=== PATIENT | female | born 1950 | race Caucasian/White ===

== ENCOUNTER 2018-02-10 08:25 | Outpatient (REF) | payer MEDICARE, MEDICAID, SELFPAY ==
[2018-02-10 14:26] LABS: TSH (W/Ref FT4) 0.55 uIU/mL (0.358-3.74)
== END 2018-02-10 08:45 ==
LOC: NCHCN 08:25
PROVIDERS: PCP Nurse Practitioner; Visit Provider Nurse Practitioner
DX: E03.9 Hypothyroidism, unspecified (principal)
CPT/HCPCS: 84443

== ENCOUNTER 2018-03-06 06:05 | Day surgery (SDC) | payer MEDICARE, MEDICAID, SELFPAY ==
--- NOTE | 2018-03-04 20:27 | POEE_ITS ---
History of Present Illness Chief Complaint: Progressive decreased vision, left eye Narrative: The patient is a 67-year old lady with history of high hyperopia with bilateral amblyopia. She presented with complaints of diminished visual acuity in her good right eye, having difficulty reading the television. On examination she was noted to have moderate bilateral nuclear cataracts. The option of cataract surgery was offered to the patient, and she wished to proceed. She understands that postoperative visual acuity may be limited by the presence of pre-existing amblyopia. NOTE: The Chief Complaint, HPI, Past Medical History, Past Surgical History, Family History, Social History, Medications, and complete Ophthalmic Exam with detailed Assessment and Plan have already been documented in the patient's outpatient ophthalmic record and are not covered again in detail here. PFSH Family History Mother Heart disease Father Personal history of malignant neoplasm Sister No problems noted. Brother Heart disease Medical History Refractive amblyopia of left eye (Chronic) Cortical cataract of left eye (Acute) Nuclear sclerotic cataract of left eye (Acute) Extreme hyperopia (Chronic) Arthritis Chronic low back pain Dyslexia Essential hypertension Gastroesophageal reflux disease Hyperlipidemia Hypothyroidism Osteoporosis Social History number of children: 1 Smoking/Tobacco Use Status: Never substance use type: does not use Surgical History Abdominal hysterectomy Cholecystectomy Oophrectomy, Right Meds Home Medications Medication Instructions Recorded Confirmed Type aspirin 325 mg PO DAILY tab-cap NS 03/02/13 10/20/16 History docusate sodium 100 mg PO DAILY tab-cap NS 03/02/13 03/02/18 History furosemide 40 mg PO DAILY tab-cap NS 03/02/13 03/02/18 History simvastatin 40 mg PO HS 08/19/13 03/02/18 History cholecalciferol (vitamin D3) 1,000 unit PO DAILY #1 09/24/13 03/02/18 History albuterol sulfate 2 puff INHALATION QID PRN PRN 10/04/13 03/02/18 History oxycodone 5 mg PO Q4H #20 tab 07/21/14 03/02/18 Rx nitroglycerin 0.4 mg SUBLINGUAL DIRECTED #25 10/30/15 03/02/18 Rx tab.subl potassium chloride 10 meq PO DAILY 10/30/15 03/02/18 History pramipexole [Mirapex] 0.25 mg PO DAILY 10/30/15 03/02/18 History cephalexin 500 mg PO QID #28 cap 10/20/16 Rx oxycodone-acetaminophen 1 tab PO Q6H PRN PRN #7 tab 10/20/16 Rx calcium citrate 200 mg PO BID 03/02/18 03/02/18 History capsaicin 1 applic TOPICAL TID 03/02/18 03/02/18 History estradiol [Estrace] 1 g VAGINAL .2-3X WEEK 03/02/18 03/02/18 History fluticasone [Flovent HFA] 2 puff INHALATION BID 03/02/18 03/02/18 History gabapentin 800 mg PO TID 03/02/18 03/02/18 History levothyroxine 137 mcg PO DAILY 03/02/18 03/02/18 History lisinopril 5 mg PO DAILY 03/02/18 03/02/18 History meloxicam 7.5 mg PO BID 03/02/18 03/02/18 History metoprolol succinate 25 mg PO DAILY 03/02/18 03/02/18 History multivitamin 1 cap PO QAM 03/02/18 03/02/18 History ofloxacin 10 drp OTIC (EAR) .DAILY X 7 DAYS 03/02/18 03/02/18 History omega-3 fatty acids-fish oil 1 cap PO DAILY 03/02/18 03/02/18 History omeprazole 20 mg PO BID 03/02/18 03/02/18 History zolpidem [Ambien] 5 mg PO HS PRN 03/02/18 03/02/18 History Allergies Allergy/AdvReac Type Severity Reaction Status Date / Time cyclobenzaprine Allergy Intermediate Hives Unverified 10/20/16 15:12 [Cyclobenzaprine] codeine Allergy Unknown feels like Unverified 10/20/16 15:12 I'm having a heart attack shellfish derived Allergy Unknown Unverified 10/20/16 15:12 fentanyl AdvReac Intermediate Contraindic Unverified 10/20/16 15:12 ated morphine AdvReac Unknown Contraindic Unverified 10/20/16 15:12 ated cats Allergy Severe Wheezing Uncoded 10/20/16 15:12 Exam OCULAR EXAM:: Visual acuity at distance: With correction, 20/50 right eye, 20/ 70 left eye Pupils: Pupils equal, round, and reactive without afferent pupillary defect IOP: 10 OD 13 OS Extraocular Motility: Normal Pertinent Slit Lamp Findings: Significant for pupils dilating to 7 mm OU. Intermediate anterior chamber depth. 2+ nuclear sclerotic cataract OU Dilated Funduscopic Examination: Disc cupping is 0.3 OU. The optic nerves have good color. The optic nerves have good perfusion and normal color. The retinal vasculature is normal without significant tortuosity or abnormality. The maculas are normal in appearance with normal contour and foveal reflex appropriate for age. The peripheral retina and vitreous are normal. BRIGHTNESS ACUITY TESTING (BAT):: Off left eye 20/70 Low: 20/70 Medium: 20/70 High: 20/150 Assessment and Plan (1) Nuclear sclerotic cataract of left eye: Current visit: No Status: Acute Assessment: Visually significant cataract, left eye. Plan: Cataract extraction with intraocular lens implantation, left eye (2) Cortical cataract of left eye: Current visit: No Status: Acute Assessment: Visually significant cataract, left eye. Plan: Cataract extraction with intraocular lens implantation, left eye (3) Extreme hyperopia: Current visit: No Status: Chronic (4) Refractive amblyopia of left eye: Current visit: No Status: Chronic Note: NOTE:: The details of the planned surgery, including the risks, indications, limitations,expectations,outcome and possible complications were explained to the patient. The patient understands the complications including, but not limited to: infection, hemorrhage, posterior dislocation of the lens or nuclear fragments which may require the intervention of a vitreoretinal surgeon, possible loss of the eye, or from anesthetic complications. The patient has been made aware of the option of not having surgery, that vision following surgery may not be equal to that prior to surgery, and that the planned surgery may not achieve the intended results. Following this discussion, which the patient appeared to understand, the patient wishes to proceed with cataract surgery with lens implantation of the affected eye to improve and maximize vision.
[2018-03-06 06:26] VITALS: BP 143/75; PULSE 56; RESP 18; TEMP 37; O2SAT 99
[2018-03-06] MEDS: Lidocaine 2% Jelly 6 ML SYR (07:31)
[2018-03-06] MEDS: Balanced Salt Soln.-PLUS 500 ML BAG (07:36)
[2018-03-06] MEDS: Povidone-Iodine Ophth 30 ML BTL (07:36)
--- NOTE | 2018-03-06 07:58 | W.PM.DSUDISC ---
Discharge Plan Discharge Details Attending Provider: Fabio Mensah Primary Care Provider: Rosie Culver Home Meds and New Rx's Prescriptions: No Action furosemide 40 MG tablet 40 mg PO DAILY RF: 0 aspirin 325 MG tablet 325 mg PO DAILY RF: 0 docusate sodium 100 MG tablet 100 mg PO DAILY RF: 0 cholecalciferol (vitamin D3) 1,000 UNIT capsule 1,000 unit PO DAILY Qty: 1 RF: 0 simvastatin 40 MG tablet 40 mg PO HS RF: 0 albuterol sulfate 8.5 GM HFA aerosol inhaler 2 puff Inhalation QID PRN PRNRF: 0 oxycodone 5 MG tablet 5 mg PO Q4H Qty: 20 RF: 0 potassium chloride 10 MEQ tablet extended release 10 meq PO DAILY RF: 0 pramipexole [Mirapex] 0.25 MG tablet 0.25 mg PO DAILY RF: 0 nitroglycerin 0.4 MG tablet, sublingual 0.4 mg Sublingual DIRECTED Qty: 25 RF: 0 cephalexin 500 MG capsule 500 mg PO QID Qty: 28 RF: 0 oxycodone-acetaminophen 1 TAB tablet 1 tab PO Q6H PRN PRNQty: 7 RF: 0 capsaicin 0.075 % Cream 1 applic TOPICAL TID RF: 0 meloxicam 7.5 mg Tablet 7.5 mg PO BID RF: 0 ofloxacin 0.3 % Drops 10 drp OTIC (EAR) .DAILY X 7 DAYS RF: 0 gabapentin 800 mg Tablet 800 mg PO TID RF: 0 omeprazole 20 mg Capsule,Delayed Release(Dr/Ec) 20 mg PO BID RF: 0 fluticasone [Flovent HFA] 220 mcg/actuation Hfa Aerosol Inhaler 2 puff INHALATION BID RF: 0 lisinopril 5 mg Tablet 5 mg PO DAILY RF: 0 zolpidem [Ambien] 5 mg Tablet 5 mg PO HS PRNRF: 0 metoprolol succinate 25 mg Tablet Extended Release 24 Hr 25 mg PO DAILY RF: 0 estradiol [Estrace] 0.01 % (0.1 mg/gram) Cream 1 g VAGINAL .2-3X WEEK RF: 0 multivitamin Capsule 1 cap PO QAM RF: 0 calcium citrate 200 mg (950 mg) Tablet 200 mg PO BID RF: 0 omega-3 fatty acids-fish oil 300-1,000 mg Capsule 1 cap PO DAILY RF: 0 levothyroxine 137 mcg Capsule 137 mcg PO DAILY RF: 0 Discharge Instructions Stand Alone Forms: Post-op Topical Cataract, Denny Mike (DSU) DS: Diagnosis Discharge Diagnosis (1) Nuclear sclerotic cataract of left eye: Status: Resolved (2) Cortical cataract of left eye: Status: Resolved (3) Extreme hyperopia: Status: Resolved (4) Refractive amblyopia of left eye: Status: Chronic
--- NOTE | 2018-03-06 08:00 | W.PM.OP ---
Date of service: 03/06/18 Time of Service: 08:01 Operative Note DATE OF PROCEDURE: 03/06/18 PRE-OP DIAGNOSIS: Cataract, left eye POST-OP DIAGNOSIS: same PROCEDURE: Cataract extraction using phacoemulsification with intraocular lens implant, left eye SURGEON: Fabio Mensah ANESTHESIA: MAC and local (sub-tenon's anesthetic infiltration) PATHOLOGY: none sent COMPLICATIONS: None Patient was transported to: same day Patient's condition: stable Implants: Luis M and Luis M Vision / [employer] Tecnis [id number] Indications: Progressive decreased vision due to cataract, left eye Procedure Description: CATARACT SURGERY OPERATIVE REPORT PREOPERATIVE DIAGNOSIS: 1. Nuclear/cortical cataract, left eye, symptomatic 2. High hyperopia POSTOPERATIVE DIAGNOSIS: Same OPERATION: Cataract extraction using phacoemulsification with posterior chamber intraocular lens implant, left eye. IOL: IOL Fusing Furnace Loader/Model: [employer] Vision / BRIGIDO Tecnis ZCB00 IOL Power: + 31.0 diopters IOL Serial Number: [id number] Optic Diameter: 6.0mm Haptic/Overall Diameter: 13.0mm PHACO INFO: [employer] Vision System with OZil and Active Fluidics Cumulative Dispersed Energy (CDE): 6.56 seconds SURGEON: Fabio Mensah MD, HÉCTOR ANESTHESIA: Monitored Anesthesia Care (MAC), with local sub-tenon's anesthetic infiltration COMPLICATIONS: None SPECIMENS: None INDICATIONS FOR PROCEDURE: The patient is a 67-year-old lady with history of high hyperopia who has developed nuclear and cortical cataracts in both eyes. She is significantly asymmetric that she desires cataract surgery and attempt to improve and maximize her vision. She also has a history of refractive amblyopia from her high hyperopia and understands that postoperative visual acuity may be limited by the pre-existing visual deficit. PROCEDURE: The correct surgical eye was identified and marked as the left eye and the pupil was dilated in the preoperative area using mydriatics, cycloplegics, and NSAIDS (except in aspirin allergic patients). The dilated pupil size was 8.0 mm. Oral sedation was administered in the form of an Imprimis MKO Melt (midazolam 3mg/ketamine 25mg/ondansetron 2mg). The patient was brought to the operating room where cardiopulmonary monitoring was instituted and surgical time-out was performed, confirming the correct operative eye and IOL power. Topical anesthesia was administered and ophthalmic povidone-iodine 5% was instilled into the conjunctival fornices. Lidocaine gel was applied to the cornea and the uriel-ocular area was prepped with Betadine 10% solution and draped in the usual sterile fashion for intraocular surgery. Steri-strips were used to cover the lashes and lid margins and an adhesive eye drape was placed. Care was taken to isolate the lashes and lid margins under the Steri-strips and adhesive eye drape. A lid speculum was placed between the lids of the operative eye and the [place]-Wilfrido operating microscope was maneuvered into position. Jayme scissors were then used to make a conjunctival buttonhole approximately 6mm posterior to the limbus in the inferonasal quadrant. Blunt dissection was carried out to expose bare sclera, and a blunt-tipped sub-tenon?s anesthesia cannula was introduced and passed posteriorly along the globe where non-preserved plain lidocaine was injected into posterior sub-Tenon?s space. A sideport knife was used to make a paracentesis port at the 12:00 postion and the anterior chamber was filled with Healon GV. A 2.4mm keratome knife was used to create a half-thickness groove at the limbus and then to construct a three-plane near-clear corneal tunnel extending 2.0mm into clear cornea at the 3:00 position. A flap was raised on the anterior capsule and capsulorhexis forceps were used to complete a continuous curvilinear capsulorhexis of 5.0 mm. Balanced salt solution was then used to perform cortical cleaving hydrodissection and nuclear hydrodelineation until the lens could be freely rotated within the capsular bag. The lens nucleus was then disassembled and removed within the capsular bag and iris plane using phacoemulsification. Residual cortical material was removed using the 45-degree angled silicone I/A tip with 0.3mm port. The posterior capsule was carefully polished to remove as much residual lens epithelial cells as safely possible. The capsular bag was then inflated and the anterior chamber deepened with viscoelastic. The lens implant described above was inserted into the capsular bag using the BRIGIDO [place] Injector. A Kuglen hook was used to dial the IOL into position. Residual viscoelastic was then removed first from posterior to the IOL, then from the anterior chamber using the I/A handpiece. The lens implant was noted to center nicely within the capsular bag. The incisions were stromally hydrated, and the anterior chamber was reformed using BSS. Then 0.4cc of moxifloxacin 1.5mg/ml were injected into the capsular bag and anterior chamber. The incisions were checked with a Weck spear and found to be secure. Several drops of ophthalmic povidone-iodine 5% were then applied to the eye followed by two drops of Imprimis combination moxifloxacin/dexamethasone solution. The drapes were removed and a clear plastic protective eye shield was placed over the eye. The patient was then returned to Same Day Surgery in stable condition.
--- NOTE | 2018-03-06 08:05 | ROE_ITS ---
Date of service: 03/06/18 Time of Service: 08:01 Operative Note DATE OF PROCEDURE: 03/06/18 PRE-OP DIAGNOSIS: Cataract, left eye POST-OP DIAGNOSIS: same PROCEDURE: Cataract extraction using phacoemulsification with intraocular lens implant, left eye SURGEON: Fabio Mensah ANESTHESIA: MAC and local (sub-tenon's anesthetic infiltration) PATHOLOGY: none sent COMPLICATIONS: None Patient was transported to: same day Patient's condition: stable Implants: Luis M and Luis M Vision / [employer] Tecnis [id number] Indications: Progressive decreased vision due to cataract, left eye Procedure Description: CATARACT SURGERY OPERATIVE REPORT PREOPERATIVE DIAGNOSIS: 1. Nuclear/cortical cataract, left eye, symptomatic 2. High hyperopia POSTOPERATIVE DIAGNOSIS: Same OPERATION: Cataract extraction using phacoemulsification with posterior chamber intraocular lens implant, left eye. IOL: IOL Booker/Model: J[employer]J Vision / BRIGIDO Tecnis ZCB00 IOL Power: + 31.0 diopters IOL Serial Number: [id number] Optic Diameter: 6.0mm Haptic/Overall Diameter: 13.0mm PHACO INFO: [employer]ene [employer] Vision System with OZil and Active Fluidics Cumulative Dispersed Energy (CDE): 6.56 seconds SURGEON: Fabio Mensah MD, HÉCTOR ANESTHESIA: Monitored Anesthesia Care (MAC), with local sub-tenon's anesthetic infiltration COMPLICATIONS: None SPECIMENS: None INDICATIONS FOR PROCEDURE: The patient is a 67-year-old lady with history of high hyperopia who has developed nuclear and cortical cataracts in both eyes. She is significantly asymmetric that she desires cataract surgery and attempt to improve and maximize her vision. She also has a history of refractive amblyopia from her high hyperopia and understands that postoperative visual acuity may be limited by the pre-existing visual deficit. PROCEDURE: The correct surgical eye was identified and marked as the left eye and the pupil was dilated in the preoperative area using mydriatics, cycloplegics, and NSAIDS (except in aspirin allergic patients). The dilated pupil size was 8.0 mm. Oral sedation was administered in the form of an Imprimis MKO Melt (midazolam 3mg/ketamine 25mg/ondansetron 2mg). The patient was brought to the operating room where cardiopulmonary monitoring was instituted and surgical time-out was performed, confirming the correct operative eye and IOL power. Topical anesthesia was administered and ophthalmic povidone-iodine 5% was instilled into the conjunctival fornices. Lidocaine gel was applied to the cornea and the uriel-ocular area was prepped with Betadine 10% solution and draped in the usual sterile fashion for intraocular surgery. Steri-strips were used to cover the lashes and lid margins and an adhesive eye drape was placed. Care was taken to isolate the lashes and lid margins under the Steri-strips and adhesive eye drape. A lid speculum was placed between the lids of the operative eye and the Keyona-Wilfrido operating microscope was maneuvered into position. Jayme scissors were then used to make a conjunctival buttonhole approximately 6mm posterior to the limbus in the inferonasal quadrant. Blunt dissection was carried out to expose bare sclera, and a blunt-tipped sub-tenon? s anesthesia cannula was introduced and passed posteriorly along the globe where non-preserved plain lidocaine was injected into posterior sub-Tenon?s space. A sideport knife was used to make a paracentesis port at the 12:00 postion and the anterior chamber was filled with Healon GV. A 2.4mm keratome knife was used to create a half-thickness groove at the limbus and then to construct a three-plane near-clear corneal tunnel extending 2.0mm into clear cornea at the 3:00 position. A flap was raised on the anterior capsule and capsulorhexis forceps were used to complete a continuous curvilinear capsulorhexis of 5.0 mm. Balanced salt solution was then used to perform cortical cleaving hydrodissection and nuclear hydrodelineation until the lens could be freely rotated within the capsular bag. The lens nucleus was then disassembled and removed within the capsular bag and iris plane using phacoemulsification. Residual cortical material was removed using the 45-degree angled silicone I/A tip with 0.3mm port. The posterior capsule was carefully polished to remove as much residual lens epithelial cells as safely possible. The capsular bag was then inflated and the anterior chamber deepened with viscoelastic. The lens implant described above was inserted into the capsular bag using the BRIGIDO [place] Injector. A Kuglen hook was used to dial the IOL into position. Residual viscoelastic was then removed first from posterior to the IOL, then from the anterior chamber using the I/A handpiece. The lens implant was noted to center nicely within the capsular bag. The incisions were stromally hydrated , and the anterior chamber was reformed using BSS. Then 0.4cc of moxifloxacin 1.5mg/ml were injected into the capsular bag and anterior chamber. The incisions were checked with a Weck spear and found to be secure. Several drops of ophthalmic povidone-iodine 5% were then applied to the eye followed by two drops of Imprimis combination moxifloxacin/dexamethasone solution. The drapes were removed and a clear plastic protective eye shield was placed over the eye. The patient was then returned to Same Day Surgery in stable condition.
[2018-03-06 08:25] VITALS: BP 98/48; PULSE 56; RESP 16; TEMP 35.7; O2SAT 97
== END 2018-03-06 08:35 | disposition home or self-care (01) ==
PROVIDERS: PCP Nurse Practitioner; Visit Provider Ophthalmology
PROC: (CPT 66984; principal; 2018-03-06 07:30)
DX: H25.812 Combined forms of age-related cataract, left eye (principal); H52.02 Hypermetropia, left eye; K21.9 Gastro-esophageal reflux disease without esophagitis; I10 Essential (primary) hypertension
CPT/HCPCS: 66984; V2632

== ENCOUNTER 2018-03-20 06:14 | Day surgery (SDC) | payer MEDICARE, MEDICAID, SELFPAY ==
--- NOTE | 2018-03-19 07:34 | POEE_ITS ---
History of Present Illness Chief Complaint: Progressive decreased vision, right eye Narrative: The patient is a 67-year-old lady with history of high hyperopia who presented with complaints of diminished visual acuity in both eyes at both distance and near. On examination she was noted to have moderate bilateral cataracts with visual acuity of 20/50 OD, 20/70 OS. There is some degree of pre -existing refractive amblyopia due to her very high hyperopia. She underwent cataract surgery in the left eye on 03/06/2018. Postoperatively she has regained best corrected vision of 20/30 in the left eye. She now presents for cataract surgery in the right eye NOTE: The Chief Complaint, HPI, Past Medical History, Past Surgical History, Family History, Social History, Medications, and complete Ophthalmic Exam with detailed Assessment and Plan have already been documented in the patient's outpatient ophthalmic record and are not covered again in detail here. PFSH Family History Mother Heart disease Father Personal history of malignant neoplasm Sister No problems noted. Brother Heart disease Medical History Cortical cataract of right eye (Acute) Nuclear sclerotic cataract of right eye (Acute) Refractive amblyopia of right eye (Chronic) Refractive amblyopia of left eye (Chronic) Cortical cataract of left eye (Resolved) Nuclear sclerotic cataract of left eye (Resolved) Extreme hyperopia (Resolved) Arthritis Chronic low back pain Dyslexia Essential hypertension Gastroesophageal reflux disease Hyperlipidemia Hypothyroidism Osteoporosis Social History number of children: 1 Smoking/Tobacco Use Status: Never substance use type: does not use Surgical History Abdominal hysterectomy Cholecystectomy Oophrectomy, Right Meds Home Medications Medication Instructions Recorded Confirmed Type aspirin 325 mg PO DAILY tab-cap NS 03/02/13 03/06/18 History docusate sodium 100 mg PO DAILY tab-cap NS 03/02/13 03/06/18 History furosemide 40 mg PO DAILY tab-cap NS 03/02/13 03/06/18 History simvastatin 40 mg PO HS 08/19/13 03/06/18 History cholecalciferol (vitamin D3) 1,000 unit PO DAILY #1 09/24/13 03/06/18 History albuterol sulfate 2 puff INHALATION QID PRN PRN 10/04/13 10/20/16 History oxycodone 5 mg PO Q4H #20 tab 07/21/14 03/06/18 Rx nitroglycerin 0.4 mg SUBLINGUAL DIRECTED #25 10/30/15 03/02/18 Rx tab.subl potassium chloride 10 meq PO DAILY 10/30/15 03/06/18 History pramipexole [Mirapex] 0.25 mg PO DAILY 10/30/15 03/06/18 History cephalexin 500 mg PO QID #28 cap 10/20/16 Rx oxycodone-acetaminophen 1 tab PO Q6H PRN PRN #7 tab 10/20/16 Rx calcium citrate 200 mg PO BID 03/02/18 03/06/18 History capsaicin 1 applic TOPICAL TID 03/02/18 03/02/18 History estradiol [Estrace] 1 g VAGINAL .2-3X WEEK 03/02/18 03/02/18 History fluticasone [Flovent HFA] 2 puff INHALATION BID 03/02/18 History gabapentin 800 mg PO TID 03/02/18 03/06/18 History levothyroxine 137 mcg PO DAILY 03/02/18 03/06/18 History lisinopril 5 mg PO DAILY 03/02/18 03/06/18 History meloxicam 7.5 mg PO BID 03/02/18 03/06/18 History metoprolol succinate 25 mg PO DAILY 03/02/18 03/06/18 History multivitamin 1 cap PO QAM 03/02/18 03/06/18 History ofloxacin 10 drp OTIC (EAR) .DAILY X 7 DAYS 03/02/18 03/02/18 History omega-3 fatty acids-fish oil 1 cap PO DAILY 03/02/18 03/06/18 History omeprazole 20 mg PO BID 03/02/18 03/06/18 History zolpidem [Ambien] 5 mg PO HS PRN 03/02/18 03/02/18 History Allergies Allergy/AdvReac Type Severity Reaction Status Date / Time cyclobenzaprine Allergy Intermediate Hives Unverified 10/20/16 15:12 [Cyclobenzaprine] codeine Allergy Unknown feels like Unverified 10/20/16 15:12 I'm having a heart attack shellfish derived Allergy Unknown Unverified 10/20/16 15:12 fentanyl AdvReac Intermediate Contraindic Unverified 10/20/16 15:12 ated morphine AdvReac Unknown Contraindic Unverified 10/20/16 15:12 ated cats Allergy Severe Wheezing Uncoded 10/20/16 15:12 Exam OCULAR EXAM:: Visual acuity at distance: Right eye corrected 20/50, left eye corrected to 20/30. Pupils: Pupils equal, round, and reactive without afferent pupillary defect IOP: 10 OD 13 OS Extraocular Motility: Normal Pertinent Slit Lamp Findings: Significant for intermediate anterior chamber depth OD. Pupil dilates to 7 mm. 2+ nuclear cataract OD. Well-positioned PCIOL is present OS with clear posterior capsule. Dilated Funduscopic Examination: Disc cupping is 0.3 OU with good color. The optic nerves have good perfusion and normal color. The retinal vasculature is normal without significant tortuosity or abnormality. The maculas are normal in appearance with normal contour and foveal reflex appropriate for age. The peripheral retina and vitreous are normal. BRIGHTNESS ACUITY TESTING (BAT):: Off right eye 20/50 Low: 20/50 Medium: 20/70 High: 20/100 Assessment and Plan (1) Nuclear sclerotic cataract of right eye: Current visit: No Status: Acute Assessment: Visually significant cataract, right eye. Plan: Cataract extraction with intraocular lens implantation, right eye (2) Cortical cataract of right eye: Current visit: No Status: Acute Assessment: Visually significant cataract, right eye. Plan: Cataract extraction with intraocular lens implantation, right eye Note: NOTE:: The details of the planned surgery, including the risks, indications, limitations,expectations,outcome and possible complications were explained to the patient. The patient understands the complications including, but not limited to: infection, hemorrhage, posterior dislocation of the lens or nuclear fragments which may require the intervention of a vitreoretinal surgeon, possible loss of the eye, or from anesthetic complications. The patient has been made aware of the option of not having surgery, that vision following surgery may not be equal to that prior to surgery, and that the planned surgery may not achieve the intended results. Following this discussion, which the patient appeared to understand, the patient wishes to proceed with cataract surgery with lens implantation of the affected eye to improve and maximize vision.
[2018-03-20 06:36] VITALS: BP 136/86; PULSE 64; RESP 18; TEMP 36.3; O2SAT 98
[2018-03-20] MEDS: Lidocaine 1% Pres-Free 5 ML VIAL (07:38)
[2018-03-20] MEDS: Balanced Salt Soln.-PLUS 500 ML BAG (07:40)
[2018-03-20] MEDS: Povidone-Iodine Ophth 30 ML BTL (07:40)
[2018-03-20] MEDS: Lidocaine 2% Jelly 6 ML SYR (07:44)
--- NOTE | 2018-03-20 08:03 | W.PM.DSUDISC ---
Discharge Plan Discharge Details Attending Provider: Fabio Mensah Primary Care Provider: Rosie Culver Home Meds and New Rx's Prescriptions: No Action furosemide 40 MG tablet 40 mg PO DAILY RF: 0 aspirin 325 MG tablet 325 mg PO DAILY RF: 0 docusate sodium 100 MG tablet 100 mg PO DAILY RF: 0 cholecalciferol (vitamin D3) 1,000 UNIT capsule 1,000 unit PO DAILY Qty: 1 RF: 0 simvastatin 40 MG tablet 40 mg PO HS RF: 0 albuterol sulfate 8.5 GM HFA aerosol inhaler 2 puff Inhalation QID PRN PRNRF: 0 oxycodone 5 MG tablet 5 mg PO Q4H Qty: 20 RF: 0 potassium chloride 10 MEQ tablet extended release 10 meq PO DAILY RF: 0 pramipexole [Mirapex] 0.25 MG tablet 0.25 mg PO DAILY RF: 0 nitroglycerin 0.4 MG tablet, sublingual 0.4 mg Sublingual DIRECTED Qty: 25 RF: 0 cephalexin 500 MG capsule 500 mg PO QID Qty: 28 RF: 0 oxycodone-acetaminophen 1 TAB tablet 1 tab PO Q6H PRN PRNQty: 7 RF: 0 capsaicin 0.075 % Cream 1 applic TOPICAL TID RF: 0 meloxicam 7.5 mg Tablet 7.5 mg PO BID RF: 0 ofloxacin 0.3 % Drops 10 drp OTIC (EAR) .DAILY X 7 DAYS RF: 0 gabapentin 800 mg Tablet 800 mg PO TID RF: 0 omeprazole 20 mg Capsule,Delayed Release(Dr/Ec) 20 mg PO BID RF: 0 fluticasone [Flovent HFA] 220 mcg/actuation Hfa Aerosol Inhaler 2 puff INHALATION BID RF: 0 lisinopril 5 mg Tablet 5 mg PO DAILY RF: 0 zolpidem [Ambien] 5 mg Tablet 5 mg PO HS PRNRF: 0 metoprolol succinate 25 mg Tablet Extended Release 24 Hr 25 mg PO DAILY RF: 0 estradiol [Estrace] 0.01 % (0.1 mg/gram) Cream 1 g VAGINAL .2-3X WEEK RF: 0 multivitamin Capsule 1 cap PO QAM RF: 0 calcium citrate 200 mg (950 mg) Tablet 200 mg PO BID RF: 0 omega-3 fatty acids-fish oil 300-1,000 mg Capsule 1 cap PO DAILY RF: 0 levothyroxine 137 mcg Capsule 137 mcg PO DAILY RF: 0 Discharge Instructions Stand Alone Forms: Post-op Topical Cataract, Denny Mike (DSU) DS: Diagnosis Discharge Diagnosis (1) Nuclear sclerotic cataract of right eye: Status: Resolved (2) Cortical cataract of right eye: Status: Resolved (3) Status post cataract extraction and insertion of intraocular lens of right eye: Status: Chronic
--- NOTE | 2018-03-20 08:07 | W.PM.OP ---
Date of service: 03/20/18 Time of Service: 08:07 Operative Note DATE OF PROCEDURE: 03/20/18 PRE-OP DIAGNOSIS: Cataract, right eye POST-OP DIAGNOSIS: same SURGEON: Fabio Mensah ANESTHESIA: MAC and local (sub-tenon's anesthetic infiltration) PATHOLOGY: none sent COMPLICATIONS: None Patient was transported to: same day Patient's condition: stable Implants: Luis M and Luis M Vision / [employer] Tecnis ZCB00 Indications: Progressive decreased vision due to cataract, right eye Procedure Description: CATARACT SURGERY OPERATIVE REPORT PREOPERATIVE DIAGNOSIS: Nuclear/cortical cataract, right eye POSTOPERATIVE DIAGNOSIS: Same OPERATION: Cataract extraction using phacoemulsification with posterior chamber intraocular lens implant, right eye. IOL: IOL Geophysical Operator/Model: [employer]J Vision / BRIGIDO Tecnis ZCB00 IOL Power: +31.5 diopters IOL Serial Number: [id number] Optic Diameter: 6.0mm Haptic/Overall Diameter: 13.0mm PHACO INFO: Rene RaftOuturion Vision System with OZil and Active Fluidics Cumulative Dispersed Energy (CDE): 8.44 seconds SURGEON: Fabio Mensah MD, HÉCTOR ANESTHESIA: Monitored Anesthesia Care (MAC), with local sub-tenon's anesthetic infiltration COMPLICATIONS: None SPECIMENS: None INDICATIONS FOR PROCEDURE: The patient is a 67-year-old lady with history of extreme hyperopia with bilateral refractive amblyopia who developed symptomatic bilateral nuclear cataracts. She is Ardie undergone cataract surgery in the left eye on 03/06/2018. She is doing well postoperatively and now presents for cataract surgery of the right eye. PROCEDURE: The correct surgical eye was identified and marked as the right eye and the pupil was dilated in the preoperative area using mydriatics, cycloplegics, and NSAIDS (except in aspirin allergic patients). The dilated pupil size was 8.0 mm. Oral sedation was administered in the form of an Imprimis MKO Melt (midazolam 3mg/ketamine 25mg/ondansetron 2mg). The patient was brought to the operating room where cardiopulmonary monitoring was instituted and surgical time-out was performed, confirming the correct operative eye and IOL power. Topical anesthesia was administered and ophthalmic povidone-iodine 5% was instilled into the conjunctival fornices. Lidocaine gel was applied to the cornea and the uriel-ocular area was prepped with Betadine 10% solution and draped in the usual sterile fashion for intraocular surgery. Steri-strips were used to cover the lashes and lid margins and an adhesive eye drape was placed. Care was taken to isolate the lashes and lid margins under the Steri-strips and adhesive eye drape. A lid speculum was placed between the lids of the operative eye and the [place]-Wilfrido operating microscope was maneuvered into position. Jayme scissors were then used to make a conjunctival buttonhole approximately 6mm posterior to the limbus in the inferonasal quadrant. Blunt dissection was carried out to expose bare sclera, and a blunt-tipped sub-tenon?s anesthesia cannula was introduced and passed posteriorly along the globe where non-preserved plain lidocaine was injected into posterior sub-Tenon?s space. A sideport knife was used to make a paracentesis port at the 7:00 postion and the anterior chamber was filled with Healon GV. A 2.4mm keratome knife was used to create a half-thickness groove at the limbus and then to construct a three-plane near-clear corneal tunnel extending 2.0mm into clear cornea at the 10:00 position. A flap was raised on the anterior capsule and capsulorhexis forceps were used to complete a continuous curvilinear capsulorhexis of 4.5mm. Balanced salt solution was then used to perform cortical cleaving hydrodissection and nuclear hydrodelineation until the lens could be freely rotated within the capsular bag. The lens nucleus was then disassembled and removed within the capsular bag and iris plane using phacoemulsification. Residual cortical material was removed using the 45-degree angled silicone I/A tip with 0.3mm port. The posterior capsule was carefully polished to remove as much residual lens epithelial cells as safely possible. The capsular bag was then inflated and the anterior chamber deepened with viscoelastic. The lens implant described above was inserted into the capsular bag using the BRIGIDO [place] Injector. A Kuglen hook was used to dial the IOL into position. Residual viscoelastic was then removed first from posterior to the IOL, then from the anterior chamber using the I/A handpiece. The lens implant was noted to center nicely within the capsular bag. The incisions were stromally hydrated, and the anterior chamber was reformed using BSS. Then 0.4cc of moxifloxacin 1.5mg/ml were injected into the capsular bag and anterior chamber. The incisions were checked with a Weck spear and found to be secure. Several drops of ophthalmic povidone-iodine 5% were then applied to the eye followed by two drops of Imprimis combination moxifloxacin/dexamethasone solution. The drapes were removed and a clear plastic protective eye shield was placed over the eye. The patient was then returned to Same Day Surgery in stable condition.
--- NOTE | 2018-03-20 08:10 | ROE_ITS ---
Date of service: 03/20/18 Time of Service: 08:07 Operative Note DATE OF PROCEDURE: 03/20/18 PRE-OP DIAGNOSIS: Cataract, right eye POST-OP DIAGNOSIS: same SURGEON: Fabio Mensah ANESTHESIA: MAC and local (sub-tenon's anesthetic infiltration) PATHOLOGY: none sent COMPLICATIONS: None Patient was transported to: same day Patient's condition: stable Implants: Luis M and Luis M Vision / [employer] Tecnis ZCB00 Indications: Progressive decreased vision due to cataract, right eye Procedure Description: CATARACT SURGERY OPERATIVE REPORT PREOPERATIVE DIAGNOSIS: Nuclear/cortical cataract, right eye POSTOPERATIVE DIAGNOSIS: Same OPERATION: Cataract extraction using phacoemulsification with posterior chamber intraocular lens implant, right eye. IOL: IOL Vice President Investor Relations/Model: J[employer]J Vision / BRIGIDO Tecnis ZCB00 IOL Power: +31.5 diopters IOL Serial Number: [id number] Optic Diameter: 6.0mm Haptic/Overall Diameter: 13.0mm PHACO INFO: Rene MAKO [employer] Vision System with OZil and Active Fluidics Cumulative Dispersed Energy (CDE): 8.44 seconds SURGEON: Fabio Mensah MD, HÉCTOR ANESTHESIA: Monitored Anesthesia Care (MAC), with local sub-tenon's anesthetic infiltration COMPLICATIONS: None SPECIMENS: None INDICATIONS FOR PROCEDURE: The patient is a 67-year-old lady with history of extreme hyperopia with bilateral refractive amblyopia who developed symptomatic bilateral nuclear cataracts. She is Ardie undergone cataract surgery in the left eye on 2017. She is doing well postoperatively and now presents for cataract surgery of the right eye. PROCEDURE: The correct surgical eye was identified and marked as the right eye and the pupil was dilated in the preoperative area using mydriatics, cycloplegics, and NSAIDS (except in aspirin allergic patients). The dilated pupil size was 8.0 mm. Oral sedation was administered in the form of an Imprimis MKO Melt (midazolam 3mg/ketamine 25mg/ondansetron 2mg). The patient was brought to the operating room where cardiopulmonary monitoring was instituted and surgical time-out was performed, confirming the correct operative eye and IOL power. Topical anesthesia was administered and ophthalmic povidone-iodine 5% was instilled into the conjunctival fornices. Lidocaine gel was applied to the cornea and the uriel-ocular area was prepped with Betadine 10% solution and draped in the usual sterile fashion for intraocular surgery. Steri-strips were used to cover the lashes and lid margins and an adhesive eye drape was placed. Care was taken to isolate the lashes and lid margins under the Steri-strips and adhesive eye drape. A lid speculum was placed between the lids of the operative eye and the Keyona-Wilfrido operating microscope was maneuvered into position. Jayme scissors were then used to make a conjunctival buttonhole approximately 6mm posterior to the limbus in the inferonasal quadrant. Blunt dissection was carried out to expose bare sclera, and a blunt-tipped sub-tenon? s anesthesia cannula was introduced and passed posteriorly along the globe where non-preserved plain lidocaine was injected into posterior sub-Tenon?s space. A sideport knife was used to make a paracentesis port at the 7:00 postion and the anterior chamber was filled with Healon GV. A 2.4mm keratome knife was used to create a half-thickness groove at the limbus and then to construct a three-plane near-clear corneal tunnel extending 2.0mm into clear cornea at the 10:00 position. A flap was raised on the anterior capsule and capsulorhexis forceps were used to complete a continuous curvilinear capsulorhexis of 4.5mm. Balanced salt solution was then used to perform cortical cleaving hydrodissection and nuclear hydrodelineation until the lens could be freely rotated within the capsular bag. The lens nucleus was then disassembled and removed within the capsular bag and iris plane using phacoemulsification. Residual cortical material was removed using the 45-degree angled silicone I/A tip with 0.3mm port. The posterior capsule was carefully polished to remove as much residual lens epithelial cells as safely possible. The capsular bag was then inflated and the anterior chamber deepened with viscoelastic. The lens implant described above was inserted into the capsular bag using the BRIGIDO [place] Injector. A Kuglen hook was used to dial the IOL into position. Residual viscoelastic was then removed first from posterior to the IOL, then from the anterior chamber using the I/A handpiece. The lens implant was noted to center nicely within the capsular bag. The incisions were stromally hydrated , and the anterior chamber was reformed using BSS. Then 0.4cc of moxifloxacin 1.5mg/ml were injected into the capsular bag and anterior chamber. The incisions were checked with a Weck spear and found to be secure. Several drops of ophthalmic povidone-iodine 5% were then applied to the eye followed by two drops of Imprimis combination moxifloxacin/dexamethasone solution. The drapes were removed and a clear plastic protective eye shield was placed over the eye. The patient was then returned to Same Day Surgery in stable condition.
[2018-03-20 08:25] VITALS: BP 109/62; PULSE 60; RESP 16; TEMP 36.6; O2SAT 95
== END 2018-03-20 08:25 | disposition home or self-care (01) ==
PROVIDERS: PCP Nurse Practitioner; Visit Provider Ophthalmology
PROC: (CPT 66984; principal; 2018-03-20 07:30)
DX: H25.811 Combined forms of age-related cataract, right eye (principal); Z98.42 Cataract extraction status, left eye; Z96.1 Presence of intraocular lens; K21.9 Gastro-esophageal reflux disease without esophagitis; I10 Essential (primary) hypertension
CPT/HCPCS: 66984; V2632

== ENCOUNTER 2018-07-22 11:04 | Emergency (ER) | payer MEDICARE, MEDICAID, SELFPAY ==
[2018-07-22 11:07] VITALS: BP 155/69; PULSE 67; RESP 16; TEMP 36.7; O2SAT 98
--- NOTE | 2018-07-22 11:33 | ED.GENADUL_ITS ---
Discharge Plan Disposition Patient Disposition: HOME Condition: Good Discharge Details Chief Complaint: EarProblem Clinical Impression: Vertigo Primary Care Provider: Rosie Culver ED Provider: Joshua Everett Home Meds and New Rx's Prescriptions: New meclizine 25 mg tablet 25 mg PO TID Qty: 20 RF: 0 No Action estradiol [Estrace] 0.01 % (0.1 mg/gram) cream 1 gm VG DAILY Qty: 42.5 RF: 0 furosemide 40 MG tablet 40 mg PO DAILY RF: 0 aspirin 325 MG tablet 325 mg PO DAILY RF: 0 docusate sodium 100 MG tablet 100 mg PO DAILY RF: 0 cholecalciferol (vitamin D3) 1,000 UNIT capsule 1,000 unit PO DAILY Qty: 1 RF: 0 simvastatin 40 MG tablet 40 mg PO HS RF: 0 potassium chloride 10 MEQ tablet extended release 10 meq PO DAILY RF: 0 pramipexole [Mirapex] 0.25 MG tablet 0.25 mg PO DAILY RF: 0 nitroglycerin 0.4 MG tablet, sublingual 0.4 mg Sublingual DIRECTED Qty: 25 RF: 0 capsaicin 0.075 % Cream 1 applic TOPICAL TID RF: 0 meloxicam 7.5 mg Tablet 7.5 mg PO BID RF: 0 ofloxacin 0.3 % Drops 10 drp OTIC (EAR) .DAILY X 7 DAYS RF: 0 gabapentin 800 mg Tablet 800 mg PO TID RF: 0 omeprazole 20 mg Capsule,Delayed Release(Dr/Ec) 20 mg PO BID RF: 0 Flovent HFA 220 mcg/actuation Hfa Aerosol Inhaler 2 puff INHALATION BID RF: 0 lisinopril 5 mg Tablet 5 mg PO DAILY RF: 0 zolpidem [Ambien] 5 mg Tablet 5 mg PO HS PRNRF: 0 metoprolol succinate 25 mg Tablet Extended Release 24 Hr 25 mg PO DAILY RF: 0 multivitamin Capsule 1 cap PO QAM RF: 0 calcium citrate 200 mg (950 mg) Tablet 200 mg PO BID RF: 0 omega-3 fatty acids-fish oil 300-1,000 mg Capsule 1 cap PO DAILY RF: 0 levothyroxine 137 mcg Capsule 137 mcg PO DAILY RF: 0 Discharge Instructions Instructions: Vertigo (ED) Additional Instructions: Please take medication as directed. If you notice any worsening of your symptoms, or any new symptoms such as vomiting, diarrhea, fever, chills, yadiel rtness of breath, chest pain, numbness, weakness, or fainting , please return immediately to the emergency department for reevaluation. Please follow up with your primary care provider as soon as possible for reassessment and reevaluation. As always, it was a pleasure participating in your medical care today. Referrals: Rosie Culver [Primary Care Provider] - Discharge Data Discharge Date/Time-TO BE ENTERED AT DEPARTURE: 07/22/18 11:40 Medical Decision Making This is a 68-year-old female who presents with signs and symptoms concerning for peripheral vertigo. She hears a whooshing sound in her ears as well as tinnitus, she has horizontal nystagmus worse with leftward movement of her head. She shows no signs of a central etiology or focal neurologic deficits. Neurologic exam is normal. She ambulates well without difficulty. With signs and symptoms clinically consistent with peripheral vertigo and inconsistent with a central carotid or vertebral event, I do not feel that any further workup is indicated. We will get Antivert for the treatment of her symptoms, and recommend close follow-up with her PCP. I have extensively reviewed the treatment plan and discharge instructions with the patient. I have addressed all patient concerns at this time. The patient was made aware of what symptoms to monitor for that would warrant a return to the emergency department. Discussed the plan with the patient, they demonstrate verbal understanding and agreement with our assessment and plan at this time. HPI General Date/Time Provider Initiated Documentation: 07/22/18 11:09 . HPI Narrative: This is a 68-year-old female who presents today for sensation of whooshing in her ear, mild weakness mild dizziness. It is been present for the last 4 days. Symptoms are made worse with sudden turning of her head to the left. She does admit to mild dizziness with sharp movements of her head, she does admit to a ringing-like sound as well in her ears. She denies any recent t rauma, history of stroke, or other complaint. She denies any headache, vision changes, chest pain, shortness of breath, syncope, or trauma. No other modifying factors. No recent surgeries, no pertinent family history. Related Data Home Medications Medication Instructions Recorded Confirmed aspirin 325 mg PO DAILY tab-cap NS 03/02/13 07/10/18 docusate sodium 100 mg PO DAILY tab-cap NS 03/02/13 07/10/18 furosemide 40 mg PO DAILY tab-cap NS 03/02/13 07/10/18 simvastatin 40 mg PO HS 08/19/13 07/10/18 cholecalciferol (vitamin D3) 1,000 unit PO DAILY #1 09/24/13 07/10/18 nitroglycerin 0.4 mg SUBLINGUAL DIRECTED #25 10/30/15 07/10/18 tab.subl potassium chloride 10 meq PO DAILY 10/30/15 07/10/18 pramipexole [Mirapex] 0.25 mg PO DAILY 10/30/15 07/10/18 calcium citrate 200 mg PO BID 03/02/18 07/10/18 capsaicin 1 applic TOPICAL TID 03/02/18 07/10/18 fluticasone [Flovent HFA] 2 puff INHALATION BID 03/02/18 07/10/18 gabapentin 800 mg PO TID 03/02/18 07/10/18 levothyroxine 137 mcg PO DAILY 03/02/18 07/10/18 lisinopril 5 mg PO DAILY 03/02/18 07/10/18 meloxicam 7.5 mg PO BID 03/02/18 07/10/18 metoprolol succinate 25 mg PO DAILY 03/02/18 07/10/18 multivitamin 1 cap PO QAM 03/02/18 07/10/18 ofloxacin 10 drp OTIC (EAR) .DAILY X 7 DAYS 03/02/18 07/10/18 omega-3 fatty acids-fish oil 1 cap PO DAILY 03/02/18 07/10/18 omeprazole 20 mg PO BID 03/02/18 07/10/18 zolpidem [Ambien] 5 mg PO HS PRN 03/02/18 07/10/18 estradiol 0.01% (0.1 mg/gram) 1 gm VG DAILY #42.5 gm 03/27/18 07/10/18 vaginal cream meclizine 25 mg PO TID #20 tab 07/22/18 Previous Rx's Medication Instructions Recorded nitroglycerin 0.4 mg SUBLINGUAL DIRECTED #25 10/30/15 tab.subl estradiol 0.01% (0.1 mg/gram) 1 gm VG DAILY #42.5 gm 03/27/18 vaginal cream meclizine 25 mg PO TID #20 tab 07/22/18 Allergies Allergy/AdvReac Type Severity Reaction Status Date / Time cyclobenzaprine Allergy Intermediate Hives Unverified 07/22/18 11:10 [Cyclobenzaprine] codeine Allergy Unknown feels like Unverified 07/22/18 11:10 I'm having a heart attack shellfish derived Allergy Unknown Unverified 07/22/18 11:10 fentanyl AdvReac Intermediate Contraindic Unverified 07/22/18 11:10 ated morphine AdvReac Unknown Contraindic Unverified 07/22/18 11:10 ated cats Allergy Severe Wheezing Uncoded 07/22/18 11:10 General Stated Complaint: EarProblem TOSHIA: 4 Review of Systems Review of Systems All systems reviewed & are unremarkable except as noted in HPI and below PFSH Medical History Refractive amblyopia of right eye (Chronic) Refractive amblyopia of left eye (Chronic) Cortical cataract of right eye (Resolved) Nuclear sclerotic cataract of right eye (Resolved) Arthritis Chronic low back pain Dyslexia Essential hypertension Gastroesophageal reflux disease Hyperlipidemia Hypothyroidism Osteoporosis Surgical History Status post cataract extraction and insertion of intraocular lens of right eye (Chronic 03/20/18) Status post cataract extraction and insertion of intraocular lens of left eye (Chronic 03/06/18) Abdominal hysterectomy Cholecystectomy Oophrectomy, Right Family History Mother Heart disease Father Personal history of malignant neoplasm Sister No problems noted. Brother Heart disease Social History number of children: 1 Smoking and Tabacco status: Never substance use type: does not use Exam Narrative Exam Narrative: 1.Const: Well-nourished, Well-developed, appearing stated age 2.Eyes: PERRL, no conjunctival injection, and symmetrical lids. 3.ENT: Atraumatic external nose and ears. Moist MM. Neck: Symmetric, trachea midline, No thyromegaly. No evidence of otitis media. 4.CVS: +S1/S2, No murmurs or gallops. Peripheral pulses 2+ and equal in all extremities. Brisk capillary refill in all extremities. Auscultation reveals no evidence of carotid or vertebral artery bruits. 5.RESP: Unlabored respiratory effort. Clear to auscultation bilaterally. No wheezes rales or rhonchi 6.GI: Soft, Nontender/Nondistended, No hepatosplenomegaly. No guarding or rebound. 7.MSK: Normocephalic/Atraumatic, Extremities w/o deformity or ttp No cyanosis or clubbing, Normal movement of all extremities 8.Skin: Warm, Dry. No rashes or lesions. 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 Sensation grossly intact, no focal neurologic deficits. All 6 cardinal planes of vision are fully intact. No evidence of rotatory or vertical nystagmus. The patient demonstrated a normal qjjtzd-[id number], good dexterity. There was no evidence of dysdiadochokinesia. Patient was able to ambulate without difficulty. There was no wide-based gait. Romberg, and exis-jo-jfgt are both normal on testing. Sensation was intact bilaterally as well as muscle strength bilaterally for all extremities. Patient was able to verbalize butter cup with no slurring, or miss pronunciation. Cerebellar function testing is normal. The patient demonstrates a normal hints exam with no findings concerning for a central event. No vertical nystagmus. However she does have notable horizontal nystagmus. The head impulse test does demonstrate positivity with brisk movement of the left suggesting a peripheral lead. Normal test of skew. No suggestion of a central cerebellar event. 10.Psych: (AAO) x3. Appropriate mood and affect Course Vital Signs Temperature 36.7 C 07/22/18 11:07 Pulse 67 07/22/18 11:07 Respiratory Rate 16 07/22/18 11:07 Blood Pressure 155/69 H 07/22/18 11:07 Pulse Oximetry 98 07/22/18 11:07 Temperature 36.7 C 07/22/18 11:07 Temperature Source Temporal Artery Scan 07/22/18 11:07 Pulse 67 07/22/18 11:07 Respiratory Rate 16 07/22/18 11:07 Respiratory Effort Non-Labored 07/22/18 11:09 Blood Pressure 155/69 H 07/22/18 11:07 Blood Pressure Position Sitting 07/22/18 11:07 Pulse Oximetry 98 07/22/18 11:07 Oxygen Delivery Method Room Air 07/22/18 11:07 Oxygen Flow Rate 0 07/22/18 11:07 Pain Level 5 07/22/18 11:07
[2018-07-22] MEDS: Meclizine 25 MG TAB PO (11:38)
--- NOTE | 2018-07-22 11:38 | NUR.NOTE ---
patient medicated per MD orderNursing Note:
== END 2018-07-22 11:40 | disposition home or self-care (01) ==
PROVIDERS: Emergency Provider Student in an Organized Health Care Education/Training Program; PCP Nurse Practitioner
DX: R42 Dizziness and giddiness (principal)
CPT/HCPCS: 99283

== ENCOUNTER 2018-10-30 13:28 | Outpatient (REF) | payer MEDICARE, MEDICAID, SELFPAY | END 2018-10-30 13:48 | LOC: NCHCN 13:28 | PROVIDERS: PCP Nurse Practitioner; Visit Provider Nurse Practitioner Family | DX: E11.9 Type 2 diabetes mellitus without complications (principal) | CPT/HCPCS: 82043; 82570 ==

== ENCOUNTER 2019-01-29 14:46 | Outpatient (REF) | payer MEDICARE, MEDICAID, SELFPAY ==
[2019-01-29 19:07] LABS: Anion Gap 7.3 mmol/L (3-11); BUN 14 mg/dL (7-18); CO2 29.7 mmol/L (21.0-32.0); Calcium 9.4 mg/dL (8.5-10.1); Calculated LDL 92 mg/dL; Chloride 102 mmol/L (98-107); Cholesterol 154 mg/dL (50-200); Glucose 151 mg/dL (70-100); HDL Cholesterol 41 mg/dL (40-60); Potassium 4.7 mmol/L (3.5-5.1); Sodium 139 mmol/L (136-145); TSH (W/Ref FT4) 0.55 uIU/mL (0.36-3.74); Triglyceride 106 mg/dL (30-150)
== END 2019-01-29 15:06 ==
LOC: NCHCN 14:46
PROVIDERS: PCP Nurse Practitioner; Visit Provider Nurse Practitioner Family
DX: E03.9 Hypothyroidism, unspecified (principal); G89.29 Other chronic pain; I10 Essential (primary) hypertension; M25.511 Pain in right shoulder; R32 Unspecified urinary incontinence; K21.9 Gastro-esophageal reflux disease without esophagitis
CPT/HCPCS: 80048; 80061; 84443

== ENCOUNTER 2019-10-05 07:55 | Outpatient (CLI) | payer MEDICARE, MEDICAID, SELFPAY ==
--- NOTE | 2019-10-05 | DI.MAMMO_ITS ---
EXAM: MG MAMMO SCREENING CLINICAL HISTORY: SCREENING, Z12.39 TECHNIQUE: Mammograms were interpreted according to the usual protocol including computer analysis w [employer] CAD system, tomosynthesis and C-view imaging. COMPARISON: 2011 through 2016 FINDINGS: The breasts are composed of mainly fatty density , Breast Density category A. No suspicious masses or suspicious microcalcifications are seen. Coarse, benign-appearing calcificat ions and vascular calcifications are again noted bilaterally. No skin thickening or abnormal axillary lymph nodes are seen. There has been no significant change from prior exams. IMPRESSION: BI-RADS category BI-RADS Cat 2 - Benign Findings, negative. Yearly screening mammography is recommen ded. Breast density category A, fatty density.
== END 2019-10-05 08:15 ==
PROVIDERS: PCP Nurse Practitioner Family; Visit Provider Nurse Practitioner Family
DX: Z12.31 Encounter for screening mammogram for malignant neoplasm of breast (principal)
CPT/HCPCS: 77063; 77067

== ENCOUNTER 2020-02-09 08:53 | Emergency (ER) | payer MEDICARE, MEDICAID, SELFPAY ==
[2020-02-09 08:59] VITALS: BP 188/84; PULSE 74; RESP 16; TEMP 36.5; O2SAT 98
--- NOTE | 2020-02-09 09:05 | ED.GENADUL_ITS ---
Discharge Plan Disposition Patient Disposition: HOME Condition: Stable Discharge Details Chief Complaint: Orthopedic Clinical Impression: Trochanteric bursitis of right hip Primary Care Provider: Belem Wells ED Provider: Joey Sanchez Home Meds and New Rx's Prescriptions: New prednisone 20 mg tablet 20 mg PO DAILY 7 Days Qty: 7 RF: 0 Continued estradiol [Estrace] 0.01 % (0.1 mg/gram) cream 1 gm VG DAILY Qty: 42.5 RF: 0 furosemide 40 MG tablet 40 mg PO DAILY RF: 0 aspirin 325 MG tablet 325 mg PO DAILY RF: 0 docusate sodium 100 MG tablet 100 mg PO DAILY RF: 0 cholecalciferol (vitamin D3) 1,000 UNIT capsule 1,000 unit PO DAILY Qty: 1 RF: 0 simvastatin 40 MG tablet 40 mg PO HS RF: 0 potassium chloride 10 MEQ tablet extended release 10 meq PO DAILY RF: 0 pramipexole [Mirapex] 0.25 MG tablet 0.25 mg PO DAILY RF: 0 nitroglycerin 0.4 MG tablet, sublingual 0.4 mg Sublingual DIRECTED Qty: 25 RF: 0 capsaicin 0.075 % Cream 1 applic TOPICAL TID RF: 0 meloxicam 7.5 mg Tablet 7.5 mg PO BID RF: 0 ofloxacin 0.3 % Drops 10 drp OTIC (EAR) .DAILY X 7 DAYS RF: 0 gabapentin 800 mg Tablet 800 mg PO TID RF: 0 omeprazole 20 mg Capsule,Delayed Release(Dr/Ec) 20 mg PO BID RF: 0 Flovent HFA 220 mcg/actuation Hfa Aerosol Inhaler 2 puff INHALATION BID RF: 0 lisinopril 5 mg Tablet 5 mg PO DAILY RF: 0 zolpidem [Ambien] 5 mg Tablet 5 mg PO HS PRNRF: 0 metoprolol succinate 25 mg Tablet Extended Release 24 Hr 25 mg PO DAILY RF: 0 multivitamin Capsule 1 cap PO QAM RF: 0 calcium citrate 200 mg (950 mg) Tablet 200 mg PO BID RF: 0 omega-3 fatty acids-fish oil 300-1,000 mg Capsule 1 cap PO DAILY RF: 0 levothyroxine 137 mcg Capsule 137 mcg PO DAILY RF: 0 meclizine 25 mg tablet 25 mg PO TID Qty: 20 RF: 0 metformin 500 mg tablet 500 mg PO BID RF: 0 oxycodone 5 mg tablet 5 mg PO QID PRNRF: 0 Discharge Instructions Instructions: Hip Bursitis (ED) Additional Instructions: Please continue your regular medications including the use meloxicam and oxycodone as previously prescribed. Apply ice 20 minutes at a time to reduce discomfort. May begin to alternate with the use of heat 20 minutes at a time. Please follow-up with physical therapy. Take prednisone as prescribed. Weight bearing and walking as tolerated. We have ordered in-home physical therapy for you. Return if develop a fever, worsening discomfort, or any other acute concerns Please follow-up with Dr. Belem Wells in the office for recheck in the next 2 to 4 weeks if not improving. Stand Alone Forms: Physical Therapy Referral Medical Decision Making 69-year-old female who fell off a 1 step while putting curtains up 1 month ago and landed on her bottom. Since that time she had right hip pain that radiates laterally. States she did initially have some bruising but presents today due to ongoing pain for 1 month's time that is worse with walking. No numbness or tingling, no change to bowel or bladder habits. She has otherwise been well. Patient given oral analgesic and referred for x-ray. No evidence of acute bony fracture. Consistent with a traumatic bursitis. Given her history of hypertension, current use of an ART inhibitor and meloxicam, I do feel additional long-term NSAIDs are not appropriate. Therefore will place her on low-dose prednisone. Will prescribe physical therapy. If pain persists another month, she may be a candidate for steroid injection. We will have her follow-up with primary care. She was seen by care management and does meet criteria for in-home physical therapy which I have ordered. This will help her improve gait training, with ongoing improvements throughout a home health physical therapy regimen. [facility] General Mode of arrival: ambulatory . Date/Time Provider Initiated Documentation: 02/09/20 08:54 . Limitations to Documentation: no limitations . Information obtained by: patient . History of Present Illness 69 year old F presents to the emergency department with the chief complaint of R hip pain, described as moderate, Quality is described as dull, and is localized to the right and lower extremity. Patient reports radiation to (front). Patient started experiencing this week(s) and it has been constant. Rest improves symptom(s), Other factors that worsen symptoms (Walking) . Patient notes no other symptoms.; denies weakness. Patient did receive the following treatments prior to arrival, other (Oxycodone 5 mg) Related Data Home Medications Medication Instructions Recorded Confirmed aspirin 325 mg PO DAILY tab-cap NS 03/02/13 02/09/20 docusate sodium 100 mg PO DAILY tab-cap NS 03/02/13 02/09/20 furosemide 40 mg PO DAILY tab-cap NS 03/02/13 02/09/20 simvastatin 40 mg PO HS 08/19/13 02/09/20 cholecalciferol (vitamin D3) 1,000 unit PO DAILY #1 09/24/13 02/09/20 nitroglycerin 0.4 mg SUBLINGUAL DIRECTED #25 10/30/15 02/09/20 tab.subl potassium chloride 10 meq PO DAILY 10/30/15 02/09/20 pramipexole [Mirapex] 0.25 mg PO DAILY 10/30/15 02/09/20 Flovent HFA 2 puff INHALATION BID 03/02/18 02/09/20 calcium citrate 200 mg PO BID 03/02/18 02/09/20 capsaicin 1 applic TOPICAL TID 03/02/18 02/09/20 gabapentin 800 mg PO TID 03/02/18 02/09/20 levothyroxine 137 mcg PO DAILY 03/02/18 02/09/20 lisinopril 5 mg PO DAILY 03/02/18 02/09/20 meloxicam 7.5 mg PO BID 03/02/18 02/09/20 metoprolol succinate 25 mg PO DAILY 03/02/18 02/09/20 multivitamin 1 cap PO QAM 03/02/18 02/09/20 ofloxacin 10 drp OTIC (EAR) .DAILY X 7 DAYS 03/02/18 02/09/20 omega-3 fatty acids-fish oil 1 cap PO DAILY 03/02/18 02/09/20 omeprazole 20 mg PO BID 03/02/18 02/09/20 zolpidem [Ambien] 5 mg PO HS PRN 03/02/18 02/09/20 estradiol 1 gm VG DAILY #42.5 gm 03/27/18 02/09/20 meclizine 25 mg PO TID #20 tab 07/22/18 02/09/20 metformin 500 mg PO BID 02/09/20 02/09/20 oxycodone 5 mg PO QID PRN 02/09/20 02/09/20 prednisone 20 mg PO DAILY 7 Days #7 tab 02/09/20 Previous Rx's Medication Instructions Recorded nitroglycerin 0.4 mg SUBLINGUAL DIRECTED #25 10/30/15 tab.subl estradiol 1 gm VG DAILY #42.5 gm 03/27/18 meclizine 25 mg PO TID #20 tab 07/22/18 prednisone 20 mg PO DAILY 7 Days #7 tab 02/09/20 Allergies Allergy/AdvReac Type Severity Reaction Status Date / Time cyclobenzaprine Allergy Intermediate Hives Unverified 08/21/18 12:43 [Cyclobenzaprine] codeine Allergy Unknown feels like Unverified 08/21/18 12:43 I'm having a heart attack shellfish derived Allergy Unknown Unverified 08/21/18 12:43 acetaminophen [From Tylenol] Allergy Unverified 02/09/20 09:03 fentanyl AdvReac Intermediate Contraindic Unverified 08/21/18 12:43 ated morphine AdvReac Unknown Contraindic Unverified 08/21/18 12:43 ated cats Allergy Severe Wheezing Uncoded 08/21/18 12:43 General Stated Complaint: Orthopedic TOSHIA: 4 Review of Systems Narrative: no fever, chills, denies other illness. 6 systems reviewed and otherwise neg [facility] Medical History Arthritis Chronic low back pain Cortical cataract of right eye (Resolved) Dyslexia Essential hypertension Gastroesophageal reflux disease Hyperlipidemia Hypothyroidism Nuclear sclerotic cataract of right eye (Resolved) Osteoporosis Refractive amblyopia of left eye (Chronic) Refractive amblyopia of right eye (Chronic) Surgical History (Updated 03/20/18 @ 08:07 by Fabio Mensah MD) Abdominal hysterectomy Cholecystectomy Oophrectomy, Right Status post cataract extraction and insertion of intraocular lens of left eye (Chronic 03/06/18) Status post cataract extraction and insertion of intraocular lens of right eye (Chronic 03/20/18) Family History Mother Heart disease Father Personal history of malignant neoplasm Stomach Sister No problems noted. Brother Heart disease Social History Smoking/Tobacco Use Status: Never Drug use: Never Substance use type: does not use Number of Children: 1 Do you feel safe in your relationship?: Yes Exam Narrative Exam Narrative: GEN: awake, alert, oriented 3. Pleasant, well groomed, interactive. HEAD: Normocephalic, atraumatic ENT: Mucous membranes moist, oropharynx unremarkable, External ear exam unremar kable EYES: PERRL, EOMI NECK: Full ROM, no SIENNA, no menigismus CHEST/RESP: Nontender, clear to auscultation bilateral, no wheeze/rhonchi/rales CARDIOVASCULAR: RRR, no murmur, rub winston. 2+ Rad pulse bilateral ABDOMEN: Soft, nontender, no mass. +Bowel sounds EXT: Full ROM, no edema, no rash. Motor 5 out of 5. Tender right lateral hip on palpation, minimally so with rotation, no pain with ischial palpation. Neuro: Grossly normal neurologic exam, conversant, interactive. Psych: Speech fluent, thoughts congruent, affect normal Course Vital Signs Vital signs: Vital Signs Temperature 36.5 C 02/09/20 08:59 Pulse 74 02/09/20 08:59 Respiratory Rate 16 02/09/20 08:59 Blood Pressure 188/84 H 02/09/20 08:59 Pulse Oximetry 98 02/09/20 08:59 Temperature 36.5 C 02/09/20 08:59 Temperature Source Skin 02/09/20 08:59 Pulse 74 02/09/20 08:59 Respiratory Rate 16 02/09/20 08:59 Respiratory Effort Non-Labored 02/09/20 08:59 Blood Pressure 188/84 H 02/09/20 08:59 Blood Pressure Position Sitting 02/09/20 08:59 Pulse Oximetry 98 02/09/20 08:59 Oxygen Delivery Method Room Air 02/09/20 08:59 Oxygen Flow Rate 0 02/09/20 08:59 Pain Level 10 02/09/20 08:59
--- NOTE | 2020-02-09 09:15 | DI.RAD_ITS ---
EXAM: XR HIP RT COMPLETE AP PELVIS INDICATION: Lateral right hip pain, rami pain. COMPARISON: No exams were available for comparison TECHNIQUE: 2D digital imaging was performed. FINDINGS: No fracture or dislocation is seen. The SI joints and pubic symphysis appear intact. The hip joint spaces are well maintained. No lytic or blastic lesion is identified. IMPRESSION: Negative pelvis and right hip. DATA REPOSITORY: RADIATION DOSE DELIVERED:
[2020-02-09 10:20] VITALS: BP 155/70; PULSE 67; RESP 18; TEMP 36.5; O2SAT 98
[2020-02-09 10:34] VITALS: BP 155/70; PULSE 67; RESP 18; TEMP 36.5; O2SAT 98
== END 2020-02-09 10:38 | disposition home or self-care (01) ==
PROVIDERS: Emergency Provider Emergency Medicine; PCP Nurse Practitioner Family
DX: M70.61 Trochanteric bursitis, right hip (principal); W10.8XXA Fall (on) (from) other stairs and steps, initial encounter; I10 Essential (primary) hypertension
CPT/HCPCS: 99284; 73502

== ENCOUNTER 2020-02-12 07:50 | Emergency (ER) | payer MEDICARE, MEDICAID, SELFPAY ==
--- NOTE | 2020-02-12 07:54 | W.ED.GENAD ---
Discharge Plan Disposition Patient Disposition: HOME Condition: Improving Discharge Details Clinical Impression: Trochanteric bursitis of right hip, Sciatica Primary Care Provider: Belem Wells ED Provider: Genoveva Simmons Home Meds and New Rx's Prescriptions: New metaxalone [Skelaxin] 800 mg tablet 800 mg PO TID PRN (Reason: muscle pain) Qty: 7 RF: 0 Continued estradiol [Estrace] 0.01 % (0.1 mg/gram) cream 1 gm VG DAILY Qty: 42.5 RF: 0 furosemide 40 MG tablet 40 mg PO DAILY RF: 0 aspirin 325 MG tablet 325 mg PO DAILY RF: 0 docusate sodium 100 MG tablet 100 mg PO DAILY RF: 0 cholecalciferol (vitamin D3) 1,000 UNIT capsule 1,000 unit PO DAILY Qty: 1 RF: 0 simvastatin 40 MG tablet 40 mg PO HS RF: 0 potassium chloride 10 MEQ tablet extended release 10 meq PO DAILY RF: 0 pramipexole [Mirapex] 0.25 MG tablet 0.25 mg PO DAILY RF: 0 nitroglycerin 0.4 MG tablet, sublingual 0.4 mg Sublingual DIRECTED Qty: 25 RF: 0 capsaicin 0.075 % Cream 1 applic TOPICAL TID RF: 0 meloxicam 7.5 mg Tablet 7.5 mg PO BID RF: 0 gabapentin 800 mg Tablet 800 mg PO TID RF: 0 omeprazole 20 mg Capsule,Delayed Release(Dr/Ec) 20 mg PO BID RF: 0 Flovent HFA 220 mcg/actuation Hfa Aerosol Inhaler 2 puff INHALATION BID RF: 0 lisinopril 5 mg Tablet 5 mg PO DAILY RF: 0 zolpidem [Ambien] 5 mg Tablet 5 mg PO HS PRNRF: 0 metoprolol succinate 25 mg Tablet Extended Release 24 Hr 25 mg PO DAILY RF: 0 multivitamin Capsule 1 cap PO QAM RF: 0 calcium citrate 200 mg (950 mg) Tablet 200 mg PO BID RF: 0 omega-3 fatty acids-fish oil 300-1,000 mg Capsule 1 cap PO DAILY RF: 0 levothyroxine 137 mcg Capsule 137 mcg PO DAILY RF: 0 metformin 500 mg tablet 500 mg PO BID RF: 0 oxycodone 5 mg tablet 5 mg PO QID PRNRF: 0 prednisone 20 mg tablet 20 mg PO DAILY 7 Days Qty: 7 RF: 0 meclizine 25 mg tablet 25 mg PO TID PRNRF: 0 Discharge Instructions Instructions: Sciatica (ED) Additional Instructions: Your imaging is reassuring, did not show any bony abnormality. Your exam is concerning for greater trochanteric bursitis. This was injected here today with steroids and local anesthetic. I am hoping that the relief you have gotten thus far will just continue to improve. Please monitor area for signs of infection including redness, warmth, drainage, increased pain, fever/chills. If you develop these or other new/worsening symptoms please seek care urgently once again. Otherwise, while at home, please monitor your sugars closely as there is a risk that these will increase as we discussed. I have prescribed a muscle relaxant, the same one that you received while here, please continue to use this as needed as prescribed. Do not mix this with your oxycodone. Please take either 1 or the other medication. Please follow-up with primary care in 1 week for reevaluation. Please encourage gentle stretching and frequent ambulation. Heat or ice. You may try topical options such as lidoderm patches. Referrals: Belem Wells [Primary Care Provider] - Discharge Data Discharge Date/Time-TO BE ENTERED AT DEPARTURE: 02/12/20 10:20 Medical Decision Making Patient is a pleasant 69-year-old female presenting today with chief complaint of right-sided buttock and hip pain. She reports that 1 month ago she fell. States that she had been standing on a stool and fell backwards landing on her bottom. Reports that since that time the pain is progressive and worsening. She was seen here 3 days ago at which time x-rays were ordered of the patient's right hip. No abnormality was noted. Patient was diagnosed with trochanteric bursitis. It was started on 20 mg p.o. daily prednisone which she states has not been improving her discomfort. She also started with physical therapy. She reports it started with physical therapy seems to have exacerbated her discomfort. Patient has been taking oxycodone as prescribed. Patient is chronically on meloxicam and is also been adding ibuprofen to this. Patient is allergic to Tylenol. Has not tried topical options. States that now the pain is more into the buttock and does radiate down the posterior aspect of the right leg and states that he can wrap and foot. She denies any numbness or tingling. No weakness. States that it is difficult for her to ambulate secondary to discomfort. No change in bowel or bladder habits. On exam, patient appears uncomfortable. She is walking with an antalgic gait. States that sitting causes the large amount of discomfort. Patient does have midline tenderness over the sacrum. No palpable deformity. She does have good rectal sensation. No saddle paresthesias. No rash. Pain with palpation over the right buttock. Patient seems exquisitely tender over the right trochanter, this is consistent with recent diagnosis of enteric bursitis. She has good sensation in her feet, able to move knee, ankle and toes well. Given the large amount of discomfort, will move forward with CT imaging of her pelvis. Patient is wanting regimen of anti-inflammatories, I did educate her to not use ibuprofen as well as meloxicam. Has this has been spreading to the buttock, I am concerned about muscle spasm. This may be contributing to patient having radiating pain which is likely associated sciatica. Patient is allergic to cyclobenzaprine. In hopes it would be less sedating, I will give the patient Skelaxin. Also apply a Lidoderm patch. CT scan reviewed by radiologist: FINDINGS: Stomach and bowel: There is a calcifications seen in the right side of the pelvis measuring 10 mm. This most likely is in the bowel and there is also a similar appearing density in the cecum. These most likely represent supplements. Appendix: Possible small appendicoliths with a small calcifications seen at the origin of the appendix from the cecum. No surrounding inflammatory changes are identified. Intraperitoneal space: Unremarkable. No free air. No significant fluid collection. Lymph nodes: Unremarkable. No enlarged lymph nodes. Bladder: Normal. No mass. Reproductive: Uterus is surgically absent. Bones/joints: Osteopenia. There is no fracture or dislocation is identified. Soft tissues: Unremarkable. IMPRESSION: No fracture dislocation of the pelvis. I discussed these findings at length with the patient. Again, she does seem to have some fairly diffuse and much what seems to be emanating from the greater trochanteric consistent with recent exam by Dr. Sanchez which was concerning for trochanteric bursitis. She has not received any benefit thus far from her steroids, anti-inflammatories, we did discuss risk/benefits as well as expected procedural steps of patient is a diabetic, is well controlled and states that she does monitor this closely. We did discuss with the Kenalog injection. Her risk for hyperglycemia, she was understanding and would like to proceed. We will also augment the Kenalog with bupivacaine. Please see procedure note. Patient tolerated this well. Timeout was performed. This was perform using standard sterile technique. Patient had quick improvement and is now rating her pain at a 5 out of 10, down from a 10 out of 10. Patient feels ready for discharge at this time. Patient will be discharged home with prescription for Skelaxin and she did obtain a small amount of benefit from this. I did educate her on not taking this with the oxycodone. Advised that she stay only with one or the other. Patient is to ready for discharge home. We discussed return precautions. Discussed home and [id number] medical management in depth. All of her questions and concerns were addressed and she is in agreement this plan HPI General Mode of arrival: ambulatory. Date/Time Provider Initiated Documentation: 02/12/20 07:53. Limitations to Documentation: no limitations. Information obtained by: patient, RN notes reviewed and old records reviewed. History of Present Illness 69 year old F presents to the emergency department with the chief complaint of right hip/buttock pain, described as severe, with intensity rated at 10. Quality is described as aching, and is localized to the back, right and lower extremity. Patient extremity. Patient started experiencing this month(s) (1) and it has been constant (worsening). Cold therapy improves symptom(s), Movement worsens symptoms . Patient notes no other symptoms.; denies fever/chills, rash, shortness of breath and weakness. Patient did receive the following treatments prior to arrival, NSAID and other (prednisone, ) Related Data Home Medications Medication Instructions Recorded Confirmed aspirin 325 mg PO DAILY tab-cap NS 03/02/13 02/12/20 docusate sodium 100 mg PO DAILY tab-cap NS 03/02/13 02/12/20 furosemide 40 mg PO DAILY tab-cap NS 03/02/13 02/12/20 simvastatin 40 mg PO HS 08/19/13 02/12/20 cholecalciferol (vitamin D3) 1,000 unit PO DAILY #1 09/24/13 02/12/20 nitroglycerin 0.4 mg SUBLINGUAL DIRECTED #25 10/30/15 02/12/20 tab.subl potassium chloride 10 meq PO DAILY 10/30/15 02/12/20 pramipexole [Mirapex] 0.25 mg PO DAILY 10/30/15 02/12/20 Flovent HFA 2 puff INHALATION BID 03/02/18 02/12/20 calcium citrate 200 mg PO BID 03/02/18 02/12/20 capsaicin 1 applic TOPICAL TID 03/02/18 02/12/20 gabapentin 800 mg PO TID 03/02/18 02/12/20 levothyroxine 137 mcg PO DAILY 03/02/18 02/12/20 lisinopril 5 mg PO DAILY 03/02/18 02/12/20 meloxicam 7.5 mg PO BID 03/02/18 02/12/20 metoprolol succinate 25 mg PO DAILY 03/02/18 02/12/20 multivitamin 1 cap PO QAM 03/02/18 02/12/20 omega-3 fatty acids-fish oil 1 cap PO DAILY 03/02/18 02/12/20 omeprazole 20 mg PO BID 03/02/18 02/12/20 zolpidem [Ambien] 5 mg PO HS PRN 03/02/18 02/12/20 estradiol 1 gm VG DAILY #42.5 gm 03/27/18 02/12/20 metformin 500 mg PO BID 02/09/20 02/12/20 oxycodone 5 mg PO QID PRN 02/09/20 02/12/20 prednisone 20 mg PO DAILY 7 Days #7 tab 02/09/20 02/12/20 meclizine 25 mg PO TID PRN 02/12/20 02/12/20 metaxalone [Skelaxin] 800 mg PO TID PRN #7 tab 02/12/20 Previous Rx's Medication Instructions Recorded nitroglycerin 0.4 mg SUBLINGUAL DIRECTED #25 10/30/15 tab.subl estradiol 1 gm VG DAILY #42.5 gm 03/27/18 prednisone 20 mg PO DAILY 7 Days #7 tab 02/09/20 metaxalone [Skelaxin] 800 mg PO TID PRN #7 tab 02/12/20 Allergies Allergy/AdvReac Type Severity Reaction Status Date / Time cyclobenzaprine Allergy Intermediate Hives Unverified 02/12/20 07:59 [Cyclobenzaprine] codeine Allergy Unknown feels like Unverified 02/12/20 07:59 I'm having a heart attack shellfish derived Allergy Unknown Unverified 02/12/20 07:59 acetaminophen [From Tylenol] Allergy Unverified 02/12/20 07:59 fentanyl AdvReac Intermediate Contraindic Unverified 02/12/20 07:59 ated morphine AdvReac Unknown Contraindic Unverified 02/12/20 07:59 ated cats Allergy Severe Wheezing Uncoded 02/12/20 07:59 General TOSHIA: 4 Review of Systems Constitutional Constitutional: Reports as per HPI, Denies chills, Denies fever(s), Denies headache(s) and Denies weakness ENT Ears, Nose, Mouth, and Throat: Denies headache(s) Cardiovascular Cardiovascular: Reports as per HPI Respiratory Respiratory: Reports as per HPI and Denies cough Musculoskeletal Musculoskeletal: Reports as per HPI and Denies tingling Integumentary/Breasts Skin/Breast: Reports as per HPI, Denies rash and Denies wounds Neurologic Neurologic: Reports as per HPI, Denies headache(s), Denies tingling, Denies paresthesias and Denies weakness [facility] Medical History (Updated 02/12/20 @ 10:16 by MARLINE Carmona) Arthritis Chronic low back pain Cortical cataract of right eye Dyslexia Essential hypertension Gastroesophageal reflux disease Hyperlipidemia Hypothyroidism Nuclear sclerotic cataract of right eye Osteoporosis Refractive amblyopia of left eye Refractive amblyopia of right eye Surgical History Abdominal hysterectomy Cholecystectomy Oophrectomy, Right Status post cataract extraction and insertion of intraocular lens of left eye (03/06/18) Status post cataract extraction and insertion of intraocular lens of right eye (03/20/18) Family History Mother Heart disease Father Personal history of malignant neoplasm Stomach Sister No problems noted. Brother Heart disease Social History Smoking/Tobacco Use Status: Never Alcohol Intake: never Drug use: Never Substance use type: does not use Number of Children: 1 Do you feel safe at home: Yes Do you feel safe in your relationship?: Yes Exam Const General: cooperative, healthy appearing, comfortable, no acute distress, well developed and well groomed Nutritional Appearance: average body habitus and well nourished Orientation: alert and awake Resp Effort & Inspection: normal respiratory effort, able to speak in complete sentences and no respiratory distress Cardio Rate: regular rate Rhythm: regular rhythm GI Inspection: normal to inspection Palpation: soft and nontender Rectal Exam - female: visual inspection normal (normal rectal sensation) Back/Spine/Pelvis Thoracic/Lumbar Spine: thoracic and lumbar spine normal to inspection, No thoraco-lumbar spasm, No thoracic spinal tenderness and No lumbar spinal tenderness Pelvis: no pain with anterior-posterior compression, no pain with lateral compression, no buttock ecchymosis, buttock tenderness, no buttock swelling, no unilateral elevation of iliac crest and no tenderness over symphysis pubis Sacroiliac joints: bilaterally nontender Sacrum: no ecchymosis, no swelling and tenderness Coccyx: no tenderness Skin General skin exam: no rashes or lesions noted Lesions: no lesions Rashes: no rashes Trauma: no lacerations or abrasions Neuro General: patient alert and patient awake Cognition: normal cognition Speech: speech normal Gait: antalgic Motor: muscle tone normal throughout Sensory Exam: no sensory deficits noted Extrem Right lower extremity: normal to inspection, full ROM, normal capillary refill, no joint enlargement, hip/thigh Details: normal to inspection, tenderness Location: of the hip Location: laterally and over the greater trochanter and normal ROM (pain with forced flexion and external rotation); no swelling, no abrasions, no lacerations, no ecchymosis, no crepitus and no deformity, knee Details: normal to inspection and normal ROM; no tenderness and no swelling and foot (2+ distal pulses, sensation intact) Psych Appearance: grossly normal and well kempt Mental Status: mental status grossly normal Speech and Movement: speech and movement normal Procedures Joint Aspiration/Injection Joint Asp./Inject. 1: Time Out Performed: Yes Side of body: right (right hip great trochanteric bursitis) Ultrasound Guidance: No Skin Prep: Chlorhexidene Local Anesthetic: Bupivicaine 0.5% Amount of anesthesia used (mL): 5 Needle Size Used: 22G Medication Injected, if any: Triamcinolone Acetate Amount of Medication Injected (mls): 1 Patient Tolerated Procedure: well and no complications Complications: none
[2020-02-12 07:55] VITALS: BP 178/65; PULSE 69; RESP 20; TEMP 36.6; O2SAT 99
--- NOTE | 2020-02-12 08:14 | DI.CT_ITS ---
EXAM: CT PELVIC WO CLINICAL HISTORY: fall one month ago TECHNIQUE: COMPARISON: CT PELVIC/LOWER ABD WITH CON(P) from 10/20/2016 FINDINGS: CT examination of the pelvis was performed without contrast administration. No gross pelvic mass or adenopathy. Grossly unremarkable appearance of unopacified urinary bladder. There is no evidence of a fracture involving visualized pelvis and hips. Mild DJD of the hips and SI joints noted. IMPRESSION: No pelvic fracture identified. RADIATION DOSE DELIVERED: Total DLP
[2020-02-12] MEDS: Lidocaine 5% Patch 1 PATCH TP (08:27)
[2020-02-12 09:16] VITALS: RESP 16
--- NOTE | 2020-02-12 09:17 | DI.VRAD_ITS ---
PROCEDURE INFORMATION: Exam: CT Pelvis Without Contrast Exam date and time: 02/12/2020 8:26 AM Age: 69 years old Clinical indication: Hip pain; Right hip; Patient HX: Fall one month ago, continued and increased pain TECHNIQUE: Imaging protocol: Computed tomography images of the pelvis without contrast. COMPARISON: CT PELVIC/LOWER ABD WITH CON(P) 10/20/2016 6:28 PM FINDINGS: Stomach and bowel: There is a calcifications seen in the right side of the pelvis measuring 10 mm. This most likely is in the bowel and there is also a similar appearing density in the cecum. These most likely represent supplements. Appendix: Possible small appendicoliths with a small calcifications seen at the origin of the appendix from the cecum. No surrounding inflammatory changes are identified. Intraperitoneal space: Unremarkable. No free air. No significant fluid collection. Lymph nodes: Unremarkable. No enlarged lymph nodes. Bladder: Normal. No mass. Reproductive: Uterus is surgically absent. Bones/joints: Osteopenia. There is no fracture or dislocation is identified. Soft tissues: Unremarkable. IMPRESSION: No fracture dislocation of the pelvis. Patient has some calcifications in the colon most likely from supplements. Dictated and Authenticated by: Massiel Retana MD. Ordering:YOLY Tomas MD
[2020-02-12] MEDS: Bupivacaine 0.5% Pres-Free 30 ML VIAL (09:45)
[2020-02-12] MEDS: Triamcinolone 40 MG/ML VIAL IM (09:45)
[2020-02-12 10:06] VITALS: BP 121/40; PULSE 59; RESP 18; TEMP 36.8; O2SAT 99
== END 2020-02-12 10:20 | disposition home or self-care (01) ==
PROVIDERS: Emergency Provider Physician Assistant; PCP Nurse Practitioner Family
DX: M70.61 Trochanteric bursitis, right hip (principal); M54.31 Sciatica, right side; I10 Essential (primary) hypertension
CPT/HCPCS: 20610; 99284; 72192; 99281

== ENCOUNTER 2020-03-31 17:08 | Outpatient (REF) | payer MEDICARE, MEDICAID, SELFPAY ==
[2020-03-31 20:11] LABS: TSH 0.24 uIU/mL (0.36-3.74)
[2020-03-31 20:35] LABS: Hemoglobin A1C 6.3 % (<5.7)
== END 2020-03-31 17:28 ==
LOC: NCHCN 17:08
PROVIDERS: PCP Surgery; Visit Provider Physician Assistant
DX: E11.9 Type 2 diabetes mellitus without complications (principal); E03.9 Hypothyroidism, unspecified
CPT/HCPCS: 83036; 84443

== ENCOUNTER 2020-06-16 04:30 | Outpatient (CLI) | payer MEDICARE, MEDICAID, SELFPAY ==
--- NOTE | 2020-06-16 | DI.US_ITS ---
EXAM: US PELVIS CLINICAL HISTORY: RLQ ABD PAIN, R10.31 TECHNIQUE: Ultrasound of the pelvis was performed both transabdominal and transvaginal. COMPARISON: No exams were available for comparison FINDINGS: UTERUS: Surgically absent. RIGHT OVARY: Not seen. Apparently there has been prior right oophorectomy LEFT OVARY: Also not seen. CUL-DE-SAC: No mass or free fluid evident in the cul-de-sac. There images of the right lower quadrant abdominal wall which is apparently in area of pain. This wa s performed without and with Valsalva and apparently does not reveal evidence of an obvious anterior abdominal wall hernia. There are also images of the kidneys on this study. The right kidney appears unremarkable. There is slight dilatation of the of the upper left collecting system-left kidney. IMPRESSION: 1. Uterus and right ovary are surgically absent. The left ovary is also not able to be visualized. 2. No pelvic ultrasound findings on this study, as detailed above. 3. There appears to be slight dilatation of the collecting system of the left kidney. DATA REPOSITORY:
== END 2020-06-16 04:50 ==
PROVIDERS: PCP Surgery; Visit Provider Surgery
DX: R10.31 Right lower quadrant pain (principal); Z90.721 Acquired absence of ovaries, unilateral; Z90.710 Acquired absence of both cervix and uterus
CPT/HCPCS: 76856

== ENCOUNTER 2020-07-19 07:12 | Emergency (ER) | payer MEDICARE, MEDICAID, SELFPAY ==
[2020-07-19] VITALS (8 sets, daily range): BP systolic 120–165; BP diastolic 57–75; PULSE 60–66; RESP 18–20; TEMP 36.5–36.6; O2SAT 92–100
--- NOTE | 2020-07-19 07:15 | RT.EKG_ITS ---
APPROVED REPORT Exam: Resting ECG Patient Location: E HR:60 bpm ECG Measurements Heart Rate 60 AXIS VT 188 P 93 QRSd 94 QRS -28 QT 435 T 89 QTc 433 Conclusion Sinus rhythm...normal P axis, V-rate 60- 99 Low voltage, extremity and precordial leads...extremity<0.5mV, precordial<1.0mV
--- NOTE | 2020-07-19 07:15 | DI.CT_ITS ---
EXAM: CT CHEST/ABD/PEL W CLINICAL HISTORY: right sided chest/abd pain s/p fall 3 days ago. TECHNIQUE: Imaging Protocol: Axial computed tomography images with coronal and sagittal reformatted images were created and reviewed CONTRAST MATERIAL: Intravenous: Omnipaque 350 Contrast volume:100 ml Oral: None COMPARISON: CT CT PELVIC WO from 02/12/2020 FINDINGS: CHEST: LUNGS: There are no confluent infiltrates nor pleural effusions nor pneumothorax. A small calcified granuloma in the left lung is noted. Subtle increased markings in the lateral aspect left upper lobe noted. No focal findings in trachea and mainstem bronchi.. MEDIASTINUM: No evidence of mediastinal hematoma. No hilar nor mediastinal adenopathy. No subcarina l adenopathy. No supraclavicular adenopathy. No axillary adenopathy. CARDIAC: Heart size is normal. There is no pericardial effusion.Caliber of the thoracic aorta is wit hin normal limits. OSSEOUS: No acute fractures.Some height loss of vertebral bodies as chronic appearance. ABDOMEN: There is no ascites. No evidence of mesenteric nor bowel wall hematoma. LIVER: There are no focal hepatic lesions nor dilatation of intrahepatic ducts. No evidence of a hep atic laceration or Lainey hepatic fluid. GALLBLADDER/BILIARY: The gallbladder surgically absent. CBD is not dilated. PANCREAS: No evidence of pancreatic mass nor dilatation of the pancreatic duct. SPLEEN: Spleen appears unremarkable. Splenic and portal veins are patent. ADRENALS: There are no significant adrenal masses. KIDNEYS: No calculi nor hydronephrosis. No solid renal masses. No cysts. No evidence of subcapsular hematoma. ABDOMINAL AORTA: Abdominal aorta is not enlarged and there is no ortcxorqwibokux-nmyi-[id number] adenopat hy. ABDOMINAL WALL/GI: No evidence of significant anterior abdominal wall hernia. No bowel obstruction. PELVIS: LYMPH NODES: There is no intrapelvic nor inguinal adenopathy. GI: No evidence of appendicitis.No evidence of sigmoid diverticulitis. URINARY BLADDER: No calculi nor masses evident REPRODUCTIVE: Uterus is surgically absent. There are no abnormal adnexal masses. OSSEOUS: No acute fractures nor significant osseous lesions. Schmorl's node invagination and anterio r wedging of T11 noted but without evidence of acute fracture. Schmorl's node invagination into the adjacent inferior endplate of T10 also noted. IMPRESSION: 1. No significant trauma sequelae in the chest, abdomen, and pelvis. No fractures evident. 2. The gallbladder surgically absent. There is also evidence of prior hysterectomy. 3. Nonacute osseous findings as described above in the lower thoracic spinal column. RADIATION DOSE DELIVERED: 1,558.61mGy.cm Total DLP DATA REPOSITORY: All CT scans at this facility are submitted to the National Radiology Data Registry (NRDR) Dose Index Registry (DIR) with the [employer] (A[employer]). RADIATION OPTIMIZATION: All CT scans at this facility use at least one of these dose optimization te chniques: automated exposure control; mA and/or kV adjustment per patient size (includes targeted exa ms where dose is matched to clinical indication); or iterative reconstruction.
--- NOTE | 2020-07-19 07:16 | W.ED.GENAD ---
Discharge Plan Disposition Patient Disposition: HOME Condition: Improving Discharge Details Clinical Impression: Vasovagal near syncope, Contusion of mid back, Fall at home Primary Care Provider: Shadia Pisano ED Provider: Alina Ray Home Meds and New Rx's Prescriptions: Continued furosemide 40 MG tablet 40 mg PO DAILY RF: 0 aspirin 325 MG tablet 325 mg PO DAILY RF: 0 docusate sodium 100 MG tablet 100 mg PO DAILY RF: 0 cholecalciferol (vitamin D3) 1,000 UNIT capsule 1,000 unit PO DAILY Qty: 1 RF: 0 simvastatin 40 MG tablet 40 mg PO HS RF: 0 potassium chloride 10 MEQ tablet extended release 10 meq PO BID RF: 0 pramipexole [Mirapex] 0.25 MG tablet 0.25 mg PO DAILY RF: 0 nitroglycerin 0.4 MG tablet, sublingual 0.4 mg Sublingual DIRECTED Qty: 25 RF: 0 gabapentin 800 mg Tablet 800 mg PO TID RF: 0 omeprazole 20 mg Capsule,Delayed Release(Dr/Ec) 20 mg PO BID RF: 0 lisinopril 5 mg Tablet 20 mg PO DAILY RF: 0 metoprolol succinate 25 mg Tablet Extended Release 24 Hr 25 mg PO DAILY RF: 0 multivitamin Capsule 1 cap PO QAM RF: 0 calcium citrate 200 mg (950 mg) Tablet 200 mg PO BID RF: 0 omega-3 fatty acids-fish oil 300-1,000 mg Capsule 1 cap PO DAILY RF: 0 levothyroxine 137 mcg Capsule 112 mcg PO DAILY RF: 0 metformin 500 mg tablet 500 mg PO BID RF: 0 oxycodone 5 mg tablet 5 mg PO QID PRNRF: 0 meclizine 25 mg tablet 25 mg PO TID PRNRF: 0 Discharge Instructions Instructions: Contusion in Adults (ED), Near Syncope (ED) Additional Instructions: Drink plenty of fluids and get plenty of rest. Take the oxycodone as needed and directed for pain. Use the incentive powder as directed to help you with taking deep breaths to prevent the development of pneumonia. Follow-up with your primary care doctor in 1 week. Return to the emergency department with any worsening or new concerning symptoms. Discharge Data Discharge Date/Time-TO BE ENTERED AT DEPARTURE: 07/19/20 11:04 Discharge Physician: Alina Ray Medical Decision Making <Israel Nunez MD - Last Filed: 07/19/20 07:36> 70 yo female states 3 days ago when standing from sittingon the toilet got lightheaded, did not lose consciousness but fell back and landed on her right chest and abdomen. Since the fall she has had pain in lower right ribs and right oblique as well as right upper abdomen. No head trauma, no neck pain or tenderness. HAs pain with palpatoin throughout the right chest and right abdomen and bruising. Given the fall and lightheadedness will obtain ecg, troponin and evaluate for rib fracture and intrabdominal traumatic injuries with ct pt signed out to oncoming provider pending ct results and lab results and final dispo Differential Diagnosis Differential Diagnosis: rib fracture, contusion, liver injury Medical Records Medical records reviewed: Yes I reviewed the patient's medical records. ECG Data Attestation: I personally reviewed and interpreted this ECG (s) as follows: Prior ECG tracings: not available for review Interpretation: sinus rhythm, rate of 60, pr 188, qtc 433 <Alina Ray DO - Last Filed: 07/19/20 11:48> 0800 --please see Dr. Nunez's note for initial presentation, exam and plan. Case endorsed to follow-up on labs and imaging and final disposition. Labs reviewed and unremarkable. EKG notes rate of 60, sinus, no STEMI, nondiagnostic. Patient evaluated at bedside. She states she was urinating and having a bowel movement on the toilet a few days ago when she stood up and felt dizzy and lightheaded and lost her balance falling backwards striking her right flank on the toilet. She denies head injury, LOC, vomiting, chest pain, shortness of breath, abdominal pain, recent travel, recent known sick contacts. Suspect likely vasovagal near syncope. She has an area of ecchymosis to her right mid lateral back. There is no crepitus, step-off. Her lungs are clear. Her abdomen is soft and nontender. No extremity trauma or deformity. No evidence of head trauma. She denies any relief with Tylenol. She has not yet given a urine sample. We will give a bolus of fluids and oxycodone and reassess. 1040 --urinalysis negative. CT chest abdomen pelvis negative for acute findings. Patient reassessed and she feels much better. She feels good to go home. She was able to ambulate. We will send home with an incentive spirometer and a few tabs of pain medication to help with deep breathing to prevent pneumonia. Advised to follow up with the primary care doctor for re-evaluation. Usual and customary return precautions given prior to discharge. Medical Records Medical records reviewed: Yes I reviewed the patient's medical records. Imaging Data Radiologic Study: Radiologist's impression: CT CHEST/ABD/PEL W CLINICAL HISTORY: right sided chest/abd pain s/p fall 3 days ago. TECHNIQUE: Imaging Protocol: Axial computed tomography images with coronal and sagittal reformatted images were created and reviewed CONTRAST MATERIAL: Intravenous: Omnipaque 350 Contrast volume:100 ml Oral: None COMPARISON: CT CT PELVIC WO from 02/12/2020 FINDINGS: CHEST: LUNGS: There are no confluent infiltrates nor pleural effusions nor pneumothorax. A small calcified granuloma in the left lung is noted. Subtle increased markings in the lateral aspect left upper lobe noted. No focal findings in trachea and mainstem bronchi.. MEDIASTINUM: No evidence of mediastinal hematoma. No hilar nor mediastinal adenopathy. No subcarinal adenopathy. No supraclavicular adenopathy. No axillary adenopathy. CARDIAC: Heart size is normal. There is no pericardial effusion.Caliber of the thoracic aorta is within normal limits. OSSEOUS: No acute fractures.Some height loss of vertebral bodies as chronic appearance. ABDOMEN: There is no ascites. No evidence of mesenteric nor bowel wall hematoma. LIVER: There are no focal hepatic lesions nor dilatation of intrahepatic ducts. No evidence of a hepatic laceration or Lainey hepatic fluid. GALLBLADDER/BILIARY: The gallbladder surgically absent. CBD is not dilated. PANCREAS: No evidence of pancreatic mass nor dilatation of the pancreatic duct. SPLEEN: Spleen appears unremarkable. Splenic and portal veins are patent. ADRENALS: There are no significant adrenal masses. KIDNEYS: No calculi nor hydronephrosis. No solid renal masses. No cysts. No evidence of subcapsular hematoma. ABDOMINAL AORTA: Abdominal aorta is not enlarged and there is no rhmltranxmimrhd-vfqz-[id number] adenopathy. ABDOMINAL WALL/GI: No evidence of significant anterior abdominal wall hernia. No bowel obstruction. PELVIS: LYMPH NODES: There is no intrapelvic nor inguinal adenopathy. GI: No evidence of appendicitis.No evidence of sigmoid diverticulitis. URINARY BLADDER: No calculi nor masses evident REPRODUCTIVE: Uterus is surgically absent. There are no abnormal adnexal masses. OSSEOUS: No acute fractures nor significant osseous lesions. Schmorl's node invagination and anterior wedging of T11 noted but without evidence of acute fracture. Schmorl's node invagination into the adjacent inferior endplate of T10 also noted. IMPRESSION: 1. No significant trauma sequelae in the chest, abdomen, and pelvis. No fractures evident. 2. The gallbladder surgically absent. There is also evidence of prior hysterectomy. 3. Nonacute osseous findings as described above in the lower thoracic spinal column. Lab Data Lab results reviewed: Yes I reviewed the patient's lab results. Labs: Laboratory Tests Range/Units 07/19/20 07/19/20 07/19/20 07:40 07:40 07:40 WBC (4.4-10.8) 10^3/uL 7.78 RBC (3.93-5.22) 10^6/uL 4.34 Hgb (11.2-15.7) g/dL 13.4 Hct (36.0-46.0) % 40.4 MCV (80-95) fL 93.1 MCH (27.0-33.0) pg 30.9 MCHC (32.0-36.0) % 33.2 RDW (11.7-14.6) % 11.7 Plt Count (130-400) 10^3/uL 330 MPV (8.0-11.0) fL 9.9 Immature Gran % 0.5 Neutrophils % 48.5 Lymphocytes % 37.1 Monocytes % 7.6 Eosinophils % 5.9 Basophils % 0.4 Nucleated RBC % % 0 Absolute Neutrophils (1.2-6.7) 10^3/uL 3.77 Absolute Lymphocytes (1.2-3.4) 10^3/uL 2.89 Absolute Monocytes (0.1-0.8) 10^3/uL 0.59 Absolute Eosinophils (0.0-0.7) 10^3/uL 0.46 Absolute Basophils (0.0-0.2) 10^3/uL 0.03 PT (9.3-11.0) sec INR (0.9-1.1) APTT (21.0-27.5) sec Sodium (136-145) mmol/L 139 Potassium (3.5-5.1) mmol/L 3.9 Chloride (98-107) mmol/L 102 Carbon Dioxide (21.0-32.0) mmol/L 27.7 Anion Gap (3-11) mmol/L 9.3 BUN (7-18) mg/dL 16 Creatinine (0.55-1.02) mg/dL 1.0 Estimated GFR/1.73 m2 (mL/min/1.73m2) 54.50 Glucose (74-106) mg/dL 113 H Calcium (8.5-10.1) mg/dL 9.4 Magnesium (1.8-2.4) mg/dL 2.1 Total Bilirubin (0.2-1.0) mg/dL 0.2 Conjugated Bilirubin (0.00-0.20) mg/dL < 0.05 AST (15-37) U/L 12 L ALT (14-59) U/L 27 Alkaline Phosphatase (46-116) U/L 71 Troponin I (<0.06) ng/mL < 0.05 Total Protein (6.4-8.2) g/dL 6.7 Albumin (3.4-5.0) g/dL 3.3 L Lipase (73-393) U/L 67 Urine Color (Yellow) Urine Clarity (Clear) Urine pH (5-8) Ur Specific Carlock (1.005-1.025) Urine Protein (Negative) mg/dL Urine Ketones (Negative) mg/dL Urine Blood (Negative) Urine Nitrite (Negative) Urine Bilirubin (Negative) Urine Urobilinogen (Up TO 0.2) EU/dL Ur Leukocyte Esterase (Negative) Urine Glucose (Negative) mg/dL Range/Units 07/19/20 07/19/20 07:40 10:24 WBC (4.4-10.8) 10^3/uL RBC (3.93-5.22) 10^6/uL Hgb (11.2-15.7) g/dL Hct (36.0-46.0) % MCV (80-95) fL MCH (27.0-33.0) pg MCHC (32.0-36.0) % RDW (11.7-14.6) % Plt Count (130-400) 10^3/uL MPV (8.0-11.0) fL Immature Gran % Neutrophils % Lymphocytes % Monocytes % Eosinophils % Basophils % Nucleated RBC % % Absolute Neutrophils (1.2-6.7) 10^3/uL Absolute Lymphocytes (1.2-3.4) 10^3/uL Absolute Monocytes (0.1-0.8) 10^3/uL Absolute Eosinophils (0.0-0.7) 10^3/uL Absolute Basophils (0.0-0.2) 10^3/uL PT (9.3-11.0) sec 10.1 INR (0.9-1.1) 1.0 APTT (21.0-27.5) sec 20.7 L Sodium (136-145) mmol/L Potassium (3.5-5.1) mmol/L Chloride (98-107) mmol/L Carbon Dioxide (21.0-32.0) mmol/L Anion Gap (3-11) mmol/L BUN (7-18) mg/dL Creatinine (0.55-1.02) mg/dL Estimated GFR/1.73 m2 (mL/min/1.73m2) Glucose (74-106) mg/dL Calcium (8.5-10.1) mg/dL Magnesium (1.8-2.4) mg/dL Total Bilirubin (0.2-1.0) mg/dL Conjugated Bilirubin (0.00-0.20) mg/dL AST (15-37) U/L ALT (14-59) U/L Alkaline Phosphatase (46-116) U/L Troponin I (<0.06) ng/mL Total Protein (6.4-8.2) g/dL Albumin (3.4-5.0) g/dL Lipase (73-393) U/L Urine Color (Yellow) Yellow Urine Clarity (Clear) Clear Urine pH (5-8) 6.5 Ur Specific Carlock (1.005-1.025) 1.010 Urine Protein (Negative) mg/dL Negative Urine Ketones (Negative) mg/dL Negative Urine Blood (Negative) Negative Urine Nitrite (Negative) Negative Urine Bilirubin (Negative) Negative Urine Urobilinogen (Up TO 0.2) EU/dL 0.2 Ur Leukocyte Esterase (Negative) Negative Urine Glucose (Negative) mg/dL Negative HPI <Israel Nunez MD - Last Filed: 07/19/20 07:36> General Mode of arrival: EMS. Date/Time Provider Initiated Documentation: 07/19/20 07:16. Limitations to Documentation: no limitations. Information obtained by: patient. History of Present Illness 70 year old F presents to the emergency department with the chief complaint of side pain s/p fall, Patient started experiencing this day(s) (3) and it has been constant. No relieving factors improve symptom(s), No exacerbating factors reported . Patient did receive the following treatments prior to arrival, none Related Data Home Medications Medication Instructions Recorded Confirmed aspirin 325 mg PO DAILY tab-cap NS 03/02/13 07/19/20 docusate sodium 100 mg PO DAILY tab-cap NS 03/02/13 07/19/20 furosemide 40 mg PO DAILY tab-cap NS 03/02/13 07/19/20 simvastatin 40 mg PO HS 08/19/13 07/19/20 cholecalciferol (vitamin D3) 1,000 unit PO DAILY #1 09/24/13 07/19/20 nitroglycerin 0.4 mg SUBLINGUAL DIRECTED #25 10/30/15 07/19/20 tab.subl potassium chloride 10 meq PO BID 10/30/15 07/19/20 pramipexole [Mirapex] 0.25 mg PO DAILY 10/30/15 07/19/20 calcium citrate 200 mg PO BID 03/02/18 07/19/20 gabapentin 800 mg PO TID 03/02/18 07/19/20 levothyroxine 112 mcg PO DAILY 03/02/18 07/19/20 lisinopril 20 mg PO DAILY 03/02/18 07/19/20 metoprolol succinate 25 mg PO DAILY 03/02/18 07/19/20 multivitamin 1 cap PO QAM 03/02/18 07/19/20 omega-3 fatty acids-fish oil 1 cap PO DAILY 03/02/18 07/19/20 omeprazole 20 mg PO BID 03/02/18 07/19/20 metformin 500 mg PO BID 02/09/20 07/19/20 oxycodone 5 mg PO QID PRN 02/09/20 07/19/20 meclizine 25 mg PO TID PRN 02/12/20 07/19/20 Previous Rx's Medication Instructions Recorded nitroglycerin 0.4 mg SUBLINGUAL DIRECTED #25 10/30/15 tab.subl Allergies Allergy/AdvReac Type Severity Reaction Status Date / Time cyclobenzaprine Allergy Intermediate Hives Unverified 02/12/20 07:59 [Cyclobenzaprine] codeine Allergy Unknown feels like Unverified 02/12/20 07:59 I'm having a heart attack shellfish derived Allergy Unknown Unverified 02/12/20 07:59 acetaminophen [From Tylenol] Allergy Unverified 02/12/20 07:59 fentanyl AdvReac Intermediate Contraindic Unverified 02/12/20 07:59 ated morphine AdvReac Unknown Contraindic Unverified 02/12/20 07:59 ated cats Allergy Severe Wheezing Uncoded 02/12/20 07:59 General TOSHIA: 4 Review of Systems <Israel Nunez MD - Last Filed: 07/19/20 07:36> All systems reviewed & are unremarkable except as noted in HPI and below Constitutional Constitutional: Denies chills, Denies fever(s) and Denies weakness Cardiovascular Cardiovascular: Denies dyspnea Respiratory Respiratory: Denies cough and Denies dyspnea Gastrointestinal Gastrointestinal: Denies abdominal pain, Denies nausea and Denies vomiting Musculoskeletal Musculoskeletal: Denies joint swelling Neurologic Neurologic: Denies weakness Psychiatric Psychiatric: Denies depression PFS <Israel Nunez MD - Last Filed: 07/19/20 07:36> Medical History (Updated 07/19/20 @ 10:45 by Alina Ray DO) Arthritis Chronic low back pain Cortical cataract of right eye Dyslexia Essential hypertension Gastroesophageal reflux disease Hyperlipidemia Hypothyroidism Nuclear sclerotic cataract of right eye Osteoporosis Refractive amblyopia of left eye Refractive amblyopia of right eye Surgical History Abdominal hysterectomy Cholecystectomy Oophrectomy, Right Status post cataract extraction and insertion of intraocular lens of left eye (03/06/18) Status post cataract extraction and insertion of intraocular lens of right eye (03/20/18) Family History Mother Heart disease Father Personal history of malignant neoplasm Stomach Sister No problems noted. Brother Heart disease Social History Smoking/Tobacco Use Status: Never Smoking risk assessment performed?: Yes Alcohol Intake: never Drug use: Never Substance use type: does not use Number of Children: 1 Do you feel safe at home: Yes Do you feel safe in your relationship?: Yes Exam <Israel Nunez MD - Last Filed: 07/19/20 07:36> Const General: no acute distress Orientation: alert [facility] Head: normal to inspection Ears: external ears normal General nose exam: external nose normal Mouth: moist mucous membranes Eyes General: appearance normal, both eyes and all related structures Neck Neck: normal visual inspection Resp Effort & Inspection: normal respiratory effort and able to speak in complete sentences Cardio Rate: regular rate Skin General skin exam: no rashes or lesions noted Neuro General: patient alert and patient oriented x3 Extrem General: normal to inspection Psych Mental Status: mental status grossly normal Sign Out <Israel Nunez MD - Last Filed: 07/19/20 07:36> Sign Out Data: Sign Out Comment: lightheaded when standing from toilet 3 days ago and fell, right chest and abdomen pain since, pending labs and ct Last updated by Israel Nunez MD at 07/19/20 07:34
[2020-07-19] MEDS: Normal Saline Flush 10 ML SYR IVP (07:46)
[2020-07-19] MEDS: ACETAMINOPHEN 1,000 MG/100 ML BTL 400 MG IVPB (07:46)
[2020-07-19 07:54] LABS: Abs Immature Grans 0.04 10^3/uL (0.0-0.06); Absolute Basophil Count 0.03 10^3/uL (0.0-0.2); Absolute Eosinophil Count 0.46 10^3/uL (0.0-0.7); Absolute Lymphocyte Count 2.89 10^3/uL (1.2-3.4); Absolute Monocyte Count 0.59 10^3/uL (0.1-0.8); Absolute Neutrophil Count 3.77 10^3/uL (1.2-6.7); Basophils % 0.4; Eosinophils % 5.9; HCT 40.4 % (36.0-46.0); HGB 13.4 g/dL (11.2-15.7); Immature Grans % 0.5; Lymphocytes % 37.1; MCH 30.9 pg (27.0-33.0); MCHC 33.2 % (32.0-36.0); MCV 93.1 fL (80-95); MPV 9.9 fL (8.0-11.0); Monocytes % 7.6; Neutrophils % 48.5; Nucleated RBC 0 %; Platelet Count 330 10^3/uL (130-400); RBC 4.34 10^6/uL (3.93-5.22); RDW 11.7 % (11.7-14.6); RDW-SD 39.9 fL; WBC 7.78 10^3/uL (4.4-10.8)
[2020-07-19 08:08] LABS: PTT Activated 20.7 sec (21.0-27.5); Prothrombin Time 10.1 sec (9.3-11.0)
[2020-07-19 08:16] LABS: ALT 27 U/L (14-59); AST 12 U/L (15-37); Albumin 3.3 g/dL (3.4-5.0); Alkaline Phosphatase 71 U/L (46-116); Anion Gap 9.3 mmol/L (3-11); BUN 16 mg/dL (7-18); Bilirubin, Total 0.2 mg/dL (0.2-1.0); CO2 27.7 mmol/L (21.0-32.0); Calcium 9.4 mg/dL (8.5-10.1); Chloride 102 mmol/L (98-107); Glucose 113 mg/dL (74-106); Lipase 67 U/L (73-393); Magnesium 2.1 mg/dL (1.8-2.4); Potassium 3.9 mmol/L (3.5-5.1); Sodium 139 mmol/L (136-145); Total Protein 6.7 g/dL (6.4-8.2)
[2020-07-19 08:18] LABS: Bilirubin, Direct < 0.05 mg/dL (0.00-0.20); Troponin I < 0.05 ng/mL (<0.06)
[2020-07-19] MEDS: Omnipaque 350 MG/ML 100 ML BTL IV (08:32)
[2020-07-19] MEDS: Normal Saline - Diluent 50 ML VIAL IV (08:33)
[2020-07-19] MEDS: oxyCODONE 10 MG TAB PO (09:19)
[2020-07-19 10:28] LABS: Bilirubin Negative (Negative); Blood Negative (Negative); Clarity Clear (Clear); Glucose Negative (Negative); Ketones Negative (Negative); Leukocyte Esterase Negative (Negative); Nitrite Negative (Negative); Urobilinogen 0.2 EU/dL (Up TO 0.2); pH 6.5 (5-8)
== END 2020-07-19 11:04 | disposition home or self-care (01) ==
PROVIDERS: Emergency Medicine; Emergency Provider Physician Assistant; PCP Surgery
DX: S20.221A Contusion of right back wall of thorax, initial encounter (principal); W01.10XA Fall on same level from slipping, tripping and stumbling with subsequent striking against unspecified object, initial encounter; Y92.002 Bathroom of unspecified non-institutional (private) residence as the place of occurrence of the external cause; R55 Syncope and collapse; I10 Essential (primary) hypertension
CPT/HCPCS: 74177; 80053; 83690; 93005; 96365; 99285; 71260; 81003; 82248; 83735; 84484; 85025; 85610; 85730; 93010; 99284; J0131; J3490

== ENCOUNTER 2021-01-05 11:21 | Outpatient (REF) | payer MEDICARE, MEDICAID, SELFPAY ==
[2021-01-05 14:26] LABS: TSH (W/Ref FT4) 2.48 uIU/mL (0.36-3.74)
== END 2021-01-05 11:22 | disposition home or self-care (01) ==
LOC: NCHCN 11:21
PROVIDERS: PCP Surgery; Visit Provider Nurse Practitioner Family
DX: E11.9 Type 2 diabetes mellitus without complications (principal); G89.29 Other chronic pain
CPT/HCPCS: 84443

== ENCOUNTER 2021-03-03 10:17 | Emergency (ER) | payer MEDICARE, MEDICAID, SELFPAY ==
[2021-03-03] VITALS (39 sets, daily range): BP systolic 123–185; BP diastolic 63–79; PULSE 56–77; RESP 12–30; TEMP 36.4; O2SAT 94–98
--- NOTE | 2021-03-03 10:15 | RT.EKG_ITS ---
APPROVED REPORT Exam: Resting ECG Reason for Exam: chest pain Patient Location: E HR:69 bpm ECG Measurements Heart Rate 69 AXIS AZ 190 P 56 QRSd 94 QRS -2 QT 417 T 63 QTc 446 Conclusion Sinus rhythm...normal P axis, V-rate 60- 99
--- NOTE | 2021-03-03 10:27 | W.ED.GENAD ---
Discharge Plan Disposition Patient Disposition: HOME Condition: Stable Discharge Details Clinical Impression: Chest pain, Headache Primary Care Provider: Belem Wells ED Provider: Israel Nunez Home Meds and New Rx's Prescriptions: Continued furosemide 40 MG tablet 40 mg PO DAILY RF: 0 aspirin 325 MG tablet 325 mg PO DAILY RF: 0 docusate sodium 100 MG tablet 100 mg PO DAILY RF: 0 cholecalciferol (vitamin D3) 1,000 UNIT capsule 1,000 unit PO DAILY Qty: 1 RF: 0 simvastatin 40 MG tablet 40 mg PO HS RF: 0 potassium chloride 10 MEQ tablet extended release 10 meq PO BID RF: 0 pramipexole [Mirapex] 0.25 MG tablet 0.25 mg PO DAILY RF: 0 nitroglycerin 0.4 MG tablet, sublingual 0.4 mg Sublingual DIRECTED Qty: 25 RF: 0 gabapentin 800 mg Tablet 800 mg PO TID RF: 0 omeprazole 20 mg Capsule,Delayed Release(Dr/Ec) 20 mg PO BID RF: 0 lisinopril 5 mg Tablet 20 mg PO DAILY RF: 0 metoprolol succinate 25 mg Tablet Extended Release 24 Hr 25 mg PO DAILY RF: 0 multivitamin Capsule 1 cap PO QAM RF: 0 calcium citrate 200 mg (950 mg) Tablet 200 mg PO BID RF: 0 omega-3 fatty acids-fish oil 300-1,000 mg Capsule 1 cap PO DAILY RF: 0 levothyroxine 137 mcg Capsule 112 mcg PO DAILY RF: 0 metformin 500 mg tablet 500 mg PO BID RF: 0 oxycodone 5 mg tablet 5 mg PO QID PRNRF: 0 meclizine 25 mg tablet 25 mg PO TID PRNRF: 0 Discharge Instructions Additional Instructions: Your blood work, ekg and imaging studies did not show any concerning findings follow up with your primary care provider within 1 week if you feel more ill, have fevers, or severe worsening of pain return to the emergency department Medical Decision Making 71 yo female with hx of htn, hld, comes in with 1 week of intermittent chest pressure that radiates to the back. She can't think of anything that makes the pain come on or go away. She takes oxycodone chronically for back pain and states this helps with the pain. Denies cough or fever. She also has had a constant frontal headache for a week. Denies trauma and is not the worst headache of her life. She has no neck stiffness or pain, no vision changes. She arrives stable speaking in full sentences, ecg unremarkable. She has clear lungs, no calf tenderness, no abdominal tenderness. Concern for possible acs, will obtain troponin and give nitro. Given the pain radiates to the back will obtain cta thorax to evaluate for dissection, unlikely PE as she has no findings on exam to suggest dvt and has no hypoxia or tachycardia. Her headache could be tension headache but will obtain ct head to evaluate for hemorrhage, the headache slowly worsened and is not the worst of her life so doubt subarachnoid. No temporal artery tenderness to suggest temporal arteritis. patient remains stable and feels better, no longer having chest pain. 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 Discussed with patient and daughter, she feels comfortable with d/c and follow up this week with pcp, return precautions given Differential Diagnosis Differential Diagnosis: ich, nstemi, dissection Medical Records Medical records reviewed: Yes I reviewed the patient's medical records. Imaging Data Radiologic Study: Attestation: I personally reviewed and interpreted this imaging study as follows: Imaging: CT Scan Radiologist's impression: IMPRESSION: 1. No evidence of pulmonary embolus to the segmental level. 2. No aneurysm of the aorta. 3. No dissection of the aorta. Radiologic Study #2: Attestation: I personally reviewed and interpreted this imaging study as follows: Imaging: CT Scan Radiologist's impression: IMPRESSION: No acute intracranial hemorrhage.. Lab Data Lab results reviewed: Yes I reviewed the patient's lab results. ECG Data Attestation: I personally reviewed and interpreted this ECG (s) as follows: Prior ECG tracings: not available for review Interpretation: sinus rhythm, rate of [address] twave ischemic findings 2nd ekg sinus rhythm, rate of 60, no acute st t wave ischemic findings HPI General Date/Time Provider Initiated Documentation: 03/03/21 10:17. Limitations to Documentation: no limitations. Information obtained by: patient. History of Present Illness 71 year old F presents to the emergency department with the chief complaint of chest pain, described as moderate, Quality is described as other (pressure), and is localized to the chest. Patient reports no radiation. Patient started experiencing this day(s) (7) and it has been constant. No relieving factors improve symptom(s), No exacerbating factors reported . Patient notes headaches. Related Data Home Medications Medication Instructions Recorded Confirmed aspirin 325 mg PO DAILY tab-cap NS 03/02/13 03/03/21 docusate sodium 100 mg PO DAILY tab-cap NS 03/02/13 03/03/21 furosemide 40 mg PO DAILY tab-cap NS 03/02/13 03/03/21 simvastatin 40 mg PO HS 08/19/13 03/03/21 cholecalciferol (vitamin D3) 1,000 unit PO DAILY #1 09/24/13 03/03/21 nitroglycerin 0.4 mg SUBLINGUAL DIRECTED #25 10/30/15 03/03/21 tab.subl potassium chloride 10 meq PO BID 10/30/15 03/03/21 pramipexole [Mirapex] 0.25 mg PO DAILY 10/30/15 03/03/21 calcium citrate 200 mg PO BID 03/02/18 03/03/21 gabapentin 800 mg PO TID 03/02/18 03/03/21 levothyroxine 112 mcg PO DAILY 03/02/18 03/03/21 lisinopril 20 mg PO DAILY 03/02/18 03/03/21 metoprolol succinate 25 mg PO DAILY 03/02/18 03/03/21 multivitamin 1 cap PO QAM 03/02/18 03/03/21 omega-3 fatty acids-fish oil 1 cap PO DAILY 03/02/18 03/03/21 omeprazole 20 mg PO BID 03/02/18 03/03/21 metformin 500 mg PO BID 02/09/20 03/03/21 oxycodone 5 mg PO QID PRN 02/09/20 03/03/21 meclizine 25 mg PO TID PRN 02/12/20 03/03/21 Previous Rx's Medication Instructions Recorded nitroglycerin 0.4 mg SUBLINGUAL DIRECTED #25 10/30/15 tab.subl Allergies Allergy/AdvReac Type Severity Reaction Status Date / Time cyclobenzaprine Allergy Intermediate Hives Unverified 03/03/21 10:30 [Cyclobenzaprine] codeine Allergy Unknown feels like Unverified 03/03/21 10:30 I'm having a heart attack shellfish derived Allergy Unknown Unverified 03/03/21 10:30 acetaminophen [From Tylenol] Allergy Unverified 03/03/21 10:30 fentanyl AdvReac Intermediate Contraindic Unverified 03/03/21 10:30 ated morphine AdvReac Unknown Contraindic Unverified 03/03/21 10:30 ated cats Allergy Severe Wheezing Uncoded 03/03/21 10:30 General TOSHIA: 3 Review of Systems All systems reviewed & are unremarkable except as noted in HPI and below Constitutional Constitutional: Denies chills, Denies fever(s) and Denies weakness Respiratory Respiratory: Denies cough Gastrointestinal Gastrointestinal: Denies abdominal pain, Denies nausea and Denies vomiting Musculoskeletal Musculoskeletal: Denies joint swelling Neurologic Neurologic: Denies weakness [facility] Medical History (Updated 03/03/21 @ 14:18 by Israel Nunez MD) Arthritis Chronic low back pain Cortical cataract of right eye Dyslexia Essential hypertension Gastroesophageal reflux disease Hyperlipidemia Hypothyroidism Nuclear sclerotic cataract of right eye Osteoporosis Refractive amblyopia of left eye Refractive amblyopia of right eye Surgical History Abdominal hysterectomy Cholecystectomy Oophrectomy, Right Status post cataract extraction and insertion of intraocular lens of left eye (03/06/18) Status post cataract extraction and insertion of intraocular lens of right eye (03/20/18) Family History Mother Heart disease Father Personal history of malignant neoplasm Stomach Sister No problems noted. Brother Heart disease Social History Smoking/Tobacco Use Status: Never Smoking risk assessment performed?: Yes Alcohol Intake: never Drug use: Never Substance use type: does not use Number of Children: 1 Do you feel safe at home: Yes Do you feel safe in your relationship?: Yes Exam Const General: no acute distress Orientation: alert HENMT Head: normal to inspection Ears: external ears normal General nose exam: external nose normal Mouth: moist mucous membranes Eyes General: appearance normal, both eyes and all related structures Neck Neck: normal visual inspection Resp Effort & Inspection: normal respiratory effort and able to speak in complete sentences Cardio Rate: regular rate GI Palpation: soft and nontender Skin General skin exam: no rashes or lesions noted Neuro General: patient alert and patient oriented x3 Extrem General: normal to inspection Psych Mental Status: mental status grossly normal
--- OUTSIDE RECORDS SUMMARY | 2021-03-03 10:40 | XMS_ITS ---
:1950 Author Care Team Providers Name Role Phone JANICE SMALLS Primary Care Provider [phone] [facility] Primary Care Provider [phone] Allergies Code Code System Name Reaction Severity Status Onset 267 RxNorm Codeine ? ? Active ? 78297 RxNorm Cyclobenzaprine ? ? Active ? 4337 RxNorm Fentanyl ? ? Active ? 7052 RxNorm Morphine ? ? Active ? Medications Name Status Start Date Stop Date ? ? albuterol sulfate 90 mcg/actuation breath activated powder inhal er Active ? Not available Inhale 2 puffs every 4 hours by inhalation route as needed. Ambien 5 mg tablet Active ? Not available Take 1 tablet every day by oral route as needed for 30 days. atenolol 25 mg tablet Active ? Not availa ble Take 12 tablets every day by oral route. Calcitrate Active ? Not available Colace 100 mg capsule Active ? Not availa ble Take 1 capsule twice a day by oral route. furosemide 40 mg tablet Active ? Not avai lable Take 1 tablet every day by oral route. gabapentin Active ? Not available 800 mg 1 tablet tid Klor-Con 10 mEq tablet,extended release Active ? Not available Take 1 tablet twice a day by oral route. levothyroxine 125 mcg tablet Active ? Not available Take 1 tablet every day by oral route. multivitamin Active ? Not available naproxen Active ? Not available as needed Nexium 40 mg capsule,delayed release Active ? Not available Take 1 capsule every day by oral route. Nitrostat 0.3 mg sublingual tablet Active ? Not available Place by sublingual route as needed. [place] 3 Active ? Not available oxycodone 5 mg tablet Active ? Not availa ble Take 1 tablet every 6 hours by oral route as needed. simvastatin 40 mg tablet Active ? Not tiffanie ilable Take 1 tablet every day by oral route. Vitamin D Active ? Not available Problems Name Status Onset Date Source ? Obstructive Sleep Apnea of Adult Active 12/31/2017 ? Restless Legs Active 12/31/2017 ? Gastroesophageal Reflux Disease Active 12/31/2017 ? Dyspnea Active 12/31/2017 ? Procedures None recorded. Results Lab Results None recorded. Past Encounters None recorded. Social History Tobacco Smoking Status Never Smoker Vaccine List Vaccine Type influenza, injectable, quadrivalent 03/02/2017 pneumococcal polysaccharide PPV23 08/01/1999 06/16/2013 Plan of Care Reminders Provider Appointments None ? ? recorded. Lab None ? ? recorded. Referral None ? ? recorded. Procedures None ? ? recorded. Surgeries None ? ? recorded. Imaging None ? ? recorded. Vitals Height Weight BMI Blood Pressure 142.24 cm 91.3 kg 45.1 kg/m2 130/68 mm[Hg]
[2021-03-03 10:45] LABS: Abs Immature Grans 0.01 10^3/uL (0.0-0.06); Absolute Basophil Count 0.03 10^3/uL (0.0-0.2); Absolute Lymphocyte Count 3.45 10^3/uL (1.2-3.4); Absolute Monocyte Count 0.49 10^3/uL (0.1-0.8); Absolute Neutrophil Count 3.28 10^3/uL (1.2-6.7); Basophils % 0.4; Eosinophils % 5.2; HCT 41.5 % (36.0-46.0); HGB 13.8 g/dL (11.2-15.7); Immature Grans % 0.1; MCH 30.6 pg (27.0-33.0); MCHC 33.3 % (32.0-36.0); Monocytes % 6.4; Neutrophils % 42.9; Nucleated RBC 0 %; Platelet Count 381 10^3/uL (130-400); RBC 4.51 10^6/uL (3.93-5.22); RDW 11.9 % (11.7-14.6); WBC 7.66 10^3/uL (4.4-10.8)
[2021-03-03 11:00] LABS: Prothrombin Time 10.2 sec (9.3-11.0)
[2021-03-03 11:13] LABS: ALT 36 U/L (14-59); AST 23 U/L (15-37); Alkaline Phosphatase 79 U/L (46-116); Anion Gap 6.1 mmol/L (3-11); BUN 17 mg/dL (7-18); Bilirubin, Total 0.4 mg/dL (0.2-1.0); CO2 28.9 mmol/L (21.0-32.0); Calcium 10.4 mg/dL (8.5-10.1); Chloride 104 mmol/L (98-107); Estimated GFR 54.35 (mL/min/1.73m2); Glucose 133 mg/dL (74-106); Lipase 72 U/L (73-393); Potassium 4.2 mmol/L (3.5-5.1); Sodium 139 mmol/L (136-145); Total Protein 7.5 g/dL (6.4-8.2)
[2021-03-03 11:15] LABS: Troponin I < 0.05 ng/mL (<0.06)
--- NOTE | 2021-03-03 11:50 | DI.CT_ITS ---
Exam(s) CT HEAD WO EXAM: CT HEAD WO CLINICAL HISTORY: headache. TECHNIQUE: Imaging Protocol: Axial computed tomography images with coronal and sagittal reformatted images were created and reviewed COMPARISON: No exams were available for comparison FINDINGS: Ventricles and Extra axial spaces: Normal in size and morphology for the patient's age. Hemorrhage: None. Cerebral parenchyma: No acute territorial infarct. There are mild areas of decreased attenuation in the white matter most consistent with chronic microvascular ischemic change. Midline shift: None. Brainstem/Cerebellum: Normal. Calvarium: Normal. Visualized Paranasal sinuses/Mastoids: Clear. Soft Tissues: Unremarkable. IMPRESSION: No acute intracranial process. RADIATION DOSE DELIVERED: 713.3mGy.cm Total DLP DATA REPOSITORY: All CT scans at this facility are submitted to the National Radiology Data Registry (NRDR) Dose Index Registry (DIR) with the [employer] (ACR). RADIATION OPTIMIZATION: All CT scans at this facility use at least one of these dose optimization te chniques: automated exposure control; mA and/or kV adjustment per patient size (includes targeted exa ms where dose is matched to clinical indication); or iterative reconstruction.
[2021-03-03] MEDS: Normal Saline - Diluent 50 ML VIAL IV (11:53)
[2021-03-03] MEDS: Omnipaque 350 MG/ML 100 ML BTL IJ (11:53)
[2021-03-03] MEDS: Normal Saline Flush 10 ML SYR IVP (11:54)
--- NOTE | 2021-03-03 11:54 | DI.VRAD_ITS ---
PROCEDURE INFORMATION: Exam: CT Head Without Contrast Exam date and time: 03/03/2021 10:38 AM Age: 71 years old Clinical indication: Other: Headache TECHNIQUE: Imaging protocol: Computed tomography of the head without contrast. Radiation optimization: All CT scans at this facility use at least one of these dose optimization techniques: automated exposure control; mA and/or kV adjustment per patient size (includes targeted exams where dose is matched to clinical indication); or iterative reconstruction. COMPARISON: No relevant prior studies available. FINDINGS: Brain: There is mild diffuse heterogeneity of the white matter attenuation, consistent with chronic white matter ischemic changes. Mild cerebral atrophy. No acute intracranial hemorrhage.. Cerebral ventricles: No ventriculomegaly. Paranasal sinuses: Visualized sinuses are unremarkable. No fluid levels. Mastoid air cells: Visualized mastoid air cells are well aerated. Bones/joints: Unremarkable. No acute fracture. Soft tissues: Unremarkable. IMPRESSION: No acute intracranial hemorrhage.. Dictated and Authenticated by: Iván Arias MD. Ordering:DARIANA Wood MD
--- NOTE | 2021-03-03 12:00 | DI.CT_ITS ---
Exam(s) CT THORAX CTA EXAM: CT THORAX CTA CLINICAL HISTORY: chest pain radiating to the back. TECHNIQUE: Imaging Protocol: Axial CT angiography was performed with multi-slice acquisition and mu lti-planar and/or 3D reconstructions. CONTRAST MATERIAL: Intravenous: Omnipaque 350 Contrast volume:100 mL COMPARISON: CT CT CHEST/ABD/PEL W from 07/19/2020 FINDINGS: Tracheobronchial tree: Patent where visualized. Pulmonary parenchyma: No consolidation or dominant measurable mass. No architectural distortion. Ther e is a calcified granuloma in the left lower lobe. Pulmonary Arteries: No evidence of filling defect to suggest pulmonary emboli. Mediastinum and Lena: No dominant adenopathy or fluid collection. There is a small hiatal hernia. Pleura: No effusion or pneumothorax. Heart: The heart is not dilated. No coronary artery calcifications are seen. No pericardial effusion. Aorta: Thoracic aorta non-dilated. No evidence of dissection. Atherosclerosis. Upper abdomen: Status post cholecystectomy. Fatty infiltration of the liver. There is no change in size of the common bile ducts compared to 07/19/2020. This likely reflects a post cholecystectomy st ate. Soft tissues: There is a right total shoulder replacement. Bones: Within normal limits for the patient's age.Stable T11 compression deformity. IMPRESSION: No evidence of pulmonary embolism, thoracic aortic dissection or aneurysm. RADIATION DOSE DELIVERED: 674.78mGy.cm Total DLP 674.78mGy.cm Total DLP DATA REPOSITORY: All CT scans at this facility are submitted to the National Radiology Data Registry (NRDR) Dose Index Registry (DIR) with the [employer] (ACR). RADIATION OPTIMIZATION: All CT scans at this facility use at least one of these dose optimization te chniques: automated exposure control; mA and/or kV adjustment per patient size (includes targeted exa ms where dose is matched to clinical indication); or iterative reconstruction.
--- NOTE | 2021-03-03 12:10 | DI.VRAD_ITS ---
PROCEDURE INFORMATION: Exam: CTA Chest With Contrast Exam date and time: 03/03/2021 10:38 AM Age: 71 years old Clinical indication: Other: Chest pain radiating to the back TECHNIQUE: Imaging protocol: Computed tomographic angiography of the chest with contrast. 3D rendering (Not supervised by radiologist): MIP and/or 3D reconstructed images were created by the technologist. Radiation optimization: All CT scans at this facility use at least one of these dose optimization techniques: automated exposure control; mA and/or kV adjustment per patient size (includes targeted exams where dose is matched to clinical indication); or iterative reconstruction. Contrast material: OMNIPAQUE 350; Contrast volume: 100 ml; Contrast route: INTRAVENOUS (IV); COMPARISON: CT CHEST/ABD/PEL W 07/19/2020 8:27 AM FINDINGS: Tubes, catheters and devices: Right humeral prosthesis Pulmonary arteries: No evidence of pulmonary embolus to the segmental level. Aorta: No aneurysm of the aorta. No dissection of the aorta. Lungs: Unremarkable. No consolidation. No masses. Pleural spaces: Unremarkable. No pneumothorax. No pleural effusion. Heart: Unremarkable. No cardiomegaly. No pericardial effusion. Lymph nodes: Unremarkable. No enlarged lymph nodes. Gallbladder and bile ducts: The common duct is prominent. It measures 13 millimeters. This may be due to post cholecystectomy state and elderly status. However, if biliary obstruction is suspected clinically, recommend further evaluation Bones/joints: Compression fracture of unknown age T12 Soft tissues: Unremarkable. IMPRESSION: 1. No evidence of pulmonary embolus to the segmental level. 2. No aneurysm of the aorta. 3. No dissection of the aorta. Dictated and Authenticated by: Iván Arias MD. Ordering:DARIANA Wood MD
[2021-03-03 12:25] LABS: Bilirubin Negative (Negative); Blood Negative (Negative); Clarity Clear (Clear); Glucose Negative (Negative); Ketones Negative (Negative); Leukocyte Esterase Negative (Negative); Nitrite Negative (Negative); Specific Gravity 1.015 (1.005-1.025); Urobilinogen 0.2 EU/dL (Up TO 0.2)
--- NOTE | 2021-03-03 13:30 | RT.EKG_ITS ---
APPROVED REPORT Exam: Resting ECG Reason for Exam: chest pain Patient Location: E HR:59 bpm ECG Measurements Heart Rate 59 AXIS SC 190 P 61 QRSd 92 QRS -10 QT 440 T 61 QTc 436 Conclusion Sinus bradycardia...rate< 60
[2021-03-03 13:58] LABS: Troponin I < 0.05 ng/mL (<0.06)
--- NOTE | 2021-03-03 14:18 | NUR.NOTE ---
Nursing Note: Referral faxed to [facility] for follow up this week for chest pain. Benita Rocha
== END 2021-03-03 14:34 | disposition home or self-care (01) ==
PROVIDERS: Emergency Provider Emergency Medicine; PCP Nurse Practitioner Family
DX: R07.89 Other chest pain (principal); R51.9 Headache, unspecified
CPT/HCPCS: 36415; 71275; 80053; 83690; 93005; 99285; 70450; 81003; 83735; 84484; 85025; 85610; 85730; 93010; J3490

== ENCOUNTER 2021-06-21 11:38 | Outpatient (REF) | payer MEDICARE, MEDICAID, SELFPAY ==
[2021-06-21 14:28] LABS: HCT 37.4 % (36.0-46.0); HGB 12.2 g/dL (11.2-15.7); MCH 30.4 pg (27.0-33.0); MCHC 32.6 % (32.0-36.0); MCV 93.3 fL (80-95); Platelet Count 370 10^3/uL (130-400); RBC 4.01 10^6/uL (3.93-5.22); RDW-SD 41.3 fL; WBC 7.29 10^3/uL (4.4-10.8)
[2021-06-21 14:57] LABS: ALT 40 U/L (14-59); AST 18 U/L (15-37); Albumin 4.2 g/dL (3.4-5.0); Alkaline Phosphatase 70 U/L (46-116); Anion Gap 7.3 mmol/L (3-11); BUN 19 mg/dL (7-18); Bilirubin, Total 0.3 mg/dL (0.2-1.0); CO2 28.7 mmol/L (21.0-32.0); CREATININE 1.2 mg/dL (0.55-1.02); Calcium 10.5 mg/dL (8.5-10.1); Calculated LDL 91 mg/dL (<100); Chloride 102 mmol/L (98-107); Cholesterol 168 mg/dL (<200); Estimated GFR 44.04 (mL/min/1.73m2); Glucose 123 mg/dL (74-106); HDL Cholesterol 50 mg/dL (40-60); Potassium 4.4 mmol/L (3.5-5.1); Sodium 138 mmol/L (136-145); TSH 2.59 uIU/mL (0.36-3.74); Triglyceride 137 mg/dL (<150)
== END 2021-06-21 11:39 | disposition home or self-care (01) ==
LOC: NCHCN 11:38
PROVIDERS: PCP Nurse Practitioner Family; Visit Provider Physician Assistant
DX: E03.9 Hypothyroidism, unspecified (principal); I10 Essential (primary) hypertension; E11.9 Type 2 diabetes mellitus without complications; E78.5 Hyperlipidemia, unspecified
CPT/HCPCS: 80053; 80061; 85027; 84443

== ENCOUNTER 2021-06-22 16:12 | Outpatient (REF) | payer MEDICARE, MEDICAID, SELFPAY ==
--- NOTE | 2021-06-22 10:00 | SKI_PTH ---
PATIENT: Flavia Terrell LOC: [facility] U#:[id number] AGE/SX: 71/F ROOM: RE06/22/[address]: Forrest Bangura : 1950 BED: DIS: 06/22/2021 SPEC #: [id number] RECD: 06/22/21 16:41 STATUS: PATRICIA REQ #: [id number] SWETA: 06/22/21 10:[address]: Forrest Bangura DEPT: Surgical Specimen RECD BY: Lorelei Sharma ENTERED: 06/22/21 16:42 SP TYPE: WHIT OTT DR: Belem Wells Tissues: 1 - SKIN BIOPSY(SHAVE/PUNCH) Procedures: SKIN LEVEL 4 Comments: [id number]
== END 2021-06-22 16:13 | disposition home or self-care (01) ==
LOC: LBN 16:12
PROVIDERS: PCP Nurse Practitioner Family; Visit Provider Physician Assistant
DX: D22.21 Melanocytic nevi of right ear and external auricular canal (principal)
CPT/HCPCS: 88305

== ENCOUNTER 2021-09-29 09:46 | Emergency (ER) | payer MEDICARE, MEDICAID, SELFPAY ==
[2021-09-29] VITALS (39 sets, daily range): BP systolic 128–160; BP diastolic 70–137; PULSE 55–92; RESP 12–28; TEMP 36.5–36.8; O2SAT 85–100
--- NOTE | 2021-09-29 09:45 | RT.EKG_ITS ---
APPROVED REPORT Exam: Resting ECG Reason for Exam: chest pain Patient Location: E HR:73 bpm ECG Measurements Heart Rate 73 AXIS NC 200 P 46 QRSd 93 QRS -10 QT 400 T 61 QTc 440 Conclusion Sinus rhythm...normal P axis, V-rate 60- 99 Low voltage, precordial leads...precordial leads <1.0mV. Sinus. No STEMI. I have reviewed and interpreted ECG and agree with software generated interpretation.
--- NOTE | 2021-09-29 10:00 | DI.CT_ITS ---
Exam(s) CT CHEST PE ABD PELVIS W EXAM: CT CHEST PE ABD PELVIS W CLINICAL HISTORY: CP, SOB, N/V/D. TECHNIQUE: Imaging Protocol: Axial CT angiography was performed with multi-slice acquisition and mu lti-planar and/or 3D reconstructions. CONTRAST MATERIAL: Intravenous: Omnipaque 350 Contrast volume:100 ml COMPARISON: CT CT CHEST/ABD/PEL W from 07/19/[address] THORAX CTA from 03/03/2021 FINDINGS: CHEST: Pulmonary Arteries: No evidence of filling defect to suggest pulmonary emboli. Tracheobronchial tree: Patent where visualized. Mediastinum and Lena: No dominant adenopathy or fluid collection. Pulmonary parenchyma: No consolidation or dominant measurable mass. No architectural distortion. Stab le through all 3 millimeter nodule left upper lobe. Pleura: No effusion or pneumothorax. Heart: The heart is not dilated. Mild coronary artery calcifications are seen. Aorta: Thoracic aorta non-dilated. Mild calcification. Bones: Nor degenerative changes lower thoracic spine. ABDOMEN: Liver: Normal density. No measurable mass. Portal, Superior Mesenteric, and Splenic Veins: Unremarkable. Gallbladder and Biliary Tract: Status post cholecystectomy. No radiodense calculus or dilation. Pancreas: Mildly atrophic. Normal density, no abnormal calcifications or inflammatory process. Spleen: Normal. Adrenals: No masses seen. Kidneys: Normal size, contour and axis. No radiodense stones or obstructive uropathy. No masses seen. Cysts. Abdominal Aorta: Abdominal portion non-dilated. Mild atherosclerotic changes. Bowel: No obstruction or bowel wall thickening. Normal quantity of stool. Peritoneal Cavity: No asc ites, collection or mesenteric inflammatory response. Lymph Nodes: Within normal limits. Bones: Advanced degenerative disc changes and mild scoliosis. Soft Tissues: Unremarkable. PELVIS: Bladder: Symmetric distention, no gross wall thickening. Reproductive Organs: Status post hysterectomy. Lymph Nodes: Within normal limits. Bones: Within normal limits. IMPRESSION: 1. No evidence of pulmonary embolism or other acute abnormality in the chest 2. No acute abdominal or pelvic process. RADIATION DOSE DELIVERED: 2,103.93mGy.cm Total DLP DATA REPOSITORY: All CT scans at this facility are submitted to the National Radiology Data Registry (NRDR) Dose Index Registry (DIR) with the [employer] (ACR). RADIATION OPTIMIZATION: All CT scans at this facility use at least one of these dose optimization te chniques: automated exposure control; mA and/or kV adjustment per patient size (includes targeted exa ms where dose is matched to clinical indication); or iterative reconstruction.
--- NOTE | 2021-09-29 10:13 | W.ED.GENAD ---
Discharge Plan Disposition Patient Disposition: HOME Condition: Stable Discharge Details Clinical Impression: Nausea vomiting and diarrhea Primary Care Provider: [facility] ED Provider: Carmen Gan Home Meds and New Rx's Prescriptions: Continued furosemide 40 MG tablet 40 mg PO DAILY 0RF aspirin 325 MG tablet 81 mg PO DAILY 0RF docusate sodium 100 MG tablet 100 mg PO DAILY 0RF cholecalciferol (vitamin D3) 1,000 UNIT capsule 2,000 unit PO DAILY Qty: 1 0RF simvastatin 40 MG tablet 40 mg PO HS 0RF potassium chloride 10 MEQ tablet extended release 10 meq PO BID 0RF pramipexole [Mirapex] 0.25 MG tablet 0.25 mg PO DAILY 0RF nitroglycerin 0.4 MG tablet, sublingual 0.4 mg Sublingual DIRECTED Qty: 25 0RF Rx Instructions: 1 tab SL prn chest pain, may repeat Q5 minutes up to 3 tabs, and call 911 gabapentin 800 mg Tablet 800 mg PO TID 0RF omeprazole 20 mg Capsule,Delayed Release(Dr/Ec) 20 mg PO BID 0RF lisinopril 5 mg Tablet 20 mg PO DAILY 0RF metoprolol succinate 25 mg Tablet Extended Release 24 Hr 25 mg PO DAILY 0RF multivitamin Capsule 1 cap PO QAM 0RF calcium citrate 200 mg (950 mg) Tablet 200 mg PO BID 0RF omega-3 fatty acids-fish oil 300-1,000 mg Capsule 1 cap PO DAILY 0RF levothyroxine 137 mcg Capsule 112 mcg PO DAILY 0RF metformin 500 mg tablet 1,000 mg PO BID 0RF oxycodone 5 mg tablet 5 mg PO QID PRN0RF meclizine 25 mg tablet 25 mg PO TID PRN0RF Discharge Instructions Instructions: Acute Nausea and Vomiting (ED) Additional Instructions: At this time there is no evidence for acute myocardial infarction. No evidence for congestive heart failure. No obstruction. Please take the nausea medication as directed. Follow up with primary care provider in 3-5 days. Return to ED sooner if any worsening or concerns. Increase oral fluids. Please follow-up with your assistant curator if any recurrent chest pain. Referrals: Dorys Ordaz MD [ [facility] STAFF PHYSICIAN] - 1 week Belem Wells [Primary Care Provider] - 5 days Medical Decision Making 71-year-old female presents to the ER with chief complaint of chest pain, shortness of breath, nausea vomiting diarrhea which began on Friday of this week. She reports increased left sided chest pain described as a cramp underneath her heart, increased shortness of breath with congested cough nonproductive of sputum, she does endorse chills. She also reports nausea vomiting diarrhea. She was recently seen by her PCP on Friday had an increase in her metformin to 1000 mg twice daily. She does have a history of COVID-19 in July 2021. 1022: EKG was reviewed by [Dr. Alina Ray, ER attending, please see her official report for review. There is no old EKG available for review. Questionable ST elevation in V5 V6. At this time work-up ordered including serial troponins, BNP coagulation studies lipase, CT chest abdomen pelvis. Blood cultures drawn. Differential diagnosis includes but not limited to MO, long-term COVID syndrome, PE, gastroenteritis, pneumonia, CHF. 1239: At this time labs show no evidence for leukocytosis, PT/INR within normal limits D-dimer is 517 which is normal per age-adjusted D-dimer, CMP is within normal limits creatinine 1.2 GFR 44.04 which is unchanged from last visit. Glucose 131 magnesium 2.6, initial troponin within normal proBNP is 137, lipase 64 urinalysis shows trace leukocyte 3-5 WBCs rare epithelial cells culture is not indicated at this time patient has no complaints of urinary tract infection. Negative for COVID, flu, RSV. 1243:CT chest abdomen pelvis shows no evidence for acute pulmonary embolism. No pericardial effusion no pleural effusion no pneumothorax. Please see [facility] radiology report. Abdomen pelvis shows previous cholecystectomy. Dilated common bile duct measures 10 mm, stable. no bowel wall thickening or adjacent inflammatory changes. Stable appearance of numerous nonenlarged mesenteric lymph nodes to the left of midline. Please see [facility] report Liver enzymes are within normal limits, lipase also within normal limits. I will discuss the above findings regarding the dilated common bile duct with the patient and have her follow-up with PCP. 1336: Repeat troponin within normal limits will plan for discharge. Patient reevaluation she reports feeling much better. Plan to send patient home with some follow-up with PCP. Medical Records Medical records reviewed: Yes I reviewed the patient's medical records. Lab Data Lab results reviewed: Yes I reviewed the patient's lab results. Lab results narrative: 09/29/21 10:50 Blood Blood Culture - Pending 09/29/21 10:20 Blood Blood Culture - Pending Laboratory Tests Range/Units 09/29/21 09/29/21 09/29/21 10:20 10:20 10:20 WBC (4.4-10.8) 10^3/uL 6.53 RBC (3.93-5.22) 10^6/uL 4.16 Hgb (11.2-15.7) g/dL 12.7 Hct (36.0-46.0) % 38.8 MCV (80-95) fL 93 MCH (27.0-33.0) pg 30.5 MCHC (32.0-36.0) % 32.7 RDW (11.7-14.6) % 12.1 Plt Count (130-400) 10^3/uL 368 MPV (8.0-11.0) fL 10.1 Immature Gran % 0.3 Neutrophils % 51.4 Lymphocytes % 35.1 Monocytes % 7.8 Eosinophils % 4.9 Basophils % 0.5 Nucleated RBC % (0.0-0.3) % 0.0 Absolute Neutrophils (1.2-6.7) 10^3/uL 3.36 Absolute Lymphocytes (1.2-3.4) 10^3/uL 2.29 Absolute Monocytes (0.1-0.8) 10^3/uL 0.51 Absolute Eosinophils (0.0-0.7) 10^3/uL 0.32 Absolute Basophils (0.0-0.2) 10^3/uL 0.03 PT (9.3-11.0) sec 10.3 INR (0.9-1.1) 1.0 D-Dimer (<500) ng/mlFEU 517 H Sodium (136-145) mmol/L 138 Potassium (3.5-5.1) mmol/L 4.0 Chloride (98-107) mmol/L 103 Carbon Dioxide (21.0-32.0) mmol/L 27.1 Anion Gap (3-11) mmol/L 7.9 BUN (7-18) mg/dL 17 Creatinine (0.55-1.02) mg/dL 1.2 H Estimated GFR/1.73 m2 (mL/min/1.73m2) 44.04 Glucose (74-106) mg/dL 131 H Calcium (8.5-10.1) mg/dL 9.8 Magnesium (1.8-2.4) mg/dL 2.6 H Total Bilirubin (0.2-1.0) mg/dL 0.4 AST (15-37) U/L 21 ALT (14-59) U/L 39 Alkaline Phosphatase (46-116) U/L 72 Troponin I (<or=60) ng/L < 50 NT-Pro-B Natriuret Pep (<300) pg/mL 137 Total Protein (6.4-8.2) g/dL 7.2 Albumin (3.4-5.0) g/dL 4.1 Lipase (73-393) U/L 64 Urine Color (Yellow) Urine Clarity (Clear) Urine pH (5-8) Ur Specific [place] (1.005-1.025) Urine Protein (Negative) mg/dL Urine Ketones (Negative) mg/dL Urine Blood (Negative) Urine Nitrite (Negative) Urine Bilirubin (Negative) Urine Urobilinogen (Up TO 0.2) EU/dL Ur Leukocyte Esterase (Negative) Urine RBC (0-2) HPF Urine WBC (0-5) HPF Ur Epithelial Cells (Negative) HPF Urine Crystals (Negative) HPF Urine Bacteria (Negative) HPF Urine Casts (Negative) LPF Urine Mucus (Negative) Ur Culture Indicated? Urine Glucose (Negative) mg/dL COVID-19 Source SARS-CoV-2 (PCR) (Negative) Influenza Type A (PCR) (Negative) Influenza Type B (PCR) (Negative) RSV (PCR) (Negative) Range/Units 09/29/21 09/29/21 09/29/21 10:32 11:03 13:10 WBC (4.4-10.8) 10^3/uL RBC (3.93-5.22) 10^6/uL Hgb (11.2-15.7) g/dL Hct (36.0-46.0) % MCV (80-95) fL MCH (27.0-33.0) pg MCHC (32.0-36.0) % RDW (11.7-14.6) % Plt Count (130-400) 10^3/uL MPV (8.0-11.0) fL Immature Gran % Neutrophils % Lymphocytes % Monocytes % Eosinophils % Basophils % Nucleated RBC % (0.0-0.3) % Absolute Neutrophils (1.2-6.7) 10^3/uL Absolute Lymphocytes (1.2-3.4) 10^3/uL Absolute Monocytes (0.1-0.8) 10^3/uL Absolute Eosinophils (0.0-0.7) 10^3/uL Absolute Basophils (0.0-0.2) 10^3/uL PT (9.3-11.0) sec INR (0.9-1.1) D-Dimer (<500) ng/mlFEU Sodium (136-145) mmol/L Potassium (3.5-5.1) mmol/L Chloride (98-107) mmol/L Carbon Dioxide (21.0-32.0) mmol/L Anion Gap (3-11) mmol/L BUN (7-18) mg/dL Creatinine (0.55-1.02) mg/dL Estimated GFR/1.73 m2 (mL/min/1.73m2) Glucose (74-106) mg/dL Calcium (8.5-10.1) mg/dL Magnesium (1.8-2.4) mg/dL Total Bilirubin (0.2-1.0) mg/dL AST (15-37) U/L ALT (14-59) U/L Alkaline Phosphatase (46-116) U/L Troponin I (<or=60) ng/L < 50 NT-Pro-B Natriuret Pep (<300) pg/mL Total Protein (6.4-8.2) g/dL Albumin (3.4-5.0) g/dL Lipase (73-393) U/L Urine Color (Yellow) Yellow Urine Clarity (Clear) Clear Urine pH (5-8) 5.5 Ur Specific [place] (1.005-1.025) 1.015 Urine Protein (Negative) mg/dL Negative Urine Ketones (Negative) mg/dL Negative Urine Blood (Negative) Negative Urine Nitrite (Negative) Negative Urine Bilirubin (Negative) Negative Urine Urobilinogen (Up TO 0.2) EU/dL 0.2 Ur Leukocyte Esterase (Negative) Trace H Urine RBC (0-2) HPF 0-2 Urine WBC (0-5) HPF 3-5 Ur Epithelial Cells (Negative) HPF Rare Urine Crystals (Negative) HPF Negative Urine Bacteria (Negative) HPF Rare Urine Casts (Negative) LPF Negative Urine Mucus (Negative) Negative Ur Culture Indicated? No Urine Glucose (Negative) mg/dL Negative COVID-19 Source Nasopharynx SARS-CoV-2 (PCR) (Negative) Negative Influenza Type A (PCR) (Negative) Negative Influenza Type B (PCR) (Negative) Negative RSV (PCR) (Negative) Negative HPI General Date/Time Provider Initiated Documentation: 09/29/21 09:47. Limitations to Documentation: no limitations. Information obtained by: patient, family (Daughter), RN notes reviewed and old records reviewed. HPI Narrative: 71-year-old female presents to the ER with chief complaint of chest pain, shortness of breath, nausea vomiting diarrhea which began on Friday of this week. She reports increased left sided chest pain described as a cramp underneath her heart, increased shortness of breath with congested cough nonproductive of sputum, she does endorse chills. She also reports nausea vomiting diarrhea. She was recently seen by her PCP on Friday had an increase in her metformin to 1000 mg twice daily. She does have a history of COVID-19 in July 2021. Other past medical history includes hypertension, GERD, hyperlipidemia, hypothyroidism, osteoporosis surgical history includes hysterectomy, cholecystectomy, oophorectomy Related Data Home Medications Medication Instructions Recorded Confirmed aspirin 325 mg tablet 81 mg PO DAILY tab-cap NS 03/02/13 09/29/21 docusate sodium 100 mg tablet 100 mg PO DAILY tab-cap NS 03/02/13 09/29/21 furosemide 40 mg tablet 40 mg PO DAILY tab-cap NS 03/02/13 09/29/21 simvastatin 40 mg tablet 40 mg PO HS 08/19/13 09/29/21 cholecalciferol (vitamin D3) 25 2,000 unit PO DAILY #1 09/24/13 09/29/21 mcg (1,000 unit) capsule nitroglycerin 0.4 mg sublingual 0.4 mg SUBLINGUAL DIRECTED #25 10/30/15 09/29/21 tablet tab.subl potassium chloride 10 mEq 10 meq PO BID 10/30/15 09/29/21 tablet,extended release pramipexole 0.25 mg tablet 0.25 mg PO DAILY 10/30/15 09/29/21 (Mirapex) calcium citrate 200 mg (950 mg) 200 mg PO BID 03/02/18 09/29/21 tablet gabapentin 800 mg tablet 800 mg PO TID 03/02/18 09/29/21 levothyroxine 137 mcg capsule 112 mcg PO DAILY 03/02/18 09/29/21 lisinopril 5 mg tablet 20 mg PO DAILY 03/02/18 09/29/21 metoprolol succinate 25 mg 25 mg PO DAILY 03/02/18 09/29/21 tablet,extended release 24 hr multivitamin 1 cap PO QAM 03/02/18 09/29/21 omega-3 fatty acids-fish oil 300 1 cap PO DAILY 03/02/18 09/29/21 mg-1,000 mg capsule omeprazole 20 mg capsule,delayed 20 mg PO BID 03/02/18 09/29/21 release metformin 500 mg tablet 1,000 mg PO BID 02/09/20 09/29/21 oxycodone 5 mg tablet 5 mg PO QID PRN 02/09/20 09/29/21 meclizine 25 mg tablet 25 mg PO TID PRN 02/12/20 09/29/21 Previous Rx's Medication Instructions Recorded nitroglycerin 0.4 mg sublingual 0.4 mg SUBLINGUAL DIRECTED #25 10/30/15 tablet tab.subl Allergies Allergy/AdvReac Type Severity Reaction Status Date / Time cyclobenzaprine Allergy Intermediate Hives Unverified 09/29/21 10:42 [Cyclobenzaprine] codeine Allergy Unknown feels like Unverified 09/29/21 10:42 I'm having a heart attack shellfish derived Allergy Unknown Unverified 09/29/21 10:42 acetaminophen [From Tylenol] Allergy Unverified 09/29/21 10:42 fentanyl AdvReac Intermediate Contraindic Unverified 09/29/21 10:42 ated morphine AdvReac Unknown Contraindic Unverified 09/29/21 10:42 ated cats Allergy Severe Wheezing Uncoded 09/29/21 10:42 General Stated Complaint: SOB TOSHIA: 2 Review of Systems All systems reviewed & are unremarkable except as noted in HPI and below Cardiovascular Cardiovascular: Reports chest pain, Reports chest pain at rest, Denies pedal edema and Reports dyspnea Respiratory Respiratory: Reports as per HPI, Reports chest congestion, Reports cough, Denies hemoptysis, Reports excessive phlegm production and Reports dyspnea Gastrointestinal Gastrointestinal: Denies abdominal pain, Reports diarrhea, Reports nausea and Reports vomiting Genitourinary Genitourinary: Denies difficulty voiding Musculoskeletal Musculoskeletal: Reports myalgias and Reports muscle cramps (leg pain) PFSH All Active Problems (Updated 09/29/21 @ 13:40 by Carmen Gan) Chest pain (Acute) Headache (Acute) Nausea vomiting and diarrhea (Acute) Tight introitus (Chronic 2004) No sexual activity times 14 years. No Pap test times 5 years. Will attempt gradual introital dilation. Vaginal atrophy (Chronic) estrace cream started 03/27/18 Status post cataract extraction and insertion of intraocular lens of right eye (Chronic 03/20/18) Status post cataract extraction and insertion of intraocular lens of left eye (Chronic 03/06/18) Refractive amblyopia of right eye (Chronic) Refractive amblyopia of left eye (Chronic) Shoulder pain, right (Acute) a. With decreased range of motion. History of Surgical Procedure (Chronic) a. Excision of dorsal ganglion cyst, left wrist. b. Abdominal hysterectomy. c. Open cholecystectomy. d. Colonoscopy. Pain, low back (Chronic) a. She goes to the pain clinic. Hypertension (Chronic) a. Well controlled. History of asthma (Chronic) Esophageal reflux disease (Chronic) Elevated lipids (Chronic) Chest pain (Acute) Medical History (Updated 09/29/21 @ 13:40 by Carmen Gan) Arthritis Chronic low back pain Cortical cataract of right eye Dyslexia Essential hypertension Gastroesophageal reflux disease Hyperlipidemia Hypothyroidism Nuclear sclerotic cataract of right eye Osteoporosis Surgical History Abdominal hysterectomy Cholecystectomy Oophrectomy, Right Family History Mother Heart disease Father Personal history of malignant neoplasm Stomach Sister No problems noted. Brother Heart disease Social History Smoking/Tobacco Use Status: Never Smoking risk assessment performed?: Yes Alcohol Intake: never Drug use: Never Substance use type: does not use Number of Children: 1 Do you feel safe at home: Yes Do you feel safe in your relationship?: Yes Exam Narrative Exam Narrative: Constitutional: Alert and oriented x3. Appears stated age. Normal body habitus. Head: Normocephalic, no trauma. Eyes: Pupils PERRL, Red reflex noted, EOM's intact. Eyelids symmetrical without lesions, discharge, or swelling. ENT: Bilateral TM's WNL, External ear normal to inspection, no mastoid TTP, swelling, or erythema, Nasal turbinates WNL, no nasal discharge. Normal dentition, Posterior pharynx WNL, no exudate. Chest: RRR, Normal S1, S2, distal pulses intact. Resp: Gurgling, rhonchi noted bilaterally to the bases on auscultation. No wheezing no stridor. Abdomen: Soft, non-distended, Normoactive bowel sounds all 4 quads. Nontender to palpation all 4 quadrants. Musculoskeletal: 5/5 strength to all four extremities. No significant bilateral lower extremity edema noted, she does report increased tenderness with palpation. No erythema. Skin: No suspicious rashes or lesions. Capillary refill less than 2 sec. Neurologic: Cranial nerves II-XII intact. Alert and oriented x 3. Motor: No deficits noted. Sensory: Intact bilaterally all 4 extremities. Reflexes: DTR's intact bilaterally.. Hematologic/Lymphatic: No ecchymosis, no lymphadenopathy. Course Vital Signs Vital signs: Vital Signs Temperature 36.5 C 09/29/21 09:56 Pulse 78 09/29/21 09:56 Respiratory Rate 25 H 09/29/21 09:56 Blood Pressure 160/70 H 09/29/21 09:56 Pulse Oximetry 98 09/29/21 09:56 Temperature 36.5 C 09/29/21 09:56 Temperature Source Skin 09/29/21 09:56 Pulse 78 09/29/21 09:56 Respiratory Rate 25 H 09/29/21 09:56 Respiratory Effort 09/29/21 09:56 Blood Pressure 160/70 H 09/29/21 09:56 Blood Pressure Position Supine 09/29/21 09:56 Pulse Oximetry 98 09/29/21 09:56 Lab/Test Results Lab/Test Results: 09/29/21 10:04 Blood Blood Culture - Pending 09/29/21 10:04 Blood Blood Culture - Pending
[2021-09-29] MEDS: Ondansetron 4 MG/2 ML VIAL 2 MG IVP (10:26)
[2021-09-29] MEDS: Aspirin 81 MG CHEW 243 MG CH (10:26)
[2021-09-29 10:31] LABS: Abs Immature Grans 0.02 10^3/uL (0.0-0.06); Absolute Basophil Count 0.03 10^3/uL (0.0-0.2); Absolute Eosinophil Count 0.32 10^3/uL (0.0-0.7); Absolute Lymphocyte Count 2.29 10^3/uL (1.2-3.4); Absolute Monocyte Count 0.51 10^3/uL (0.1-0.8); Absolute Neutrophil Count 3.36 10^3/uL (1.2-6.7); Basophils % 0.5; Eosinophils % 4.9; HCT 38.8 % (36.0-46.0); HGB 12.7 g/dL (11.2-15.7); Immature Grans % 0.3; Lymphocytes % 35.1; MCH 30.5 pg (27.0-33.0); MCHC 32.7 % (32.0-36.0); MCV 93 fL (80-95); MPV 10.1 fL (8.0-11.0); Monocytes % 7.8; Neutrophils % 51.4; Platelet Count 368 10^3/uL (130-400); RBC 4.16 10^6/uL (3.93-5.22); RDW 12.1 % (11.7-14.6); RDW-SD 41.5 fL; WBC 6.53 10^3/uL (4.4-10.8)
[2021-09-29 10:43] LABS: Prothrombin Time 10.3 sec (9.3-11.0)
[2021-09-29 10:51] LABS: ALT 39 U/L (14-59); AST 21 U/L (15-37); Albumin 4.1 g/dL (3.4-5.0); Alkaline Phosphatase 72 U/L (46-116); Anion Gap 7.9 mmol/L (3-11); BUN 17 mg/dL (7-18); Bilirubin, Total 0.4 mg/dL (0.2-1.0); CO2 27.1 mmol/L (21.0-32.0); CREATININE 1.2 mg/dL (0.55-1.02); Calcium 9.8 mg/dL (8.5-10.1); Chloride 103 mmol/L (98-107); Estimated GFR 44.04 (mL/min/1.73m2); Glucose 131 mg/dL (74-106); Lipase 64 U/L (73-393); Magnesium 2.6 mg/dL (1.8-2.4); NT-proBNP 137 pg/mL (<300); Sodium 138 mmol/L (136-145); Total Protein 7.2 g/dL (6.4-8.2); Troponin I < 50 ng/L (<or=60)
[2021-09-29 11:01] LABS: D-Dimer 517 ng/mlFEU (<500)
[2021-09-29] MEDS: Normal Saline 500 ML IV (11:05)
[2021-09-29 11:11] LABS: Bilirubin Negative (Negative); Blood Negative (Negative); Clarity Clear (Clear); Glucose Negative (Negative); Ketones Negative (Negative); Leukocyte Esterase Trace (Negative); Nitrite Negative (Negative); Specific Gravity 1.015 (1.005-1.025); Urobilinogen 0.2 EU/dL (Up TO 0.2); pH 5.5 (5-8)
[2021-09-29 11:17] LABS: Bacteria Rare HPF (Negative); C & S Indicated? No; Casts Negative LPF (Negative); Crystals Negative HPF (Negative); Epithelial Cells Rare HPF (Negative); Mucus Negative (Negative); RBC 0-2 HPF (0-2)
[2021-09-29 11:30] LABS: COVID-19 PCR Negative (Negative); Influenza A PCR Negative (Negative); Influenza B PCR Negative (Negative); RSV PCR Negative (Negative)
[2021-09-29 11:31] LABS: Source Nasopharynx
[2021-09-29] MEDS: Omnipaque 350 MG/ML 100 ML BTL IJ (11:57)
[2021-09-29] MEDS: Normal Saline Flush 10 ML SYR IVP (11:59)
--- NOTE | 2021-09-29 12:35 | DI.VRAD_ITS ---
PROCEDURE INFORMATION: Exam: CTA Chest With Contrast Exam date and time: 09/29/2021 11:47 AM Age: 71 years old Clinical indication: Other: Cp, SOB, n/v/d TECHNIQUE: Imaging protocol: Computed tomographic angiography of the chest with contrast. 3D rendering (Not supervised by radiologist): MIP and/or 3D reconstructed images were created by the technologist. Contrast material: OMNIPAQUE 350; Contrast volume: 100 ml; Contrast route: INTRAVENOUS (IV); COMPARISON: 1. CT THORAX CTA 03/03/2021 11:[address] CHEST/ABD/PEL W 07/19/2020 8:27 AM FINDINGS: Pulmonary arteries: Negative for acute pulmonary embolism. Aorta: Unremarkable. No aortic aneurysm. No aortic dissection. Lungs: Stable calcified granuloma left lower lobe measures 3 mm. Stable noncalcified pulmonary nodule left upper lobe measures 3 mm. No focal consolidation. Pleural spaces: Unremarkable. No pneumothorax. No pleural effusion. Heart: Unremarkable. No cardiomegaly. No pericardial effusion. Lymph nodes: Unremarkable. No enlarged lymph nodes. Bones/joints: Unremarkable. No acute fracture. Soft tissues: Unremarkable. IMPRESSION: 1. Negative for acute pulmonary embolism. 2. Left pulmonary nodules as detailed above. PROCEDURE INFORMATION: Exam: CT Angiography Abdomen With Contrast Exam date and time: 09/29/2021 11:47 AM Age: 71 years old Clinical indication: Other: Cp, SOB, n/v/d TECHNIQUE: Imaging protocol: Computed tomographic angiography images of the abdomen with intravenous contrast material. 3D rendering (Not supervised by radiologist): MIP and/or 3D reconstructed images were created by the technologist. Contrast material: OMNIPAQUE 350; Contrast volume: 100 ml; Contrast route: INTRAVENOUS (IV); COMPARISON: 1. CT THORAX CTA 03/03/2021 11:[address] CHEST/ABD/PEL W 07/19/2020 8:27 AM FINDINGS: Aorta: No aortic aneurysm. No aortic dissection. Celiac trunk and mesenteric arteries: No occlusion or significant stenosis. Renal arteries: No occlusion or significant stenosis. Liver: Normal. No mass. Gallbladder and bile ducts: Previous cholecystectomy. Dilated common bile duct, measures 10 mm, stable. Can be normal finding after cholecystectomy. Pancreas: Normal. No ductal dilation. Spleen: Normal. No splenomegaly. Adrenals: Normal. No mass. Kidneys and ureters: Stable parapelvic cysts with extrarenal pelvis on the left. No right hydronephrosis. Stomach and bowel: No bowel wall thickening or adjacent inflammatory changes. Lymph nodes: Stable appearance of numerous unenlarged mesenteric lymph nodes to the left of midline. Intraperitoneal space: Unremarkable. No free air. No significant fluid collection. Bones/joints: Unremarkable. No acute fracture. No dislocation. Soft tissues: Unremarkable. IMPRESSION: No bowel wall thickening or adjacent inflammatory changes. Stable appearance of numerous unenlarged mesenteric lymph nodes to the left of midline. Dictated and Authenticated by: Janey Asencio MD. Ordering:YADIEL Morales MD
--- NOTE | 2021-09-29 13:00 | RT.EKG_ITS ---
APPROVED REPORT Exam: Resting ECG Reason for Exam: Repeat, Chest Pain Patient Location: E HR:60 bpm ECG Measurements Heart Rate 60 AXIS DC 199 P 50 QRSd 88 QRS -10 QT 438 T 54 QTc 438 Conclusion Sinus rhythm...normal P axis, V-rate 60- 99 Low voltage, precordial leads...precordial leads <1.0mV. Sinus. No STEMI. I have reviewed and interpreted ECG and agree with software generated interpretation.
[2021-09-29 13:31] LABS: Troponin I < 50 ng/L (<or=60)
[2021-09-29] MEDS: Ondansetron O.D.T. 4 MG TABEF, 3 TABS/BTL PO (13:49)
== END 2021-09-29 13:53 | disposition home or self-care (01) ==
PROVIDERS: Emergency Provider Registered Nurse Emergency; PCP Nurse Practitioner Family
DX: R11.2 Nausea with vomiting, unspecified (principal); R19.7 Diarrhea, unspecified; R06.02 Shortness of breath; R07.9 Chest pain, unspecified; Z86.16 Personal history of COVID-19
CPT/HCPCS: 36415; 71275; 74177; 80053; 83690; 87040; 87637; 93005; 96361; 96374; 99284; 99285; 81003; 81015; 83735; 83880; 84484; 85025; 85379; 85610; 93010; J2405; J3490

== ENCOUNTER → 2021-12-05 01:24 | Outpatient (CLI) | payer MEDICARE, MEDICAID, SELFPAY ==
--- NOTE | 2021-12-05 13:55 | DI.US_ITS ---
APPROVED REPORT EXAM: Comprehensive 2D, Doppler, and color-flow Echocardiogram Patient Location: Out-Patient Record Center Specialist: Emilia Fay RDCS (AE) Indications: Exertional dyspnea, s/p covid Other Information Study Quality: Adequate Conclusion Normal left ventricular wall thickness and chamber size. Estimated ejection fraction is 55 to 60%. Wall motion is normal Right ventricle appears grossly normal in size and systolic function Both atria are normal in size The aortic valve is trileaflet with trace regurgitation Mild mitral annular calcification. Mild mitral regurgitation Normal tricuspid valve with trace regurgitation. Estimated right ventricular systolic pressure is no rmal, 24 mmHg Wall motion Left Ventricle The left ventricle is normal size. The left ventricular systolic function is normal. The left ventric ular ejection fraction is within the normal range. There is normal left ventricular wall thickness. T here is normal LV segmental wall motion. There is no ventricular septal defect visualized. LVEF is 56 %. Right Ventricle Right ventricle is grossly normal in size. Right ventricular systolic function is grossly normal. The RVSP is 24.3 mmHg. Atria The left atrium size is normal. The right atrium size is normal. The interatrial septum is intact wit h no evidence for an atrial septal defect. Aortic Valve The aortic valve is normal in structure. Aortic valve is trileaflet. No hemodynamically significant v alvular aortic stenosis. Trace aortic regurgitation. Mitral Valve Mild mitral annular calcification. No evidence of mitral valve stenosis. Mild mitral regurgitation. Tricuspid Valve The tricuspid valve is normal in structure. There is no tricuspid valve stenosis. Trace tricuspid reg urgitation. Pulmonic Valve The pulmonary valve is normal in structure. There is no pulmonic valvular stenosis. There is no pulmo faith valvular regurgitation. Great Vessels The aortic root is normal in size. The ascending aorta is normal in size. Aortic arch is normal in ca liber. IVC is normal in size and collapses >50% with inspiration. Pericardium There is no pericardial effusion. 2D Dimensions IVSD d PLAX 0.97 cm F: 0.6-1.0 LV Vol A2C d MOD 55.3 mL LVPW d PLAX 0.98 cm F: 0.6 - 1.0 LV Vol A4C d MOD 79.8 mL LVID d PLAX 4.40 cm F: 3.8 - 5.2 LA vol/ BSA A4C s A-L 26.1 mL/m2 LVDs 3.05 cm F: 2.2 - 3.5 LA Area A4C s MOD 17.67 cm2 Ao Root d 2.29 cm F: 2.7 - 3.3 LV EF A4C MOD 55.4 % RA Area A4C 9.86 cm2 LV EF A2C MOD 56.8 % RA Vol/ BSA A4C s A-L 11.2 mL/m2 LV EF Biplane MOD 56.9 % Ao Asc Diam d 3.28 cm F: 2.3 - 3.1 SV 38.60 mL LV EF Teichholz 57.4 % SV Index 21.21 mL/m2 LVEF (Sanabria's) 56.90 % F: 54 - 74 LV Volume 52.56 mL F: 46 - 106 LV Volume Index 28.87 mL/m2 F: 29 - 61 LV Vol Biplane MOD 67.8 mL FS 29.90 % M-Mode TAPSE 2.67 cm (M/F) >1.7 LV Diastology MV E' medial 0.071 (>0.07 m/s) E/A Ratio 0.7 LV E/e MED 11.15 (<14) MV E Vmax 0.80 (0.4-1.3 m/s) MV E' lateral 0.092 (>0.1 m/s) MV A Vmax 1.20 (0.4-1.3 m/s) LV E/e LAT 8.65 (<14) MV E/A Ratio 0.65 MV E/E' medial 11.17 MV E/E' lateral 8.68 Aortic Valve LVOT Area 3.03 cm2 AoV Area Vmax 1.77 cm2 LVOT Vmax 1.28 m/s AoV Area/ BSA (Vmax) 0.97 cm2/m2 LVOT Mean Rafael. 0.78 m/s VERONIQUE Mean Rafael. 1.59 cm2 LVOT Peak Grad 6.6 mmHg VERONIQUE Mean Rafael. Index 0.88 cm2/m2 LVOT Mean Grad 2.9 mmHg LVOT VTI 0.265 m LVOT Diam s 1.95 cm AoV Vmax 2.19 m/s Velocity Ratio 0.58 AoV Mean Rafael. 1.48 m/s AoV Peak Grad 19.2 mmHg LVOT SV 80.42 mL AoV Mean Grad 10.0 mmHg AoV VTI 0.446 m AoV Area VTI 1.80 cm2 AoV Area/ BSA (VTI) 0.99 cm/m2 Mitral Valve MV DT 294 (160-240 msec) MV PHT 85 msec MV Area PHT 2.58 cm2 MV VTI 0.373 m MV Area VTI 2.15 (4.0-6.0 cm2) Pulmonary Valve PV Vmax 0.91 (0.5-1.5 m/s) RVOT Peak Gr. 1.55 mmHg PV Peak Grad 3.3 mmHg RVOT Mean Gr. 1.00 mmHg PV Mean Grad 2.1 mmHg RVOT VTI 0.169 m PV VTI 0.208 m RVOT Vmax 0.62 m/s Tricuspid Valve TR Peak Grad 21.3 mmHg TR Vmax 2.31 m/s RA Pressure 3.00 mmHg RVSP (TR) 24.3 mmHg
--- NOTE | 2021-12-05 15:30 | DI.MAMMO_ITS ---
Exam(s) MAMMO SCREENING EXAM: MAMMO SCREENING CLINICAL HISTORY: SCREENING,Z12.39 TECHNIQUE: Mammograms were interpreted according to the usual protocol including computer analysis w [employer] CAD system, tomosynthesis and C-view imaging. COMPARISON: 2012 through 2019 FINDINGS: The breasts are composed of mainly fatty density , Breast Density category A. No suspicious masses or suspicious microcalcifications are seen. Coarse, benign calcifications are a gain noted. Vascular calcifications are present. No skin thickening or abnormal axillary lymph nodes are seen. There has been no significant change from prior exams. IMPRESSION: BI-RADS Category 1, Negative mammogram Yearly screening mammography is recommended. Breast Density - Category A, fatty density. A negative radiographic report should not delay biopsy if a dominant or clinically suspicious mass is present. Up to ten percent of cancers are not identified on mammography. A negative report may reinforce clinical impression. Adenosis and dense breasts may obscure an underlying neoplasm. False positive reports average 6 to 10%. Patient will receive a letter notifying them of these results.
== END ==
PROVIDERS: PCP Nurse Practitioner Family; Visit Provider Physician Assistant
DX: R06.09 Other forms of dyspnea (principal); Z12.31 Encounter for screening mammogram for malignant neoplasm of breast
CPT/HCPCS: 77063; 77067; 93306

== ENCOUNTER → 2022-02-11 08:22 | Outpatient (BNVA) | payer MEDICARE, MEDICAID, SELFPAY | PROVIDERS: PCP Nurse Practitioner Family; Referring Provider Nurse Practitioner Family; Visit Provider Nurse Practitioner Gerontology | DX: N90.89 Other specified noninflammatory disorders of vulva and perineum (principal); N39.46 Mixed incontinence | CPT/HCPCS: 51798; 81003; 99215 ==

== ENCOUNTER 2022-06-20 15:25 | Outpatient (REF) | payer MEDICARE, MEDICAID, SELFPAY ==
[2022-06-20 16:00] LABS: Hemoglobin A1C 6.2 % (<5.7)
[2022-06-20 16:05] LABS: ALT 30 U/L (14-59); AST 22 U/L (15-37); Albumin 4.5 g/dL (3.4-5.0); Alkaline Phosphatase 63 U/L (46-116); Anion Gap 8.7 mmol/L (3-11); BUN 31 mg/dL (7-18); Bilirubin, Total 0.4 mg/dL (0.2-1.0); CO2 29.3 mmol/L (21.0-32.0); CREATININE 1.6 mg/dL (0.55-1.02); Calcium 10.7 mg/dL (8.5-10.1); Calculated LDL 103 mg/dL (<100); Chloride 104 mmol/L (98-107); Cholesterol 181 mg/dL (<200); Estimated GFR 33.63 (mL/min/1.73m2); Glucose 125 mg/dL (74-106); HDL Cholesterol 53 mg/dL (40-60); Potassium 4.4 mmol/L (3.5-5.1); Sodium 142 mmol/L (136-145); TSH 2.23 uIU/mL (0.36-3.74); Total Protein 7.4 g/dL (6.4-8.2); Triglyceride 127 mg/dL (<150)
== END 2022-06-20 15:26 | disposition home or self-care (01) ==
LOC: NCHCN 15:25
PROVIDERS: PCP Nurse Practitioner Family; Visit Provider Physician Assistant
DX: E03.9 Hypothyroidism, unspecified (principal); E11.9 Type 2 diabetes mellitus without complications
CPT/HCPCS: 80053; 80061; 83036; 84443

== ENCOUNTER 2022-08-31 08:09 | Emergency (ER) | payer MEDICARE, MEDICAID, SELFPAY ==
--- NOTE | 2022-08-31 08:00 | RT.EKG_ITS ---
APPROVED REPORT Exam: Resting ECG Reason for Exam: sob Patient Location: E HR:85 bpm ECG Measurements Heart Rate 85 AXIS TX 172 P 42 QRSd 93 QRS -32 QT 385 T 58 QTc 458 Conclusion Sinus rhythm...normal P axis, V-rate 60- 99 Left axis deviation...QRS axis (-30,-90) Consider anterior infarct...Q >30mS in V2-V5
[2022-08-31 08:10] VITALS: BP 130/72; PULSE 91; RESP 25; TEMP 37.2; O2SAT 96
[2022-08-31 08:12] VITALS: RESP 22
--- NOTE | 2022-08-31 08:15 | DI.RAD_ITS ---
Exam(s) XR CHEST 2V PA LATERAL EXAM: XR CHEST 2V PA LATERAL CLINICAL HISTORY: sob. TECHNIQUE: 2D digital imaging was performed. COMPARISON: CR CHEST 2 VIEWS PA,LAT from 10/22/2009 FINDINGS: 2 views: Heart size is normal. The mediastinum is not widened. Right lung is clear. Mild increased markings noted adjacent to the inferior heart border on the left side but appears unchanged from 2010. No other pulmonary findings. No pleural effusions. Right shoulder prosthesis now evident. IMPRESSION: Mild increased markings in the lingular segment of the left lung adjacent the left heart border but w ith minimal change from 2010 and therefore probably chronic. No new obvious pulmonary findings. DATA REPOSITORY: RADIATION DOSE DELIVERED:
--- NOTE | 2022-08-31 08:22 | W.ED.GENAD ---
Discharge Plan Discharge Details Chief Complaint: SOB Primary Care Provider: [facility] ED Provider: Holden Handy Home Meds and New Rx's Prescriptions: No Action furosemide 40 MG tablet 40 mg PO DAILY aspirin 325 MG tablet 81 mg PO DAILY docusate sodium 100 MG tablet 100 mg PO DAILY cholecalciferol (vitamin D3) 1,000 UNIT capsule 2,000 unit PO DAILY Qty: 1 omeprazole 20 mg capsule,delayed release(DR/EC) 20 mg PO DAILY estradiol [Estrace] 0.01 % (0.1 mg/gram) cream 1 g vaginal .3xweek albuterol sulfate [ProAir HFA] 90 mcg/actuation HFA aerosol inhaler 2 puff inhalation Q6H PRN triamcinolone acetonide 0.1 % cream 1 applic topical BID albuterol sulfate 2.5 mg /3 mL (0.083 %) solution for nebulization 2.5 mg inhalation Q6H calcium citrate 200 mg (950 mg) tablet 200 mg PO DAILY clotrimazole-betamethasone 1-0.05 % cream 1 applic topical BID simvastatin 40 MG tablet 40 mg PO HS potassium chloride 10 MEQ tablet extended release 10 meq PO BID pramipexole [Mirapex] 0.25 MG tablet 0.25 mg PO DAILY nitroglycerin 0.4 MG tablet, sublingual 0.4 mg Sublingual DIRECTED Qty: 25 0RF Rx Instructions: 1 tab SL prn chest pain, may repeat Q5 minutes up to 3 tabs, and call 911 gabapentin 800 mg Tablet 800 mg PO TID lisinopril 5 mg Tablet 20 mg PO DAILY metoprolol succinate 25 mg Tablet Extended Release 24 Hr 25 mg PO DAILY multivitamin Capsule 1 cap PO QAM calcium citrate 200 mg (950 mg) Tablet 200 mg PO BID Patient Comments: Only takes once daily- duplicate order 08/31/2022 CT omega-3 fatty acids-fish oil 300-1,000 mg Capsule 1 cap PO DAILY levothyroxine 137 mcg Capsule 112 mcg PO DAILY metformin 500 mg tablet 1,000 mg PO BID oxycodone 5 mg tablet 5 mg PO QID PRN meclizine 25 mg tablet 25 mg PO TID PRN Medical Decision Making Medical Records Medical records narrative: 72-year-old lady presented to the emergency room 1 week of not feeling well and shortness of breath associate with some cough. Work-up revealed a leukocytosis with a left shift. Rest of the labs were within normal limits. These were interpreted by me. Her chest x-ray was read by me as the small left lower lobe infiltrate confirmed by radiology. The patient is being diagnosed with a community-acquired pneumonia. Ambulatory trial in the emergency department went well. No desaturation. No increased work of breathing. HPI General Date/Time Provider Initiated Documentation: 08/31/22 08:22. HPI Narrative: 72-year-old lady presents to the emergency department via EMS for shortness of breath. She states that she has been coughing and short of breath for the past week. The cough has gotten to an extreme that it causes her to have a headache. She is due took some Tylenol for the headache at 3 in the morning but is still having the headache. Her cough is dry but feels junky. States that she has never smoked. I believe that she has a history of asthma given her list of medication. She does not endorse any fevers or chills. No nausea no vomiting. No chest pain. No abdominal pain no diarrhea no nausea no vomiting. No leg swelling. Related Data Home Medications Medication Instructions Recorded Confirmed aspirin 325 mg tablet 81 mg PO DAILY 03/02/13 08/31/22 docusate sodium 100 mg tablet 100 mg PO DAILY 03/02/13 08/31/22 furosemide 40 mg tablet 40 mg PO DAILY 03/02/13 08/31/22 simvastatin 40 mg tablet 40 mg PO HS 08/19/13 08/31/22 cholecalciferol (vitamin D3) 25 2,000 unit PO DAILY ##1 09/24/13 08/31/22 mcg (1,000 unit) capsule nitroglycerin 0.4 mg sublingual 0.4 mg sublingual DIRECTED 10/30/15 08/31/22 tablet angina ##25 potassium chloride 10 mEq 10 meq PO BID 10/30/15 08/31/22 tablet,extended release pramipexole 0.25 mg tablet 0.25 mg PO DAILY 10/30/15 08/31/22 (Mirapex) calcium citrate 200 mg (950 mg) 200 mg PO BID 03/02/18 09/29/21 tablet gabapentin 800 mg tablet 800 mg PO TID 03/02/18 08/31/22 levothyroxine 137 mcg capsule 112 mcg PO DAILY 03/02/18 08/31/22 lisinopril 5 mg tablet 20 mg PO DAILY 03/02/18 08/31/22 metoprolol succinate 25 mg 25 mg PO DAILY 03/02/18 08/31/22 tablet,extended release 24 hr multivitamin 1 cap PO QAM 03/02/18 08/31/22 omega-3 fatty acids-fish oil 300 1 cap PO DAILY 03/02/18 08/31/22 mg-1,000 mg capsule metformin 500 mg tablet 1,000 mg PO BID 02/09/20 08/31/22 oxycodone 5 mg tablet 5 mg PO QID PRN 02/09/20 08/31/22 meclizine 25 mg tablet 25 mg PO TID PRN 02/12/20 08/31/22 albuterol sulfate 2.5 mg/3 mL 2.5 mg inhalation Q6H 11/14/21 08/31/22 (0.083 %) solution for nebulization albuterol sulfate 90 mcg/actuation 2 puff inhalation Q6H PRN 11/14/21 08/31/22 aerosol inhaler (ProAir HFA) calcium citrate 200 mg (950 mg) 200 mg PO DAILY 11/14/21 08/31/22 tablet clotrimazole-betamethasone 1 1 applic topical BID 11/14/21 08/31/22 %-0.05 % topical cream estradiol 0.01% (0.1 mg/gram) 1 g vaginal .3xweek 11/14/21 08/31/22 vaginal cream (Estrace) omeprazole 20 mg capsule,delayed 20 mg PO DAILY 11/14/21 08/31/22 release triamcinolone acetonide 0.1 % 1 applic topical BID 11/14/21 08/31/22 topical cream Previous Rx's Medication Instructions Recorded nitroglycerin 0.4 mg sublingual 0.4 mg sublingual DIRECTED 10/30/15 tablet angina ##25 Allergies Allergy/AdvReac Type Severity Reaction Status Date / Time cyclobenzaprine Allergy Intermediate Hives Unverified 08/31/22 08:15 [Cyclobenzaprine] codeine Allergy Unknown feels like Unverified 08/31/22 08:15 I'm having a heart attack shellfish derived Allergy Unknown Unverified 08/31/22 08:15 acetaminophen [From Tylenol] Allergy Unverified 08/31/22 08:15 ibuprofen Allergy Verified 08/31/22 08:15 fentanyl AdvReac Intermediate Contraindic Unverified 08/31/22 08:15 ated morphine AdvReac Unknown Contraindic Unverified 08/31/22 08:15 ated cats Allergy Severe Wheezing Uncoded 08/31/22 08:15 General Stated Complaint: SOB TOSHIA: 2 Review of Systems Narrative: Constitutional negative for fevers and chills. HEENT negative cardiovascular no chest pain respiratory see HPI GI see HPI no dysuria no frequency MSK no myalgias arthralgias Skin no rashes neuro positive headaches no paresthesias no focal weakness Psych mild anxiety Hematological not on blood thinners PFSH All Active Problems Mixed stress and urge urinary incontinence (Acute) Chest pain (Acute) Headache (Acute) Tight introitus (Chronic 2004) No sexual activity times 14 years. No Pap test times 5 years. Will attempt gradual introital dilation. Vaginal atrophy (Chronic) estrace cream started 03/27/18 Status post cataract extraction and insertion of intraocular lens of right eye (Chronic 03/20/18) Status post cataract extraction and insertion of intraocular lens of left eye (Chronic 03/06/18) Refractive amblyopia of right eye (Chronic) Refractive amblyopia of left eye (Chronic) Shoulder pain, right (Acute) a. With decreased range of motion. History of Surgical Procedure (Chronic) a. Excision of dorsal ganglion cyst, left wrist. b. Abdominal hysterectomy. c. Open cholecystectomy. d. Colonoscopy. Pain, low back (Chronic) a. She goes to the pain clinic. Hypertension (Chronic) a. Well controlled. History of asthma (Chronic) Esophageal reflux disease (Chronic) Elevated lipids (Chronic) Chest pain (Acute) Medical History Arthritis Chronic low back pain Cortical cataract of right eye Dyslexia Essential hypertension Gastroesophageal reflux disease Hyperlipidemia Hypothyroidism Nuclear sclerotic cataract of right eye Osteoporosis Surgical History Abdominal hysterectomy Cholecystectomy Oophrectomy, Right Family History Mother Heart disease Father Personal history of malignant neoplasm Stomach Sister No problems noted. Brother Heart disease Social History Smoking/Tobacco Use Status: Never Smoking risk assessment performed?: Yes Alcohol Intake: never Drug use: Never Substance use type: does not use Number of Children: 1 Do you feel safe at home: Yes Do you feel safe in your relationship?: Yes Exam Narrative Exam Narrative: Awake alert Colver x3 calm no acute distress high BMI PERRLA EOMI MMM Supple neck Chest bilateral scattered rhonchi and wheezing Heart regular rhythm and rate no murmurs rubs GI soft nondistended nontender Back normal inspection Skin no rashes good cap refill Neuro 2-12 grossly intact strength 5/5 bilaterally sensation normal Psych adequate mood and affect Course Vital Signs Vital signs: Vital Signs Temperature 37.2 C 08/31/22 08:10 Pulse 91 H 08/31/22 08:10 Respiratory Rate 25 H 08/31/22 08:10 Blood Pressure 130/72 08/31/22 08:10 Pulse Oximetry 96 08/31/22 08:10 Temperature 37.2 C 08/31/22 08:10 Temperature Source Oral 08/31/22 08:10 Pulse 91 H 08/31/22 08:10 Respiratory Rate 22 08/31/22 08:12 Respiratory Effort Short of Breath, Labored 08/31/22 08:12 Respiratory Depth Normal 08/31/22 08:12 Respiratory Pattern Normal 08/31/22 08:12 Blood Pressure 130/72 08/31/22 08:10 Blood Pressure Position Sitting 08/31/22 08:10 Pulse Oximetry 96 08/31/22 08:10 Oxygen Delivery Method Nasal Cannula 08/31/22 08:10 Oxygen Flow Rate 2 08/31/22 08:10 Pain Level 0 08/31/22 08:10
[2022-08-31] MEDS: Albuterol 2.5 MG/3 ML INH SOLN VIAL UPD (08:52)
[2022-08-31] MEDS: MAGNESIUM SULFATE 1 GM/100 ML BAG IVPB (08:54)
[2022-08-31 09:16] LABS: Abs Immature Grans 0.04 10^3/uL (0.0-0.06); Absolute Basophil Count 0.02 10^3/uL (0.0-0.2); Absolute Eosinophil Count 0.25 10^3/uL (0.0-0.7); Absolute Lymphocyte Count 3.22 10^3/uL (1.2-3.4); Basophils % 0.2; HGB 12.9 g/dL (11.2-15.7); Immature Grans % 0.3; Lymphocytes % 25.9; MCH 30.6 pg (27.0-33.0); MCHC 33.9 % (32.0-36.0); MCV 90 fL (80-95); MPV 9.9 fL (8.0-11.0); Monocytes % 7.6; Platelet Count 313 10^3/uL (130-400); RBC 4.21 10^6/uL (3.93-5.22); RDW 12.1 % (11.7-14.6); WBC 12.45 10^3/uL (4.4-10.8)
[2022-08-31 09:17] LABS: Absolute Monocyte Count 0.95 10^3/uL (0.1-0.8); Absolute Neutrophil Count 7.97 10^3/uL (1.2-6.7)
[2022-08-31 09:39] LABS: ALT 71 U/L (14-59); AST 35 U/L (15-37); Albumin 3.5 g/dL (3.4-5.0); Alkaline Phosphatase 160 U/L (46-116); Anion Gap 7.6 mmol/L (3-11); BUN 13 mg/dL (7-18); Bilirubin, Total 0.4 mg/dL (0.2-1.0); CO2 26.4 mmol/L (21.0-32.0); CREATININE 1.1 mg/dL (0.55-1.02); Calcium 9.8 mg/dL (8.5-10.1); Chloride 100 mmol/L (98-107); Estimated GFR 52.73 (mL/min/1.73m2); Glucose 143 mg/dL (74-106); NT-proBNP 110 pg/mL (<300); Potassium 3.9 mmol/L (3.5-5.1); Sodium 134 mmol/L (136-145); Troponin I < 50 ng/L (<or=60)
--- NOTE | 2022-08-31 10:14 | DI.VRAD_ITS ---
PROCEDURE INFORMATION: Exam: XR Chest Exam date and time: 08/31/2022 9:54 AM Age: 72 years old Clinical indication: Shortness of breath; Patient HX: SOB TECHNIQUE: Imaging protocol: Radiologic exam of the chest. Views: 2 views. COMPARISON: CT CHEST PE ABD PELVIS W 09/29/2021 11:47 AM FINDINGS: Lungs: Patchy left lower lobe airspace opacities. Pleural spaces: Unremarkable. No pleural effusion. No pneumothorax. Heart/Mediastinum: Unremarkable. No cardiomegaly. Bones/joints: Thoracic spondylosis. Partially included right humeral head arthroplasty. Chronic mild compression deformity of T12. IMPRESSION: Left lower lobe atelectasis versus pneumonia. Dictated and Authenticated by: Alan Agosto MD. Ordering:SERINA Hatch MD
[2022-08-31] MEDS: Amoxicillin 875/Clav. 125 TAB PO (10:28)
[2022-08-31 11:33] VITALS: BP 151/66; PULSE 86; RESP 20; O2SAT 92
== END 2022-08-31 11:38 | disposition home or self-care (01) ==
LOC: ER 11:51
PROVIDERS: Emergency Provider Emergency Medicine; PCP Nurse Practitioner Family
DX: J18.9 Pneumonia, unspecified organism (principal); D72.829 Elevated white blood cell count, unspecified
CPT/HCPCS: 80053; 93005; 94640; 96361; 96365; 99284; 71046; 83880; 84484; 85025; 93010; J2930; J3475; J7613

== ENCOUNTER 2022-09-27 00:19 | Outpatient (CLI) | payer MEDICARE, MEDICAID, SELFPAY ==
--- NOTE | 2022-09-27 12:23 | DI.RAD_ITS ---
Exam(s) XR SHOULDER LT COMPLETE 2+V EXAM: XR SHOULDER LT COMPLETE 2+V CLINICAL HISTORY: IMPINGEMENT SYNDROME LT SHOULDER, M75.42. TECHNIQUE: 2D digital imaging was performed. Three views. COMPARISON: CR RIGHT SHOULDER COMPLETE from 11/24/2014 FINDINGS: BONES: No acute fracture is present. No bony destructive lesion is seen. JOINTS: No dislocation present. Severe degenerative changes at the glenohumeral joint. Spurring and subchondral cyst formation. Mild spurring at the AC joint. SOFT TISSUE: Normal. IMPRESSION: Severe degenerative changes of the glenohumeral joint. DATA REPOSITORY: RADIATION DOSE DELIVERED:
== END 2022-09-27 00:39 ==
LOC: DI 00:19
PROVIDERS: PCP Nurse Practitioner Family; Visit Provider Physician Assistant
DX: M75.42 Impingement syndrome of left shoulder (principal)
CPT/HCPCS: 73030

== ENCOUNTER 2022-12-13 01:08 | Outpatient (CLI) | payer MEDICARE, MEDICAID, SELFPAY ==
--- NOTE | 2022-12-13 | DI.MAMMO_ITS ---
Exam(s) MAMMO SCREENING EXAM: MAMMO SCREENING CLINICAL HISTORY: SCREENING, Z12.39. TECHNIQUE: Bilateral full field digital CC and MLO mammographic images were obtained with 3D tomosyn thesis and utilizing computer aided detection (CAD). COMPARISON: Prior mammograms were reviewed. FINDINGS: There has been no significant change in the appearance and distribution of the fibroglandular tissue. Multiple benign micro and macro calcifications are again noted in both breasts. There are no new spiculated masses nor malignant appearing microcalcification groups. There is no significant architectural distortion nor skin thickening-retraction. IMPRESSION: No radiographic evidence of malignancy. BI-RADS Category 1 - Negative Breast Density - Category A - Almost entirely fatty Breast density Category C or D implies that the patient has dense breast tissue. Dense breast tissue can make it harder to find cancer on a mammogram. Dense breast tissue is also associated with an incr eased risk of breast cancer. This information about the result of the mammogram report was provided to the patient to raise their awareness. Use this report when you speak with the patient about their risks for breast cancer, which includes their family history. At that time, you may recommend additional screening tests (Ultrasoun d or MRI) as these tests may add significant information. A negative radiographic report should not delay biopsy if a dominant or clinically suspicious mass is present. Up to ten percent of cancers are not identified on mammography. A negative report may reinforce clinical impression. Adenosis and dense breasts may obscure an underlying neoplasm. False positive reports average 6 to 10%. Patient will receive a letter notifying them of these results.
== END 2022-12-13 01:28 ==
LOC: DI 01:08
PROVIDERS: PCP Nurse Practitioner Family; Visit Provider Physician Assistant
DX: Z12.31 Encounter for screening mammogram for malignant neoplasm of breast (principal)
CPT/HCPCS: 77063; 77067

== ENCOUNTER 2023-06-25 09:08 | Outpatient (REF) | payer MEDICARE, MEDICAID, SELFPAY ==
[2023-06-25 15:21] LABS: HCT 41.1 % (36.0-46.0); HGB 13.2 g/dL (11.2-15.7); MCH 29.9 pg (27.0-33.0); MCHC 32.1 % (32.0-36.0); MCV 93 fL (80-95); MPV 10.3 fL (8.0-11.0); Platelet Count 413 10^3/uL (130-400); RBC 4.41 10^6/uL (3.93-5.22); RDW 12.1 % (11.7-14.6); RDW-SD 41.6 fL; WBC 9.75 10^3/uL (4.4-10.8)
[2023-06-25 15:58] LABS: COMMENT (LAB VIEW ONLY) 28.87 mg/dL; Microalb ug/mg Crea 33.3 ug/mg Cr
[2023-06-25 16:00] LABS: ALT 34 U/L (14-59); AST 22 U/L (15-37); Albumin 4.2 g/dL (3.4-5.0); Alkaline Phosphatase 93 U/L (46-116); Anion Gap 9.4 mmol/L (3-11); BUN 28 mg/dL (7-18); Bilirubin, Total 0.5 mg/dL (0.2-1.0); CO2 28.6 mmol/L (21.0-32.0); CREATININE 1.7 mg/dL (0.55-1.02); Calculated LDL 70 mg/dL (<100); Chloride 101 mmol/L (98-107); Cholesterol 160 mg/dL (<200); Estimated GFR 31.08 (mL/min/1.73m2); Glucose 144 mg/dL (74-106); HDL Cholesterol 51 mg/dL (40-60); Potassium 4.9 mmol/L (3.5-5.1); Sodium 139 mmol/L (136-145); TSH 3.75 uIU/mL (0.36-3.74); Total Protein 7.2 g/dL (6.4-8.2); Triglyceride 198 mg/dL (<150)
[2023-06-25 16:22] LABS: Hemoglobin A1C 6.5 % (<5.7)
== END 2023-06-25 09:09 | disposition home or self-care (01) ==
LOC: NCHCN 09:08
PROVIDERS: PCP Nurse Practitioner Family; Visit Provider Physician Assistant
DX: E11.9 Type 2 diabetes mellitus without complications (principal); E03.9 Hypothyroidism, unspecified; E78.5 Hyperlipidemia, unspecified
CPT/HCPCS: 80053; 80061; 85027; 82043; 82570; 83036; 84443

== ENCOUNTER 2023-07-03 15:43 | Outpatient (REF) | payer MEDICARE, MEDICAID, SELFPAY ==
[2023-07-03 17:49] LABS: COMMENT (LAB VIEW ONLY) 27.37 mg/dL; Microalb ug/mg Crea 32.9 ug/mg Cr
== END 2023-07-03 15:44 | disposition home or self-care (01) ==
LOC: NCHCN 15:43
PROVIDERS: PCP Nurse Practitioner Family; Visit Provider Physician Assistant
DX: E11.9 Type 2 diabetes mellitus without complications (principal)
CPT/HCPCS: 82043; 82570

== ENCOUNTER → 2023-07-08 01:30 | Outpatient (CLI) | payer MEDICARE, MEDICAID, SELFPAY ==
--- NOTE | 2023-07-08 | DI.RAD_ITS ---
Exam(s) XR SHOULDER LT COMPLETE 2+V EXAM: XR SHOULDER LT COMPLETE 2+V CLINICAL HISTORY: LT SHOULDER PAIN,M25.512,LT SHOULDER IMPINGEMENT. TECHNIQUE: 2D digital imaging was performed. Four views. COMPARISON: CR XR SHOULDER LT COMPLETE 2+V from 09/27/2022 FINDINGS: BONES: No acute fracture is present. No bony destructive lesion is seen. JOINTS: No dislocation present. Severe degenerative changes are present at the glenohumeral joint. There is severe joint space narrowing, periarticular spurring, sclerosis and small subchondral cysts. The AC joint shows mild spurring. SOFT TISSUE: Normal. IMPRESSION: Severe degenerative changes of the glenohumeral joint. DATA REPOSITORY: RADIATION DOSE DELIVERED:
== END ==
PROVIDERS: PCP Nurse Practitioner Family; Visit Provider Physician Assistant
DX: M19.012 Primary osteoarthritis, left shoulder (principal)
CPT/HCPCS: 73030

== ENCOUNTER → 2023-08-19 09:22 | Outpatient (BNVA) | payer MEDICARE, MEDICAID, SELFPAY | PROVIDERS: PCP Physician Assistant; Referring Provider Nurse Practitioner Family; Visit Provider Student in an Organized Health Care Education/Training Program | DX: M19.012 Primary osteoarthritis, left shoulder (principal) | CPT/HCPCS: 99213 ==

== ENCOUNTER → 2023-08-27 17:28 | Outpatient (CLI) | payer MEDICARE, MEDICAID, SELFPAY ==
--- NOTE | 2023-08-27 14:45 | DI.CT_ITS ---
Exam(s) CT UPPER EXTREMITY LT WO EXAM: CT UPPER EXTREMITY LT WO CLINICAL HISTORY: PAIN, SURGICAL PLANNING, ARTHRITIS LT GLENOHUMERAL JOINT, M19.012. TECHNIQUE: Imaging Protocol: Axial computed tomography images with coronal and sagittal reformatted images were created and reviewed. COMPARISON: CR XR SHOULDER LT COMPLETE 2+V from 07/08/2023 FINDINGS: Bones: There is no evidence of fracture or dislocation. Bony alignment is satisfactory. No cellulitic or osteomyelitic changes are identified. Joints: There is severe narrowing of the glenohumeral joint, with a [id number] appearance. There i s periarticular spurring greater inferiorly. The multiple small subchondral cysts are seen on both s ides of the joint. AC joint is unremarkable. Soft Tissues: Normal. IMPRESSION: Severe degenerative changes of the glenohumeral joint. RADIATION DOSE DELIVERED: Total DLP Total DLP DATA REPOSITORY: All CT scans at this facility are submitted to the National Radiology Data Registry (NRDR) Dose Index Registry (DIR) with the [employer] ([employer]). RADIATION OPTIMIZATION: All CT scans at this facility use at least one of these dose optimization te chniques: automated exposure control; mA and/or kV adjustment per patient size (includes targeted exa ms where dose is matched to clinical indication); or iterative reconstruction.
== END ==
PROVIDERS: PCP Physician Assistant; Visit Provider Student in an Organized Health Care Education/Training Program
DX: M25.512 Pain in left shoulder; M19.012 Primary osteoarthritis, left shoulder
CPT/HCPCS: 73200

== ENCOUNTER → 2023-09-10 12:49 | Outpatient (BNVA) | payer MEDICARE, MEDICAID, SELFPAY | PROVIDERS: PCP Physician Assistant; Referring Provider Physician Assistant; Visit Provider Student in an Organized Health Care Education/Training Program | DX: M19.012 Primary osteoarthritis, left shoulder (principal); M75.102 Unspecified rotator cuff tear or rupture of left shoulder, not specified as traumatic; E11.9 Type 2 diabetes mellitus without complications | CPT/HCPCS: 99214 ==

== ENCOUNTER 2023-10-10 12:04 | Outpatient (REF) | payer MEDICARE, MEDICAID, SELFPAY ==
[2023-10-10 19:30] LABS: Hemoglobin A1C 6.6 % (<5.7)
[2023-10-10 19:32] LABS: Anion Gap 9.3 mmol/L (3-11); BUN 22 mg/dL (7-18); CO2 25.7 mmol/L (21.0-32.0); CREATININE 1.4 mg/dL (0.55-1.02); Calcium 9.8 mg/dL (8.5-10.1); Chloride 99 mmol/L (98-107); Estimated GFR 39.23 (mL/min/1.73m2); Glucose 124 mg/dL (74-106); Potassium 5.3 mmol/L (3.5-5.1); Sodium 134 mmol/L (136-145)
== END 2023-10-10 12:05 | disposition home or self-care (01) ==
LOC: NCHCN 12:04
PROVIDERS: PCP Physician Assistant; Visit Provider Physician Assistant
DX: E11.9 Type 2 diabetes mellitus without complications (principal); E03.9 Hypothyroidism, unspecified
CPT/HCPCS: 80048; 83036; 84443

== ENCOUNTER 2023-10-16 06:00 | Day surgery (SDC) | payer MEDICARE, MEDICAID, SELFPAY ==
--- NOTE | 2023-10-15 19:38 | W.ANESPRE ---
General Info Date of Service Date Performed: 10/16/23 Height: 4 ft Weight: 91 kg Body Mass Index (BMI): 61.2 Surgical Procedure: Operation Date: 10/16/23 07:40 Proposed Procedure Side Surgeon p Shoulder Reverse Total Arthroplasty, Biceps Tenodesis Left Chapincito Bailey MD Meds Allergies and Home Medications Allergies Allergy/AdvReac Type Severity Reaction Status Date / Time acetaminophen [From Tylenol] Allergy Intermediate Swelling/Ed Unverified 10/16/23 06:13 marley cyclobenzaprine Allergy Intermediate Hives Unverified 10/16/23 06:13 [Cyclobenzaprine] codeine Allergy Unknown feels like Unverified 10/16/23 06:13 I'm having a heart attack shellfish derived Allergy Unknown Other (See Unverified 10/16/23 06:13 Comment) ibuprofen Allergy Other (See Verified 10/16/23 06:13 Comment) fentanyl AdvReac Intermediate Contraindic Unverified 10/16/23 06:13 ated morphine AdvReac Unknown Contraindic Unverified 10/16/23 06:13 ated cats Allergy Severe Wheezing Uncoded 10/16/23 06:13 Home Medication Medication Instructions Recorded aspirin 325 mg tablet 81 mg PO DAILY 03/02/13 nitroglycerin 0.4 mg sublingual 0.4 mg sublingual DIRECTED 10/30/15 tablet angina ##25 potassium chloride 10 mEq 10 meq PO BID 10/30/15 tablet,extended release pramipexole 0.25 mg tablet 0.25 mg PO DAILY 10/30/15 (Mirapex) levothyroxine 137 mcg capsule 112 mcg PO DAILY 03/02/18 multivitamin 1 cap PO QAM 03/02/18 oxycodone 5 mg tablet 5 mg PO QID PRN 02/09/20 albuterol sulfate 2.5 mg/3 mL 2.5 mg inhalation Q6H 11/14/21 (0.083 %) solution for nebulization clotrimazole-betamethasone 1 1 applic topical BID 11/14/21 %-0.05 % topical cream estradiol 0.01% (0.1 mg/gram) 1 g vaginal .3xweek 11/14/21 vaginal cream (Estrace) triamcinolone acetonide 0.1 % 1 applic topical BID 11/14/21 topical cream albuterol sulfate 90 mcg/actuation 2 puff inhalation Q6H PRN #8.5 08/31/22 aerosol inhaler (ProAir HFA) grams albuterol sulfate 90 mcg/actuation 2 puff inhalation Q6H PRN 02/17/23 aerosol inhaler (Ventolin HFA) gabapentin 600 mg tablet 600 mg PO BID 02/17/23 metformin 500 mg tablet 500 mg PO BID 02/17/23 omeprazole 40 mg capsule,delayed 40 mg PO DAILY 02/17/23 release ondansetron HCl 4 mg tablet 4 mg PO Q8H PRN 02/17/23 atorvastatin 40 mg tablet 40 mg PO DAILY 05/06/23 calcium citrate 200 mg (950 mg) 200 mg PO DAILY 05/06/23 tablet docusate sodium 100 mg capsule 100 mg PO DAILY 05/06/23 (Colace) fluticasone propionate 220 2 puff inhalation BID 05/06/23 mcg/actuation HFA aerosol inhaler (Flovent HFA) furosemide 20 mg tablet 20 mg PO DAILY 05/06/23 metoprolol succinate 25 mg 25 mg PO DAILY 05/06/23 tablet,extended release 24 hr oxycodone 5 mg tablet 5 mg PO Q6H PRN 05/06/23 lisinopril 40 mg tablet 20 mg PO DAILY 07/16/23 glimepiride 2 mg tablet 2 mg PO DAILY 09/11/23 spironolactone 25 mg tablet 25 mg PO DAILY 09/11/23 Current Visit Medications: Current Medications Generic Name Dose Route Start Last Admin Trade Name Freq PRN Reason Stop Dose Admin Ringer's Solution 1,000 mls @ 30 mls/hr 10/16/23 06:00 IV 10/16/23 23:59 INFUSION CARMEN Cefazolin Sodium/Dextrose 2 gm in 50 mls @ 100 mls/hr 10/16/23 06:00 Ancef Duplex IVPB 10/16/23 23:59 PREOP CARMEN Tranexamic Acid/Sodium Chloride 1,000 mg in 100 mls @ 600 mls/hr 10/16/23 06:00 IVPB 10/16/23 23:59 PREOP CARMEN IV Miscellaneous Supplies 1 each 10/16/23 06:00 Iv Access IV 10/16/23 23:59 DIRECTED CARMEN Sodium Chloride 0 ml 10/16/23 06:00 Normal Saline Flush 10 Ml Syr IV 10/16/23 23:59 PRN PRN Sodium Chloride 0 ml 10/16/23 06:00 Normal Saline 10 Ml Vial IJ 10/16/23 23:59 DIRECTED PRN Sterile Water 0 ml 10/16/23 06:00 Water,Injection,Sterile 10 Ml Vial IJ 10/16/23 23:59 DIRECTED PRN PFSH Active Problems Active Problems: Problem Status Onset Code Left rotator cuff tear M75.102 Arthritis of left glenohumeral joint M19.012 Mixed stress and urge urinary incontinence N39.46 Chest pain R07.9 Headache R51.9 Tight introitus 2004 N89.6 Vaginal atrophy N95.2 Status post cataract extraction and insertion of intraocular lens of right eye 03/20/18 Z98.41, Z96.1 Status post cataract extraction and insertion of intraocular lens of left eye 03/06/18 Z98.42, Z96.1 Refractive amblyopia of right eye H53.021 Refractive amblyopia of left eye H53.022 Cortical cataract of left eye H26.9 Nuclear sclerotic cataract of left eye H25.12 Extreme hyperopia H52.00 Shoulder pain, right M25.511 History of Surgical Procedure Z98.89 Pain, low back M54.5 Hypertension I10 History of asthma Z87.09 Esophageal reflux disease K21.9 Elevated lipids E78.5 Chest pain R07.9 Medical History Medical History WALT (obstructive sleep apnea) Cervical spondylosis Lumbar spinal stenosis Illiteracy Cataract Type 2 diabetes mellitus Chronic pain Exertional dyspnea Vaginal irritation Vaginal adhesions Impingement syndrome of left shoulder Bilateral leg cramps Cortical cataract of right eye Nuclear sclerotic cataract of right eye Gastroesophageal reflux disease Hypothyroidism Hyperlipidemia Dyslexia Arthritis Osteoporosis Chronic low back pain Essential hypertension Surgical History Surgical History History of colonoscopy History of cataract surgery Oophrectomy, Right Abdominal hysterectomy Cholecystectomy Tobacco Smoking/Tobacco Use Status: Never Alcohol Alcohol Intake: never Substance Use Substance use: Never Substance use type: does not use Vital Signs and Lab Results Vital Signs Most Recent Vital Signs in EMR: Temp Pulse Resp BP Pulse Ox 36.6 C 74 16 148/83 H 97 10/16/23 06:22 10/16/23 06:22 10/16/23 06:22 10/16/23 06:22 10/16/23 06:22 Lab Results Blood Type / Crossmatch: No Data to Display Complete Blood Count: No Data to Display Complete Metabolic Panel: Sodium 134 mmol/L (136-145) L 10/10/23 11:00 Potassium 5.3 mmol/L (3.5-5.1) H 10/10/23 11:00 Chloride 99 mmol/L (98-107) 10/10/23 11:00 Carbon Dioxide 25.7 mmol/L (21.0-32.0) 10/10/23 11:00 BUN 22 mg/dL (7-18) H 10/10/23 11:00 Creatinine 1.4 mg/dL (0.55-1.02) H 10/10/23 11:00 Est GFR (CKD-EPI 2020) 39.23 (mL/min/1.73m2) 10/10/23 11:00 Calcium 9.8 mg/dL (8.5-10.1) 10/10/23 11:00 Glucose 124 mg/dL (74-106) H 10/10/23 11:00 Hemoglobin A1c 6.6 % (<5.7) H 10/10/23 11:00 Liver Function Panel: No Data to Display Coagulation Panel: No Data to Display Cardiac Panel: No Data to Display Arterial Blood Gas: No Data to Display Venous Blood Gas: No Data to Display Pancreas Panel: No Data to Display Thyroid Panel: Thyroid Stimulating Hormone (TSH) 3.70 uIU/Ml (0.36-3.74) 10/10/23 11:00 Infectious Disease: No Data to Display Blood Cultures: No Data to Display Toxicology Panel: No Data to Display Imaging and Studies Imaging and Studies Study information below may be from another EMR and interpreted by another provider. Please see original notes in EMR for more complete details. EKG Summary: 09/22: sinus rhythm, LAD. Stress Test Summary: 12/15: LVEF 60%, no defects noted. Echocardiogram Summary: 12/21: LVEF 55-60%, trace AR. mild MR. trace TR. Pulmonary Function Summary: 06/18: normal. Anesthesia Assessment and Plan Anesthesia History Personal History: No History of Anesthesia Complications Family History: No Family History of Anesthesia Complications Exercise Tolerance Exercise Tolerance: Metabolic Equivalents>4 Cardiac & Pulmonary Exam Cardiac Exam: Normal S1/S2 Heart Sounds Pulmonary Exam: Clear Bilateral Breath Sounds Implantable Cardiac Device Does patient have a Pacemaker or an ICD?: No Airway Exam Known Difficult Airway: No Mallampati Class: 3 Mouth Opening: Normal (> 3cm) Thyromental Distance: Greater than 3 cm Neck Range of Motion: Limited ROM Neck Circumference: Thick Teeth Condition: Removable Dentures/Plates Upper, Removable Dentures/Plates Lower and Edentulous ASA Classification ASA Score: ASA 2 Emergency Case?: No NPO Status NPO Status: NPO Clears >2 hours, Solids >8 hours Anesthesia Plan Resuscitation Status: Full Code Anesthesia Technique: General Anesthesia Airway Planned: Endotracheal Tube Pain Management: Surgeon and patient request nerve block Monitors Used: Standard Monitors Preoperative Comments:: 73 yo female for reverse total shoulder. Sig PMHx: HTN (metoprolol, spironolactone), WALT, HERNANDEZ, GERD (omeprazole), hypothyroid (levothyroxine), cervical spondylosis, lumbar spinal stenosis, DM2. never smoker. Previous Anes: - cataract x 2, MKO, no issues.
[2023-10-16] VITALS (11 sets, daily range): BP systolic 107–152; BP diastolic 49–83; PULSE 72–90; RESP 16–21; TEMP 36–37.1; O2SAT 93–97; BMI 61.2
[2023-10-16] MEDS: Lactated Ringers 1,000 ML 30 ML IV (06:45)
--- NOTE | 2023-10-16 07:06 | PDOC.DSDIS_ITS ---
Date of service: 10/16/23 Time of Service: 14:00 Discharge Plan Disposition Patient Disposition: Home Condition: Stable Discharge Details Attending Provider: Chapincito Bailey Primary Care Provider: Forrest Bangura Home Meds and New Rx's Prescriptions: New naproxen 250 mg tablet 250 mg PO BID PRN (Reason: Moderate pain) Qty: 40 0RF Continued aspirin 325 MG tablet 81 mg PO DAILY estradiol [Estrace] 0.01 % (0.1 mg/gram) cream 1 g vaginal .3xweek Patient Comments: pt. doesnt use triamcinolone acetonide 0.1 % cream 1 applic topical BID albuterol sulfate 2.5 mg /3 mL (0.083 %) solution for nebulization 2.5 mg inhalation Q6H clotrimazole-betamethasone 1-0.05 % cream 1 applic topical BID metformin 500 mg tablet 500 mg PO BID omeprazole 40 mg capsule,delayed release(DR/EC) 40 mg PO DAILY albuterol sulfate [Ventolin HFA] 90 mcg/actuation HFA aerosol inhaler 2 puff inhalation Q6H PRN gabapentin 600 mg tablet 600 mg PO BID ondansetron HCl 4 mg tablet 4 mg PO Q8H PRN metoprolol succinate 25 mg tablet extended release 24 hr 25 mg PO DAILY atorvastatin 40 mg tablet 40 mg PO DAILY furosemide 20 mg tablet 20 mg PO DAILY oxycodone 5 mg tablet 5 mg PO Q6H PRN fluticasone propionate [Flovent HFA] 220 mcg/actuation HFA aerosol inhaler 2 puff inhalation BID calcium citrate 200 mg (950 mg) tablet 200 mg PO DAILY Patient Comments: pt. reports she no longer takes docusate sodium [Colace] 100 mg capsule 100 mg PO DAILY lisinopril 40 mg tablet 20 mg PO DAILY glimepiride 2 mg tablet 2 mg PO DAILY spironolactone 25 mg tablet 25 mg PO DAILY potassium chloride 10 MEQ tablet extended release 10 meq PO BID pramipexole [Mirapex] 0.25 MG tablet 0.25 mg PO DAILY nitroglycerin 0.4 MG tablet, sublingual 0.4 mg Sublingual DIRECTED Qty: 25 0RF Rx Instructions: 1 tab SL prn chest pain, may repeat Q5 minutes up to 3 tabs, and call 911 multivitamin Capsule 1 cap PO QAM levothyroxine 137 mcg Capsule 112 mcg PO DAILY oxycodone 5 mg tablet 5 mg PO QID PRN albuterol sulfate [ProAir HFA] 90 mcg/actuation HFA aerosol inhaler 2 puff inhalation Q6H PRNQty: 8.5 0RF Discharge Instructions Additional Instructions: Surgery: Left reverse total shoulder arthroplasty (constrained liner) with biceps tenodesis Activity: Do not lift anything heavier than a coffee. You should keep your arm at your side in a relatively neutral position at all times except for gentle range of motion exercises, physical therapy, and essential activities. You should use the sling whenever you are out of the house. You may have to adjust the abduction pillow or remove it for comfort. At home it is best to remove the sling and rest the arm on a pillow at your side or support the operative side with your other hand. A physical therapy prescription will be sent electronically to start in about 3 weeks. STANDARD Reverse TSA Protocol. Prescriptions: Resume home Aspirin medication tomorrow morning Oxycodone per primary medical doctor for severe pain Naproxen 250 mg take 1 every 12 hours with a meal as needed for moderate pain You may use [id number] Tylenol (acetaminophen) as needed for mild pain. These pain medications may be taken all at once or in different combinations as needed. Also, recommend Colace (docusate) as a stool softener as surgery and pain medicine cause constipation. You may try [id number] diphenhydramine (Benadryl) 25-50 mg nightly as a sleep aid Dressings: Leave dressing in place until follow-up. Keep clean and dry at all times. No showers please. Follow-up: 10-[address] Bailey You may take off the leg compression stockings this evening at home. You may also leave them on a few days longer if you have a history of leg swelling or edema. Please call the office during business hours with any questions or concerns. Let us know right away if you develop any redness, drainage, fevers, chest pain, or trouble breathing. Do not drink alcohol or drive for at least 24 hours after anesthesia. Stand Alone Forms: Anesthesia Discharge Inst., Anes.Nerve Block Instructions, Denny Mike (DSU) Referrals: Chapincito Bailey MD [ [facility] ST[facility]FF PHYSICIAN] - 10/28/23 1:00 pm Discharge Orders Discharge Orders: Discharge Order (Routine); Ordered 10/16/23 Ordered By: Rivera Graves DS: Diagnosis Discharge Diagnosis (1) Arthritis of left glenohumeral joint: Status: Acute
--- NOTE | 2023-10-16 07:25 | W.PM.OP ---
Date of service: 10/16/23 Time of Service: 07:30 Operative Note Operative Note DATE OF PROCEDURE: 10/16/23 PRE-OP DIAGNOSIS: Left: 1. End-stage glenohumeral arthritis 2. Long head of the biceps tendinopathy POST-OP DIAGNOSIS: same PROCEDURE: Left: 1. Reverse total shoulder arthroplasty, CPT # 82645 2. Open biceps tenodesis, CPT # 06237 The academic support assistant was medically required as this procedure involves retraction, protection of neurovascular structures, and manipulation of multiple instruments and implants at the same time, which cannot be done without a skilled academic support assistant. SURGEON: Chapincito Bailey LIME BOILER: Rivera Graves ANESTHESIA TYPE: Local By Surgeon, General LMA/ETT and Primary Nerve Block Refer to Anesthesia Record ESTIMATED BLOOD LOSS: 200 COMPLICATIONS: None Patient was transported to: PACU Patient's condition: stable Implants: [employer] monoblock glenoid system baseplate 24 mm with 15mm central post [employer] modular glenoid system peripheral locking screws 28 mm inferior, 28 mm superior, 16 mm posterior, 16 mm anterior [employer] modular glenoid system glenosphere 36 +4 mm lateralized [employer] humeral stem 135 degrees size 8 [employer] suture cup size 36 posterior offset [employer] spacer size 36 +6 mm [employer] humeral insert size 36 +3 mm constrained Indications: Please see complete medical record for details. Findings: Significant long head biceps tenosynovitis, anterior capsular contracture, and complete glenohumeral cartilage loss with large humeral head osteophytes. Significantly soft proximal humeral bone. Largely intact rotator cuff. Procedure Description: In the operating room, general anesthesia was induced. The patient was positioned beachchair on the operating room table. All bony prominences were well-padded. Preoperative antibiotics were administered. The shoulder was prepped and draped in the usual sterile fashion for shoulder arthroplasty. The correct patient, procedure, and side of the procedure were all verified prior to incision. The deltopectoral approach was preinjected with 0.25% bupivacaine containing epinephrine and taken to the anterior shoulder. Care was taken to bluntly dissect the interval between the deltoid and pectoralis major muscles and to identify the cephalic vein within its fat stripe. The the vein was mobilized laterally. Subdeltoid space and conjoined tendon were freed of adhesions. The long head of the biceps tendon was identified just lateral to the lesser tuberosity. The uppermost margin of the pectoralis major tendon was released from the proximal humerus. The long head of the biceps tendon was tenodesed in situ using SutureTape in a [id number] fashion securing it superior margin the pectoralis major tendon. The biceps tendon was amputated and followed proximally to identify the rotator interval. Subscapularis tenotomy was performed. The leading edge of the intact supraspinatus was debrided to allow proximal humeral and joint access. Appropriate coagulation was achieved especially interiorly. The anatomic neck was cut using an oscillating saw with the humeral head bone brought back table in case there was a need for future bone grafting. The proximal humerus was delivered from the wound with adduction and external rotation. The proximal humeral protection plate was used to provisionally confirm suture cup and glenosphere size. Reamers were started appropriately posterior to the bicipital groove taking care to maintain in line approach with the humeral canal. Sequential reaming was done from size 5 up to size 8. Next, the broaches were sequentially used to open the proximal humerus starting with a size 5 and going up to size 8 and sunk to the appropriate depth while maintaining approximately 25 degrees retroversion. There was good metaphyseal fit and rotational control of the proximal humerus with this size. The posterior offset guide was used to ream for the suture cup. Attention was then turned to the glenoid and retractors were placed and a circumferential release performed using the long head of the biceps remnant to remove soft tissue about the glenoid rim. Care was taken inferiorly to work on bone only between 5 and 7:00 o'clock and bluntly elevate tissues inferiorly. The VIP guide was placed on the glenoid and used to confirm placement and trajectory of the central guidepin. The guidepin was inserted and advanced just through the far cortex ensuring adequate central fixation length. The glenoid was prepared according to publishing specialist specifications for a standard baseplate and central post. The baseplate was impacted onto the glenoid surface. The locking guide was then used to drill and place appropriately lengthed inferior, superior, anterior, and posterior screws. The vquu-nvv-lvkdnywiz reamer was used to confirm adequate peripheral reaming. The glenosphere was applied with the career consultant and then impacted to engage the Avelar taper. It was then locked with appropriate countersinking of the setscrew. The glenosphere was inspected and found to have good fit, appropriate positioning, and no soft tissue or bony impingement. Attention was then turned back to the proximal humerus. The humeral trial cup was connected. Trialing was commenced with +3 mm liner. The shoulder was reduced and taken through range of motion. Trial components were built up to +6mm spacer and +3 mm liner to achieve good stability and appropriate tension on the deltoid and conjoined tension. The trial components were removed from the proximal humerus. The wound was copiously irrigated with normal saline. The the proximal humeral stem and suture cup were assembled and brought over the proximal humerus. A small amount of vancomycin powder was distributed in the proximal humerus. The humeral component and suture cup were impacted into place. The final spacer and liner were then connected, and range of motion, stability, and tension confirmed. The shoulder was copiously irrigated with Betadine and normal saline. Vancomycin powder was distributed deeply about the shoulder and through subcutaneous tissues. The deltopectoral interval was approximated with 2-0 Monocryl buried interrupted. Subcutaneous tissue was irrigated then closed using 2-0 Monocryl in a buried interrupted fashion. Skin was closed using 3-0 Monocryl in a buried subcuticular fashion. Skin glue was applied to the incision. A silver impregnated bandage was placed over the incision. The extremity was placed into a shoulder immobilizer. The patient awoke from anesthesia without complication and was taken to the recovery room in stable condition.
--- NOTE | 2023-10-16 07:31 | W.ANESNERVE ---
Nerve Block Single Injection Procedure Date and Time Date Performed: 10/16/23 Procedure Start: 07:14 Location Where Procedure Performed Procedure Location: Day Surgery Unit Reason Performed: Postoperative Analgesia Requesting Provider: Chapincito Bialey Timeout Performed Timeout Performed: Yes Monitoring Used ECG, Blood Pressure and SpO2 Sterility Sterility: Hand Hygiene, Surgical Cap, Surgical Mask and Chlorhexidine Sedation Given During Procedure Sedation Given (Indicate Dose Given): Versed IV Dose:: 0.5 mg Patient Mental Status Patient Mental Status: Sedate with meaningful communication Nerve Block 1st Nerve Block: Laterality: Left Block Type: Interscalene Ultrasound Image Saved?: Yes Needle / Catheter Used: 100mm SonoPlex II Local Anesthetic Bolus (Indicate Dose Given): Lidocaine used for local infiltration of skin, Injected in 3-5ml increments after negative blood aspiration, Bupivacaine 0.5% Dose:: 10 mL and Exparel Dose:: 10 mL Additives (Indicate Dose Given): None Ultrasound: Sterile probe cover and gel used Nerve Stimulator: Supplement to Ultrasound use and No twitch or parasthesia noted < 0.5 mA Paresthesia: None Procedure Tolerated: No Complications Procedure Outcome: Successful Performed By: Mike Lagunas
[2023-10-16] MEDS: ceFAZolin 2 GM/50 ML BAG IVPB (07:39)
[2023-10-16] MEDS: TRANEXAMIC ACID/SOD. CHL. 1,000 MG/100 ML BAG 600 MG IVPB (07:47)
[2023-10-16] MEDS: Bupivacaine 0.25% Pres-Free W/EPI 30 ML VIAL (08:35)
--- NOTE | 2023-10-16 11:06 | W.ANESPOSTOP ---
Postoperative Evaluation Date, Time and Location Date Performed: 10/16/23 Time Performed: 11:06 Patient Location: PACU Vital Signs Most Recent Imported Vital Signs: Most Recent Vital Signs Temp Pulse Resp BP Pulse Ox 36.7 C 80 19 121/65 95 10/16/23 11:02 10/16/23 11:02 10/16/23 11:02 10/16/23 11:02 10/16/23 11:02 Pain Score Most Recent Pain Score: Most Recent Pain Score Pain Level 0 10/16/23 11:02 Assessment Mental Status: Awake (Alert & Oriented to Patient Baseline) Airway and Respiratory Function: Patent airway with normal (patient baseline) respiratory exam Cardiovascular Function: Hemodynamically Stable Hydration Status: Adequately Hydrated Nausea & Vomiting: No Nausea or Vomiting Pain: Pain is tolerable per patient Peripheral Nerve Block: Regional nerve block not resolved at time of post operative discharge
--- NOTE | 2023-10-16 11:09 | DI.RAD_ITS ---
Exam(s) XR SHOULDER LT COMPLETE 2+V EXAM: XR SHOULDER LT COMPLETE 2+V CLINICAL HISTORY: Reverse TSA. TECHNIQUE: 2D digital imaging was performed. COMPARISON: CR XR SHOULDER LT COMPLETE 2+V from 07/08/2023 FINDINGS: Postop views-2 Satisfactory position alignment of the components of the newly placed reverse prosthesis. No fractur e or loosening evident. IMPRESSION: Satisfactory postop appearance DATA REPOSITORY: RADIATION DOSE DELIVERED:
[2023-10-16] MEDS: ceFAZolin 1 GM/50 ML BAG IVPB (11:11)
[2023-10-16] MEDS: Lactobacillus Acidophilus CAP 1 CAP PO (12:48)
== END 2023-10-16 14:21 | disposition home or self-care (01) ==
PROVIDERS: PCP Physician Assistant; Visit Provider Student in an Organized Health Care Education/Training Program
PROC: (CPT 23472; principal; 2023-10-16 07:30)
DX: M19.012 Primary osteoarthritis, left shoulder (principal); M75.102 Unspecified rotator cuff tear or rupture of left shoulder, not specified as traumatic; I10 Essential (primary) hypertension; G47.33 Obstructive sleep apnea (adult) (pediatric); E11.9 Type 2 diabetes mellitus without complications
CPT/HCPCS: 23472; C1713; 76942; 73030; C9290; J0665; J0690; J1100; J1805; J2250; J2405; J2704; J3370

== ENCOUNTER 2023-10-23 19:03 | Emergency (ER) | payer MEDICARE, MEDICAID, SELFPAY ==
[2023-10-23] VITALS (19 sets, daily range): BP systolic 101–140; BP diastolic 20–65; PULSE 73–100; RESP 16–22; TEMP 36.6–36.7; O2SAT 89–100
--- NOTE | 2023-10-23 19:00 | RT.EKG_ITS ---
APPROVED REPORT Exam: Resting ECG Reason for Exam: short of breath Patient Location: E HR:93 bpm ECG Measurements Heart Rate 93 AXIS NV 169 P 18 QRSd 90 QRS -26 QT 357 T 67 QTc 446 Conclusion Sinus rhythm...normal P axis, V-rate 60- 99
--- NOTE | 2023-10-23 19:15 | DI.RAD_ITS ---
Exam(s) XR PORTABLE CHEST AP EXAM: XR PORTABLE CHEST AP CLINICAL HISTORY: cough, dyspnea TECHNIQUE: 2D digital imaging was performed. COMPARISON: CR,XR XR CHEST 2V PA LATERAL from 08/31/2022 FINDINGS: Exam limited by under penetration LUNGS: Mild linear atelectasis versus scarring at the left lung base. No visible infiltrate. No ple ural abnormality seen. HEART: Normal size. AORTA: Normal diameter. BONES: Bilateral shoulder prostheses. The spine is mainly obscured. Soft tissues: Unremarkable. IMPRESSION: No acute findings. DATA REPOSITORY: RADIATION DOSE DELIVERED:
--- NOTE | 2023-10-23 19:20 | ED.GENADUL_ITS ---
Discharge Plan Disposition Patient Disposition: Home Condition: Stable Discharge Details Clinical Impression: Shortness of breath, Nausea & vomiting Primary Care Provider: Forrest Bangura ED Provider: Israel Nunez Douglas Meds and New Rx's Prescriptions: New prednisone 20 mg tablet 60 mg PO DAILY 4 Days Qty: 12 0RF ondansetron 4 mg tablet,disintegrating 4 mg PO Q8H PRN (Reason: nausea and vomiting) Qty: 30 0RF amoxicillin-pot clavulanate 875-125 mg tablet 1 tab PO BID Qty: 14 0RF Continued aspirin 325 MG tablet 81 mg PO DAILY estradiol [Estrace] 0.01 % (0.1 mg/gram) cream 1 g vaginal .3xweek Patient Comments: pt. doesnt use triamcinolone acetonide 0.1 % cream 1 applic topical BID albuterol sulfate 2.5 mg /3 mL (0.083 %) solution for nebulization 2.5 mg inhalation Q6H clotrimazole-betamethasone 1-0.05 % cream 1 applic topical BID metformin 500 mg tablet 500 mg PO BID omeprazole 40 mg capsule,delayed release(DR/EC) 40 mg PO DAILY albuterol sulfate [Ventolin HFA] 90 mcg/actuation HFA aerosol inhaler 2 puff inhalation Q6H PRN gabapentin 600 mg tablet 600 mg PO BID ondansetron HCl 4 mg tablet 4 mg PO Q8H PRN metoprolol succinate 25 mg tablet extended release 24 hr 25 mg PO DAILY atorvastatin 40 mg tablet 40 mg PO DAILY furosemide 20 mg tablet 20 mg PO DAILY oxycodone 5 mg tablet 5 mg PO Q6H PRN fluticasone propionate [Flovent HFA] 220 mcg/actuation HFA aerosol inhaler 2 puff inhalation BID calcium citrate 200 mg (950 mg) tablet 200 mg PO DAILY Patient Comments: pt. reports she no longer takes docusate sodium [Colace] 100 mg capsule 100 mg PO DAILY lisinopril 40 mg tablet 20 mg PO DAILY glimepiride 2 mg tablet 2 mg PO DAILY spironolactone 25 mg tablet 25 mg PO DAILY potassium chloride 10 MEQ tablet extended release 10 meq PO BID pramipexole [Mirapex] 0.25 MG tablet 0.25 mg PO DAILY nitroglycerin 0.4 MG tablet, sublingual 0.4 mg Sublingual DIRECTED Qty: 25 0RF Rx Instructions: 1 tab SL prn chest pain, may repeat Q5 minutes up to 3 tabs, and call 911 multivitamin Capsule 1 cap PO QAM levothyroxine 137 mcg Capsule 112 mcg PO DAILY oxycodone 5 mg tablet 5 mg PO QID PRN naproxen 250 mg tablet 250 mg PO BID PRN (Reason: Moderate pain) Qty: 40 0RF albuterol sulfate [ProAir HFA] 90 mcg/actuation HFA aerosol inhaler 2 puff inhalation Q6H PRNQty: 8.5 0RF Discharge Instructions Additional Instructions: Your x-ray did not show any concerning findings other than your magnesium level being low your blood work did not show concerning findings If not better within a week follow-up with your primary care provider If you feel more ill, have worsening shortness of breath or high fevers return to the emergency department for reevaluation HPI General Mode of arrival: ambulatory . Date/Time Provider Initiated Documentation: 10/23/23 19:05 . Limitations to Documentation: no limitations . Information obtained by: patient . History of Present Illness 73 year old F presents to the emergency department with the chief complaint of Shortness of breath, described as moderate, Patient started experiencing this week(s) (1) and it has been constant. No relieving factors improve symptom(s), No exacerbating factors reported . Patient notes cough and nausea/vomiting; denies chest pain and fever/chills. Related Data Home Medications Medication Instructions Recorded Confirmed aspirin 325 mg tablet 81 mg PO DAILY 03/02/13 10/23/23 nitroglycerin 0.4 mg sublingual 0.4 mg sublingual DIRECTED 10/30/15 10/23/23 tablet angina ##25 potassium chloride 10 mEq 10 meq PO BID 10/30/15 10/23/23 tablet,extended release pramipexole 0.25 mg tablet 0.25 mg PO DAILY 10/30/15 10/23/23 (Mirapex) levothyroxine 137 mcg capsule 112 mcg PO DAILY 03/02/18 10/23/23 multivitamin 1 cap PO QAM 03/02/18 10/23/23 oxycodone 5 mg tablet 5 mg PO QID PRN 02/09/20 10/23/23 albuterol sulfate 2.5 mg/3 mL 2.5 mg inhalation Q6H 11/14/21 10/23/23 (0.083 %) solution for nebulization clotrimazole-betamethasone 1 1 applic topical BID 11/14/21 10/23/23 %-0.05 % topical cream estradiol 0.01% (0.1 mg/gram) 1 g vaginal .3xweek 11/14/21 10/23/23 vaginal cream (Estrace) triamcinolone acetonide 0.1 % 1 applic topical BID 11/14/21 10/23/23 topical cream albuterol sulfate 90 mcg/actuation 2 puff inhalation Q6H PRN #8.5 08/31/22 10/23/23 aerosol inhaler (ProAir HFA) grams albuterol sulfate 90 mcg/actuation 2 puff inhalation Q6H PRN 02/17/23 10/23/23 aerosol inhaler (Ventolin HFA) gabapentin 600 mg tablet 600 mg PO BID 02/17/23 10/23/23 metformin 500 mg tablet 500 mg PO BID 02/17/23 10/23/23 omeprazole 40 mg capsule,delayed 40 mg PO DAILY 02/17/23 10/23/23 release ondansetron HCl 4 mg tablet 4 mg PO Q8H PRN 02/17/23 10/23/23 atorvastatin 40 mg tablet 40 mg PO DAILY 05/06/23 10/23/23 calcium citrate 200 mg (950 mg) 200 mg PO DAILY 05/06/23 10/23/23 tablet docusate sodium 100 mg capsule 100 mg PO DAILY 05/06/23 10/23/23 (Colace) fluticasone propionate 220 2 puff inhalation BID 05/06/23 10/23/23 mcg/actuation HFA aerosol inhaler (Flovent HFA) furosemide 20 mg tablet 20 mg PO DAILY 05/06/23 10/23/23 metoprolol succinate 25 mg 25 mg PO DAILY 05/06/23 10/23/23 tablet,extended release 24 hr oxycodone 5 mg tablet 5 mg PO Q6H PRN 05/06/23 10/23/23 lisinopril 40 mg tablet 20 mg PO DAILY 07/16/23 10/23/23 glimepiride 2 mg tablet 2 mg PO DAILY 09/11/23 10/23/23 spironolactone 25 mg tablet 25 mg PO DAILY 09/11/23 10/23/23 naproxen 250 mg tablet 250 mg PO BID PRN Moderate pain 10/16/23 10/23/23 #40 tabs amoxicillin 875 mg-potassium 1 tab PO BID #14 tabs 10/23/23 clavulanate 125 mg tablet ondansetron 4 mg disintegrating 4 mg PO Q8H PRN nausea and 10/23/23 tablet vomiting #30 tabs prednisone 20 mg tablet 60 mg (3 x 20 mg) PO DAILY 4 days 10/23/23 #12 tabs Previous Rx's Medication Instructions Recorded nitroglycerin 0.4 mg sublingual 0.4 mg sublingual DIRECTED 10/30/15 tablet angina ##25 albuterol sulfate 90 mcg/actuation 2 puff inhalation Q6H PRN #8.5 08/31/22 aerosol inhaler (ProAir HFA) grams naproxen 250 mg tablet 250 mg PO BID PRN Moderate pain 10/16/23 #40 tabs amoxicillin 875 mg-potassium 1 tab PO BID #14 tabs 10/23/23 clavulanate 125 mg tablet ondansetron 4 mg disintegrating 4 mg PO Q8H PRN nausea and 10/23/23 tablet vomiting #30 tabs prednisone 20 mg tablet 60 mg (3 x 20 mg) PO DAILY 4 days 10/23/23 #12 tabs Allergies Allergy/AdvReac Type Severity Reaction Status Date / Time acetaminophen [From Tylenol] Allergy Intermediate Swelling/Ed Unverified 10/16/23 06:13 marley cyclobenzaprine Allergy Intermediate Hives Unverified 10/16/23 06:13 [Cyclobenzaprine] codeine Allergy Unknown feels like Unverified 10/16/23 06:13 I'm having a heart attack shellfish derived Allergy Unknown Other (See Unverified 10/16/23 06:13 Comment) ibuprofen Allergy Other (See Verified 10/16/23 06:13 Comment) fentanyl AdvReac Intermediate Contraindic Unverified 10/16/23 06:13 ated morphine AdvReac Unknown Contraindic Unverified 10/16/23 06:13 ated cats Allergy Severe Wheezing Uncoded 10/16/23 06:13 General Stated Complaint: SOB TOSHIA: 3 Review of Systems All systems reviewed & are unremarkable except as noted in HPI and below Constitutional Constitutional: Denies chills, Denies fever(s) and Denies weakness Cardiovascular Cardiovascular: Denies chest pain and Reports dyspnea Respiratory Respiratory: Reports cough and Reports dyspnea Gastrointestinal Gastrointestinal: Denies abdominal pain Genitourinary Genitourinary: Denies dysuria Neurologic Neurologic: Denies weakness Allergic/Immunologic Allergic/Immunologic: Denies urticaria Exam Const General: no acute distress Orientation: alert [facility] Head: normal to inspection Ears: external ears normal General nose exam: external nose normal Mouth: moist mucous membranes Eyes General: appearance normal, both eyes and all related structures Neck Neck: normal visual inspection Resp Effort & Inspection: normal respiratory effort and able to speak in complete sentences Auscultation: wheezes Cardio Jugular venous pressure: no JVD Rate: regular rate Heart Sounds: no murmurs GI Palpation: soft and nontender Skin General skin exam: no rashes or lesions noted Neuro General: patient alert and patient oriented x3 Extrem General: normal to inspection Psych Mental Status: mental status grossly normal Course Vital Signs Vital signs: Vital Signs Temperature 36.7 C 10/23/23 19:08 Pulse 100 H 10/23/23 19:08 Respiratory Rate 22 10/23/23 19:08 Blood Pressure 127/65 10/23/23 19:08 Pulse Oximetry 97 10/23/23 19:08 Temperature 36.7 C 10/23/23 19:08 Temperature Source Skin 10/23/23 19:08 Pulse 100 H 10/23/23 19:08 Respiratory Rate 22 10/23/23 19:08 Respiratory Effort Normal 10/23/23 19:12 Blood Pressure 127/65 10/23/23 19:08 Pulse Oximetry 97 10/23/23 19:08 Oxygen Delivery Method Room Air 10/23/23 19:08 Oxygen Flow Rate 0 10/23/23 19:08 Medical Decision Making 73-year-old female with a history of COPD hypertension, asthma, reflux, who comes in with 1 week of shortness of breath with a cough along with intermittent nausea and vomiting. She had surgery on her left shoulder for severe degenerative joint disease, denies any significant pain in her shoulder. She denies any chest pain, fevers, abdominal pain. She is alert and oriented on arrival is ambulating though was short of breath by time she got to the bed. She has diffuse wheezing bilaterally, no JVD, no leg swelling or calf tenderness, soft nontender abdomen. Given her cough and wheezing will treat with Solu-Medrol and a DuoNeb and obtain a Fluvid, VBG, chest x-ray and also obtain CBC, CMP and if she has no chest pain will obtain troponin. She had no findings on exam to suggest DVT in her lung exam is consistent with a COPD exacerbation so doubt PE. Labs show mild low magnesium which was repleted IV, x-ray unremarkable. Patient feels significantly better and has clear lung sounds now. Suspect COPD exacerbation will prescribe a short course of prednisone and also start her on Augmentin for increased cough. She is stable for discharge, advised to follow- up with her PCP and return precautions given Differential Diagnosis Differential Diagnosis: COPD exacerbation, COVID, flu, pneumonia Medical Records Medical records reviewed: Yes I reviewed the patient's medical records. Imaging Data Radiologic Study: Attestation: I personally reviewed and interpreted this imaging study as follows: Imaging: X-Ray Radiologist's impression: No acute findings Lab Data Lab results reviewed: Yes I reviewed the patient's lab results. ECG Data Attestation: I personally reviewed and interpreted this ECG (s) as follows: Prior ECG tracings: available for review Interpretation: Sinus rhythm, rate of 93 KS 169, no STEMI Quality:SDOH Health Related Social Needs: No Data to Display PFSH All Active Problems (Updated 10/23/23 @ 20:39 by Israel Nunez MD) Nausea & vomiting (Acute) Shortness of breath (Acute) Left rotator cuff tear (Acute) Arthritis of left glenohumeral joint (Acute) Mixed stress and urge urinary incontinence (Acute) Chest pain (Acute) Headache (Acute) Tight introitus (Chronic 2004) No sexual activity times 14 years. No Pap test times 5 years. Will attempt gradual introital dilation. Vaginal atrophy (Chronic) estrace cream started 03/27/18 Status post cataract extraction and insertion of intraocular lens of right eye (Chronic 03/20/18) Status post cataract extraction and insertion of intraocular lens of left eye (Chronic 03/06/18) Refractive amblyopia of right eye (Chronic) Refractive amblyopia of left eye (Chronic) Shoulder pain, right (Acute) a. With decreased range of motion. History of Surgical Procedure (Chronic) a. Excision of dorsal ganglion cyst, left wrist. b. Abdominal hysterectomy. c. Open cholecystectomy. d. Colonoscopy. Pain, low back (Chronic) a. She goes to the pain clinic. Hypertension (Chronic) a. Well controlled. History of asthma (Chronic) Esophageal reflux disease (Chronic) Elevated lipids (Chronic) Chest pain (Acute) Medical History (Updated 10/23/23 @ 20:39 by Israel Nunez MD) WALT (obstructive sleep apnea) Cervical spondylosis Lumbar spinal stenosis Illiteracy Cataract Type 2 diabetes mellitus Chronic pain Exertional dyspnea Vaginal irritation Vaginal adhesions Impingement syndrome of left shoulder Bilateral leg cramps Cortical cataract of right eye Nuclear sclerotic cataract of right eye Gastroesophageal reflux disease Hypothyroidism Hyperlipidemia Dyslexia Arthritis Osteoporosis Chronic low back pain Essential hypertension Surgical History History of colonoscopy History of cataract surgery Oophrectomy, Right Abdominal hysterectomy Cholecystectomy Family History Mother Heart disease Father Personal history of malignant neoplasm Stomach Sister No problems noted. Brother Heart disease Social History Smoking/Tobacco Use Status: Never Smoking risk assessment performed?: Yes Alcohol Intake: never Drug use: Never Substance use type: does not use Housing: other Number of Children: 1 Do you feel safe at home: Yes Do you feel safe in your relationship?: Yes Additional Social history: pt. lives in a trailer, granddaughter to stay with here
[2023-10-23] MEDS: Albuterol/Ipratropium 3 ML UPD VIAL UPD (19:23)
[2023-10-23] MEDS: methylPREDNISolone SUCC 125 MG VIAL IVP (19:27)
[2023-10-23] MEDS: Ondansetron 4 MG/2 ML VIAL IVP (19:27)
[2023-10-23 19:38] LABS: BE (Venous) 3 mmol/L (-2-3); HCO3 (Venous) 28 mmol/L (23-28); O2 Sat (Venous) 74 %; TCO2 (Venous) 26 mmol/L (24-29); pCO2 (Venous) 47 mmHg (41-51); pH (Venous) 7.39 (7.31-7.41); pO2 (Venous) 42 mmHg
[2023-10-23 19:40] LABS: Abs Immature Grans 0.12 10^3/uL (0.0-0.06); Absolute Basophil Count 0.03 10^3/uL (0.0-0.2); Absolute Eosinophil Count 0.55 10^3/uL (0.0-0.7); Absolute Lymphocyte Count 3.01 10^3/uL (1.2-3.4); Absolute Monocyte Count 0.84 10^3/uL (0.1-0.8); Absolute Neutrophil Count 5.69 10^3/uL (1.2-6.7); Basophils % 0.3 %; Eosinophils % 5.4 %; HCT 33.2 % (36.0-46.0); HGB 11.3 g/dL (11.2-15.7); Immature Grans % 1.2 %; Lymphocytes % 29.4 %; MCV 91 fL (80-95); MPV 9.3 fL (8.0-11.0); Monocytes % 8.2 %; Neutrophils % 55.5 %; Platelet Count 487 10^3/uL (130-400); RBC 3.64 10^6/uL (3.93-5.22); RDW 11.6 % (11.7-14.6); RDW-SD 38.7 fL; WBC 10.24 10^3/uL (4.4-10.8)
[2023-10-23 19:58] LABS: ALT 28 U/L (14-59); AST 19 U/L (15-37); Albumin 3.4 g/dL (3.4-5.0); Alkaline Phosphatase 82 U/L (46-116); Anion Gap 7.5 mmol/L (3-11); BUN 22 mg/dL (7-18); Bilirubin, Total 0.4 mg/dL (0.2-1.0); CO2 28.5 mmol/L (21.0-32.0); CREATININE 1.3 mg/dL (0.55-1.02); Calcium 9.8 mg/dL (8.5-10.1); Chloride 97 mmol/L (98-107); Estimated GFR 42.88 (mL/min/1.73m2); Glucose 94 mg/dL (74-106); Magnesium 1.5 mg/dL (1.8-2.4); Potassium 4.1 mmol/L (3.5-5.1); Sodium 133 mmol/L (136-145); Total Protein 7.3 g/dL (6.4-8.2)
[2023-10-23 20:01] LABS: Troponin I < 50 ng/L (< or =60)
[2023-10-23] MEDS: MAGNESIUM SULFATE 1 GM/100 ML BAG IVINF (20:11)
--- NOTE | 2023-10-23 20:27 | DI.VRAD_ITS ---
PROCEDURE INFORMATION: Exam: XR Chest Exam date and time: 10/23/2023 7:42 PM Age: 73 years old Clinical indication: Cough and dyspnea; Additional info: Cough, dyspnea TECHNIQUE: Imaging protocol: Radiologic exam of the chest. Views: 1 view. COMPARISON: CR XR CHEST 2V PA LATERAL 08/31/2022 9:54 AM FINDINGS: Lungs: Mild left lower lobe atelectasis. Lungs are otherwise clear. Pleural spaces: Unremarkable. No pleural effusion. No pneumothorax. Heart/Mediastinum: Unremarkable. No cardiomegaly. Bones/joints: Bilateral shoulder prostheses in place. IMPRESSION: No significant acute disease Dictated and Authenticated by: Virgilio Gomez MD. Ordering:DARIANA Wood MD
[2023-10-23 20:28] LABS: Procalcitonin < 0.1 ng/mL
[2023-10-23 20:29] LABS: COVID-19 PCR Negative (Negative); Influenza A PCR Negative (Negative); Influenza B PCR Negative (Negative); RSV PCR Negative (Negative)
[2023-10-23 20:30] LABS: Source Nasopharynx
[2023-10-23] MEDS: Amoxicillin 875/Clav. 125 TAB PO (20:41)
[2023-10-23] MEDS: Normal Saline Flush 10 ML SYR IVP (21:15)
== END 2023-10-23 21:26 | disposition home or self-care (01) ==
PROVIDERS: Emergency Provider Emergency Medicine; PCP Physician Assistant
DX: R06.02 Shortness of breath (principal); R11.2 Nausea with vomiting, unspecified; E83.42 Hypomagnesemia; J44.9 Chronic obstructive pulmonary disease, unspecified; I10 Essential (primary) hypertension; E11.9 Type 2 diabetes mellitus without complications; E03.9 Hypothyroidism, unspecified; Z79.82 Long term (current) use of aspirin; Z79.84 Long term (current) use of oral hypoglycemic drugs; Z96.612 Presence of left artificial shoulder joint; Z96.611 Presence of right artificial shoulder joint
CPT/HCPCS: 80053; 82805; 84145; 87637; 93005; 94640; 96365; 96375; 99285; 71045; 83735; 84484; 85025; 93010; 99284; J2405; J2919; J3475; J7620

== ENCOUNTER 2023-10-28 15:42 | Outpatient (CLI) | payer MEDICARE, MEDICAID, SELFPAY ==
--- NOTE | 2023-10-28 13:00 | DI.RAD_ITS ---
Exam(s) XR SHOULDER LT COMPLETE 2+V EXAM: XR SHOULDER LT COMPLETE 2+V CLINICAL HISTORY: S/P LEFT RTSA. TECHNIQUE: 2D digital imaging was performed. Two images were obtained. AP and Y views were obtained . COMPARISON: CR XR SHOULDER LT COMPLETE 2+V from 10/16/2023 FINDINGS: BONES: There are stable post operative changes of a left total reverse shoulder replacement present. No fracture or dislocation. JOINTS: The orthopedic hardware is in good position. No evidence of hardware loosening. SOFT TISSUE: There are persistent postsurgical changes seen within the joint space with the air-fluid level seen superior to the orthopedic hardware. IMPRESSION: Stable left total reverse shoulder replacement. DATA REPOSITORY: RADIATION DOSE DELIVERED:
== END 2023-10-28 15:43 | disposition home or self-care (01) ==
LOC: DIORS 15:42
PROVIDERS: PCP Physician Assistant; Visit Provider Student in an Organized Health Care Education/Training Program
DX: Z47.1 Aftercare following joint replacement surgery; Z96.612 Presence of left artificial shoulder joint
CPT/HCPCS: 73030

== ENCOUNTER 2023-11-04 18:16 | Emergency (ER) | payer MEDICARE, MEDICAID, SELFPAY ==
[2023-11-04 18:18] VITALS: BP 169/69; PULSE 96; RESP 12; TEMP 36.3; O2SAT 97
--- NOTE | 2023-11-04 19:52 | ED.GENADUL_ITS ---
Discharge Plan Disposition Patient Disposition: Home Condition: Improving Discharge Details Clinical Impression: Otitis externa, Nausea and vomiting, Abdominal pain Primary Care Provider: Forrest Bangura ED Provider: Rodolfo Hall [place] Meds and New Rx's Prescriptions: New famotidine 20 mg tablet 20 mg PO BID Qty: 30 0RF Continued aspirin 325 MG tablet 81 mg PO DAILY estradiol [Estrace] 0.01 % (0.1 mg/gram) cream 1 g vaginal .3xweek Patient Comments: pt. doesnt use triamcinolone acetonide 0.1 % cream 1 applic topical BID albuterol sulfate 2.5 mg /3 mL (0.083 %) solution for nebulization 2.5 mg inhalation Q6H clotrimazole-betamethasone 1-0.05 % cream 1 applic topical BID metformin 500 mg tablet 500 mg PO BID omeprazole 40 mg capsule,delayed release(DR/EC) 40 mg PO DAILY albuterol sulfate [Ventolin HFA] 90 mcg/actuation HFA aerosol inhaler 2 puff inhalation Q6H PRN gabapentin 600 mg tablet 600 mg PO BID metoprolol succinate 25 mg tablet extended release 24 hr 25 mg PO DAILY atorvastatin 40 mg tablet 40 mg PO DAILY furosemide 20 mg tablet 20 mg PO DAILY fluticasone propionate [Flovent HFA] 220 mcg/actuation HFA aerosol inhaler 2 puff inhalation BID calcium citrate 200 mg (950 mg) tablet 200 mg PO DAILY Patient Comments: pt. reports she no longer takes docusate sodium [Colace] 100 mg capsule 100 mg PO DAILY lisinopril 40 mg tablet 20 mg PO DAILY glimepiride 2 mg tablet 2 mg PO DAILY spironolactone 25 mg tablet 25 mg PO DAILY potassium chloride 10 MEQ tablet extended release 10 meq PO BID pramipexole [Mirapex] 0.25 MG tablet 0.25 mg PO DAILY nitroglycerin 0.4 MG tablet, sublingual 0.4 mg Sublingual DIRECTED Qty: 25 0RF Rx Instructions: 1 tab SL prn chest pain, may repeat Q5 minutes up to 3 tabs, and call 911 multivitamin Capsule 1 cap PO QAM levothyroxine 137 mcg Capsule 112 mcg PO DAILY oxycodone 5 mg tablet 5 mg PO QID PRN naproxen 250 mg tablet 250 mg PO BID PRN (Reason: Moderate pain) Qty: 40 0RF ondansetron 4 mg tablet,disintegrating 4 mg PO Q8H PRN (Reason: nausea and vomiting) Qty: 30 0RF albuterol sulfate [ProAir HFA] 90 mcg/actuation HFA aerosol inhaler 2 puff inhalation Q6H PRNQty: 8.5 0RF ciprofloxacin-dexamethasone 0.3-0.1 % drops,suspension otic (ear) Q12H Patient Comments: INSTILL 4 DROPS INTO THE AFFECTED EAR(S) TWO TIMES A DAY FOR 7 DAYS Discharge Instructions Instructions: Acute Nausea and Vomiting (ED), Abdominal Pain (ED) Additional Instructions: You were seen in the ED for abdominal pain and vomiting. Symptoms improved with fluids, ondansetron, famotidine. Laboratory studies are reassuring. You may want to avoid nonsteroidal medication like ibuprofen or naproxen for the next week or so. Continue your omeprazole and I have added famotidine for the next couple of weeks. You may use ondansetron for recurrent nausea vomiting. Should follow-up with primary care next week if not improving. For now continue the Ciprodex. Would contact [facility] clinic for follow-up given lack of response to medications. Return to ED for any chest pain, shortness of breath, fever, worsening abdominal pain, persistent vomiting, bloody diarrhea, other concerns. Referrals: [facility] [Provider Group] Forrest Bangura [Primary Care Provider] - [facility] General Mode of arrival: ambulatory . Date/Time Provider Initiated Documentation: 11/04/23 19:52 . Limitations to Documentation: no limitations . Information obtained by: patient . HPI Narrative: Patient presents to ED with complaint of upper abdominal discomfort and nausea vomiting since 2 AM this morning. She has really not been able to keep anything down during the day. Had a normal bowel movement this morning. Denies any chest pain or shortness of breath. Reports continued right ear pain which she has had for a few weeks now. Currently on Ciprodex. There is no radiation of pain into her back. Denies any urinary symptoms. Cannot really localize the abdominal pain other than saying upper abdomen. Related Data Home Medications Medication Instructions Recorded Confirmed aspirin 325 mg tablet 81 mg PO DAILY 03/02/13 11/04/23 nitroglycerin 0.4 mg sublingual 0.4 mg sublingual DIRECTED 10/30/15 11/04/23 tablet angina ##25 potassium chloride 10 mEq 10 meq PO BID 10/30/15 11/04/23 tablet,extended release pramipexole 0.25 mg tablet 0.25 mg PO DAILY 10/30/15 11/04/23 (Mirapex) levothyroxine 137 mcg capsule 112 mcg PO DAILY 03/02/18 11/04/23 multivitamin 1 cap PO QAM 03/02/18 11/04/23 oxycodone 5 mg tablet 5 mg PO QID PRN 02/09/20 11/04/23 albuterol sulfate 2.5 mg/3 mL 2.5 mg inhalation Q6H 11/14/21 11/04/23 (0.083 %) solution for nebulization clotrimazole-betamethasone 1 1 applic topical BID 11/14/21 11/04/23 %-0.05 % topical cream estradiol 0.01% (0.1 mg/gram) 1 g vaginal .3xweek 11/14/21 11/04/23 vaginal cream (Estrace) triamcinolone acetonide 0.1 % 1 applic topical BID 11/14/21 11/04/23 topical cream albuterol sulfate 90 mcg/actuation 2 puff inhalation Q6H PRN #8.5 08/31/22 11/04/23 aerosol inhaler (ProAir HFA) grams albuterol sulfate 90 mcg/actuation 2 puff inhalation Q6H PRN 02/17/23 11/04/23 aerosol inhaler (Ventolin HFA) gabapentin 600 mg tablet 600 mg PO BID 02/17/23 11/04/23 metformin 500 mg tablet 500 mg PO BID 02/17/23 11/04/23 omeprazole 40 mg capsule,delayed 40 mg PO DAILY 02/17/23 11/04/23 release atorvastatin 40 mg tablet 40 mg PO DAILY 05/06/23 11/04/23 calcium citrate 200 mg (950 mg) 200 mg PO DAILY 05/06/23 11/04/23 tablet docusate sodium 100 mg capsule 100 mg PO DAILY 05/06/23 11/04/23 (Colace) fluticasone propionate 220 2 puff inhalation BID 05/06/23 11/04/23 mcg/actuation HFA aerosol inhaler (Flovent HFA) furosemide 20 mg tablet 20 mg PO DAILY 05/06/23 11/04/23 metoprolol succinate 25 mg 25 mg PO DAILY 05/06/23 11/04/23 tablet,extended release 24 hr lisinopril 40 mg tablet 20 mg PO DAILY 07/16/23 11/04/23 glimepiride 2 mg tablet 2 mg PO DAILY 09/11/23 11/04/23 spironolactone 25 mg tablet 25 mg PO DAILY 09/11/23 11/04/23 naproxen 250 mg tablet 250 mg PO BID PRN Moderate pain 10/16/23 11/04/23 #40 tabs ondansetron 4 mg disintegrating 4 mg PO Q8H PRN nausea and 10/23/23 11/04/23 tablet vomiting #30 tabs ciprofloxacin 0.3 %-dexamethasone drp otic (ear) Q12H 11/04/23 0.1 % ear drops,suspension famotidine 20 mg tablet 20 mg PO BID #30 tabs 11/05/23 Previous Rx's Medication Instructions Recorded nitroglycerin 0.4 mg sublingual 0.4 mg sublingual DIRECTED 10/30/15 tablet angina ##25 albuterol sulfate 90 mcg/actuation 2 puff inhalation Q6H PRN #8.5 08/31/22 aerosol inhaler (ProAir HFA) grams naproxen 250 mg tablet 250 mg PO BID PRN Moderate pain 10/16/23 #40 tabs ondansetron 4 mg disintegrating 4 mg PO Q8H PRN nausea and 10/23/23 tablet vomiting #30 tabs famotidine 20 mg tablet 20 mg PO BID #30 tabs 11/05/23 Allergies Allergy/AdvReac Type Severity Reaction Status Date / Time acetaminophen [From Tylenol] Allergy Intermediate Swelling/Ed Unverified 11/04/23 18:22 marley cyclobenzaprine Allergy Intermediate Hives Unverified 11/04/23 18:22 [Cyclobenzaprine] codeine Allergy Unknown feels like Unverified 11/04/23 18:22 I'm having a heart attack shellfish derived Allergy Unknown Other (See Unverified 11/04/23 18:22 Comment) ibuprofen Allergy Other (See Verified 11/04/23 18:22 Comment) fentanyl AdvReac Intermediate Contraindic Unverified 11/04/23 18:22 ated morphine AdvReac Unknown Contraindic Unverified 11/04/23 18:22 ated cats Allergy Severe Wheezing Uncoded 11/04/23 18:22 General Stated Complaint: GenMedical TOSHIA: 3 Review of Systems Narrative: Per HPI Exam Narrative Exam Narrative: Const: Obese female in NAD. VS per triage. HEENT: NC/AT. Normal facial exam. Right TM not visualized secondary to sign ificant canal edema and debris. Neck: Supple. Trachea midline. Lungs: Normal respiratory effort. Lungs are clear. Cor: RRR without murmur. Good radial pulses. GI: Soft/ND/NT. Neuro: A+O x 3. Normal speech, mentation, gait. Cranial nerves II - XII grossly intact. No gross motor or sensory deficit. Ext: No C/C/E. LUE in sling from prior shoulder surgery. Course Vital Signs Vital signs: Vital Signs Temperature 97.3 F L 11/04/23 18:18 Pulse 96 H 11/04/23 18:18 Respiratory Rate 12 11/04/23 18:18 Blood Pressure 169/69 H 11/04/23 18:18 Pulse Oximetry 97 11/04/23 18:18 Temperature 97.3 F L 11/04/23 18:18 Temperature Source Temporal Artery Scan 11/04/23 18:18 Pulse 96 H 11/04/23 18:18 Respiratory Rate 12 11/04/23 18:18 Blood Pressure 169/69 H 11/04/23 18:18 Blood Pressure Position Sitting 11/04/23 18:18 Pulse Oximetry 97 11/04/23 18:18 Oxygen Delivery Method Room Air 11/04/23 18:18 Oxygen Flow Rate 0 11/04/23 18:18 Pain Level 8 11/04/23 18:18 Medical Decision Making Patient presenting to ED with upper abdominal discomfort, nausea vomiting since 2 AM. Abdominal exam is benign. She is not complaining of chest pain or pressure or shortness of breath. Reports normal bowel movement earlier. Will place IV and give fluids, ondansetron, famotidine. Laboratory studies including a single troponin sent. EKG ordered. In regards to her right ear currently on Ciprodex but still seems to have significant ear canal edema and debris. Will plan referral to ENT for follow-up. Patient's EKG is normal per my read. Laboratory studies with slightly elevated white count to 11.2. Hemoglobin is normal. Chemistries are normal. Creatinine is baseline. Magnesium is low at 1.5 and parental replacement ordered. Troponin is negative. Liver function and lipase normal. Urinalysis is negative. Patient feeling significantly better after fluids, ondansetron, famotidine. She is on omeprazole. Looks like she may also take nonsteroidals for pain. May need to hold these for a few days. Will continue the omeprazole, add famotidine. May use ondansetron for recurrent nausea vomiting. Follow-up with primary care if not improving next week. Return precautions provided. Medical Records Medical records reviewed: Yes I reviewed the patient's medical records. Lab Data Lab results reviewed: Yes I reviewed the patient's lab results. ECG Data Attestation: I personally reviewed and interpreted this ECG (s) as follows: Prior ECG tracings: available for review Interpretation: See EKG Quality:SDOH Health Related Social Needs: No Data to Display PFSH All Active Problems (Updated 11/05/23 @ 00:03 by Rodolfo Hall MD) Abdominal pain (Acute) Nausea and vomiting (Acute) Otitis externa (Acute) Status post reverse total shoulder replacement (Acute) Nausea & vomiting (Acute) Shortness of breath (Acute) Left rotator cuff tear (Acute) Arthritis of left glenohumeral joint (Acute) Mixed stress and urge urinary incontinence (Acute) Chest pain (Acute) Headache (Acute) Tight introitus (Chronic 2004) No sexual activity times 14 years. No Pap test times 5 years. Will attempt gradual introital dilation. Vaginal atrophy (Chronic) estrace cream started 03/27/18 Status post cataract extraction and insertion of intraocular lens of right eye (Chronic 03/20/18) Status post cataract extraction and insertion of intraocular lens of left eye (Chronic 03/06/18) Refractive amblyopia of right eye (Chronic) Refractive amblyopia of left eye (Chronic) Shoulder pain, right (Acute) a. With decreased range of motion. History of Surgical Procedure (Chronic) a. Excision of dorsal ganglion cyst, left wrist. b. Abdominal hysterectomy. c. Open cholecystectomy. d. Colonoscopy. Pain, low back (Chronic) a. She goes to the pain clinic. Hypertension (Chronic) a. Well controlled. History of asthma (Chronic) Esophageal reflux disease (Chronic) Elevated lipids (Chronic) Chest pain (Acute) Medical History WALT (obstructive sleep apnea) Cervical spondylosis Lumbar spinal stenosis Illiteracy Cataract Type 2 diabetes mellitus Chronic pain Exertional dyspnea Vaginal irritation Vaginal adhesions Impingement syndrome of left shoulder Bilateral leg cramps Cortical cataract of right eye Nuclear sclerotic cataract of right eye Gastroesophageal reflux disease Hypothyroidism Hyperlipidemia Dyslexia Arthritis Osteoporosis Chronic low back pain Essential hypertension Surgical History History of colonoscopy History of cataract surgery Oophrectomy, Right Abdominal hysterectomy Cholecystectomy Family History Mother Heart disease Father Personal history of malignant neoplasm Stomach Sister No problems noted. Brother Heart disease Social History Smoking/Tobacco Use Status: Never Smoking risk assessment performed?: Yes Alcohol Intake: never Drug use: Never Substance use type: does not use Housing: other Number of Children: 1 Do you feel safe at home: Yes Do you feel safe in your relationship?: Yes Additional Social history: pt. lives in a trailer, granddaughter to stay with here
--- NOTE | 2023-11-04 20:00 | RT.EKG_ITS ---
APPROVED REPORT Exam: Resting ECG Reason for Exam: abd pain/vomiting Patient Location: E HR:90 bpm ECG Measurements Heart Rate 90 AXIS AK 163 P 49 QRSd 86 QRS -15 QT 369 T 62 QTc 451 Conclusion Sinus rhythm...normal P axis, V-rate 60- 99 Normal Electrocardiogram
[2023-11-04] MEDS: FAMOTIDINE 20 MG in Normal Saline 100 ML 400 MG IVPB (20:34)
[2023-11-04] MEDS: Lactated Ringers 1,000 ML 1000 ML IV (20:34)
[2023-11-04] MEDS: Ondansetron 4 MG/2 ML VIAL IVP (20:34)
[2023-11-04 20:38] LABS: Abs Immature Grans 0.05 10^3/uL (0.0-0.06); Absolute Basophil Count 0.01 10^3/uL (0.0-0.2); Absolute Eosinophil Count 0.31 10^3/uL (0.0-0.7); Absolute Lymphocyte Count 1.54 10^3/uL (1.2-3.4); Absolute Monocyte Count 0.76 10^3/uL (0.1-0.8); Absolute Neutrophil Count 8.54 10^3/uL (1.2-6.7); Basophils % 0.1 %; Eosinophils % 2.8 %; HCT 35.8 % (36.0-46.0); HGB 11.5 g/dL (11.2-15.7); Immature Grans % 0.4 %; Lymphocytes % 13.7 %; MCH 30.5 pg (27.0-33.0); MCHC 32.1 % (32.0-36.0); MCV 95 fL (80-95); MPV 9.3 fL (8.0-11.0); Monocytes % 6.8 %; Neutrophils % 76.2 %; Platelet Count 398 10^3/uL (130-400); RBC 3.77 10^6/uL (3.93-5.22); RDW 12.7 % (11.7-14.6); RDW-SD 43.8 fL; WBC 11.21 10^3/uL (4.4-10.8)
[2023-11-04 20:54] LABS: ALT 26 U/L (14-59); AST 15 U/L (15-37); Albumin 3.3 g/dL (3.4-5.0); Alkaline Phosphatase 75 U/L (46-116); Anion Gap 6.9 mmol/L (3-11); BUN 16 mg/dL (7-18); Bilirubin, Total 0.4 mg/dL (0.2-1.0); CO2 29.1 mmol/L (21.0-32.0); CREATININE 1.2 mg/dL (0.55-1.02); Chloride 102 mmol/L (98-107); Estimated GFR 47.21 (mL/min/1.73m2); Glucose 100 mg/dL (74-106); Lipase 22 U/L (16-77); Magnesium 1.5 mg/dL (1.8-2.4); Potassium 4.3 mmol/L (3.5-5.1); Sodium 138 mmol/L (136-145); Total Protein 6.4 g/dL (6.4-8.2); Troponin I < 50 ng/L (< or =60)
[2023-11-04 21:25] VITALS: BP 118/67; PULSE 89; RESP 14; TEMP 36.6; O2SAT 93
[2023-11-04] MEDS: MAGNESIUM SULFATE 2 GM/50 ML BAG IVINF (22:16)
[2023-11-04 23:58] LABS: Bilirubin Negative (Negative); Blood Negative (Negative); Clarity Clear (Clear); Glucose Negative (Negative); Ketones Negative (Negative); Leukocyte Esterase Negative (Negative); Nitrite Negative (Negative); Specific Gravity 1.015 (1.005-1.025); Urobilinogen 0.2 mg/dL (Up to 0.2); pH 7.5 (5-8)
== END 2023-11-05 00:15 | disposition home or self-care (01) ==
PROVIDERS: Emergency Provider Emergency Medicine; PCP Physician Assistant
DX: H92.01 Otalgia, right ear (principal); H60.91 Unspecified otitis externa, right ear; R11.2 Nausea with vomiting, unspecified; R10.9 Unspecified abdominal pain
CPT/HCPCS: 36415; 80053; 83690; 93005; 96365; 96366; 96367; 96375; 99284; 81003; 83735; 84484; 85025; 93010; 99283; J2405; J3475

== ENCOUNTER → 2023-12-23 13:04 | Outpatient (BNVA) | payer MEDICARE, MEDICAID, SELFPAY | PROVIDERS: PCP Physician Assistant; Visit Provider Student in an Organized Health Care Education/Training Program | DX: Z47.1 Aftercare following joint replacement surgery (principal); Z96.612 Presence of left artificial shoulder joint ==

== ENCOUNTER 2024-01-05 16:33 | Emergency (ER) | payer MEDICARE, MEDICAID, SELFPAY ==
[2024-01-05] VITALS (17 sets, daily range): BP systolic 120–154; BP diastolic 52–76; PULSE 60–78; RESP 18; TEMP 35.8; O2SAT 95–98
--- OUTSIDE RECORDS SUMMARY | 2024-01-05 16:51 | XMS_ITS | Encounter Summary ---
[facility] [place] [address] Care Team Providers Care Egg Buyer Name Role Phone Forrest Bangura Primary Care Provider [phone] Encounter Details Date Type Department Care Team (Latest Contact Info) Description 07/04/2022 Travel Social History Tobacco Use Types Packs/Day Years Used Date Smoking Tobacco: Never Smokeless Tobacco: Never Sex and Gender Information Value Date Recorded Sex Assigned at Not on file Gender Identity Not on file Sexual Orientation Not on file documented as of this encounter Plan of Treatment Not on file documented as of this encounter Visit Diagnoses Not on filedocumented in this encounter Care Teams Egg Buyer Relationship Specialty Start Date End Date Forrest Bangura PA [address] [place] [address] PCP - General Internal Medicine 04/19/22 documented as of this encounter
--- OUTSIDE RECORDS SUMMARY | 2024-01-05 16:51 | XMS_ITS | Encounter Summary ---
Author Organization [facility] Address [facility] [place] [address] Care Team Providers Care Functional Mental Disability Teacher Name Role Phone WillemForrest MARLINE Primary Care Provider [phone] Encounter Details Date Type Department Care Team (Late st Contact Info) Description 08/02/2022 11:20 AM EST Office Visit Obstetrics [place] [address] Tatyana Szymanski MD [facility] OBSTETRICS [place] [address] Lichen planus Social History Tobacco Use Types Packs/Day Years Used Date Smoking Tobacco: Never Smokeless Tobacco: Never Sex and Gender Information Value Date Recorded Sex Assigned at Not on file Gender Identity Not on file Sexual Orientation Not on file documented as of this encounter Progress Notes * Tatyana Szymanski MD - 08/02/2022 11:20 AM EST [facility] Follow Up Visit Reason for Visit: Flavia is a 72 y.o. post menopausal female who presents for vulvar skin check. Patient was last seen by me on 07/04/2022. Today, patient reports feeling well, no itching or pain Vaginal discharge has resolved Seeing Dr. 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 Past Medical History: Diagnosis Date ??? HTN (hypertension) ??? Hyperlipidemia ??? Hypothyroidism ??? Type 2 diabetes mellitus Past Surgical History: Procedure Laterality Date ??? CHOLECYSTECTOMY open ??? HYSTERECTOMY, TOTAL ABDOMINAL ??? PELVIC LAPAROSCOPY Left oopherectomy Family History Problem Relation Age of Onset ??? Uterine Cancer Mother OB History 3 Para 3 Term 2 1 AB Living 1 SAB IAB Ectopic Multiple Live Births # Outc Date GA Lbr Trevon/2nd Wgt Sex Del Anes PTL Lv 1 Term 2 Term 3 Current Outpatient Medications Medication Sig Dispense Refill ??? aspirin EC 81 mg Tablet, Delayed Release (E.C.) Take 81 mg by mouth daily. ??? metFORMIN (Glucophage) 1,000 mg Tablet Take 1,000 mg by mouth 2 times daily (with meals). ??? lisinopriL (Zestril) 20 mg Tablet Take 20 mg by mouth daily. ??? estradioL (ESTRACE) 0.01 % (0.1 mg/gram) Cream Place 2 g vaginally daily. ??? gabapentin (NEURONTIN) 600 mg Tablet Take 600 mg by mouth 2 times daily. ??? metoprolol succinate XL (Toprol-XL) 25 mg Tablet Sustained Release 24 hr Take 25 mg by mouth daily. ??? omeprazole (PriLOSEC) 40 mg Capsule, Delayed Release(E.C.) Take 40 mg by mouth daily. ??? potassium chloride ER (K-Dur/Klor-Con) 10 mEq Tablet Sustained Release Take 10 mEq by mouth 2 times daily. ??? pramipexole (Mirapex) 0.25 mg Tablet Take 0.25 mg by mouth 2 times daily. ??? albuteroL 90 mcg/actuation HFA Aerosol Inhaler ??? multivitamin (THERAGRAN) Tablet Take 1 tablet by mouth daily. ??? clobetasoL (Temovate) 0.05 % Ointment Apply small amount to vulva daily 30 g 3 ??? citalopram (CELEXA) 40 mg tablet 40MG = 1 Tablet(s), PO, Once daily ??? lansoprazole (PREVACID) 30 mg capsule 30MG = 1 Capsule(s), PO, Once daily ??? propoxyphene-acetaminophen (DARVOCET-N 100) 100-650 mg per tablet 1 Tablet(s), PO, Three times daily prn ??? simvastatin (ZOCOR) 20 mg tablet ??? levothyroxine (SYNTHROID) 125 mcg tablet 125MCG, PO, Once daily ??? CIS Free Text Med - micro k 10meq ??? CIS Free Text Med - Albuterol ??? atenolol (TENORMIN) 50 mg tablet ??? furosemide (LASIX) 40 mg tablet Take 10 mg by mouth. No current facility-administered medications for this visit. Allergies Allergen Reactions ??? Codeine Phosphate CIS - Unknown ROS: Otherwise negative except as specified in HPI. Physical Exam There were no vitals filed for this visit. General: NAD, comfortable, pleasant Lungs: Unlabored breathing Neuro: grossly intact Pelvic: Picture in media, patient verbally consented for picture to be taken and saved into chart Mons pubis: Normal Labia majora: Normal Supraclitoral area: Thinned Glans clitoris: Complete phimosis Clitoral lockett: Flattened, complete phimosis Labia minora: Normal, no WE or fissures, possible telagiectasia Bartholin's- normal, no masses or tenderness Urethral meatus- normal size, no prolapse, no lesions Introitus: atrophic Vagina- complete obliteration of vagina, no blood or discharge seen, unable to pass a Qtip beyond urethra Cervix- surgically absent Uterus- surgically absent Adnexa- unable to exam Rectal/perineum- no skin changes Assessment/Plan: Flavia is a 72 y.o. post menopausal female who presents for vulvar skin check. 1. Lichen planus - Had discussed diagnosis of LS at last visit but exam today, along with vaginal obliteration with no active disease makes diagnosis challenging and perhaps loss of architecture with vaginal component is most consistent with lichen planus - Unable to evaluate vagina beyond urethra - Reviewed lichen planus with low risk of progression to skin cancer and how it impacts mucosal surfaces, patient will reach out with any oral lesions - Plan to decrease clobetasol to 1-2 times per month, focusing on introitus to avoid any further narrowing/scarring of introitus but concern for possible thinning of tissue on labia minora - Continue to follow with urogyn for urinary issues RTC in 3 months and then can likely space out skin checks Note to patient: The Century Cures Act makes medical notes like this available to patients in the interest of transparency. However, be advised this is a medical document. It is intended as [id number] communication. It is written in medical language and may contain abbreviations or verbiage that are unfamiliar. Total time spent day of service on chart review, disease discussion and therapeutic counseling, as well as, documentation and coordination of care: 20 min Tatyana Szymanski MD 08/02/2022 12:02 PM documented in this encounter Plan of Treatment Not on file documented as of this encounter Visit Diagnoses Diagnosis Lichen planus documented in this encounter Care Teams Functional Mental Disability Teacher Relationship Specialty Start Date End Date Forrest Bangura PA [address] [place] [address] PCP - General Internal Medicine 04/19/22 documented as of this encounter
--- OUTSIDE RECORDS SUMMARY | 2024-01-05 16:51 | XMS_ITS | Encounter Summary ---
Author Organization [facility] [place] [address] Care Team Providers Care Tobacco Roller Name Role Phone Forrest Bangura Primary Care Provider [phone] Encounter Details Date Type Department Care Team (Late st Contact Info) Description 10/18/2022 Telephone Obstetrics [place] [address] Kevin Chao MD [facility] [address] Social History Tobacco Use Types Packs/Day Years Used Date Smoking Tobacco: Never Smokeless Tobacco: Never Sex and Gender Information Value Date Recorded Sex Assigned at Not on file Gender Identity Not on file Sexual Orientation Not on file documented as of this encounter Miscellaneous Notes * Telephone Encounter - Kevin Chao MD - 10/18/2022 2:59 PM EDT I called Flavia Wesley Jaspalzunilda to inform her of her MRI result. No fluid collection. Essentially reassuring. No answer so LMOM. Kevin Chao MD Urogynecology 10/18/2022 3:05 PM documented in this encounter Plan of Treatment Not on file documented as of this encounter Visit Diagnoses Not on filedocumented in this encounter Care Teams Tobacco Roller Relationship Specialty Start Date End Date Forrest Bangura PA [address] [place] [address] PCP - General Internal Medicine 04/19/22 documented as of this encounter
--- OUTSIDE RECORDS SUMMARY | 2024-01-05 16:51 | XMS_ITS | Encounter Summary ---
Author Organization [facility] Address [facility] [place] [address] Care Team Providers Care Cell Operator Name Role Phone Forrest Bangura Primary Care Provider [phone] Reason for Visit * Reason Comments Establish Care * Consultation (Routine) - Closed Specialty Diagnoses / Procedures Referred By Boris celaya Referred To Contact Obstetrics and Gynecology Diagnoses Vaginal adhesion Forrest Bangura PA [address] [facility] [[email or web address]] [address] [place] [address] [facility] [employer] [address] [place] [address] Referral ID Status Reason Start Date Expiration Date V isits Requested Visits Authorized [id number] Closed Consult, Test & Treat PCP Updated and/or Approved 04/19/2022 04/19/2023 12 12 Encounter Details Date Type Department Care Team (Late st Contact Info) Description 07/04/2022 10:00 AM EST Office Visit Obstetrics [place] [address] Tatyana Szymanski MD [facility] [address] OBSTETRICS [place] [address] Subacute vaginitis; Lichen sclerosus Social History Tobacco Use Types Packs/Day Years Used Date Smoking Tobacco: Never Smokeless Tobacco: Never Tobacco Cessation:Counseling Given: Not Answered Sex and Gender Information Value Date Recorded Sex Assigned at Not on file Gender Identity Not on file Sexual Orientation Not on file documented as of this encounter Last Filed Vital Signs Vital Sign Reading Time Taken Comments Blood Pressure 155/75 07/04/2022 10:20 AM EST Pulse 78 07/04/2022 10:20 AM EST Temperature 36.1 ??C (97 ??F) 07/04/2022 10:20 AM EST Respiratory Rate 19 07/04/2022 10:20 AM EST Oxygen Saturation 100% 07/04/2022 10:20 AM EST Inhaled Oxygen Concentration - - Weight 88 kg (194 lb) 07/04/2022 10:20 AM EST Height 149.9 cm (4' 11) 07/04/2022 10:20 AM EST Body Mass Index 39.18 07/04/2022 10:20 AM EST documented in this encounter Patient Instructions * Patient Instructions* Tatyana Szymanski MD - 07/04/2022 10:00 AM EST How To - Topical Corticosteroids: Some common topical corticosteroids that we use for vulvar skin diseases include clobetasol, augmented betamethasone, mometasone, triamcinolone, and halobetasol. In general, we recommend ointments over creams as ointments are less irritating and are ointments are better absorbed. Used on other parts of the body, there is a higher concern for thinning of skin. We are less concerned about this when used on the vulva, although it is possible. Some other risks of topical corticosteroid use include yeast infection and slow wound healing. Only a pencil eraser sized amount should be used to cover the entire vulva. Your vulva should not be feeling greasy after application. Remember a small amount can go far; do not use more than recommended. You should massage the medication into the area for 30-60 seconds for best absorption. documented in this encounter Progress Notes * Tatyana Szymanski MD - 07/04/2022 10:00 AM EST Department of Obstetrics and Gynecology Tatyana Szymanski MD Referring Provider: Forrest Bangura PA [address] [place] [address] [employer] PROGRAMMER [employer]LYST [facility] Patient Visit Reason for Visit: Flavia is a 72 y.o. post menopausal female with history of Type 2 DM and hypothyroidism who presents for a new patient visit to the [employer] [facility] with the following complaints/concerns: vaginal adhesions and itching, concern for lichen sclerosus History of Present Illness: Itching has been going on for 2 months Itching and discharge No history of yeast infections Started estrogen cream but not using regularly Has been told to push tissue back up previously Vulvar diagnosis, if known: Vulvar itching, burning when urine touches the skin Prior pathologic diagnosis: NA Do you wake up at night scratching: No Having problems with vaginal discharge: Yes, yellowish Are you sexually active: No, not in 9 years Any prior treatment: Yes, estrogen Any treatments that have made symptoms better or worse: discharge Specifically: Yeast infection treatment: No, did this help with symptoms: N/A Bacterial infection treatment: No, did this help with symptoms: N/A Treatment with topical cortisone/steroid: No, did this help with symptoms: N/A Treatment with TCAs: No, did this help with symptoms: N/A Pelvic floor physical therapy: No Soap brand: Dial Frequency of washing: Every other hour, smelly discharge Washcloth: Yes Detergent: Tide, orange container Fabric softener: Downy Panty liner/pad use: Yes, sanitary napkin, changes every hour, for urinary leakage Urinary symptoms: Yes, please describe: leakage, can't get to bathroom in time GI symptoms: No History of skin conditions like eczema or psoriasis: No Does problem affect life and work: Yes Goals of care: Improve symptoms Gynecologic History: LMP: No LMP recorded. Patient is postmenopausal. 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 Past Medical History: Diagnosis Date ??? HTN (hypertension) ??? Hyperlipidemia ??? Hypothyroidism ??? Type 2 diabetes mellitus Past Surgical History: Procedure Laterality Date ??? CHOLECYSTECTOMY open ??? HYSTERECTOMY, TOTAL ABDOMINAL ??? PELVIC LAPAROSCOPY Left oopherectomy No family history on file. OB History 3 Para 3 Term 2 1 AB Living 1 SAB IAB Ectopic Multiple Live Births # Outc Date GA Lbr Trevon/2nd Wgt Sex Del Anes PTL Lv 1 Term 2 Term 3 has a current medication list which includes the following prescription(s): aspirin ec, metformin, lisinopril, estradiol, gabapentin, metoprolol succinate xl, omeprazole, potassium chloride er, pramipexole, albuterol, multivitamin, celexa, prevacid, darvocet-n 100, zocor, synthroid, CIS Free Text Med - micro k 10meq, CIS Free Text Med - Albuterol, atenolol, lasix, and clobetasol. Allergies Allergen Reactions ??? Codeine Phosphate CIS - Unknown ROS: Otherwise negative except as specified in HPI. Physical Exam Vitals: 07/04/22 1020 BP: 155/75 Pulse: 78 Resp: 19 Temp: 36.1 ??C (97 ??F) SpO2: 100% Weight: 88 kg (194 lb) Height: 149.9 cm (4' 11) General: NAD, comfortable, pleasant Lungs: Unlabored breathing Abdomen: soft, nontender, non-distended Neuro: grossly intact Pelvic: Picture in media, patient verbally consented for picture to be taken and saved into chart Mons pubis: Normal Labia majora: Normal Supraclitoral area: thinned, faint fissuring at midline Glans clitoris: Pinpoint Clitoral lockett: Flattened and completed scarred over clitoris Labia minora: Normal, no WE, fissures or excoriations Bartholin's- normal, no masses or tenderness Urethral meatus- normal size, no prolapse, no lesions Introitus: narrowed, unable to pass index finger Vagina- complete obliteration, no discharge or blood, cannot pass Q-tip further than urethral opening, atrophic Bladder- unable to examine Cervix- surgically absent Uterus- surgically absent Adnexa- unable to examine Rectal/perineum- no skin changes Assessment/Plan: Flavia is a 72 y.o. post menopausal female with history of Type 2 DM and hypothyroidism who presents for a new patient visit to the [employer] [facility] with the following complaints/concerns: vaginal adhesions and itching, concern for lichen sclerosus # Vulvar itching - Vulvar exam consistent with scarring due to dermatosis, most resembling Lichen Sclerosis - Discussed pathophysiology, evaluation and management options for lichen sclerosus - Discussed LS is a chronic condition that requires termite treater follow up - Discussed 3-5% risk of progression to skin cancer if not treatment - Discussed risk of scarring and loss of vulvar architecture as mostly irreversible but can be prevented/slowed with treatment - Discussed treatment as topical steroids, a small amount applied to the affected area - Rx for clobetasol 0.05% ointment sent to patient's pharmacy - Instructions for application: small amount applied to vulva and introitus daily, continue estradiol twice weekly - Patient to follow up in clinic in 1 month - Vaginal component more consistent with lichen planus however no active LP on exam today - Unclear source of discharge given complete obliteration of vagina - Has appointment with Dr. Chao 08/02/2022, will come in for follow up exam at that visit RTC 4 weeks 1. Subacute vaginitis Yeast culture Vaginal Genital Culture Vaginal 2. Lichen sclerosus clobetasoL (Temovate) 0.05 % Ointment Note to patient: The Cures Act makes medical notes like this available to patients in the interest of transparency. However, be advised this is a medical document. It is intended as [id number] communication. It is written in medical language and may contain abbreviations or verbiage that are unfamiliar. Total time spent day of service on chart review, disease discussion and therapeutic counseling, as well as, documentation and coordination of care: 45 min Tatyana Szymanski MD 07/04/2022 11:14 AM documented in this encounter Plan of Treatment Not on file documented as of this encounter Procedures Procedure Name Priority Date/Time Associated Diagnosis Comments HC GENITAL CULTURE Routine 07/04/2022 10 :00 AM EST Subacute vaginitis HC FUNGUS CULTURE, MISC SOURCE Routine 07/04/2022 10:00 AM EST Subacute vaginitis documented in this encounter Results * Genital Culture Vaginal (07/04/2022 10:00 AM EST) Genital Culture Many mixed bacterial morphotypes suggestive of normal vaginal rosina [facility] Vaginal 07/04/2022 10:0 0 AM EST 07/04/2022 12:17 PM EST Narrative Resulting Agency Comment Spec In Lab Tatyana Szymanski MD MICROBIOLOGY - GENER AL ORDERABLES Performing Organization Address [facility] Co de Phone Number [facility] [place] [address] * Yeast culture Vaginal (07/04/2022 10:00 AM EST) Yeast Culture No Yeast isolated [facility] Vaginal 07/04/2022 10:0 0 AM EST 07/04/2022 12:17 PM EST Narrative Resulting Agency Comment Spec In Lab Tatyana Szymanski MD MICROBIOLOGY - GENER AL ORDERABLES Performing Organization Address [facility] [place] [address] documented in this encounter Visit Diagnoses Diagnosis Subacute vaginitis Lichen sclerosus Circumscribed scleroderma documented in this encounter Care Teams Cell Operator Relationship Specialty Start Date End Date Forrest Bangura PA [address] [place] [address] PCP - General Internal Medicine 04/19/22 documented as of this encounter
--- OUTSIDE RECORDS SUMMARY | 2024-01-05 16:51 | XMS_ITS | Encounter Summary ---
[facility] Organization [facility] [place] [address] Care Team Providers Care Hvac Design Mechanical Engineer Name Role Phone Forrest Bangura Primary Care Provider [phone] Reason for Referral * Diagnostic Test (Routine) - Closed Specialty Diagnoses / Procedures Referred By Conttodd t Referred To Contact Radiology Diagnoses Urinary incontinence, urge Lichen planus Pelvic pressure in female Procedures MRI Pelvis Soft Tissue (GI HEALTH ECONOMIST) wwo Contrast Angela Aguilar MD [facility] [place] [address] [place] [address] Referral ID Status Reason Start Date Expiration Date V isits Requested Visits Authorized [id number] Closed Specialty Service Requested 08/02/2022 02/03/2024 1 1 Reason for Visit * Reason Comments Establish Care Encounter Details Date Type Department Care Team (Late st Contact Info) Description 08/02/2022 11:00 AM EST Office Visit Obstetrics [place] [phone] Angela Aguilar MD [facility] [place] [address] Urinary incontinence, urge (Primary Dx); Lichen planus; Pelvic pressure in female Social History Tobacco Use Types Packs/Day Years Used Date Smoking Tobacco: Never Smokeless Tobacco: Never Sex and Gender Information Value Date Recorded Sex Assigned at Not on file Gender Identity Not on file Sexual Orientation Not on file documented as of this encounter Last Filed Vital Signs Vital Sign Reading Time Taken Comments Blood Pressure 151/63 08/02/2022 10:17 AM EST Pulse 76 08/02/2022 10:17 AM EST Temperature 36.6 ??C (97.9 ??F) 08/02/2022 10:[address] Respiratory Rate 24 08/02/2022 10:17 AM EST Oxygen Saturation 99% 08/02/2022 10:17 AM EST Inhaled Oxygen Concentration - - Weight 88.3 kg (194 lb 9.6 oz) 08/02/2022 10:17 AM EST Height 144.9 cm (4' 9.05) 08/02/2022 10:[address] Body Mass Index 42.04 08/02/2022 10:17 AM EST documented in this encounter Progress Notes * Angela Aguilar MD - 08/02/2022 11:00 AM EST Images from the original note were not included. Female Pelvic Medicine and Reconstructive Surgery @ [facility] Patient Name: Flavia Terrell Patient Primary Care Provider: MARLINE Thomason Chief Complaint: Pelvic prssure History of Present Illness: Ms. Terrell is a 72 y.o. old para 2 woman, seen at the kind request of MARLINE Thomason. She presents for evaluation and assessment of urinary incontinence, worsening over several years duration. Urinary frequency is up to every 20-30 mins in the daytime and x4 at night. She doesn't make it to the bathroom on time about 50% instances. She changes x10 pads a day. Denies OLE. She saw Dr. Szymanski in the vulvar clinic 1 month ago for suspected LS and vaginal discharge. Exam found complete obliteration of the vagina and could not pass Q- tip further than urethral opening whichseemed more consistent with lichen planus. However there was no active LP on exam and the source ofdischarge was unclear. She was given a prescription for topical Clobetasol which she has used faithfully and reports the discharge has resolved. She has a h/o RUTHANN with vertical incision, oopherectomy as separate procedure for cysts. She has a PMH significant for Type 2 DM and hypothyroidism. Urinary tract history Patient denies history of recurrent urinary tract infection. Patient denies history of pyelonephritis. Patient denies history of urinary tract abnormality. Patient denies history of nephrolithiasis. Patient denies history of hematuria. Bladder Function Daytime frequency of voiding: Q20-30 mins Nocturia: x4/night Urinary incontinence: yes UUI No. episodes: X10/day Pad use (per day) and type: pads Previous urinary incontinence treatment (Medical/Behavioral/Surgical): Kegels Bladder irritants: Fluid intake: 40-50oz/day water Caffeine intake: X2 cups/day Cigarette smoking (packs, time, if quit when): no Alcohol: no Storage symptoms x Urinary frequency Nocturia Stress urinary incontinence - leakage with exertion, cough/sneeze x Urge urinary incontinence - leakage preceded immediately by urge to void Noctural enuresis - NOT IN ASSOCIATION WITH URGE Continuous urinary leakage Other: (e,g. giggle, intercourse-related) Bladder sensation Normal - aware of filling and increased sensation up to desire to void x Increased - feels an early and persistent need to void Reduced - aware of filling but NOT definite desire to void Absent - NO sensation of filling or need to void Non-specific - No specific bladder symptoms during filling or void Voiding symptoms None x Slow stream Spraying Intermittent stream - stop/start on > 1 occasion during void Straining - muscular effort to initiate, maintain OR improve stream Terminal dribble - prolonged final part of void Feeling of incomplete emptying Pelvic Organ Prolapse (POP) Any personally see or feel a vaginal bulge? no What precipitates prolapse or symptoms of prolapse? n/a Previous treatment for POP (physical therapy, pessary, surgery)?: n/a Bowel Function Number of bowel movements (day/week): Daily, normal consistency Fecal incontinence (yes/no): no Number of fecal incontinent episodes (day/week): n/a Last Colonoscopy: 10 yrs ago, due next month Defecatory Dysfunction: Symptom Presence Symptom Presence NONE x Incomplete Emptying Straining Infrequent stools (<3 week) Splinting Abdominal discomfort Loose stools Defecatory urgency Hard stools Other Sexual Function Active?: No, not in 9 years Pain with intercourse?: yes If yes, insertional/Deep? insertional Desire to retain sexual function? Not a priority Last PAP smear: s/p hyst Past Medical History: Diagnosis Date ??? HTN (hypertension) ??? Hyperlipidemia ??? Hypothyroidism ??? Type 2 diabetes mellitus Past Surgical History: Procedure Laterality Date ??? CHOLECYSTECTOMY open ??? HYSTERECTOMY, TOTAL ABDOMINAL ??? PELVIC LAPAROSCOPY Left oopherectomy OB History Para Term AB Living 3 3 2 1 0 1 SAB IAB Ectopic Multiple Live Births 0 0 0 0 0 # Outcome Date GA Lbr Trevon/2nd Weight Sex Delivery Anes PTL Lv 3 2 Term 1 Term Outpatient Medications Marked as Taking for the 08/02/22 encounter (Office Visit) with Jasbir Aguilar MD Medication Sig Dispense Refill ??? aspirin EC [...] mg tablet Take 10 mg by mouth. Allergies Allergen Reactions ??? Codeine Phosphate CIS - Unknown Social History Socioeconomic History ??? Marital status: Spouse name: Not on file ??? Number of children: Not on file ??? Years of education: Not on file ??? Highest education level: Not on file Occupational History ??? Not on file Tobacco Use ??? Smoking status: Never ??? Smokeless tobacco: Never Vaping Use ??? Vaping Use: Never used Substance and Sexual Activity ??? Alcohol use: Not on file ??? Drug use: Not on file ??? Sexual activity: Not on file Other Topics Concern ??? Not on file Social History Narrative ??? Not on file Social Determinants of Health Financial Resource Strain: Not on file Food Insecurity: Not on file Transportation Needs: Not on file Physical Activity: Not on file Housing Stability: Not on file Family History Problem Relation Age of Onset ??? Uterine Cancer Mother Family history: reports history of gynecologic cancer ROS: Review of all other systems negative except for those mentioned above or indicated below: System Symptom Presence Constitutional Weight Loss Weight gain Eyes History of glaucoma No but had cataracts ENT/Mouth Mouth sores/Dry mouth Cardiovascular Chest pain Leg swelling Respiratory Wheezing SOB GI Nausea/vomiting Abdominal pain Skin/Breast Breast masses Rash/ulcer Musculoskeletal Muscle weakness Trouble Walking Neurological Dizziness/falling Numbness Psychiatric Depression Anxiety Endocrine Abnormal thirst Hot flashes Hematologic Frequent bruising History of blood transfusions no Blood clots (DVT / PE) no Prior problems w/ anesthesia no Outside medical records reviewed: yes Data reviewed (images/urodynamic studies): To further delineate patient's urinary symptoms, a urinedip test and postvoid residual via bladder scanner were obtained. PVR: 0cc Results for orders placed or performed in visit on 07/04/22 Yeast culture Vaginal Specimen: Vaginal Result Value Ref Range Yeast Culture No Yeast isolated Genital Culture Vaginal Specimen: Vaginal Result Value Ref Range Genital Culture Many mixed bacterial morphotypes suggestive of normal vaginal rosina OBJECTIVE: BP 151/63 Pulse 76 Temp 36.6 ??C (97.9 ??F) Resp 24 Ht 144.9 cm (4' 9.05) Wt 88.3 kg (194 lb 9.6 oz) SpO2 99% BMI 42.04 kg/m?? General: normal appearing female, pleasant mood, normal speech Skin: skin of abdomen/pelvis normal appearance Respiratory: clear to auscultation bilaterally Neuro: no paraspinous tenderness; saddle sensory function (S2-4) intact in the pelvic area to touch Cardiac: regular rate and rhythm, no appreciated murmurs Gastrointestinal: Open heather scar, no palpable masses/organomegaly, soft/nontender, no appreciable hernia Musculoskeletal: lower extremity motor 5/5 bilaterally Pelvic exam performed concomitantly with Dr. Szymanski: Cough stress test (empty supine): neg External Genitalia: Vulva, Acequia's and Bartholin glands normal, urethra without tenderness or mass Vagina: 1cm depth, probed gently with Q-tip without opening noted. Rectovaginal: Rectocele: no Anal sphincter: Resting tone 5/5 and squeeze 4/5 Anal wink: present External anal sphincter: intact Anal canal narrowed, smooth, no masses in the lumen but external pressure suspected on the anteriorrectum Impression: Ms. Terrell is a .72 y.o. woman with urinary incontinence, pelvic pressure and vaginal discharge in the setting of scar tissue obliterating the vagina and a possible pelvic soft tissue pelvic mass or fluid collection Recommendations: Based on the patients expressed goals for management I have recommended the following: ?? MRI to exclude pelvic mass or fluid collection proximal to the obliterated distal vagina and to inform any surgical planning ?? F/u subsequently for further discussion re OAB management I spent 60 minutes total with the patient, with 45 minutes of the time spent [id number] in discussing her diagnosis and reviewing options for treatment. Bladder Pathway informational pamphlets given to patient Angela Aguilar MD Division of Female Pelvic Medicine/Reconstructive Surgery CC: MARLINE Thomason No ref. provider found documented in this encounter Miscellaneous Notes * Addendum Note - Tarun, Venera, CAUSTIC ROOM ATTENDANT - 08/02/2022 11:00 AM ESTAddended by: VIVIENNE MCNEIL on: 08/02/2022 12:16 PM Modules accepted: Orders * Addendum Note - Vivienne Mcneil LNA - 08/02/2022 11:00 AM ESTAddended by: VIVIENNE MCNEIL on: 08/02/2022 12:16 PM Modules accepted: Orders * Addendum Note - Angela Aguilar MD - 08/02/2022 11:00 AM ESTAddended by: ANGELA AGUILAR on: 08/02/2022 12:18 PM Modules accepted: Orders documented in this encounter Plan of Treatment Not on file documented as of this encounter Procedures Procedure Name Priority Date/Time Associated Diagnosis Comments CREATININE Routine 08/02/2022 1:03 PM EST Urinary incontinence, urge Lichen planus Pelvic pressure in female BLADDER SCANNER Routine 08/02/2022 Urinary incontinence, urge POCT URINE DIPSTICK Routine 08/02/2022 Urinary incontinence, urge documented in this encounter Results * MRI Pelvis Soft Tissue (GI HEALTH ECONOMIST) wwo Contrast (10/16/2022 1:36 PM EDT) Anatomical Region Laterality Modality Pelvis Magnetic Resonan ce Impressions 10/16/2022 2:32 PM EDT 1. ??Status post hysterectomy with collapsed vaginal cuff and anal canal limiting further assessment. 2. ??No pelvic masses or areas of abnormal enhancement. I have personally reviewed the image(s) and the resident's interpretation and agree with the findings, Adonay Leon MD at 10/16/2022 2:32 PM Thank you for letting us participate in the care of this patient. ??If you are a health care provider and have any questions regarding this report, please contact the number below. ??For patients who have questions please contact the health zoo caretaker that requested your imaging first. ? Electronically signed by: Adonay Leon MD, [facility] ([phone]), at 10/16/2022 2:32 PM Narrative 10/16/2022 2:32 PM EDT EXAMINATION: MRI PELVIS SOFT TISSUE (GI HEALTH ECONOMIST) WWO CONTRAST CLINICAL HISTORY: S/p hysterectomy. Now presenting with pelvic pressure and intermittent vaginal discharge. Exam shows vagina almost completely scarred by likely lichen planus. Rectal exam revealed narrowed anal canal. Evaluate for possible fluid collection or mass in proximal vagina. TECHNIQUE: Multisequence, multiplanar noncontrast MRI of the pelvis was performed prior to and following the intravenous administration of 18ml Dotarem. COMPARISON: None FINDINGS: Uterus: Post hysterectomy. Collapsed vaginal cuff without mass or abnormal enhancement. Right ovary: Normal. Left ovary: Normal. Free fluid: None. Lymph nodes: No lymphadenopathy. Bowel: Nondilated, no inflammatory changes. Collapsed anal canal without abnormal enhancement or mass. Osseous structures: No marrow signal abnormality. Procedure Note Adonay Leon MD - 10/16/2022 EXAMINATION: MRI PELVIS SOFT TISSUE (GI HEALTH ECONOMIST) WWO CONTRAST CLINICAL HISTORY: S/p hysterectomy. Now presenting with pelvic pressureand intermittent vaginal discharge. Exam shows vagina almost completelyscarred by likely lichen planus. Rectal exam revealed narrowed anal canal. Evaluate for possible fluid collection or mass in proximal vagina. TECHNIQUE: Multisequence, multiplanar noncontrast MRI of the pelvis was performed prior to and following the intravenous administration of 18mlDotarem. COMPARISON: None FINDINGS: Uterus: Post hysterectomy. Collapsed vaginal cuff without mass orabnormal enhancement. Right ovary: Normal. Left ovary: Normal. Free fluid: None. Lymph nodes: No lymphadenopathy. Bowel: Nondilated, no inflammatory changes. Collapsed anal canal without abnormal enhancement or mass. Osseous structures: No marrow signal abnormality. IMPRESSION 1. Status post hysterectomy with collapsed vaginal cuff and anal canallimiting further assessment. 2. No pelvic masses or areas of abnormal enhancement. I have personally reviewed the image(s) and the resident's interpretationand agree with the findings, Adonay Leon MD at 10/16/2022 2:32 PM Thank you for letting us participate in the care of this patient. If youare a health care provider and have any questions regarding this report,please contact the number below. For patients who have questions please contactthe health zoo caretaker that requested your imaging first. Electronically signed by: Adonay Leon MD, [facility]([phone]), at 10/16/2022 2:32 PM Angela Aguilar MD IMG MRI ORDERABLES * (ABNORMAL) Creatinine (08/02/2022 1:03 PM EST) Creatinine 1.05 0.70 - 1.20 mg/dL [facility] Est Glomerular Filtration Rate 56(L) >=60 mL/min/1. 73 m?? [facility] Comment: This patient's estimated GFR was calculated using the 2020 CKD-EPI equation. The estimated GFR can vary from the measured GFR by up to 30% in the absence of rapidly changing kidney function. Assessment of the estimated GFR is not appropriate when creatinine concentrations are rapidly changing. For clinical situations in which a more precise estimate of GFR is necessary, consider alternative methods of GFR estimation such as a 24-hour urine creatinine clearance. Assignment of CKD stage 1-5 for patients with an eGFR near the transition point between stages may be based on clinical assessment of muscle mass and symptoms in addition to eGFR. Blood 08/02/2022 1:03 PM EST 08/02/2022 1:13 PM EST Narrative Resulting Agency Comment Spec In Lab Angela Aguilar MD CHEMISTRY ORDERABLES [facility] [place] [address] * Bladder Scanner (08/02/2022) Bladder Scan (mL) 0 mL Angela Aguilar MD URO PROC W/O RFL ORD ERABLES * POCT urine dipstick (08/02/2022) POC Sp [place] 1.01 1.002 - 1.030 POC pH, UA 5.0 5.0 - 8.5 POC Leuk, UA Negative Negative - Negative POC Nitrite, UA Negative Negative - Negative POC Protein, UA Negative Negative - Negative mg/dL POC Glucose, UA Normal Normal - Normal mg/dL POC Ketone, UA Negative Negative - Negative POC Urobil, UA Normal 0.2 - 1.0 mg/dL POC Bili, UA Negative Negative - Negative POC Blood, UA Negative Negative - Negative contreras/uL Angela Aguilar MD POINT OF CARE TEST O RDERABLES documented in this encounter Visit Diagnoses Diagnosis Urinary incontinence, urge- Primary Urge incontinence Lichen planus Pelvic pressure in female Other specified symptom associated with female genital organs Urinary incontinence, urge Urge incontinence Lichen planus Pelvic pressure in female Other specified symptom associated with female genital organs documented in this encounter Care Teams Hvac Design Mechanical Engineer Relationship Specialty Start Date End Date Forrest Bangura PA [address] [place] [address] PCP - General Internal Medicine 04/19/22 documented as of this encounter
--- OUTSIDE RECORDS SUMMARY | 2024-01-05 16:51 | XMS_ITS | Encounter Summary ---
Author Organization [facility] [place] [address] Care Team Providers Care Airline Hostess Name Role Phone Forrest Bangura Primary Care Provider [phone] Reason for Referral * Consultation (Routine) - Closed Specialty Diagnoses / Procedures Referred By Boris celaya Referred To Contact Obstetrics and Gynecology Diagnoses Lichen planus, unspecified Vulva Forrest Bangura PA [address] [place] [address] [facility] Clinical Services Consultant [address] [address] Referral ID Status Reason Start Date Expiration Date V isits Requested Visits Authorized [id number] Closed Consult, Test & Treat PCP Updated and/or Approved 07/16/2023 07/15/2024 6 6 Encounter Details Date Type Department Care Team (Latest Contact Info) Description 07/16/2023 Transcribe Orders eDH Incoming Referrals [phone] Forrest Bangura PA [address] [place], [place] [id number] Lichen planus, unspecified Social History Tobacco Use Types Packs/Day Years Used Date Smoking Tobacco: Never Smokeless Tobacco: Never Sex and Gender Information Value Date Recorded Sex Assigned at Not on file Gender Identity Not on file Sexual Orientation Not on file documented as of this encounter Plan of Treatment Scheduled Referrals Name Type Priority Associated Diagnoses Orde r Schedule Referral to Ob-Solutions Engineer Outpatient Referral Routine Lichen planus, unspecified Ordered: 07/16/2023 documented as of this encounter Visit Diagnoses Diagnosis Lichen planus, unspecified documented in this encounter Care Teams Airline Hostess Relationship Specialty Start Date End Date Forrest Bangura PA [address] [place] [address] PCP - General Internal Medicine 04/19/22 documented as of this encounter
--- OUTSIDE RECORDS SUMMARY | 2024-01-05 16:51 | XMS_ITS | Clinical Summary ---
Author Organization [facility] Address [facility] [place] [address] Care Team Providers Care Line Service Attendant Name Role Phone Forrest Bangura Primary Care Provider [phone] Allergies Active Allergy Reactions Criticality Noted Date Comments Codeine Phosphate CIS - Unknown Medications Medication Sig Dispensed Refills Start Date End Date Status CIS Free Text Med - micro k 10meq 02/06/2005 Active CIS Free Text Med - Albuterol 02/06/2005 Active atenolol (TENORMIN) 50 mg tablet 02/06/2005 Active furosemide (LASIX) 40 mg tablet Take 10 mg by mouth. 02/06/2005 Active simvastatin (ZOCOR) 20 mg tablet 09/05/2005 Active levothyroxine (SYNTHROID) 125 mcg tablet 125MCG, PO, Once daily 05/28/2005 Active citalopram (CELEXA) 40 mg tablet 40MG = 1 Tablet(s), PO, Once daily 12/05/2005 Active propoxyphene-acetamin ophen (DARVOCET-N 100) 100-650 mg per tablet 1 Tablet(s), PO, Three times daily prn 10/03/2005 Active lansoprazole (PREVACID) 30 mg capsule 30MG = 1 Capsule(s), PO, Once daily 12/05/2005 Active aspirin EC 81 mg Tablet, Delayed Release (E.C.) Take 81 mg by mouth daily. Active metFORMIN (Glucophage) 1,000 mg Tablet Take 1,000 mg by mouth 2 times daily (with meals). Active lisinopriL (Zestril) 20 mg Tablet Take 20 mg by mouth daily. Active estradioL (ESTRACE) 0.01 % (0.1 mg/gram) Cream Place 2 g vaginally daily. Active gabapentin (NEURONTIN) 600 mg Tablet Take 600 mg by mouth 2 times daily. 06/29/2022 Active metoprolol succinate XL (Toprol-XL) 25 mg Tablet Sustained Release 24 hr Take 25 mg by mouth daily. 06/30/2022 Active omeprazole (PriLOSEC) 40 mg Capsule, Delayed Release(E.C.) Take 40 mg by mouth daily. 06/17/2022 Active potassium chloride ER (K-Dur/Klor-Con) 10 mEq Tablet Sustained Release Take 10 mEq by mouth 2 times daily. 05/14/2022 Active pramipexole (Mirapex) 0.25 mg Tablet Take 0.25 mg by mouth 2 times daily. 06/13/2022 Active albuteroL 90 mcg/actuation HFA Aerosol Inhaler 06/30/2022 Active multivitamin (THERAGRAN) Tablet Take 1 tablet by mouth daily. Active clobetasoL (Temovate) 0.05 % OintmentIndications:L ichen sclerosus Apply small amount to vulva daily 30 g 3 07/04/2022 Active Immunizations Name Administration Dates Next Due Influenza Vaccine, Whole 05/03/2008,04/18/2007 Family History Medical History Relation Comments Uterine Cancer Mother Relation Status Comments Mother Social History Tobacco Use Types Packs/Day Years Used Date Smoking Tobacco: Never Smokeless Tobacco: Never Tobacco Cessation:Counseling Given: Not Answered Sex and Gender Information Value Date Recorded Sex Assigned at Not on file Gender Identity Not on file Sexual Orientation Not on file Last Filed Vital Signs Vital Sign Reading [...] Mass Index 42.04 08/02/2022 10:17 AM EST Plan of Treatment Health Maintenance Due Date Last Done Comments CT Colonography 1948 Colonoscopy 1950 Colorectal Cancer Screening 1950 FIT DNA 1950 FIT 1950 Sigmoidoscopy (10 year) with FIT yearly 1948 Sigmoidoscopy 1950 Hepatitis C Screening 02/28/1966 Tdap adult 02/28/1967 Tetanus vaccine 02/28/1967 Zoster vaccine (1 of 2) 02/28/1998 Advance Directive 02/28/2003 Bone Density Scan 02/28/2013 Pneumoccocal Vaccine: 65+ (1 of 1 - PCV) 02/28/2013 Covid-19 Vaccine (1 - 2022-24 season) 2023 Influenza (Flu) vaccine (1 o f 1 - Influenza standard series) 02/01/2024 05/03/2008, 04/18/2007 Care Teams Line Service Attendant Relationship Specialty Start Date End Date Forrest Bangura PA [address] [place] [address] PCP - General Internal Medicine 04/19/22
--- OUTSIDE RECORDS SUMMARY | 2024-01-05 16:51 | XMS_ITS | Encounter Summary ---
[facility] [place] [address] Care Team Providers Care Nursery Attendant Name Role Phone Forrest Bangura Primary Care Provider [phone] Encounter Details Date Type Department Care Team (Latest Contact Info) Description 10/16/2022 Travel Social History Tobacco Use Types Packs/Day [...] on filedocumented in this encounter Care Teams Nursery Attendant Relationship Specialty Start Date End Date Forrest Bangura PA [address] [place] [address] PCP - General Internal Medicine 04/19/22 documented as of this encounter
--- OUTSIDE RECORDS SUMMARY | 2024-01-05 16:51 | XMS_ITS | Encounter Summary ---
Author Organization [facility] Address [facility] [place] [address] Care Team Providers Care Circuit Board Repair Technician Name Role Phone Forrest Bangura Primary Care Provider [phone] Reason for Referral * Diagnostic Test (Routine) - Closed Specialty Diagnoses / Procedures Referred By Contac t Referred To Contact Radiology Diagnoses Urinary incontinence, urge Lichen planus Pelvic pressure in female Procedures MRI Pelvis Soft Tissue (GI TOP STITCHER) Kevin Anderson MD [facility] [place] [address] [place] [address] Referral ID Status Reason Start Date Expiration Date V isits Requested Visits Authorized [id number] Closed Specialty Service Requested 08/02/2022 02/03/2024 1 1 Reason for Visit * Diagnostic Test (Routine) - Closed Specialty Diagnoses / Procedures Referred By Contac t Referred To Contact Radiology Diagnoses Urinary incontinence, urge Lichen planus Pelvic pressure in female Procedures MRI Pelvis Soft Tissue (GI TOP STITCHER) Kevin Anderson MD [facility] [place] [address] [place] [address] Referral ID Status Reason Start Date Expiration Date V isits Requested Visits Authorized [id number] Closed Specialty Service Requested 08/02/2022 02/03/2024 1 1 Encounter Details Date Type Department Care Team (Latest Contact Info) Description 10/16/2022 10:45 AM EDT - 10/16/2022 11:59 PM EDT Hospital Encounter MRI at [facility] [place] [id number] Kevin Chao MD [facility] [place] [address] Urinary incontinence, urge; Lichen planus; Pelvic pressure in female Discharge Disposition: Home Social History Tobacco Use Types Packs/Day Years Used Date Smoking Tobacco: Never Smokeless Tobacco: Never Sex and Gender Information Value Date Recorded Sex Assigned at Not on file Gender Identity Not on file Sexual Orientation Not on file documented as of this encounter Medications at Time of Discharge Medication Sig Dispensed Refills Start Date End Date aspirin EC 81 mg Tablet, Delayed Release (E.C.) Take 81 mg by mouth daily. metFORMIN (Glucophage) 1,000 mg Tablet Take 1,000 mg by mouth 2 times daily (with meals). lisinopriL (Zestril) 20 mg Tablet Take 20 mg by mouth daily. estradioL (ESTRACE) 0.01 % (0.1 mg/gram) Cream Place 2 g vaginally daily. gabapentin (NEURONTIN) 600 mg Tablet Take 600 mg by mouth 2 times daily. 06/29/2022 metoprolol succinate XL (Toprol-XL) 25 mg Tablet Sustained Release 24 hr Take 25 mg by mouth daily. 06/30/2022 omeprazole (PriLOSEC) 40 mg Capsule, Delayed Release(E.C.) Take 40 mg by mouth daily. 06/17/2022 potassium chloride ER (K-Dur/Klor-Con) 10 mEq Tablet Sustained Release Take 10 mEq by mouth 2 times daily. 05/14/2022 pramipexole (Mirapex) 0.25 mg Tablet Take 0.25 mg by mouth 2 times daily. 06/13/2022 albuteroL 90 mcg/actuation HFA Aerosol Inhaler 06/30/2022 multivitamin (THERAGRAN) Tablet Take 1 tablet by mouth daily. clobetasoL (Temovate) 0.05 % OintmentIndications:Lich en sclerosus Apply small amount to vulva daily 30 g 3 07/04/2022 citalopram (CELEXA) 40 mg tablet 40MG = 1 Tablet(s), PO, Once daily 12/05/2005 lansoprazole (PREVACID) 30 mg capsule 30MG = 1 Capsule(s), PO, Once daily 12/05/2005 propoxyphene-acetaminoph en (DARVOCET-N 100) 100-650 mg per tablet 1 Tablet(s), PO, Three times daily prn 10/03/2005 simvastatin (ZOCOR) 20 mg tablet 09/05/2005 levothyroxine (SYNTHROID) 125 mcg tablet 125MCG, PO, Once daily 05/28/2005 CIS Free Text Med - micro k 10meq 02/06/2005 CIS Free Text Med - Albuterol 02/06/2005 atenolol (TENORMIN) 50 mg tablet 02/06/2005 furosemide (LASIX) 40 mg tablet Take 10 mg by mouth. 02/06/2005 documented as of this encounter Plan of Treatment Not on file documented as of this encounter Procedures Procedure Name Priority Date/Time Associated Diagnosis Comments MRI PELVIS SOFT TISSUE (GI TOP STITCHER) WWO CONTRAST Routine 10/16/2022 1:36 PM EDT Urinary incontinence, urge Lichen planus Pelvic pressure in female documented in this encounter Results * MRI Pelvis Soft Tissue (GI TOP STITCHER) wwo Contrast (10/16/2022 1:36 PM EDT) Anatomical [...] who have questions please contact the health healthcare social worker that requested your imaging first. ? Narrative 10/16/2022 2:32 PM EDT EXAMINATION: MRI PELVIS SOFT TISSUE (GI TOP STITCHER) WWO CONTRAST CLINICAL HISTORY: S/p hysterectomy. Now [...] 10/16/2022 EXAMINATION: MRI PELVIS SOFT TISSUE (GI TOP STITCHER) WWO CONTRAST CLINICAL HISTORY: S/p hysterectomy. Now [...] patients who have questions please contactthe health healthcare social worker that requested your imaging first. Kevin Chao MD IMG MRI ORDERABLES documented in this encounter Visit Diagnoses Diagnosis Urinary incontinence, urge Urge incontinence Lichen planus Pelvic pressure in female Other specified symptom associated with female genital organs documented in this encounter Administered Medications Inactive Administered Medications - up to 3 most recent administrations Medication Order MAR Action Action Date Dose Rate Site gadoterate meglumine (Dotarem) (0.5 mMol/mL) injection solution 0-100 mL 0-100 mL, Intravenous, ONCE PRN, 1 dose, Starting on Fri10/16/22 at 1337, Until Fri10/16/22 at 1305, Per Protocol, Radiology Contrast, Routine Given 10/16/2022 1:05 PM EDT 18 mLs documented in this encounter Care Teams Circuit Board Repair Technician Relationship Specialty Start Date End Date Forrest Bangura PA [address] [place] [address] PCP - General Internal Medicine 04/19/22 documented as of this encounter
--- OUTSIDE RECORDS SUMMARY | 2024-01-05 16:51 | XMS_ITS | Encounter Summary ---
[facility] [place] [address] Care Team Providers Care Dirt Contractor Name Role Phone Forrest Bangura Primary Care Provider [phone] Encounter Details Date Type Department Care Team (Latest Contact Info) Description 08/02/2022 Travel Social History Tobacco Use Types Packs/Day [...] on filedocumented in this encounter Care Teams Dirt Contractor Relationship Specialty Start Date End Date Forrest Bangura PA [address] [place] [address] PCP - General Internal Medicine 04/19/22 documented as of this encounter
--- OUTSIDE RECORDS SUMMARY | 2024-01-05 16:51 | XMS_ITS | Encounter Summary ---
Author Organization [facility] [place] [address] Care Team Providers Care Truck Crane Operator Name Role Phone Forrest Bangura Primary Care Provider Encounter Details Date Type Department Care Team (Late st Contact Info) Description 05/23/2022 Telephone Obstetrics [place] [id number] Sigrid Carvalho Social History Tobacco Use Types Packs/Day Years Used Date Smoking Tobacco: Never Assessed Sex and Gender Information Value Date Recorded Sex Assigned at Not on file Gender Identity Not on file Sexual Orientation Not on file documented as of this encounter Plan of Treatment Not on file documented as of this encounter Visit Diagnoses Not on filedocumented in this encounter Care Teams Truck Crane Operator Relationship Specialty Start Date End Date Forrest Bangura PA [address] [place] [address] PCP - General Internal Medicine 04/19/22 documented as of this encounter
--- OUTSIDE RECORDS SUMMARY | 2024-01-05 16:52 | XMS_ITS | Encounter Summary ---
[place] [address] Care Team Providers Care Chief Of Police Name Role Phone Forrest Bangura Primary Care Provider [phone] Reason for Referral * Consultation (Routine) - Closed Specialty Diagnoses / Procedures Referred By Boris celaya Referred To Contact Obstetrics and Gynecology Diagnoses Vaginal adhesion Forrest Bangura PA [address] [place] [address] [facility] [employer] [address] [address] Referral ID Status Reason Start Date Expiration Date V isits Requested Visits Authorized [id number] Closed Consult, Test & Treat PCP Updated and/or Approved 04/19/2022 04/19/2023 12 12 Encounter Details Date Type Department Care Team (Late st Contact Info) Description 04/19/2022 Transcribe Orders eD Incoming Referrals [phone] Forrest Bangura PA [address] [place], [place] [id number] Vaginal adhesion Social History Tobacco Use Types Packs/Day Years Used Date Smoking Tobacco: Never Assessed Sex and Gender Information Value Date Recorded Sex Assigned at Not on file Gender Identity Not on file Sexual Orientation Not on file documented as of this encounter Plan of Treatment Scheduled Referrals Name Type Priority Associated Diagnoses Orde r Schedule Referral to [facility] Outpatient Referral Routine Vaginal adhesion Ordered: 04/19/2022 documented as of this encounter Visit Diagnoses Diagnosis Vaginal adhesion Stricture or atresia of vagina documented in this encounter Care Teams Chief Of Police Relationship Specialty Start Date End Date Forrest Bangura PA [address] [place] [address] PCP - General Internal Medicine 04/19/22 documented as of this encounter
--- NOTE | 2024-01-05 19:15 | DI.CT_ITS ---
Exam(s) CT CHEST WO EXAM: CT CHEST WO calcified granuloma in the left upper lobe is unchanged. CLINICAL HISTORY: right sided chest pain s/p fall. TECHNIQUE: Multi planar reconstructions were performed. CONTRAST MATERIAL: None COMPARISON: CT CT CHEST PE ABD PELVIS W from 09/29/2021 FINDINGS: CHEST: LUNGS: There is no evidence of lung contusion or pleural effusion or pneumothorax, given the trauma h istory. There is calcified granuloma in the superior segment of the left lower lobe again noted. Sm all 2 millimeter noncalcified nodules also noted in left lower lobe. A peripheral 2 millimeter nonca lcified nodule noted in the right lower lobe, unchanged. No new ominous pulmonary nodules. MEDIASTINUM: No evidence of sternal fracture or mediastinal hematoma. No hilar nor mediastinal adeno chiki evident. Beam hardening artifact from bilateral shoulder prosthesis makes evaluation of the up permost mediastinum difficult. CARDIAC: Heart size is normal. There is no pericardial effusion.Caliber of the thoracic aorta is wit hin normal limits. Coronary artery calcification noted. VISUALIZED UPPER ABDOMEN:Gallbladder surgically absent. Adrenal glands unremarkable. Spleen size no rmal. No ascites. OSSEOUS: Bilateral shoulder prostheses.No fractures identified. No significant osseous lesions.. IMPRESSION: 1. No significant intrathoracic trauma findings on this non infused chest CT study. 2. Incidental benign-appearing stable lung nodules as described above. 3. No pleural effusions. RADIATION DOSE DELIVERED: Total DLP DATA REPOSITORY: All CT scans at this facility are submitted to the National Radiology Data Registry (NRDR) Dose Index Registry (DIR) with the [employer] (A[employer]). RADIATION OPTIMIZATION: All CT scans at this facility use at least one of these dose optimization te chniques: automated exposure control; mA and/or kV adjustment per patient size (includes targeted exa ms where dose is matched to clinical indication); or iterative reconstruction.
--- NOTE | 2024-01-05 19:30 | ED.GENADUL_ITS ---
Discharge Plan Disposition Patient Disposition: Home Condition: Stable Discharge Details Clinical Impression: Contusion of rib on right side Primary Care Provider: Forrest Bangura ED Provider: Israel Nunez Home Meds and New Rx's Prescriptions: Continued aspirin 325 MG tablet 81 mg PO DAILY estradiol [Estrace] 0.01 % (0.1 mg/gram) cream 1 g vaginal .3xweek Patient Comments: pt. doesnt use triamcinolone acetonide 0.1 % cream 1 applic topical BID albuterol sulfate 2.5 mg /3 mL (0.083 %) solution for nebulization 2.5 mg inhalation Q6H clotrimazole-betamethasone 1-0.05 % cream 1 applic topical BID metformin 500 mg tablet 500 mg PO BID omeprazole 40 mg capsule,delayed release(DR/EC) 40 mg PO DAILY albuterol sulfate [Ventolin HFA] 90 mcg/actuation HFA aerosol inhaler 2 puff inhalation Q6H PRN gabapentin 600 mg tablet 600 mg PO BID metoprolol succinate 25 mg tablet extended release 24 hr 25 mg PO DAILY atorvastatin 40 mg tablet 40 mg PO DAILY furosemide 20 mg tablet 20 mg PO DAILY fluticasone propionate [Flovent HFA] 220 mcg/actuation HFA aerosol inhaler 2 puff inhalation BID calcium citrate 200 mg (950 mg) tablet 200 mg PO DAILY Patient Comments: pt. reports she no longer takes docusate sodium [Colace] 100 mg capsule 100 mg PO DAILY lisinopril 40 mg tablet 20 mg PO DAILY glimepiride 2 mg tablet 2 mg PO DAILY spironolactone 25 mg tablet 25 mg PO DAILY potassium chloride 10 MEQ tablet extended release 10 meq PO BID pramipexole [Mirapex] 0.25 MG tablet 0.25 mg PO DAILY nitroglycerin 0.4 MG tablet, sublingual 0.4 mg Sublingual DIRECTED Qty: 25 0RF Rx Instructions: 1 tab SL prn chest pain, may repeat Q5 minutes up to 3 tabs, and call 911 multivitamin Capsule 1 cap PO QAM levothyroxine 137 mcg Capsule 112 mcg PO DAILY oxycodone 5 mg tablet 5 mg PO QID PRN naproxen 250 mg tablet 250 mg PO BID PRN (Reason: Moderate pain) Qty: 40 0RF ondansetron 4 mg tablet,disintegrating 4 mg PO Q8H PRN (Reason: nausea and vomiting) Qty: 30 0RF albuterol sulfate [ProAir HFA] 90 mcg/actuation HFA aerosol inhaler 2 puff inhalation Q6H PRNQty: 8.5 0RF ciprofloxacin-dexamethasone 0.3-0.1 % drops,suspension 4 drp otic (ear) Q12H Patient Comments: INSTILL 4 DROPS INTO THE AFFECTED EAR(S) TWO TIMES A DAY FOR 7 DAYS famotidine 20 mg tablet 20 mg PO BID Qty: 30 0RF Discharge Instructions Additional Instructions: Your CAT scan did not show any concerning findings at this time If pains are better within a week see your primary care provider You can use [id number] lidocaine patches as well If you feel more ill or have new symptoms such as persistent vomiting or new pain such as abdominal pain return to the emergency department for reevaluation. HPI General Mode of arrival: ambulatory . Date/Time Provider Initiated Documentation: 01/05/24 17:10 . Limitations to Documentation: no limitations . Information obtained by: patient . History of Present Illness 73 year old F presents to the emergency department with the chief complaint of right sided chest pain s/p fall 2 days ago, described as moderate, Quality is described as aching, and is localized to the chest. Patient reports no radiation. Patient started experiencing this day(s) (2) and it has been constant. No relieving factors improve symptom(s), No exacerbating factors reported . Patient notes no other symptoms.. Related Data Home Medications ?Medication ?Instructions ?Recorded ?Confirmed aspirin 325 mg tablet 81 mg PO DAILY 03/02/13 01/05/24 nitroglycerin 0.4 mg sublingual 0.4 mg sublingual DIRECTED 10/30/15 01/05/24 tablet angina ##25 potassium chloride 10 mEq 10 meq PO BID 10/30/15 01/05/24 tablet,extended release pramipexole 0.25 mg tablet 0.25 mg PO DAILY 10/30/15 01/05/24 (Mirapex) levothyroxine 137 mcg capsule 112 mcg PO DAILY 03/02/18 01/05/24 multivitamin 1 cap PO QAM 03/02/18 01/05/24 oxycodone 5 mg tablet 5 mg PO QID PRN 02/09/20 01/05/24 albuterol sulfate 2.5 mg/3 mL 2.5 mg inhalation Q6H 11/14/21 01/05/24 (0.083 %) solution for nebulization clotrimazole-betamethasone 1 1 applic topical BID 11/14/21 01/05/24 %-0.05 % topical cream estradiol 0.01% (0.1 mg/gram) 1 g vaginal .3xweek 11/14/21 01/05/24 vaginal cream (Estrace) triamcinolone acetonide 0.1 % 1 applic topical BID 11/14/21 01/05/24 topical cream albuterol sulfate 90 mcg/actuation 2 puff inhalation Q6H PRN #8.5 08/31/22 01/05/24 aerosol inhaler (ProAir HFA) grams albuterol sulfate 90 mcg/actuation 2 puff inhalation Q6H PRN 02/17/23 01/05/24 aerosol inhaler (Ventolin HFA) gabapentin 600 mg tablet 600 mg PO BID 02/17/23 01/05/24 metformin 500 mg tablet 500 mg PO BID 02/17/23 01/05/24 omeprazole 40 mg capsule,delayed 40 mg PO DAILY 02/17/23 01/05/24 release atorvastatin 40 mg tablet 40 mg PO DAILY 05/06/23 01/05/24 calcium citrate 200 mg (950 mg) 200 mg PO DAILY 05/06/23 01/05/24 tablet docusate sodium 100 mg capsule 100 mg PO DAILY 05/06/23 01/05/24 (Colace) fluticasone propionate 220 2 puff inhalation BID 05/06/23 01/05/24 mcg/actuation HFA aerosol inhaler (Flovent HFA) furosemide 20 mg tablet 20 mg PO DAILY 05/06/23 01/05/24 metoprolol succinate 25 mg 25 mg PO DAILY 05/06/23 01/05/24 tablet,extended release 24 hr lisinopril 40 mg tablet 20 mg PO DAILY 07/16/23 01/05/24 glimepiride 2 mg tablet 2 mg PO DAILY 09/11/23 01/05/24 spironolactone 25 mg tablet 25 mg PO DAILY 09/11/23 01/05/24 naproxen 250 mg tablet 250 mg PO BID PRN Moderate pain 10/16/23 01/05/24 #40 tabs ondansetron 4 mg disintegrating 4 mg PO Q8H PRN nausea and 10/23/23 01/05/24 tablet vomiting #30 tabs ciprofloxacin 0.3 %-dexamethasone 4 drp otic (ear) Q12H 11/04/23 01/05/24 0.1 % ear drops,suspension famotidine 20 mg tablet 20 mg PO BID #30 tabs 11/05/23 01/05/24 Previous Rx's ?Medication ?Instructions ?Recorded nitroglycerin 0.4 mg sublingual 0.4 mg sublingual DIRECTED 10/30/15 tablet angina ##25 albuterol sulfate 90 mcg/actuation 2 puff inhalation Q6H PRN #8.5 08/31/22 aerosol inhaler (ProAir HFA) grams naproxen 250 mg tablet 250 mg PO BID PRN Moderate pain 10/16/23 #40 tabs ondansetron 4 mg disintegrating 4 mg PO Q8H PRN nausea and 10/23/23 tablet vomiting #30 tabs famotidine 20 mg tablet 20 mg PO BID #30 tabs 11/05/23 Allergies Allergy/AdvReac Type Severity Reaction Status Date / Time acetaminophen (From Tylenol) Allergy Intermediate Swelling/Ed Verified 01/05/24 19:52 marley cyclobenzaprine Allergy Intermediate Hives Verified 01/05/24 19:52 (Cyclobenzaprine) codeine Allergy Unknown feels like Verified 01/05/24 19:52 I'm having a heart attack shellfish derived Allergy Unknown Other (See Verified 01/05/24 19:52 Comment) ibuprofen Allergy Other (See Verified 01/05/24 19:52 Comment) fentanyl AdvReac Intermediate Contraindic Verified 01/05/24 19:52 ated morphine AdvReac Unknown Contraindic Verified 01/05/24 19:52 ated cats Allergy Severe Wheezing Uncoded 01/05/24 19:52 General Stated Complaint: Orthopedic TOSHIA: 3 Review of Systems All systems reviewed & are unremarkable except as noted in HPI and below Constitutional Constitutional: Denies chills, Denies fever(s) and Denies weakness Cardiovascular Cardiovascular: Reports chest pain and Denies dyspnea Respiratory Respiratory: Denies cough and Denies dyspnea Gastrointestinal Gastrointestinal: Denies abdominal pain, Denies nausea and Denies vomiting Musculoskeletal Musculoskeletal: Denies joint swelling Neurologic Neurologic: Denies weakness Exam Const General: no acute distress Orientation: alert [facility] Head: normal to inspection Ears: external ears normal General nose exam: external nose normal Mouth: moist mucous membranes Eyes General: appearance normal, both eyes and all related structures Neck Neck: normal visual inspection Resp Effort & Inspection: normal respiratory effort and able to speak in complete sentences Auscultation: clear to auscultation bilaterally Cardio Jugular venous pressure: no JVD Rate: regular rate Heart Sounds: no murmurs GI Palpation: soft and nontender Skin General skin exam: no rashes or lesions noted Neuro General: patient alert and patient oriented x3 Extrem General: normal to inspection Psych Mental Status: mental status grossly normal Course Vital Signs Vital signs: Vital Signs Temperature 35.8 C L 01/05/24 16:56 Pulse 78 01/05/24 16:56 Respiratory Rate 18 01/05/24 16:56 Blood Pressure 132/76 01/05/24 16:56 Pulse Oximetry 98 01/05/24 16:56 Temperature 35.8 C L 01/05/24 16:56 Temperature Source Temporal Artery Scan 01/05/24 16:56 Pulse 78 01/05/24 16:56 Respiratory Rate 18 01/05/24 16:56 Blood Pressure 132/76 01/05/24 16:56 Blood Pressure Position Sitting 01/05/24 16:56 Pulse Oximetry 98 01/05/24 16:56 Pain Level 10 01/05/24 16:56 Medical Decision Making 73-year-old female with a history of chronic pain on oxycodone, GERD who comes in with right-sided chest pain after a fall 2 days ago. Says she was going to a dollar store when she tripped and landed on her right side. Did not hit her head or have loss of consciousness. She has had right-sided chest pain send so came here for evaluation. She denies any headache, neck pain, midline back pain, abdominal pain. She localizes the pain to the right lateral chest in the mid axillary line over the 3rd-6th ribs. She has no abdominal tenderness, no midline C-spine tenderness. No signs of trauma to the head. Will obtain CT of the chest to evaluate for rib fracture less likely pneumothorax. Given lack of pain and traumatic findings elsewhere do not feel additional imaging at this time indicated. Imaging negative, patient feels much better and has no new pain elsewhere. She is stable for discharge and return precautions given Differential Diagnosis Differential Diagnosis: Rib fracture, contusion Imaging Data Radiologic Study: Attestation: I personally reviewed and interpreted this imaging study as follows: Imaging: CT Scan Radiologist's impression: IMPRESSION: No acute thoracic trauma. Tiny pulmonary nodules on the left are stable over years and benign Quality:SDOH Health Related Social Needs: No Data to Display PFSH All Active Problems (Updated 01/05/24 @ 21:07 by Israel Nunez MD) Contusion of rib on right side (Acute) Status post reverse total shoulder replacement (Acute) Left rotator cuff tear (Acute) Arthritis of left glenohumeral joint (Acute) Mixed stress and urge urinary incontinence (Acute) Chest pain (Acute) Headache (Acute) Tight introitus (Chronic 2004) No sexual activity times 14 years. No Pap test times 5 years. Will attempt gradual introital dilation. Vaginal atrophy (Chronic) estrace cream started 03/27/18 Status post cataract extraction and insertion of intraocular lens of right eye (Chronic 03/20/18) Status post cataract extraction and insertion of intraocular lens of left eye (Chronic 03/06/18) Refractive amblyopia of right eye (Chronic) Refractive amblyopia of left eye (Chronic) Shoulder pain, right (Acute) a. With decreased range of motion. History of Surgical Procedure (Chronic) a. Excision of dorsal ganglion cyst, left wrist. b. Abdominal hysterectomy. c. Open cholecystectomy. d. Colonoscopy. Pain, low back (Chronic) a. She goes to the pain clinic. Hypertension (Chronic) a. Well controlled. History of asthma (Chronic) Esophageal reflux disease (Chronic) Elevated lipids (Chronic) Chest pain (Acute) Medical History WALT (obstructive sleep apnea) Cervical spondylosis Lumbar spinal stenosis Illiteracy Cataract Type 2 diabetes mellitus Chronic pain Exertional dyspnea Vaginal irritation Vaginal adhesions Impingement syndrome of left shoulder Bilateral leg cramps Cortical cataract of right eye Nuclear sclerotic cataract of right eye Gastroesophageal reflux disease Hypothyroidism Hyperlipidemia Dyslexia Arthritis Osteoporosis Chronic low back pain Essential hypertension Surgical History History of colonoscopy History of cataract surgery Oophrectomy, Right Abdominal hysterectomy Cholecystectomy Family History Mother Heart disease Father Personal history of malignant neoplasm Stomach Sister No problems noted. Brother Heart disease Social History Smoking/Tobacco Use Status: Never Smoking risk assessment performed?: Yes Alcohol Intake: never Drug use: Never Substance use type: does not use Housing: other Number of Children: 1 Do you feel safe at home: Yes Do you feel safe in your relationship?: Yes Additional Social history: pt. lives in a trailer, granddaughter to stay with here
[2024-01-05] MEDS: Lidocaine 5% Patch 1 PATCH TP (19:40)
[2024-01-05] MEDS: oxyCODONE 10 MG TAB PO (19:41)
--- NOTE | 2024-01-05 21:02 | DI.VRAD_ITS ---
PROCEDURE INFORMATION: Exam: CT Chest Without Contrast; Diagnostic Exam date and time: 01/05/2024 8:01 PM Age: 73 years old Clinical indication: Pain; Right-sided; Additional info: Right sided chest pain S/P fall TECHNIQUE: Imaging protocol: Diagnostic computed tomography of the chest without contrast. 3D rendering (Not supervised by radiologist): MIP and/or 3D reconstructed images were created by the technologist. COMPARISON: CT CHEST PE ABD PELVIS W 09/29/2021 11:47 AM FINDINGS: Tubes, catheters and devices: Bilateral shoulder prosthesis. Thyroid: Normal. No significant nodule or enlargement. Trachea: Normal. Lungs: No pulmonary infiltrate. There is a calcified granuloma in the superior segment of the left lower lobe. There are small noncalcified nodules in the left lung which appear unchanged from the previous exam. Pleural spaces: Unremarkable. No pneumothorax. No pleural effusion or thickening. Heart: No cardiomegaly. No pericardial effusion. Coronary arteries: Moderate coronary artery calcification. Esophagus: No esophageal mass or wall thickening. No hiatal hernia. Mediastinal space: Normal. No mass or adenopathy. Lymph nodes: No enlarged mediastinal or axillary lymph nodes. Vasculature: Mild aortic atherosclerosis. Bones/joints: History of trauma with right-sided chest pain noted no rib fracture or vertebral fracture visualized. There is some disc space narrowing in the lower thoracic spine. Soft tissues: Unremarkable. Other findings: Visualized upper abdomen is unremarkable. IMPRESSION: No acute thoracic trauma. Tiny pulmonary nodules on the left are stable over years and benign. Dictated and Authenticated by: Joey Bates MD. Ordering:DARIANA Wood MD
== END 2024-01-05 21:19 | disposition home or self-care (01) ==
LOC: ER 21:07 → RED 21:20
PROVIDERS: Emergency Provider Emergency Medicine; PCP Physician Assistant
DX: S20.211A Contusion of right front wall of thorax, initial encounter (principal); I10 Essential (primary) hypertension; E78.5 Hyperlipidemia, unspecified; E11.9 Type 2 diabetes mellitus without complications; G89.29 Other chronic pain; Z79.891 Long term (current) use of opiate analgesic; Z79.84 Long term (current) use of oral hypoglycemic drugs; Z79.82 Long term (current) use of aspirin; W01.0XXA Fall on same level from slipping, tripping and stumbling without subsequent striking against object, initial encounter; Y93.01 Activity, walking, marching and hiking; Y92.480 Sidewalk as the place of occurrence of the external cause
CPT/HCPCS: 71250; 99284

== ENCOUNTER 2024-01-13 19:59 | Emergency (ER) | payer MEDICARE, MEDICAID, SELFPAY ==
[2024-01-13] VITALS (18 sets, daily range): BP systolic 116–150; BP diastolic 45–72; PULSE 65–75; RESP 0–24; TEMP 36.8; O2SAT 93–99
--- NOTE | 2024-01-13 20:06 | W.ED.GENAD ---
Discharge Plan Disposition Patient Disposition: Home Discharge Details Clinical Impression: Contusion of rib on right side Primary Care Provider: Forrest Bangura ED Provider: Dagoberto Vasquez [place] Meds and New Rx's Prescriptions: New lidocaine [Lidoderm] 5 % adhesive patch,medicated 1 patch topical DAILY Qty: 15 0RF Rx Instructions: leave on most painful area for up to 12 hrs Continued aspirin 325 MG tablet 81 mg PO DAILY estradiol [Estrace] 0.01 % (0.1 mg/gram) cream 1 g vaginal .3xweek Patient Comments: pt. doesnt use triamcinolone acetonide 0.1 % cream 1 applic topical BID albuterol sulfate 2.5 mg /3 mL (0.083 %) solution for nebulization 2.5 mg inhalation Q6H clotrimazole-betamethasone 1-0.05 % cream 1 applic topical BID metformin 500 mg tablet 500 mg PO BID omeprazole 40 mg capsule,delayed release(DR/EC) 40 mg PO DAILY albuterol sulfate [Ventolin HFA] 90 mcg/actuation HFA aerosol inhaler 2 puff inhalation Q6H PRN gabapentin 600 mg tablet 600 mg PO BID metoprolol succinate 25 mg tablet extended release 24 hr 25 mg PO DAILY atorvastatin 40 mg tablet 40 mg PO DAILY furosemide 20 mg tablet 20 mg PO DAILY fluticasone propionate [Flovent HFA] 220 mcg/actuation HFA aerosol inhaler 2 puff inhalation BID calcium citrate 200 mg (950 mg) tablet 200 mg PO DAILY Patient Comments: pt. reports she no longer takes docusate sodium [Colace] 100 mg capsule 100 mg PO DAILY lisinopril 40 mg tablet 20 mg PO DAILY glimepiride 2 mg tablet 2 mg PO DAILY spironolactone 25 mg tablet 25 mg PO DAILY potassium chloride 10 MEQ tablet extended release 10 meq PO BID pramipexole [Mirapex] 0.25 MG tablet 0.25 mg PO DAILY nitroglycerin 0.4 MG tablet, sublingual 0.4 mg Sublingual DIRECTED Qty: 25 0RF Rx Instructions: 1 tab SL prn chest pain, may repeat Q5 minutes up to 3 tabs, and call 911 multivitamin Capsule 1 cap PO QAM levothyroxine 137 mcg Capsule 112 mcg PO DAILY oxycodone 5 mg tablet 5 mg PO QID PRN naproxen 250 mg tablet 250 mg PO BID PRN (Reason: Moderate pain) Qty: 40 0RF ondansetron 4 mg tablet,disintegrating 4 mg PO Q8H PRN (Reason: nausea and vomiting) Qty: 30 0RF albuterol sulfate [ProAir HFA] 90 mcg/actuation HFA aerosol inhaler 2 puff inhalation Q6H PRNQty: 8.5 0RF ciprofloxacin-dexamethasone 0.3-0.1 % drops,suspension 4 drp otic (ear) Q12H Patient Comments: INSTILL 4 DROPS INTO THE AFFECTED EAR(S) TWO TIMES A DAY FOR 7 DAYS famotidine 20 mg tablet 20 mg PO BID Qty: 30 0RF Discharge Instructions Instructions: Bruised Rib (DC) Additional Instructions: You are seen in the emergency department for your bruised ribs. Your x-ray showed no sign of a pneumonia. Please use your incentive spirometry device to ensure that you do not get a pneumonia. Please use this 3 times every hour while you are awake. Please return to the emergency department if you develop fevers cough or shortness of breath. For your pain please take medications as follows: 1. Take acetaminophen (Tylenol), 1,000 mg (two 500 mg tabs) every 6 hours [2. Take ibuprofen (Advil), 200 mg every 6 hours.] A prescription for pain patches has been sent to your pharmacy. Discharge Data Discharge Date/Time-TO BE ENTERED AT DEPARTURE: 01/13/24 23:24 HPI General Date/Time Provider Initiated Documentation: 01/13/24 20:06. HPI Narrative: MDM This is an overall very well-appearing normothermic and not tachycardic 73-year-old female with right-sided rib contusions but negative for CT no signs of fracture [facility] for which patient will receive empiric trial of discharge expectant outpatient management given that she was able to pull 1400 cc on incentive spirometry. No pain out of proportion to suggest necrotizing soft tissue infection. Patient has right-sided chest pain on palpation suspicious for ACS I did not obtain an ECG. Given no rib fractures or does not concern for liver lacerations I did not feel that the patient required a CT scan of her abdomen. She had no proptosis nor any afferent pupillary defect so do not feel she requires a lateral canthotomy. No subsequent falls to suggest benefit from repeat CT. I prescribed patient Lidoderm patch and advised to schedule acetaminophen. She is on outpatient oxycodone and I provided her with opiates in the ED. She was able to ambulate. She lives with her granddaughter. 9:30 PM I spoke with Phillip HORAN from [facility] who read me the patient's CT report from her ED visit 3 days ago which showed negative CT head, negative CT cervical spine, maxillofacial CT with no fractures, CT chest with no acute abnormalities. Patient still quite uncomfortable feeling. I advised patient return to the ED if she develops worsening pain if she passes out or if she has any other concerns. Otherwise advised PCP follow-up later this week as needed. HPI This is a 73-year-old female not on anticoagulants arrives emergency department via EMS in the setting of right-sided rib pain. Patient reports that she initially fell 10 days ago. She was diagnosed with rib contusions when she was seen at [facility]. Subsequently she fell again 3 days ago and was seen at [facility] where she reports a CT was negative for any rib fractures. She also had a CT of her head and she struck the right side of her head. She had no signs of intracranial hemorrhage. She denies cough but she does feel short of breath. She has had pain when taking deep breaths. She denies dysuria frequency abdominal pain nausea. Exam General: Uncomfortable-appearing in no acute distress speaking in complete sentences. Head: Normocephalic, atraumatic. Eye:[Pupils equal, round reactive to light.] Extraocular eye movements intact. No conjunctival injection. No scleral icterus. Ear, nose, mouth, throat: Grossly normal inspection. Normal voice, handling secretions normally. On the right side of the patient's face there is a superficial ecchymosis overlying the right cheek near the right sabianism. No lacerations. Neck: Trachea midline. Cardiovascular: Well-perfused distal extremities. Regular rate and rhythm Respiratory: Nonlabored respiration. Clear lungs bilaterally. Gastrointestinal: Nondistended abdomen. Soft nontender Musculoskeletal: No edema. Moving all 4 extremities spontaneously. Skin: Normal for age and race, grossly normal temperature and turgor. No acute rash. Neurologic: Alert and appropriate, no apparent acute deficits. GCS 15. Psychiatric: Mood and manner are appropriate. Grooming and personal hygiene are appropriate. Related Data Home Medications ?Medication ?Instructions ?Recorded ?Confirmed aspirin 325 mg tablet 81 mg PO DAILY 03/02/13 01/13/24 nitroglycerin 0.4 mg sublingual 0.4 mg sublingual DIRECTED 10/30/15 01/13/24 tablet angina ##25 potassium chloride 10 mEq 10 meq PO BID 10/30/15 01/13/24 tablet,extended release pramipexole 0.25 mg tablet 0.25 mg PO DAILY 10/30/15 01/13/24 (Mirapex) levothyroxine 137 mcg capsule 112 mcg PO DAILY 03/02/18 01/13/24 multivitamin 1 cap PO QAM 03/02/18 01/13/24 oxycodone 5 mg tablet 5 mg PO QID PRN 02/09/20 01/13/24 albuterol sulfate 2.5 mg/3 mL 2.5 mg inhalation Q6H 11/14/21 01/13/24 (0.083 %) solution for nebulization clotrimazole-betamethasone 1 1 applic topical BID 11/14/21 01/13/24 %-0.05 % topical cream estradiol 0.01% (0.1 mg/gram) 1 g vaginal .3xweek 11/14/21 01/13/24 vaginal cream (Estrace) triamcinolone acetonide 0.1 % 1 applic topical BID 11/14/21 01/13/24 topical cream albuterol sulfate 90 mcg/actuation 2 puff inhalation Q6H PRN #8.5 08/31/22 01/13/24 aerosol inhaler (ProAir HFA) grams albuterol sulfate 90 mcg/actuation 2 puff inhalation Q6H PRN 02/17/23 01/13/24 aerosol inhaler (Ventolin HFA) gabapentin 600 mg tablet 600 mg PO BID 02/17/23 01/13/24 metformin 500 mg tablet 500 mg PO BID 02/17/23 01/13/24 omeprazole 40 mg capsule,delayed 40 mg PO DAILY 02/17/23 01/13/24 release atorvastatin 40 mg tablet 40 mg PO DAILY 05/06/23 01/13/24 calcium citrate 200 mg (950 mg) 200 mg PO DAILY 05/06/23 01/13/24 tablet docusate sodium 100 mg capsule 100 mg PO DAILY 05/06/23 01/13/24 (Colace) fluticasone propionate 220 2 puff inhalation BID 05/06/23 01/13/24 mcg/actuation HFA aerosol inhaler (Flovent HFA) furosemide 20 mg tablet 20 mg PO DAILY 05/06/23 01/13/24 metoprolol succinate 25 mg 25 mg PO DAILY 05/06/23 01/13/24 tablet,extended release 24 hr lisinopril 40 mg tablet 20 mg PO DAILY 07/16/23 01/13/24 glimepiride 2 mg tablet 2 mg PO DAILY 09/11/23 01/13/24 spironolactone 25 mg tablet 25 mg PO DAILY 09/11/23 01/13/24 naproxen 250 mg tablet 250 mg PO BID PRN Moderate pain 10/16/23 01/13/24 #40 tabs ondansetron 4 mg disintegrating 4 mg PO Q8H PRN nausea and 10/23/23 01/13/24 tablet vomiting #30 tabs ciprofloxacin 0.3 %-dexamethasone 4 drp otic (ear) Q12H 11/04/23 01/13/24 0.1 % ear drops,suspension famotidine 20 mg tablet 20 mg PO BID #30 tabs 11/05/23 01/13/24 lidocaine 5 % topical patch 1 patch topical DAILY #15 ea 01/13/24 (Lidoderm) Previous Rx's ?Medication ?Instructions ?Recorded nitroglycerin 0.4 mg sublingual 0.4 mg sublingual DIRECTED 10/30/15 tablet angina ##25 albuterol sulfate 90 mcg/actuation 2 puff inhalation Q6H PRN #8.5 08/31/22 aerosol inhaler (ProAir HFA) grams naproxen 250 mg tablet 250 mg PO BID PRN Moderate pain 10/16/23 #40 tabs ondansetron 4 mg disintegrating 4 mg PO Q8H PRN nausea and 10/23/23 tablet vomiting #30 tabs famotidine 20 mg tablet 20 mg PO BID #30 tabs 11/05/23 lidocaine 5 % topical patch 1 patch topical DAILY #15 ea 01/13/24 (Lidoderm) Allergies Allergy/AdvReac Type Severity Reaction Status Date / Time acetaminophen (From Tylenol) Allergy Intermediate Swelling/Ed Verified 01/13/24 19:46 marley cyclobenzaprine Allergy Intermediate Hives Verified 01/13/24 19:46 (Cyclobenzaprine) codeine Allergy Unknown feels like Verified 01/13/24 19:46 I'm having a heart attack shellfish derived Allergy Unknown Other (See Verified 01/13/24 19:46 Comment) ibuprofen Allergy Other (See Verified 01/13/24 19:46 Comment) fentanyl AdvReac Intermediate Contraindic Verified 01/13/24 19:46 ated morphine AdvReac Unknown Contraindic Verified 01/13/24 19:46 ated cats Allergy Severe Wheezing Uncoded 01/13/24 19:46 General Stated Complaint: Chest/Rib TOSHIA: 4 Course Vital Signs Vital signs: Vital Signs Temperature 36.8 C 01/13/24 19:49 Pulse 75 01/13/24 19:49 Respiratory Rate 24 01/13/24 19:49 Blood Pressure 138/72 01/13/24 19:49 Pulse Oximetry 95 01/13/24 19:49 Temperature 36.8 C 01/13/24 19:49 Temperature Source Temporal Artery Scan 01/13/24 19:49 Pulse 75 01/13/24 19:49 Respiratory Rate 24 01/13/24 19:49 Respiratory Effort Incrsd Work of Breathing 01/13/24 19:54 Respiratory Depth Shallow 01/13/24 19:54 Respiratory Pattern Tachypnea 01/13/24 19:54 Blood Pressure 138/72 01/13/24 19:49 Blood Pressure Position Supine 01/13/24 19:49 Pulse Oximetry 95 01/13/24 19:49 Oxygen Delivery Method Room Air 01/13/24 19:49 Oxygen Flow Rate 0 01/13/24 19:49 Pain Level 10 01/13/24 19:54 Medical Decision Making Quality:SDOH Health Related Social Needs: No Data to Display PFSH All Active Problems (Updated 01/13/24 @ 23:22 by Dagoberto Vasquez MD) Contusion of rib on right side (Acute) Status post reverse total shoulder replacement (Acute) Left rotator cuff tear (Acute) Arthritis of left glenohumeral joint (Acute) Mixed stress and urge urinary incontinence (Acute) Chest pain (Acute) Headache (Acute) Tight introitus (Chronic 2004) No sexual activity times 14 years. No Pap test times 5 years. Will attempt gradual introital dilation. Vaginal atrophy (Chronic) estrace cream started 03/27/18 Status post cataract extraction and insertion of intraocular lens of right eye (Chronic 03/20/18) Status post cataract extraction and insertion of intraocular lens of left eye (Chronic 03/06/18) Refractive amblyopia of right eye (Chronic) Refractive amblyopia of left eye (Chronic) Shoulder pain, right (Acute) a. With decreased range of motion. History of Surgical Procedure (Chronic) a. Excision of dorsal ganglion cyst, left wrist. b. Abdominal hysterectomy. c. Open cholecystectomy. d. Colonoscopy. Pain, low back (Chronic) a. She goes to the pain clinic. Hypertension (Chronic) a. Well controlled. History of asthma (Chronic) Esophageal reflux disease (Chronic) Elevated lipids (Chronic) Chest pain (Acute) Medical History WALT (obstructive sleep apnea) Cervical spondylosis Lumbar spinal stenosis Illiteracy Cataract Type 2 diabetes mellitus Chronic pain Exertional dyspnea Vaginal irritation Vaginal adhesions Impingement syndrome of left shoulder Bilateral leg cramps Cortical cataract of right eye Nuclear sclerotic cataract of right eye Gastroesophageal reflux disease Hypothyroidism Hyperlipidemia Dyslexia Arthritis Osteoporosis Chronic low back pain Essential hypertension Surgical History History of colonoscopy History of cataract surgery Oophrectomy, Right Abdominal hysterectomy Cholecystectomy Family History Mother Heart disease Father Personal history of malignant neoplasm Stomach Sister No problems noted. Brother Heart disease Social History Smoking/Tobacco Use Status: Never Smoking risk assessment performed?: Yes Alcohol Intake: never Drug use: Never Substance use type: does not use Housing: other Number of Children: 1 Do you feel safe at home: Yes Do you feel safe in your relationship?: Yes Additional Social history: pt. lives in a trailer, granddaughter to stay with here
[2024-01-13] MEDS: Gabapentin 300 MG CAP PO (20:39)
[2024-01-13] MEDS: Lidocaine 5% Patch 1 PATCH TP (20:39)
--- OUTSIDE RECORDS SUMMARY | 2024-01-13 20:44 | XMS_ITS | Continuity of Care Document ---
Author Organization [facility] Address [address] [place] [id number] Care Team Providers Care Base Loader Name Role Phone FORREST GOMEZ RPA Primary Care Physician Encounter LTTL_FL FIN NBR [id number] Date(s): 01/10/24 - 01/10/[address] [id number]- Encounter Diagnosis Fall from standing(Discharge Diagnosis) - 01/10/24 Facial contusion(Discharge Diagnosis) - 01/10/24 Contusion of ribs(Discharge Diagnosis) - 01/10/24 Discharge Disposition: Home or Self Care Attending Physician: Kevin Nunn DO Admitting Physician: Kevin Nunn DO Allergies, Adverse Reactions, Alerts Substance Reaction Severity Status codeine Unknown Active Tylenol Swelling of bilateral feet Mild A ctive fentaNYL Heart rate fast Severe Active Assessment and Plan Extracted from: Title:ED Provider Note Author:Kevin Nunn DO Date:01/10/24 Assessment/Plan 1.??Fall from standing??W19.XXXA 2.??Facial contusion??S00.83XA 3.??Contusion of ribs??S20.219A Orders: Automated Diff, Blood, Stat, 01/10/24 16:36:00 EDT, Once, Nurse collect, [id number] CBC w/ Diff, Blood, Stat, 01/10/24 16:36:00 EDT, Once, Nurse collect Comprehensive Metabolic Panel, Blood, Stat, 01/10/24 16:36:00 EDT, Once, Nurse collect CT Chest w/ Contrast, 01/10/24 16:36:00 EDT, Stat, Reason: Trauma, Transport Mode: Stretcher CT Head w/o Contrast, 01/10/24 16:36:00 EDT, Stat, Reason: Trauma, Transport Mode: Stretcher CT Maxillofacial w/o Contrast, 01/10/24 16:36:00 EDT, Stat, Reason: Trauma, Transport Mode: Stretcher CT Spine Cervical w/o Contrast, 01/10/24 16:36:00 EDT, Stat, Reason: Trauma, Transport Mode: Stretcher Incentive Spirometry Nursing, 01/10/24 16:36:00 EDT Peripheral IV Insertion, 01/10/24 16:36:00 EDT Patient Education Facial or Scalp Contusion, Gukd-oi-Acds Blunt Chest Trauma Follow Up With When Contact Information [place] GOMEZ APRN Within 1 to 2 weeks, only if needed [address] [place] [address] [phone] ?? Additional Instructions: Future Appointments Medications Albuterol (Eqv-ProAir HFA) 90 mcg/inh inhalation aerosol INHALE ONE TO TWO PUFFS BY MOUTH EVERY 4 TO 6 HOURS NEEDED Start Date: 01/10/24 Status: Ordered aspirin 81 mg oral capsule 81 mg = 1 cap, Oral, Daily, do not exceed 48 capsules in 24 hours, # 30 cap, 0 Refill(s) Start Date: 01/10/24 Status: Ordered furosemide 20 mg oral tablet TAKE ONE TABLET BY MOUTH EVERY DAY Start Date: 01/10/24 Status: Ordered gabapentin 600 mg oral tablet TAKE ONE TABLET BY MOUTH TWICE A DAY Start Date: 01/10/24 Status: Ordered glimepiride 2 mg oral tablet TAKE ONE TABLET BY MOUTH EVERY DAY Start Date: 01/10/24 Status: Ordered levothyroxine 112 mcg (0.112 mg) oral tablet TAKE ONE TABLET BY MOUTH EVERY DAY Start Date: 01/10/24 Status: Ordered lisinopril 20 mg oral tablet TAKE ONE TABLET BY MOUTH EVERY DAY Start Date: 01/10/24 Status: Ordered metFORMIN 500 mg oral tablet TAKE ONE TABLET BY MOUTH TWICE A DAY Start Date: 01/10/24 Status: Ordered naproxen 250 mg oral tablet TAKE ONE TABLET BY MOUTH TWICE A DAY NEEDED FOR MODERATE PAIN Start Date: 01/10/24 Status: Ordered omeprazole 40 mg oral delayed release capsule TAKE ONE CAPSULE BY MOUTH EVERY DAY Start Date: 01/10/24 Status: Ordered oxyCODONE 5 mg oral tablet TAKE ONE TABLET BY MOUTH FOUR TIMES A DAY NEEDED FOR PAIN Start Date: 01/10/24 Status: Ordered pramipexole 0.25 mg oral tablet 0.25 mg = 1 tab, Oral, TID, # 270 tab, 0 Refill(s) Start Date: 01/10/24 Status: Ordered spironolactone 25 mg oral tablet TAKE ONE TABLET BY MOUTH EVERY DAY Start Date: 01/10/24 Status: Ordered Mental Status 01/10/24 Eye Opening Response [place] Spontaneous ly Best Verbal Response Jenni Oriented Best Motor Response Jenni Obeys comman ds Jenni Coma Score 15 Problem List No Known Problems Results Laboratory List Name Date .Manual Differential (LTTL) 01/10/24 CBC w/ Diff 01/10/24 Comprehensive Metabolic Panel (CMP) 01/09 Automated Diff 01/10/24 Most recent to oldest [Reference Range]: 1 WBC [4.8-10.8 K/mcL] 7.9 K/mcL (01/10/24 4:54 PM) RBC [4.20-5.40 Million/mcL] 4.30 Million /mcL (01/10/24 4:54 PM) Segs Man 62 *NA* (01/10/24 4:54 PM) Lymph Man [20.5-51.1 %] 28.0 % (01/10/24 4:54 PM) Neutro Auto [42.2-75.2 %] ::::: % *NA* (01/10/24 4:54 PM) Lymph Auto [20.5-51.1 %] ::::: % *NA* (01/10/24 4:54 PM) [place]ola Auto [1.7-9.3 %] ::::: % *NA* (01/10/24 4:54 PM) Basophil Auto [0.0-0.8 %] ::::: % *NA* (01/10/24 4:54 PM) [place] Man [1.7-9.3 %] 7.0 % (01/10/24 4:54 PM) Eos Man [0.00-3.00 %] 3.00 % (01/10/24 4:54 PM) BUN [7-25 mg/dL] 20 mg/dL (01/10/24 4:54 PM) Glucose Level [70-109 mg/dL] 88 mg/dL (01/10/24 4:54 PM) Potassium Level [3.5-5.1 mmol/L] 3.8 mmo l/L 1 (01/10/24 4:54 PM) Baso Absolute [0.0-0.2 K/mcL] ::::: K/mc L *NA* (01/10/24 4:54 PM) MCV [81.0-99.0 fL] 96.0 fL (01/10/24 4:54 PM) RBC Morph [Normal] Normal (01/10/24 4:54 PM) AST [13-39 IntlUnit/L] 14 IntlUnit/L (01/10/24 4:54 PM) ALT [7-52 IntlUnit/L] 9 IntlUnit/L 2 (01/10/24 4:54 PM) MCHC [32.0-37.0 g/dL] 31.4 g/dL *LOW* (01/10/24 4:54 PM) Osmolality [275-295 mOsm/kg] 280 mOsm/kg (01/10/24 4:54 PM) Sodium Level [136-145 mmol/L] 139 mmol/L (01/10/24 4:54 PM) Lymph Absolute [1.2-3.4 K/mcL] ::::: K/m cL *NA* (01/10/24 4:54 PM) Hct [37.0-47.0 %] 41.3 % (01/10/24 4:54 PM) Calcium Level [8.6-10.3 mg/dL] 7.8 mg/dL *LOW* (01/10/24 4:54 PM) [place] Absolute [0.1-0.6 K/mcL] ::::: K/mc L *NA* (01/10/24 4:54 PM) Albumin Level [3.5-5.7 g/dL] 3.2 g/dL *LOW* (01/10/24 4:54 PM) Protein Total [6.4-8.9 g/dL] 5.2 g/dL *LOW* (01/10/24 4:54 PM) MCH [27.0-31.0 pg] 30.1 pg (01/10/24 4:54 PM) Neutro Absolute [1.4-6.5 K/mcL] ::::: K/ mcL *NA* (01/10/24 4:54 PM) Bilirubin Total [0.3-1.0 mg/dL] 0.3 mg/d L (01/10/24 4:54 PM) Hgb [12.0-16.0 g/dL] 12.9 g/dL (01/10/24 4:54 PM) Alk Phos [34-104 IntlUnit/L] 59 IntlUnit /L (01/10/24 4:54 PM) MPV [7.4-10.4 fL] 8.0 fL (01/10/24 4:54 PM) Band Man 0 % *NA* (01/10/24 4:54 PM) Platelets [130-400 K/mcL] 288 K/mcL (01/10/24 4:54 PM) CO2 [21-31 mmol/L] 20 mmol/L *LOW* (01/10/24 4:54 PM) Eos Absolute [0.0-0.2 K/mcL] ::::: K/mcL *NA* (01/10/24 4:54 PM) Chloride Level [98-107 mmol/L] 113 mmol/ L *HI* (01/10/24 4:54 PM) RDW-CV [11.5-14.5 %] 12.6 % (01/10/24 4:54 PM) A/G Ratio [1.0-2.5 g/dL] 1.6 g/dL (01/10/24 4:54 PM) BUN/Creat Ratio [8.0-20.0] 20.0 (01/10/24 4:54 PM) Globulin [2.3-3.5 g/dL] 2.0 g/dL *LOW* (01/10/24 4:54 PM) Slide Review Man Diff 3 (01/10/24 4:54 PM) Abs Baso Man [0.0-0.2 K/mcL] 0.0 K/mcL (01/10/24 4:54 PM) Abs Eos Man [0.0-0.2 K/mcL] 0.2 K/mcL (01/10/24 4:54 PM) Abs Lymph Man [1.2-3.4 K/mcL] 2.2 K/mcL (01/10/24 4:54 PM) Abs Pan[place] Man [0.1-0.6 K/mcL] 0.6 K/mcL (01/10/24 4:54 PM) Abs Neut Man [1.4-6.5 K/mcL] 4.9 K/mcL (01/10/24 4:54 PM) Creatinine Level [0.60-1.20 mg/dL] 1.00 mg/dL (01/10/24 4:54 PM) Plt Estimation Normal (01/10/24 4:54 PM) Anion Gap [3.0-12.0] 6.0 (01/10/24 4:54 PM) Baso Man [0.0-0.8 %] 0.0 % (01/10/24 4:54 PM) Eos, Auto [0.00-3.00 %] ::::: % *NA* (01/10/24 4:54 PM) eGFR CKD-EPI [>=60 mL/min/1.73 m2] 59 mL /min/1.73 m2 *LOW* (01/10/24 4:54 PM) 1Result Comment: SLIGHT HEMOLYSIS 2Result Comment: SLIGHT HEMOLYSIS 3Result Comment: error Radiology Reports * Exam Date Time Procedure Performing Provider Status 01/10/24 5:[address] Head w/o Contrast Vicki Berkowitz [facility] (Verified) Notes: (CT Head w/o Contrast) Reason For Exam: Trauma CT Head w/o Contrast PROCEDURE INFORMATION: Exam: CT Head Without Contrast Exam date and time: 01/10/2024 5:22 PM Age: 73 years old Clinical indication: Injury or trauma; Fall; Blunt trauma (contusions or hematomas) TECHNIQUE: Imaging protocol: Computed tomography of the head without contrast. Radiation optimization: All CT scans at this facility use at least one of these dose optimization techniques: automated exposure control; mA and/or kV adjustment per patient size (includes targeted exams where dose is matched to clinical indication); or iterative reconstruction. COMPARISON: CT MAXOFACIAL WO CONTRAST 01/10/2024 5:22 PM FINDINGS: Brain: No evidence of acute intracranial hemorrhage, extraxial fluid or midline shift. Mild cerebral atrophy. Cerebellum atrophic; otherwise, posterior fossa structures within normal limits. Cerebral ventricles: No ventriculomegaly. Paranasal sinuses: Visualized sinuses are unremarkable. No fluid levels. Mastoid air cells: Bilateral mastoid air cells normally aerated. Bones: Unremarkable. No acute fracture. Soft tissues: Mild right frontal scalp swelling-hematoma. IMPRESSION: 1. No evidence of acute intracranial hemorrhage, extraxial fluid or midline shift. 2. Mild right frontal scalp swelling-hematoma. THIS DOCUMENT HAS BEEN ELECTRONICALLY SIGNED BY PAM LAY MD on 01/10/2024 06:28 PM Final Signed by: Pam Lay MD Signed (Electronic Signature): 01/10/2024 6:28 pm * Exam Date Time Procedure Performing Provider Status 01/10/24 5:[address] Chest w/ Contrast Vicki Berkowitz [facility] (Verified) Notes: (CT Chest w/ Contrast) Reason For Exam: Trauma CT Chest w/ Contrast PROCEDURE INFORMATION: Exam: CT Chest With Contrast; Diagnostic Exam date and time: 01/10/2024 5:22 PM Age: 73 years old Clinical indication: Injury; Fall; Blunt trauma TECHNIQUE: Imaging protocol: Diagnostic computed tomography of the chest with contrast. Radiation optimization: All CT scans at this facility use at least one of these dose optimization techniques: automated exposure control; mA and/or kV adjustment per patient size (includes targeted exams where dose is matched to clinical indication); or iterative reconstruction. Contrast material: ISOVUE 300; Contrast volume: 100 ml; Contrast route: INTRAVENOUS (IV); COMPARISON: CT SPINE CERVICAL WO CONTRAST 01/10/2024 5:22 PM FINDINGS: Lungs: No alveolar or ground glass infiltrate. Approximate 3 mm sub-solid radiodensity lateral left upper lobe image 18, series 19. No routine follow-up is indicated. (Reference: Sugar). Pleural spaces: No pleural fluid collection. No pneumothorax. Heart: No pericardial effusion. Lymph nodes: No enlarged lymph nodes. Vasculature: Normal caliber thoracic aorta without dissection or aneurysm. Gallbladder and biliary ducts: Prior cholecystectomy. Bones/joints: No acute fracture. Old fracture of the left 7th anterior rib. Old mild superior loss of height of T12. Bilateral metallic shoulder prostheses. Soft tissues: Unremarkable. IMPRESSION: 1. No acute fracture. 2. No acute intrathoracic findings. References: Sugar Bedolla et al. Guidelines for Management of Incidental Pulmonary Nodules Detected on CT Images: From the Fleischner Society 2017. Radiology. 2017;284(1):228-243. THIS DOCUMENT HAS BEEN ELECTRONICALLY SIGNED BY DARREN GREENBERG MD on 01/10/2024 06:29 PM Final Signed by: Darren Greenberg MD Signed (Electronic Signature): 01/10/2024 6:29 pm * Exam Date Time Procedure Performing Provider Status 01/10/24 5:[address] Spine Cervical w/o Contrast Vicki Berkowitz; Auth (Verified) Notes: (CT Spine Cervical w/o Contrast) Reason For Exam: Trauma CT Spine Cervical w/o Contrast PROCEDURE INFORMATION: Exam: CT Cervical Spine Without Contrast Exam date and time: 01/10/2024 5:22 PM Age: 73 years old Clinical indication: Injury or trauma; Fall; Blunt trauma TECHNIQUE: Imaging protocol: Computed tomography of the cervical spine without contrast. Radiation optimization: All CT scans at this facility use at least one of these dose optimization techniques: automated exposure control; mA and/or kV adjustment per patient size (includes targeted exams where dose is matched to clinical indication); or iterative reconstruction. COMPARISON: CT CHEST W CONTRAST 01/10/2024 5:22 PM FINDINGS: Bones: No evidence of acute cervical spine fracture. No significant malalignment. Mild multilevel anterior osteophytosis. Moderate-marked disc space narrowing, vertebral body endplate sclerosis and posterior uncovertebral osteophyte formation particularly at C3-4 C4-5 C5-6 C6-7 C7-T1 levels consistent with cervical spondylosis. Multilevel bilateral facet sclerosis. Prevertebral and retropharyngeal spaces: Prevertebral soft tissues appear within normal limits. Lungs: Lung apices are normal. Soft tissues: Unremarkable. IMPRESSION: 1. No evidence of acute cervical spine fracture. 2. No significant malalignment. 3. Multilevel cervical spondylosis and facet osteoarthrosis - chronic degenerative changes. THIS DOCUMENT HAS BEEN ELECTRONICALLY SIGNED BY PAM LAY MD on 01/10/2024 06:35 PM Final Signed by: Pam Lay MD Signed (Electronic Signature): 01/10/2024 6:35 pm * Exam Date Time Procedure Performing Provider Status 01/10/24 5:[address] Maxillofacial w/o Contrast Apple Berkowitz onda E; Auth (Verified) Notes: (CT Maxillofacial w/o Contrast) Reason For Exam: Trauma CT Maxillofacial w/o Contrast PROCEDURE INFORMATION: Exam: CT Maxillofacial Without Contrast Exam date and time: 01/10/2024 5:22 PM Age: 73 years old Clinical indication: Injury or trauma; Fall; Blunt trauma (contusions or hematomas); Forehead TECHNIQUE: Imaging protocol: Computed tomography of the face without contrast. Radiation optimization: All CT scans at this facility use at least one of these dose optimization techniques: automated exposure control; mA and/or kV adjustment per patient size (includes targeted exams where dose is matched to clinical indication); or iterative reconstruction. COMPARISON: CT HEAD WO CONTRAST 01/10/2024 5:22 PM FINDINGS: Orbital cavities: Ocular globes intact. Maintained retro-orbital fat. Paranasal sinuses: Normal. No air-fluid levels. Bones: No acute fractures. Soft tissues: Mild right periorbital and facial soft tissue swelling. IMPRESSION: 1. No acute fractures. 2. Mild right periorbital and facial soft tissue swelling. THIS DOCUMENT HAS BEEN ELECTRONICALLY SIGNED BY PAM LAY MD on 01/10/2024 06:35 PM Final Signed by: Pam Lay MD Signed (Electronic Signature): 01/10/2024 6:35 pm Vital Signs Most recent to oldest [Reference Range]: 1 2 3 Temperature Temporal Artery [36-38 Deg C] 36.4 Deg C (01/10/24 3:52 PM) Peripheral Pulse Rate [60-100 bpm] 93 bpm (01/10/24 4:55 PM) 91 bpm (01/10/24 4:02 PM) 93 bpm (01/10/24 3:52 PM) Respiratory Rate [12-24 br/min] 16 br/min (01/10/24 3:52 PM) Blood Pressure [90-140/60-90 mmHg] 128/70mmHg (01/10/24 4:02 PM) 160/68mmHg *HI* (01/10/24 3:52 PM) Mean Arterial Pressure, Cuff [65-140 mmHg] 89 mmHg (01/10/24 4:02 PM) 99 mmHg (01/10/24 3:52 PM) Weight 92.53 kg (01/10/24 3:52 PM) Weight Dosing 92.530 kg (01/10/24 3:52 PM) Height 150 cm (01/10/24 3:52 PM) Body Mass Index 41.12 kg/m2 (01/10/24 3:52 PM) Social History Social History Type Response Tobacco Never tobacco user T obacco Use:. Sex Hospital Discharge Instructions Patient Education 01/10/2024 16:19:11 Facial or Scalp Contusion, Qnhy-hg-Nejk Facial or Scalp Contusion A facial or scalp contusion is a bruise (contusion) on the face or head. Bruises happen when an injury causes bleeding under the skin. The bruise may turn blue, purple, or yellow (discoloration). Minor injuries may cause a bruise that is not painful. Some bruises are painful and swollen for a few weeks. Injuries to the face and head usually cause a lot of swelling, especially around the eyes. You may have other injuries as well, such as broken bones or cuts. What are the causes? An injury to the face or head from an object. ??? A fall. ??? A hit to the face or head area. ??? Car accidents. ??? Sports injuries. ??? Attacks from another person (assaults). What are the signs or symptoms? Swelling in the area of the injury. The swelling may be in a small areas and very noticeable. ??? The injured area being a different color than normal. ??? Pain or soreness in the injured area. If you also have broken bones, your nose might be a different shape, you may be unable to close your mouth and you might have vision changes. How is this treated? Applying cold compresses to the hurt area. This is often the best treatment. ??? Taking zxen-ana-wxptvjq medicines to help take the pain away, if your doctor tells you to take them. ??? If there are any cuts, these will need to be repaired as well. ??? Any deeper injuries may require treatment and follow up with a specialist, such as a surgeon oreye specialist. Follow these instructions at home: Managing pain, stiffness, and swelling ??? If told, put ice on the injured area. To do this: ??? Put ice in a plastic bag. ??? Place a towel between your skin and the bag. ??? Leave the ice on for 20 minutes, 2???3 times a day. ??? Take off the ice if your skin turns bright red. This is very important. If you cannot feel pain, heat, or cold, you have a greater risk of damage to the area. ??? Raise the injured area above the level of your heart while you are sitting or lying down. General instructions ??? Take dugh-bbk-djllwpw and prescription medicines only as told by your doctor. ??? Rest as told by your doctor. ??? Return to your normal activities when your doctor says that it is safe. ??? Do not blow your nose if you have any broken bones in your face. ??? Eat soft foods if you are having jaw pain. ??? Keep all follow-up visits. Contact a doctor if: ??? You have trouble biting or chewing. ??? Your pain or swelling gets worse. ??? The bruised area gets worse. Get help right away if: ??? You have very bad pain or a headache, and medicine does not help. ??? You are very tired or confused. ??? Your personality changes. ??? You vomit. ??? You have a nosebleed that does not stop. ??? You see two of everything (double vision) or have blurry vision. ??? You have clear fluid coming from your nose or ear, and it does not go away. ??? You have problems walking or using your arms or legs. ??? You feel very dizzy. Summary ??? A facial or scalp contusion is a bruise on the face or head. ??? Bruises happen when an injury causes bleeding under the skin. ??? Minor injuries will cause a bruise that is not painful, but worse bruises can stay painful and swollen for a few weeks. ??? Go to a doctor if you have problems seeing, bleeding from your face or nose, or you have trouble biting or chewing. ??? Applying cold compresses to the hurt area is often the best treatment. This information is not intended to replace advice given to you by your health care provider. Make sure you discuss any questions you have with your health care provider. Document Revised: 06/25/2021 Document Reviewed: 06/25/2021 [employer] Patient Education ?? 2022 [employer]. 01/10/2024 16:19:05 Blunt Chest Trauma Blunt Chest Trauma Blunt chest trauma is an injury that is caused by a hard, direct hit to the chest. The hit can be strong enough to injure multiple body parts and organs. Blunt trauma does not involve a puncture of the skin. Blunt chest trauma often results in bruised or broken (fractured) ribs. In many cases, the soft tissue in the chest wall is also injured, and that damage causes pain and bruising. Internal organs, such as the heart and lungs, can be injured as well. Blunt chest trauma can lead to serious medical problems. This injury requires immediate medical care. What are the causes? This condition may be caused by: ??? Motor vehicle collisions. ??? Falls. ??? Physical violence. ??? Sports injuries. What are the signs or symptoms? Symptoms of this condition include: ??? Chest pain. The pain may be worse when you breathe deeply or move. ??? Shortness of breath. ??? Light-headedness. ??? Bruising. ??? Tenderness. ??? Swelling. ??? Feeling as if your heart is racing. How is this diagnosed? This condition is diagnosed based on your medical history and a physical exam. You may also have imaging tests, including: ??? X-ray. ??? CT scan. ??? MRI. ??? Ultrasound. How is this treated? Treatment for this condition depends on your injury type and severity of the injury. You may need to stay in the hospital. Treatment may include: ??? Pain medicine. You may be given pain medicine through an IV at first. You may also be given xgzl-jyk-leukpaq and prescription pain medicines. ??? Tubes or other devices, such as an incentive spirometer, to help you breathe. ??? Inserting a tube into your chest to drain excess fluid, blood, or air. ??? Fluid or blood transfusions through an IV. ??? Surgery to repair broken ribs and fix damaged tissue and organs. ??? Lung (pulmonary) rehabilitation. This may include exercises, counseling, or support groups. Follow these instructions at home: Medicines ??? Take rbxx-zrv-kyjlyin and prescription medicines only as told by your health care provider. ??? Ask your health care provider if the medicine prescribed to you: ??? Requires you to avoid driving or using machinery. ??? Can cause constipation. You may need to take these actions to prevent or treat constipation: ??? Drink enough fluid to keep your urine pale yellow. ??? Take thyp-kww-oytullc or prescription medicines. ??? Eat foods that are high in fiber, such as beans, whole grains, and fresh fruits and vegetables. ??? Limit foods that are high in fat and processed sugars, such as fried or sweet foods. Managing pain and swelling If directed, put ice on the injured area. To do this: ??? Put ice in a plastic bag. ??? Place a towel between your skin and the bag. ??? Leave the ice on for 20 minutes, 2???3 times a day. ??? Remove the ice if your skin turns bright red. This is very important. If you cannot feel pain, heat, or cold, you have a greater risk of damage to the area. Activity ??? Do not lift anything that is heavier than 10 lb (4.5 kg), or the limit that you are told, untilyour health care provider says that it is safe. ??? Return to your normal activities as told by your health care provider. Ask your health care provider what activities are safe for you. ??? Do exercises as told by your health care provider. General instructions ??? Do not use any products that contain nicotine or tobacco, such as cigarettes, e-cigarettes, andchewing tobacco. These can delay healing. If you need help quitting, ask your health care provider. ??? Use your incentive spirometer as told to help you take deep breaths. ??? Consider joining a support group. This may help you learn about your condition and techniques to help with recovery. ??? Keep all follow-up visits. This is important. Follow-up visits may include counseling. Contact a health care provider if: ??? Your pain gets worse. ??? You develop a cough or wheezing. Get help right away if: ??? You experience any of the following: ??? Shortness of breath. ??? Pain in your abdomen. ??? Nausea or vomiting. ??? A fever or chills. ??? A rapid heart rate. ??? You cough up blood. ??? You feel dizzy or weak. ??? You faint. ??? You have severe chest pain. This may come with other symptoms, such as: ??? Dizziness. ??? Shortness of breath. ??? Pain in your neck, jaw, or back, or in one arm or both arms. These symptoms may represent a serious problem that is an emergency. Do not wait to see if the symptoms will go away. Get medical help right away. Call your local emergency services (911 in the [place] Do not drive yourself to the hospital. Summary ??? Blunt chest trauma is an injury that is caused by a hard, direct hit to the chest. It may involve broken ribs, damage to the chest wall, and injury to internal organs such as the heart and lungs. ??? Blunt chest trauma can lead to serious medical problems. This injury requires immediate medicalcare. ??? Symptoms may include chest pain when moving or taking deep breaths, shortness of breath, bruising or swelling of the chest, faster heartbeat, and light-headedness. ??? Treatment for this condition depends on what type of injury you have and how severe it is. ??? Make sure you know which symptoms should cause you to get help right away. This information is not intended to replace advice given to you by your health care provider. Make sure you discuss any questions you have with your health care provider. Document Revised: 08/23/2020 Document Reviewed: 08/23/2020 [employer] Patient Education ?? 2022 [employer]. Follow Up Care 01/10/2024 15:49:34 With:[place] GOMEZ APRN Address: [address] [address] [phone] When:1 to 2 weeks only if needed Physician Emergency department Note * Kevin Nunn DO: PERFORM, MODIFY, MODIFY Event Display: ED Note Physician Authored Date: [id number] JOSHUA ORTIZ :1950 Age:73 years Sex:Female Visit Date:01/10/2024 Primary Care Physician: FORREST GOMEZ RPA Basic Information Time Seen: Kevin Nunn DO / 01/10/2024 15:52 Chief Complaint Pt comes to ER after fater falling on the deck, pt was reaching rail and missed, fell down,hit the face and R side of her rib cage that she heard last time from falling and it was bruised([facility]) but she was noot getting better since then,painful breathing. History Of Present Illness: This is a very pleasant obese 73-year-old female PMH hypothyroidism, diabetes mellitus type II c/b diabetic neuropathy, asthma, hypertension presents to the emergency department after non-syncopal fall.?? On Friday a week ago she had a fall landing on her right thoracic rib cage after her flip-flop got caught on a curb edge going into the [employer] store.?? She was evaluated in the [facility] and told she had rib contusion with recommendations for conservative management and deep breathing.?? This afternoon she was reaching for a post to catch herself and missed the post falling directly on to her right thorax region once again and also the right maxillary region of her face suffering an area of sw elling/contusion to the maxillary / infraorbital region.?? Denies LOC or cervical spine injury.?? Patient is having discomfort minimally in the maxillary region but more so in the anterior portion ofthe upper rib cage and anterior lateral region of the lower rib cage on the right.?? Pain is somewhat worse with deep breathing.?? No other acute discomfort or traumatic injury is identified. Review of Systems: CONSTITUTIONAL: No fevers or chills. EYES: No change in vision. ??No traumatic injury to the eye. ENT: No fluid coming from the nose or the ears. ??Denies dental trauma. ??No midline neck pain. CARDIOVASCULAR: No chest pain or palpitations. RESPIRATORY: No difficulty breathing. ??Airway is patent without sniffing position, stertor/stridor, voice change or difficulty with secretions. GI: No abdominal pain. ??No N/V. : No incontinence. ??No gross hematuria. MUSCULOSKELTAL: No midline CTLS tenderness. Moves all 4-extremities. No gross deformity. NEUROLOGIC: No focal numbness or weakness. No headache. ??No altered mental status-GCS 15. ?? Review of systems otherwise as stated in HPI Physical Exam Vitals & Measurements T:??36.4?C ??(Temporal Artery)?? HR:??93??(Peripheral)?? RR:??16?? BP:??128/70?? SpO2:??93%?? HT:??150??cm?? WT:??92.53??kg?? BMI:??41.12?? Pain Score:??8?? O2 Therapy:??Room air?? Primary Survey: Intact airway, equal breath sounds bilateral, present and equal 2+ peripheral pulses with stable vital signs and no signs of hemorrhage, GCS 15 ([id number]), and complete exposure obtained.??No??midline CTL tenderness; no step-offs. ?? Secondary survey: Patient remains GCS 15. Head is atraumatic without evidence of basilar skull fracture. ??Eye examination reveals no hyphema, no subconjunctival hemorrhage, no evidence of globe injury, PERRLA, EOMI. ??There is no obvious hemotympanum, no scalp or septal hematoma, no mid-facial i nstability, no malocclusion of the jaw. ??Dentition is grossly intact. ??No tongue laceration.?(+)ve right infraorbital swelling with ecchymosis; otherwise no orbital swelling, ecchymosis or??abrasions. ??No particular bony tenderness to facial structures except area of contusion to right infraorbital region. ??Neck is without midline tenderness to palpation. No obvious swelling or palpable crepitus. ??Trachea is midline. ??No JVD. ??Chest is without abrasions or ecchymosis noted on chest wall. ??She has tenderness to??palpation of the anterior upper portions of the??right rib cage??midclavicular line??as well as??the anterior lateral portion of the lower rib cage??mid axillary line. ??No evidence of penetrating injury or flail chest. ??Breath sounds remain equal bilaterally. ??Abdomenis without abrasions, bleeding, wounds, ecchymosis or penetrating injury. ??The abdomen is grossly non-tender without guarding, rebound or rigidity. ??No crepitus or instability with knzjzzfk-ea-braitlofo pelvic compression. ??Musculoskeletal exam grossly reveals full passive range of motion of allextremities/joints without discomfort. ??Sensation is grossly intact to soft touch and sharp throughout. ??No obvious deformity is identified. ??Strength is grossly intact 5/5 throughout.??Neurologically as mentioned above the patient has a GCS of 15, no anisocoria. Medical Decision Making: Non-Syncopal Fall. ??Denies??loss of consciousness or cervical spine injury.?? Contusion??with swelling over the infraorbital region on the right in the maxillary region. ??No bony crepitus or??fracture is appreciated on physical exam.?? No midline cervical tenderness.?? She does have??diffuse tenderness across multiple areas of the right thoracic cage. ??Will obtain CT imaging of the head, cervical spine, maxillofacial region, and??chest. ??Abdomen is soft, non-tender obese without??guarding, rebound or rigidity.?? Pelvis is stable. ??Extremities are without acute injury.?? Will treat the patient with Toradol, and obtain screening laboratory workup. ??The falls are explained is mostly tripping??or missing railing rather than a more sinister underlying etiology. Procedure No Qualifying Data Reexamination/Reevaluation 6:40 PM:??All CT imaging was unremarkable. ??Screening laboratory workup was also reassuring.?? Calcium is low but corrected with a low albumin to 8.8 mg/dL.?? Encouraged increased calcium supplementation at home with of course vitamin D.?? Reassurance provided. ??Instructed on the use of incentive spirometry.?? Patient can take Tylenol but does do well with ibuprofen as long as it is take with food.?? All questions were answered. ??Patient expressed understanding of disposition and was grateful for discharge home. Assessment/Plan 1.??Fall from standing??W19.XXXA 2.??Facial contusion??S00.83XA 3.??Contusion of ribs??S20.219A Orders: Automated Diff, Blood, Stat, 01/10/24 16:36:00 EDT, Once, Nurse collect, [id number] CBC w/ Diff, Blood, Stat, 01/10/24 16:36:00 EDT, Once, Nurse collect Comprehensive Metabolic Panel, Blood, Stat, 01/10/24 16:36:00 EDT, Once, Nurse collect CT Chest w/ Contrast, 01/10/24 16:36:00 EDT, Stat, Reason: Trauma, Transport Mode: Stretcher CT Head w/o Contrast, 01/10/24 16:36:00 EDT, Stat, Reason: Trauma, Transport Mode: Stretcher CT Maxillofacial w/o Contrast, 01/10/24 16:36:00 EDT, Stat, Reason: Trauma, Transport Mode: Stretcher CT Spine Cervical w/o Contrast, 01/10/24 16:36:00 EDT, Stat, Reason: Trauma, Transport Mode: Stretcher Incentive Spirometry Nursing, 01/10/24 16:36:00 EDT Peripheral IV Insertion, 01/10/24 16:36:00 EDT Patient Education Facial or Scalp Contusion, Amuf-qy-Pvww Blunt Chest Trauma Follow Up With When Contact Information NJ GOMEZ APRN Within 1 to 2 weeks, only if needed [address] [place] [address] [phone] Additional Instructions: Medication Reconciliation Unchanged albuterol (Albuterol (Eqv-ProAir HFA) 90 mcg/inh inhalation aerosol)INHALE ONE TO TWO PUFFS BY MOUTH EVERY 4 TO 6 HOURS NEEDED. ?? aspirin (aspirin 81 mg oral capsule)1 Capsules Oral (given by mouth) every day. do not exceed 48 capsules in 24 hours. ?? furosemide (furosemide 20 mg oral tablet)TAKE ONE TABLET BY MOUTH EVERY DAY. ?? gabapentin (gabapentin 600 mg oral tablet)TAKE ONE TABLET BY MOUTH TWICE A DAY. ?? glimepiride (glimepiride 2 mg oral tablet)TAKE ONE TABLET BY MOUTH EVERY DAY. ?? levothyroxine (levothyroxine 112 mcg (0.112 mg) oral tablet)TAKE ONE TABLET BY MOUTH EVERY DAY. ?? lisinopril (lisinopril 20 mg oral tablet)TAKE ONE TABLET BY MOUTH EVERY DAY. ?? metFORMIN (metFORMIN 500 mg oral tablet)TAKE ONE TABLET BY MOUTH TWICE A DAY. ?? naproxen (naproxen 250 mg oral tablet)TAKE ONE TABLET BY MOUTH TWICE A DAY NEEDED FOR MODERATE PAIN. ?? omeprazole (omeprazole 40 mg oral delayed release capsule)TAKE ONE CAPSULE BY MOUTH EVERY DAY. ?? oxyCODONE (oxyCODONE 5 mg oral tablet)TAKE ONE TABLET BY MOUTH FOUR TIMES A DAY NEEDED FOR PAIN. ?? pramipexole (pramipexole 0.25 mg oral tablet)1 tab Oral (given by mouth) 3 times a day. ?? spironolactone (spironolactone 25 mg oral tablet)TAKE ONE TABLET BY MOUTH EVERY DAY. Problem List/Past Medical History Ongoing Morbid obesity Historical No qualifying data Medication Administration Given ketorolac, 15 mg, IV Push Allergies fentaNYL??(Heart rate fast) Tylenol??(Swelling of bilateral feet) codeine Social History Electronic Cigarette/Vaping Electronic Cigarette Use: Never. Tobacco Never tobacco user Tobacco Use:. Diagnostic Results CT Chest w/ Contrast 01/10/2024 18:[address] Head w/o Contrast 01/10/2024 18:[address] Maxillofacial w/o Contrast 01/10/2024 18:[address] Spine Cervical w/o Contrast 01/10/2024 18:[address] Spine Cervical w/o Contrast ?? 01/10/24 17:22:37 PROCEDURE INFORMATION: Exam: CT Cervical Spine Without Contrast Exam date and time: 01/10/2024 5:22 PM Age: 73 years old Clinical indication: Injury or trauma; Fall; Blunt trauma ?? TECHNIQUE: Imaging protocol: Computed tomography of the cervical spine without contrast. Radiation optimization: All CT scans at this facility use at least one of these dose optimization techniques: automated exposure control; mA and/or kV adjustment per patient size (includes targeted exams where dose is matched to clinical indication); or iterative reconstruction. ?? COMPARISON: CT CHEST W CONTRAST 01/10/2024 5:22 PM ?? FINDINGS: Bones: No evidence of acute cervical spine fracture. No significant malalignment. Mild multilevel anterior osteophytosis. Moderate-marked disc space narrowing, vertebral body endplate sclerosis and posterior uncovertebral osteophyte formation particularly at C3-4 C4-5 C5-6 C6-7 C7-T1 levels consistent with cervical spondylosis. Multilevel bilateral facet sclerosis. ?? Prevertebral and retropharyngeal spaces: Prevertebral soft tissues appear within normal limits. Lungs: Lung apices are normal. Soft tissues: Unremarkable. ?? IMPRESSION: 1. No evidence of acute cervical spine fracture. 2. No significant malalignment. 3. Multilevel cervical spondylosis and facet osteoarthrosis - chronic degenerative changes. ? THIS DOCUMENT HAS BEEN ELECTRONICALLY SIGNED BY PAM LAY MD on 01/10/2024 06:35 PM ?? Signed By: Pam Lay MD ?? CT Chest w/ Contrast ?? 01/10/24 17:22:37 PROCEDURE INFORMATION: Exam: CT Chest With Contrast; Diagnostic Exam date and time: 01/10/2024 5:22 PM Age: 73 years old Clinical indication: Injury; Fall; Blunt trauma ?? TECHNIQUE: Imaging protocol: Diagnostic computed tomography of the chest with contrast. Radiation optimization: All CT scans at this facility use at least one of these dose optimization techniques: automated exposure control; mA and/or kV adjustment per patient size (includes targeted exams where dose is matched to clinical indication); or iterative reconstruction. Contrast material: ISOVUE 300; Contrast volume: 100 ml; Contrast route: INTRAVENOUS (IV); ?? COMPARISON: CT SPINE CERVICAL WO CONTRAST 01/10/2024 5:22 PM ?? FINDINGS: Lungs: No alveolar or???ground glass?? infiltrate. Approximate 3 mm sub-solid radiodensity lateral left upper lobe image 18, series 19. No routine follow-up is indicated. (Reference: Sugar). Pleural spaces: No pleural fluid collection. No pneumothorax. Heart: No pericardial effusion. Lymph nodes: No enlarged lymph nodes. Vasculature: Normal caliber thoracic aorta without dissection or aneurysm. ?? Gallbladder and biliary ducts: Prior cholecystectomy. Bones/joints: No acute fracture. Old fracture of the left 7th anterior rib. Old mild superior loss of height of T12. Bilateral metallic shoulder prostheses. Soft tissues: Unremarkable. ?? IMPRESSION: 1. No acute fracture. 2. No acute intrathoracic findings. ? References: Sugar Bedolla et al. Guidelines for Management of Incidental Pulmonary Nodules Detected on CT Images: From the Fleischner Society 2017. Radiology. 2017;284(1):228-243. ? THIS DOCUMENT HAS BEEN ELECTRONICALLY SIGNED BY DARREN GREENBERG MD on 01/10/2024 06:29 PM ?? Signed By: Darren Greenberg MD ?? CT Maxillofacial w/o Contrast ?? 01/10/24 17:22:37 PROCEDURE INFORMATION: Exam: CT Maxillofacial Without Contrast Exam date and time: 01/10/2024 5:22 PM Age: 73 years old Clinical indication: Injury or trauma; Fall; Blunt trauma (contusions or hematomas); Forehead ?? TECHNIQUE: Imaging protocol: Computed tomography of the face without contrast. Radiation optimization: All CT scans at this facility use at least one of these dose optimization techniques: automated exposure control; mA and/or kV adjustment per patient size (includes targeted exams where dose is matched to clinical indication); or iterative reconstruction. ?? COMPARISON: CT HEAD WO CONTRAST 01/10/2024 5:22 PM ?? FINDINGS: Orbital cavities: Ocular globes intact. Maintained retro-orbital fat. Paranasal sinuses: Normal. No air-fluid levels. Bones: No acute fractures. Soft tissues: Mild right periorbital and facial soft tissue swelling. ?? IMPRESSION: 1. No acute fractures. 2. Mild right periorbital and facial soft tissue swelling. ? THIS DOCUMENT HAS BEEN ELECTRONICALLY SIGNED BY PAM LAY MD on 01/10/2024 06:35 PM ?? Signed By: Pam Lay MD ?? CT Head w/o Contrast ?? 01/10/24 17:22:37 PROCEDURE INFORMATION: Exam: CT Head Without Contrast Exam date and time: 01/10/2024 5:22 PM Age: 73 years old Clinical indication: Injury or trauma; Fall; Blunt trauma (contusions or hematomas) ?? TECHNIQUE: Imaging protocol: Computed tomography of the head without contrast. Radiation optimization: All CT scans at this facility use at least one of these dose optimization techniques: automated exposure control; mA and/or kV adjustment per patient size (includes targeted exams where dose is matched to clinical indication); or iterative reconstruction. ?? COMPARISON: CT MAXOFACIAL WO CONTRAST 01/10/2024 5:22 PM ?? FINDINGS: Brain: No evidence of acute intracranial hemorrhage, extraxial fluid or midline shift. Mild cerebral atrophy. Cerebellum atrophic; otherwise, posterior fossa structures within normal limits. Cerebral ventricles: No ventriculomegaly. Paranasal sinuses: Visualized sinuses are unremarkable. No fluid levels. Mastoid air cells: Bilateral mastoid air cells normally aerated. Bones: Unremarkable. No acute fracture. Soft tissues: Mild right frontal scalp swelling-hematoma. ?? IMPRESSION: 1. No evidence of acute intracranial hemorrhage, extraxial fluid or midline shift. 2. Mild right frontal scalp swelling-hematoma. ? THIS DOCUMENT HAS BEEN ELECTRONICALLY SIGNED BY PAM LAY MD on 01/10/2024 06:28 PM ?? Signed By: Pam Lay MD Lab Results CBC and Differential?? LATEST RESULTS?? WBC?? 01/10/24 16:54?? 7.9?? RBC?? 01/10/24 16:54?? 4.30?? Hgb?? 01/10/24 16:54?? 12.9?? Hct?? 01/10/24 16:54?? 41.3?? MCV?? 01/10/24 16:54?? 96.0?? MCH?? 01/10/24 16:54?? 30.1?? MCHC?? 01/10/24 16:54?? 31.4 ??Low?? RDW-CV?? 01/10/24 16:54?? 12.6?? Platelets?? 01/10/24 16:54?? 288?? MPV?? 01/10/24 16:54?? 8.0?? Neutro Auto?? 01/10/24 16:54?? :::::?? Lymph Auto?? 01/10/24 16:54?? :::::?? Panola Auto?? 01/10/24 16:54?? :::::?? Eos, Auto?? 01/10/24 16:54?? :::::?? Basophil Auto?? 01/10/24 16:54?? :::::?? Neutro Absolute?? 01/10/24 16:54?? :::::?? Lymph Absolute?? 01/10/24 16:54?? :::::?? Panola Absolute?? 01/10/24 16:54?? :::::?? Eos Absolute?? 01/10/24 16:54?? :::::?? Baso Absolute?? 01/10/24 16:54?? :::::?? Segs Man?? 01/10/24 16:54?? 62?? Lymph Man?? 01/10/24 16:54?? 28.0?? Panola Man?? 01/10/24 16:54?? 7.0?? Eos Man?? 01/10/24 16:54?? 3.00?? Baso Man?? 01/10/24 16:54?? 0.0?? Band Man?? 01/10/24 16:54?? 0?? Abs Neut Man?? 01/10/24 16:54?? 4.9?? Abs Lymph Man?? 01/10/24 16:54?? 2.2?? Abs Panola Man?? 01/10/24 16:54?? 0.6?? Abs Eos Man?? 01/10/24 16:54?? 0.2?? Abs Baso Man?? 01/10/24 16:54?? 0.0?? RBC Morph?? 01/10/24 16:54?? Normal?? Plt Estimation?? 01/10/24 16:54?? Normal?? Slide Review?? 01/10/24 16:54?? Man Diff? Routine Chemistry?? LATEST RESULTS?? Sodium Level?? 01/10/24 16:54?? 139?? Potassium Level?? 01/10/24 16:54?? 3.8?? Chloride Level?? 01/10/24 16:54?? 113 ??High?? CO2?? 01/10/24 16:54?? 20 ??Low?? Alk Phos?? 01/10/24 16:54?? 59?? AST?? 01/10/24 16:54?? 14?? ALT?? 01/10/24 16:54?? 9?? BUN?? 01/10/24 16:54?? 20?? Glucose Level?? 01/10/24 16:54?? 88?? Creatinine Level?? 01/10/24 16:54?? 1.00?? BUN/Creat Ratio?? 01/10/24 16:54?? 20.0?? eGFR CKD-EPI?? 01/10/24 16:54?? 59 ??Low?? Calcium Level?? 01/10/24 16:54?? 7.8 ??Low?? Protein Total?? 01/10/24 16:54?? 5.2 ??Low?? Albumin Level?? 01/10/24 16:54?? 3.2 ??Low?? Globulin?? 01/10/24 16:54?? 2.0 ??Low?? A/G Ratio?? 01/10/24 16:54?? 1.6?? Bilirubin Total?? 01/10/24 16:54?? 0.3?? Anion Gap?? 01/10/24 16:54?? 6.0?? Osmolality?? 01/10/24 16:54?? 280? Electronically Signed on 01/10/2024 18:43 EDT Kevin Nunn DO Emergency department Discharge instructions * Kevin Nunn DO: PERFORM Event Display: ED Discharge Information Authored Date: [id number] JOSHUA ORTIZ :1950 Age:73 years Sex:Female Visit Date:01/10/2024 Primary Care Physician: FORREST GOMEZ RPA Discharge Instructions We would like to thank you for allowing us to assist you with your healthcare needs. The following includes patient education materials and information regarding your injury/illness. Diagnosis from Today's Visit Fall from standing Facial contusion Contusion of ribs Discharge Vitals Temperature??(Temporal Artery) 97.5 ??F (36.4 ??C) Heart Rate??(Peripheral) 93 Respiratory Rate?? 16 Blood Pressure?? 128/70?? SpO2?? 93% Height?? 59.06 in (150 cm) Weight?? 204.03 lb (92.53 kg) BMI?? 41.12 Allergies fentaNYL??(Heart rate fast) Tylenol??(Swelling of bilateral feet) codeine What to Do Next You Need to Schedule the Following Appointments Follow Up with??[place] GOMEZ APRN When:??Within 1 to 2 weeks, only if needed Where: [address] [place] [address] [phone] Upcoming Scheduled Appointments Friday 10:15 AM EDT ?? With: Forrest Acosta DO Where: [facility] Otolaryngology Status: Confirmed You were treated today on an emergency basis; it may be hurtado to contact your primary care provider to notify them of your visit today. You may have been referred to your regular doctor or a specialist, please follow up as instructed. If your condition worsens or you can't get in to see the doctor, contact the Emergency Department. Medications What How Much When Instructions Next Dose Unchanged albuterol (Albuterol (Eqv- ProAir HFA) 90 mcg/ inh inhalation aerosol) INHALE ONE TO TWO PUFFS BY MOUTH EVERY 4 TO 6 HOURS NEEDED ?? Unchanged aspirin (aspirin 81 mg oral capsule) 1 Capsules Oral (given by mouth) Every day do not exceed 48 capsules in 24 hours ?? Unchanged furosemide (furosemide 20 mg oral tablet) TAKE ONE TABLET BY MOUTH EVERY DAY ?? Unchanged gabapentin (gabapentin 600 mg oral tablet) TAKE ONE TABLET BY MOUTH TWICE A DAY ?? Unchanged glimepiride (glimepiride 2 mg oral tablet) TAKE ONE TABLET BY MOUTH EVERY DAY ?? Unchanged levothyroxine (levothyroxine 112 mcg (0.112 mg) oral tablet) TAKE ONE TABLET BY MOUTH EVERY DAY ?? Unchanged lisinopril (lisinopril 20 mg oral tablet) TAKE ONE TABLET BY MOUTH EVERY DAY ?? Unchanged metFORMIN (metFORMIN 500 mg oral tablet) TAKE ONE TABLET BY MOUTH TWICE A DAY ?? Unchanged naproxen (naproxen 250 mg oral tablet) TAKE ONE TABLET BY MOUTH TWICE A DAY NEEDED FOR MODERATE PAIN ?? Unchanged omeprazole (omeprazole 40 mg oral delayed release capsule) TAKE ONE CAPSULE BY MOUTH EVERY DAY ?? Unchanged oxyCODONE (oxyCODONE 5 mg oral tablet) TAKE ONE TABLET BY MOUTH FOUR TIMES A DAY NEEDED FOR PAIN ?? Unchanged pramipexole (pramipexole 0.25 mg oral tablet) 1 tab Oral (given by mouth) 3 times a day Unchanged spironolactone (spironolactone 25 mg oral tablet) TAKE ONE TABLET BY MOUTH EVERY DAY ?? Education Materials Facial or Scalp Contusion A facial or scalp contusion is a bruise (contusion) on the face or head. Bruises happen when an injury causes bleeding under the skin. The bruise may turn blue, purple, or yellow (discoloration). Minor injuries may cause a bruise that is not painful. Some bruises are painful and swollen for a few weeks. Injuries to the face and head usually cause a lot of swelling, especially around the eyes. You may have other injuries as well, such as broken bones or cuts. What are the causes? An injury to the face or head from an object. ? A fall. ? A hit to the face or head area. ? Car accidents. ? Sports injuries. ? Attacks from another person (assaults). What are the signs or symptoms? Swelling in the area of the injury. The swelling may be in a small areas and very noticeable. ? The injured area being a different color than normal. ? Pain or soreness in the injured area. If you also have broken bones, your nose might be a different shape, you may be unable to close your mouth and you might have vision changes. How is this treated? Applying cold compresses to the hurt area. This is often the best treatment. ? Taking obdk-qjk-wczrwwb medicines to help take the pain away, if your doctor tells you to take them. ? If there are any cuts, these will need to be repaired as well. ? Any deeper injuries may require treatment and follow up with a specialist, such as a surgeon or eyespecialist. Follow these instructions at home: Managing pain, stiffness, and swelling ? If told, put ice on the injured area. To do this: ? Put ice in a plastic bag. ? Place a towel between your skin and the bag. ? Leave the ice on for 20 minutes, 2???3 times a day. ? Take off the ice if your skin turns bright red. This is very important. If you cannot feel pain, heat, or cold, you have a greater risk of damage to the area. ? Raise the injured area above the level of your heart while you are sitting or lying down. General instructions ? Take jcml-kkb-cxwnndu and prescription medicines only as told by your doctor. ? Rest as told by your doctor. ? Return to your normal activities when your doctor says that it is safe. ? Do not blow your nose if you have any broken bones in your face. ? Eat soft foods if you are having jaw pain. ? Keep all follow-up visits. Contact a doctor if: ? You have trouble biting or chewing. ? Your pain or swelling gets worse. ? The bruised area gets worse. Get help right away if: ? You have very bad pain or a headache, and medicine does not help. ? You are very tired or confused. ? Your personality changes. ? You vomit. ? You have a nosebleed that does not stop. ? You see two of everything (double vision) or have blurry vision. ? You have clear fluid coming from your nose or ear, and it does not go away. ? You have problems walking or using your arms or legs. ? You feel very dizzy. Summary ? A facial or scalp contusion is a bruise on the face or head. ? Bruises happen when an injury causes bleeding under the skin. ? Minor injuries will cause a bruise that is not painful, but worse bruises can stay painful and swollen for a few weeks. ? Go to a doctor if you have problems seeing, bleeding from your face or nose, or you have trouble biting or chewing. ? Applying cold compresses to the hurt area is often the best treatment. This information is not intended to replace advice given to you by your health care provider. Make sure you discuss any questions you have with your health care provider. Document Revised: 06/25/2021 Document Reviewed: 06/25/2021 [employer] Patient Education ?? 2022 [employer] Blunt Chest Trauma Blunt chest trauma is an injury that is caused by a hard, direct hit to the chest. The hit can be strong enough to injure multiple body parts and organs. Blunt trauma does not involve a puncture of the skin. Blunt chest trauma often results in bruised or broken (fractured) ribs. In many cases, the soft tissue in the chest wall is also injured, and that damage causes pain and bruising. Internal organs, such as the heart and lungs, can be injured as well. Blunt chest trauma can lead to serious medical problems. This injury requires immediate medical care. What are the causes? This condition may be caused by: ? Motor vehicle collisions. ? Falls. ? Physical violence. ? Sports injuries. What are the signs or symptoms? Symptoms of this condition include: ? Chest pain. The pain may be worse when you breathe deeply or move. ? Shortness of breath. ? Light-headedness. ? Bruising. ? Tenderness. ? Swelling. ? Feeling as if your heart is racing. How is this diagnosed? This condition is diagnosed based on your medical history and a physical exam. You may also have imaging tests, including: ? X-ray. ? CT scan. ? MRI. ? Ultrasound. How is this treated? Treatment for this condition depends on your injury type and severity of the injury. You may need to stay in the hospital. Treatment may include: ? Pain medicine. You may be given pain medicine through an IV at first. You may also be given okkc-ttm-qhnvkin and prescription pain medicines. ? Tubes or other devices, such as an incentive spirometer, to help you breathe. ? Inserting a tube into your chest to drain excess fluid, blood, or air. ? Fluid or blood transfusions through an IV. ? Surgery to repair broken ribs and fix damaged tissue and organs. ? Lung (pulmonary) rehabilitation. This may include exercises, counseling, or support groups. Follow these instructions at home: Medicines ? Take lqcp-thk-mntonmy and prescription medicines only as told by your health care provider. ? Ask your health care provider if the medicine prescribed to you: ? Requires you to avoid driving or using machinery. ? Can cause constipation. You may need to take these actions to prevent or treat constipation: ? Drink enough fluid to keep your urine pale yellow. ? Take zdkb-iwd-adgsvoc or prescription medicines. ? Eat foods that are high in fiber, such as beans, whole grains, and fresh fruits and vegetables. ? Limit foods that are high in fat and processed sugars, such as fried or sweet foods. Managing pain and swelling If directed, put ice on the injured area. To do this: ? Put ice in a plastic bag. ? Place a towel between your skin and the bag. ? Leave the ice on for 20 minutes, 2???3 times a day. ? Remove the ice if your skin turns bright red. This is very important. If you cannot feel pain, heat, or cold, you have a greater risk of damage to the area. Activity ? Do not lift anything that is heavier than 10 lb (4.5 kg), or the limit that you are told, until your health care provider says that it is safe. ? Return to your normal activities as told by your health care provider. Ask your health care provider what activities are safe for you. ? Do exercises as told by your health care provider. General instructions ? Do not use any products that contain nicotine or tobacco, such as cigarettes, e- cigarettes, and chewing tobacco. These can delay healing. If you need help quitting, ask your health care provider. ? Use your incentive spirometer as told to help you take deep breaths. ? Consider joining a support group. This may help you learn about your condition and techniques to help with recovery. ? Keep all follow-up visits. This is important. Follow-up visits may include counseling. Contact a health care provider if: ? Your pain gets worse. ? You develop a cough or wheezing. Get help right away if: ? You experience any of the following: ? Shortness of breath. ? Pain in your abdomen. ? Nausea or vomiting. ? A fever or chills. ? A rapid heart rate. ? You cough up blood. ? You feel dizzy or weak. ? You faint. ? You have severe chest pain. This may come with other symptoms, such as: ? Dizziness. ? Shortness of breath. ? Pain in your neck, jaw, or back, or in one arm or both arms. These symptoms may represent a serious problem that is an emergency. Do not wait to see if the symptoms will go away. Get medical help right away. Call your local emergency services (911 in the [place] Do not drive yourself to the hospital. Summary ? Blunt chest trauma is an injury that is caused by a hard, direct hit to the chest. It may involve broken ribs, damage to the chest wall, and injury to internal organs such as the heart and lungs. ? Blunt chest trauma can lead to serious medical problems. This injury requires immediate medical care. ? Symptoms may include chest pain when moving or taking deep breaths, shortness of breath, bruising or swelling of the chest, faster heartbeat, and light-headedness. ? Treatment for this condition depends on what type of injury you have and how severe it is. ? Make sure you know which symptoms should cause you to get help right away. This information is not intended to replace advice given to you by your health care provider. Make sure you discuss any questions you have with your health care provider. Document Revised: 08/23/2020 Document Reviewed: 08/23/2020 Elsevier Patient Education ?? 2022 [employer] Tests Performed Radiology CT Chest w/ Contrast 01/10/2024 18:[address] Head w/o Contrast 01/10/2024 18:[address] Maxillofacial w/o Contrast 01/10/2024 18:[address] Spine Cervical w/o Contrast 01/10/2024 18:35 EDT Medications and Immunizations Administered Given ketorolac, 15 mg, IV Push Lab Test Name Test Result Date/Time WBC 7.9 K/mcL 01/10/2024 16:54 EDT RBC 4.30 Million/mcL 01/10/2024 16:54 EDT Hgb 12.9 g/dL 01/10/2024 16:54 EDT Hct 41.3 % 01/10/2024 16:54 EDT MCV 96.0 fL 01/10/2024 16:54 EDT MCH 30.1 pg 01/10/2024 16:54 EDT MCHC 31.4 g/dL 01/10/2024 16:54 EDT RDW-CV 12.6 % 01/10/2024 16:54 EDT Platelets 288 K/mcL 01/10/2024 16:54 EDT MPV 8.0 fL 01/10/2024 16:54 EDT Neutro Auto ::::: 01/10/2024 16:54 EDT Lymph Auto ::::: 01/10/2024 16:54 EDT Panola Auto ::::: 01/10/2024 16:54 EDT Eos, Auto ::::: 01/10/2024 16:54 EDT Basophil Auto ::::: 01/10/2024 16:54 EDT Neutro Absolute ::::: 01/10/2024 16:54 EDT Lymph Absolute ::::: 01/10/2024 16:54 EDT Panola Absolute ::::: 01/10/2024 16:54 EDT Eos Absolute ::::: 01/10/2024 16:54 EDT Baso Absolute ::::: 01/10/2024 16:54 EDT Segs Man 62 01/10/2024 16:54 EDT Lymph Man 28.0 % 01/10/2024 16:54 EDT Panola Man 7.0 % 01/10/2024 16:54 EDT Eos Man 3.00 % 01/10/2024 16:54 EDT Baso Man 0.0 % 01/10/2024 16:54 EDT Band Man 0 % 01/10/2024 16:54 EDT Abs Neut Man 4.9 K/mcL 01/10/2024 16:54 EDT Abs Lymph Man 2.2 K/mcL 01/10/2024 16:54 EDT Abs Panola Man 0.6 K/mcL 01/10/2024 16:54 EDT Abs Eos Man 0.2 K/mcL 01/10/2024 16:54 EDT Abs Baso Man 0.0 K/mcL 01/10/2024 16:54 EDT RBC Morph Normal 01/10/2024 16:54 EDT Plt Estimation Normal 01/10/2024 16:54 EDT Slide Review Man Diff 01/10/2024 16:54 EDT Sodium Level 139 mmol/L 01/10/2024 16:54 EDT Potassium Level 3.8 mmol/L 01/10/2024 16:54 EDT Chloride Level 113 mmol/L 01/10/2024 16:54 EDT CO2 20 mmol/L 01/10/2024 16:54 EDT Alk Phos 59 IntlUnit/L 01/10/2024 16:54 EDT AST 14 IntlUnit/L 01/10/2024 16:54 EDT ALT 9 IntlUnit/L 01/10/2024 16:54 EDT BUN 20 mg/dL 01/10/2024 16:54 EDT Glucose Level 88 mg/dL 01/10/2024 16:54 EDT Creatinine Level 1.00 mg/dL 01/10/2024 16:54 EDT BUN/Creat Ratio 20.0 01/10/2024 16:54 EDT eGFR CKD-EPI 59 mL/min/1.73 m2 01/10/2024 16:54 EDT Calcium Level 7.8 mg/dL 01/10/2024 16:54 EDT Protein Total 5.2 g/dL 01/10/2024 16:54 EDT Albumin Level 3.2 g/dL 01/10/2024 16:54 EDT Globulin 2.0 g/dL 01/10/2024 16:54 EDT A/G Ratio 1.6 g/dL 01/10/2024 16:54 EDT Bilirubin Total 0.3 mg/dL 01/10/2024 16:54 EDT Anion Gap 6.0 01/10/2024 16:54 EDT Osmolality 280 mOsm/kg 01/10/2024 16:54 EDT Patient/Mold Maintenance Technician Signature Patient Name:JOSHUA ORTIZ I have received this information and my questions have been answered. Patient/Mold Maintenance Technician Name: Patient/Mold Maintenance Technician Signature: Relationship to Patient: Witness Name/Signature: Date: Electronically Signed on: 01/10/2024 18:43 EDTSigned by:HOMERO Patient Care team information Care Team Personnel Name: FORREST GOMEZ RPA Position: No Access Member Role: Primary Care Physician Address: Address: [address] [place] [address] [id number]
--- OUTSIDE RECORDS SUMMARY | 2024-01-13 20:44 | XMS_ITS | Encounter Summary ---
Author Organization [facility] [place] [address] Care Team Providers Care Ambulance Dispatcher Name Role Phone Forrest Bangura Primary Care Provider [phone] Encounter Details Date Type Department Care Team (Late st Contact Info) Description 10/18/2022 Telephone Obstetrics [place] [address] Kevin Chao MD [place] [address] Social History Tobacco Use Types Packs/Day Years Used Date Smoking Tobacco: Never Smokeless Tobacco: Never Sex and Gender Information Value Date Recorded Sex Assigned at Not on file Gender Identity Not on file Sexual Orientation Not on file documented as of this encounter Miscellaneous Notes * Telephone Encounter - Kevin Chao MD - 10/18/2022 2:59 PM EDT I called Flavia W Jaspalzunilda to inform her of her MRI result. No fluid collection. Essentially reassuring. No answer so LMOM. Kevin Chao MD Urogynecology 10/18/2022 3:05 PM documented in this encounter Plan of Treatment Not on file documented as of this encounter Visit Diagnoses Not on filedocumented in this encounter Care Teams Ambulance Dispatcher Relationship Specialty Start Date End Date Forrest Bangura PA [address] [place] [address] PCP - General Internal Medicine 04/19/22 documented as of this encounter
--- OUTSIDE RECORDS SUMMARY | 2024-01-13 20:44 | XMS_ITS | Encounter Summary ---
Author Organization [facility] Address [facility] [place] [address] Care Team Providers Care Roller Picker Name Role Phone Forrest Bangura Primary Care Provider [phone] Reason for Visit * Reason Comments Establish Care * Consultation (Routine) - Closed Specialty Diagnoses / Procedures Referred By Boris celaya Referred To Contact Obstetrics and Gynecology Diagnoses Vaginal adhesion Forrest Bangura PA [address] [facility] [address] [place] [address] [facility] [employer] [address] [place] [address] Referral ID Status Reason Start Date Expiration Date V isits Requested Visits Authorized [id number] Closed Consult, Test & Treat PCP Updated and/or Approved 04/19/2022 04/19/2023 12 12 Encounter Details Date Type Department Care Team (Late st Contact Info) Description 07/04/2022 10:00 AM EST Office Visit Obstetrics [place] [address] Tatyana Szymanski MD [facility] [address] OBSTET[place] [address] Subacute vaginitis; Lichen sclerosus Social [...] Bangura PA [address] [place] [address] GLASS CALIBRATOR [facility] Patient Visit Reason for Visit: Flavia is a 72 y.o. post menopausal female with history of Type 2 DM and hypothyroidism who presents for a new patient visit to the GLASS CALIB[facility] with the following complaints/concerns: vaginal [...] early delivery of twins at 5 ga GLASS CALIBRATOR diagnoses: Denies GLASS CALIBRATOR surgeries: RUTHANN with vertical incision, oopherectomy as [...] for a new patient visit to the GLASS CALIB[facility]ATOR [facility] with the following complaints/concerns: vaginal adhesions and itching, concern for lichen sclerosus # Vulvar itching - Vulvar exam consistent with scarring due to dermatosis, most resembling Lichen Sclerosis - Discussed pathophysiology, evaluation and management options for lichen sclerosus - Discussed LS is a chronic condition that requires longwall headgate operator follow up - Discussed 3-5% risk of [...] a medical document. It is intended as sggf-pw-giox communication. It is written in medical language [...] bacterial morphotypes suggestive of normal vaginal rosina [facility] Vaginal 07/04/2022 10:0 0 AM EST 07/04/2022 12:17 PM EST Narrative Resulting Agency Comment Spec In Lab Tatyana Szymanski MD MICROBIOLOGY - GENER AL ORDERABLES Performing Organization Address [facility] Co de Phone Number [facility] [place] [address] * Yeast culture Vaginal (07/04/2022 10:00 AM EST) Yeast Culture No Yeast isolated [facility] Vaginal 07/04/2022 10:0 0 AM EST 07/04/2022 12:17 PM EST Narrative Resulting Agency Comment Spec In Lab Tatyana Szymanski MD MICROBIOLOGY - GENER AL ORDERABLES Performing Organization Address [facility] [place] [address] documented in this encounter Visit Diagnoses Diagnosis Subacute vaginitis Lichen sclerosus Circumscribed scleroderma documented in this encounter Care Teams Roller Picker Relationship Specialty Start Date End Date Forrest Bangura PA [address] [place] [address] PCP - General Internal Medicine 04/19/22 documented as of this encounter
--- OUTSIDE RECORDS SUMMARY | 2024-01-13 20:44 | XMS_ITS | Encounter Summary ---
Author Organization [facility] [place] [address] Care Team Providers Care Curatorial Assistant Name Role Phone Forrest Bangura Primary Care Provider [phone] Reason for Referral * Consultation (Routine) - Closed Specialty Diagnoses / Procedures Referred By Boris celaya Referred To Contact Obstetrics and Gynecology Diagnoses Lichen planus, unspecified Vulva Forrest Bangura PA [address] [place] [address] [facility] [employer] [address], [place] [address] Referral ID Status Reason Start Date Expiration Date V isits Requested Visits Authorized [id number] Closed Consult, Test & Treat PCP Updated and/or Approved 07/16/2023 07/15/2024 6 6 Encounter Details Date Type Department Care Team (Latest Contact Info) Description 07/16/2023 Transcribe Orders eDH Incoming Referrals [phone] Forrest Bangura PA [address] [place], [place] [id number] Lichen planus, unspecified Social History Tobacco Use Types Packs/Day Years Used Date Smoking Tobacco: Never Smokeless Tobacco: Never Sex and Gender Information Value Date Recorded Sex Assigned at Not on file Gender Identity Not on file Sexual Orientation Not on file documented as of this encounter Plan of Treatment Scheduled Referrals Name Type Priority Associated Diagnoses Orde r Schedule Referral to Ob-Chute Operator Outpatient Referral Routine Lichen planus, unspecified Ordered: 07/16/2023 documented as of this encounter Visit Diagnoses Diagnosis Lichen planus, unspecified documented in this encounter Care Teams Curatorial Assistant Relationship Specialty Start Date End Date Forrest Bangura PA [address] [place] [address] PCP - General Internal Medicine 04/19/22 documented as of this encounter
--- OUTSIDE RECORDS SUMMARY | 2024-01-13 20:44 | XMS_ITS | Encounter Summary ---
Author Organization [facility] Address [facility] [address] Care Team Providers Care Educational Technology Specialist Name Role Phone WillemForrest MARLINE Primary Care Provider [phone] Encounter Details Date Type Department Care Team (Late st Contact Info) Description 08/02/2022 11:20 AM EST Office Visit Obstetrics [place] [address] Tatyana Szymanski MD [facility] DR OBSTETRICS [place] [address] Lichen planus Social History Tobacco Use Types Packs/Day Years Used Date Smoking Tobacco: Never Smokeless Tobacco: Never Sex and Gender Information Value Date Recorded Sex Assigned at Not on file Gender Identity Not on file Sexual Orientation Not on file documented as of this encounter Progress Notes * Tatyana Szymanski MD - 08/02/2022 11:20 AM EST TILE LAYER SUPERVISOR [facility] Follow Up Visit Reason for [...] a medical document. It is intended as nfzb-wg-kvom communication. It is written in medical language [...] planus documented in this encounter Care Teams Educational Technology Specialist Relationship Specialty Start Date End Date Forrest Bangura PA [address] [place] [address] PCP - General Internal Medicine 04/19/22 documented as of this encounter
--- OUTSIDE RECORDS SUMMARY | 2024-01-13 20:44 | XMS_ITS | Encounter Summary ---
Author [facility] [place] [address] Care Team Providers Care Mail Handler Name Role Phone Forrest Bangura Primary Care Provider [phone] Reason for Referral * Diagnostic Test (Routine) - Closed Specialty Diagnoses / Procedures Referred By Conttodd t Referred To Contact Radiology Diagnoses Urinary incontinence, urge Lichen planus Pelvic pressure in female Procedures MRI Pelvis Soft Tissue (GI ATTENDANT HONOR BAR) wwo Contrast Angela Aguilar MD [facility] [place] [address] [place] [address] Referral ID Status Reason Start Date Expiration Date V isits Requested Visits Authorized [id number] Closed Specialty Service Requested 08/02/2022 02/03/2024 1 1 Reason for Visit * Reason Comments Establish Care Encounter Details Date Type Department Care Team (Late st Contact Info) Description 08/02/2022 11:00 AM EST Office Visit Obstetrics [place] [phone] Angela Aguilar MD [facility] [place] [address] Urinary incontinence, urge (Primary Dx); Lichen [...] Female Pelvic Medicine and Reconstructive Surgery @ [facility] Patient Name: Flavia Terrell Patient Primary Care [...] test (empty supine): neg External Genitalia: Vulva, D'Hanis's and Bartholin glands normal, urethra without tenderness [...] with 45 minutes of the time spent ygjm-qm-klvw in discussing her diagnosis and reviewing options for treatment. [facility] informational pamphlets given to patient Angela Aguilar MD Division of Female Pelvic Medicine/Reconstructive Surgery CC: MARLINE Thomason No ref. provider found documented in this encounter Miscellaneous Notes * Addendum Note - Tarun, Venera, HEADING REPAIRER - 08/02/2022 11:00 AM ESTAddended by: VIVIENNE [...] Results * MRI Pelvis Soft Tissue (GI ATTENDANT HONOR BAR) wwo Contrast (10/16/2022 1:36 PM EDT) Anatomical [...] who have questions please contact the health spiritual care coordinator that requested your imaging first. ? Electronically signed by: Adonay Leon MD, [facility] ([phone]), at 10/16/2022 2:32 PM Narrative 10/16/2022 2:32 PM EDT EXAMINATION: MRI PELVIS SOFT TISSUE (GI ATTENDANT HONOR BAR) WWO CONTRAST CLINICAL HISTORY: S/p hysterectomy. Now [...] 10/16/2022 EXAMINATION: MRI PELVIS SOFT TISSUE (GI ATTENDANT HONOR BAR) WWO CONTRAST CLINICAL HISTORY: S/p hysterectomy. Now [...] patients who have questions please contactthe health spiritual care coordinator that requested your imaging first. Electronically signed by: Adonay Leon MD, [facility]([phone]), at 10/16/2022 2:32 PM Angela Aguilar MD IMG MRI ORDERABLES * (ABNORMAL) Creatinine (08/02/2022 1:03 PM EST) Creatinine 1.05 0.70 - 1.20 mg/dL [facility] Est Glomerular Filtration Rate 56(L) >=60 mL/min/1. 73 m?? [facility] Comment: This patient's estimated GFR was [...] In Lab Angela Aguilar MD CHEMISTRY ORDERABLES [facility] [place] [address] * Bladder Scanner (08/02/2022) Bladder Scan (mL) 0 mL Angela Aguilar MD URO PROC W/O RFL ORD ERABLES * POCT urine dipstick (08/02/2022) POC Sp [place]acon 1.01 1.002 - 1.030 POC pH, UA [...] organs documented in this encounter Care Teams Mail Handler Relationship Specialty Start Date End Date Forrest Bangura PA [address] [place] [address] PCP - General Internal Medicine 04/19/22 documented as of this encounter
--- OUTSIDE RECORDS SUMMARY | 2024-01-13 20:44 | XMS_ITS | Encounter Summary ---
Author Organization [facility] [place] [address] Care Team Providers Care Factory Maintenance Technician Name Role Phone Forrest Bangura Primary Care Provider [phone] Encounter Details Date Type Department Care Team [...] on filedocumented in this encounter Care Teams Factory Maintenance Technician Relationship Specialty Start Date End Date Forrest Bangura PA [address] [place] [address] PCP - General Internal Medicine 04/19/22 documented as of this encounter
--- OUTSIDE RECORDS SUMMARY | 2024-01-13 20:44 | XMS_ITS | Encounter Summary ---
Author Organization [facility] [place] [address] Care Team Providers Care Nut Dehydrator Operator Name Role Phone Forrest Bangura Primary Care Provider [phone] Encounter Details Date Type Department Care Team [...] on filedocumented in this encounter Care Teams Nut Dehydrator Operator Relationship Specialty Start Date End Date Forrest Bangura PA [address] [place] [address] PCP - General Internal Medicine 04/19/22 documented as of this encounter
--- OUTSIDE RECORDS SUMMARY | 2024-01-13 20:44 | XMS_ITS | Encounter Summary ---
Author Organization [facility] [place] [address] Care Team Providers Care Firefighter Type One Name Role Phone Forrest Bangura Primary Care Provider [phone] Encounter Details Date Type Department Care Team [...] on filedocumented in this encounter Care Teams Firefighter Type One Relationship Specialty Start Date End Date Forrest Bangura PA [address] [place] [address] PCP - General Internal Medicine 04/19/22 documented as of this encounter
--- OUTSIDE RECORDS SUMMARY | 2024-01-13 20:44 | XMS_ITS | Encounter Summary ---
Author Organization [facility] Address [place] [address] Care Team Providers Care Dormitory Counselor Name Role Phone Forrest Bangura Primary Care Provider [phone] Reason for Referral * Diagnostic Test (Routine) - Closed Specialty Diagnoses / Procedures Referred By Contac t Referred To Contact Radiology Diagnoses Urinary incontinence, urge Lichen planus Pelvic pressure in female Procedures MRI Pelvis Soft Tissue (GI POWDER OPERATOR) Kevin Anderson MD [facility] [place] [address] [place] [address] Referral ID Status Reason Start Date Expiration Date V isits Requested Visits Authorized [id number] Closed Specialty Service Requested 08/02/2022 02/03/2024 1 1 Reason for Visit * Diagnostic Test (Routine) - Closed Specialty Diagnoses / Procedures Referred By Contac t Referred To Contact Radiology Diagnoses Urinary incontinence, urge Lichen planus Pelvic pressure in female Procedures MRI Pelvis Soft Tissue (GI POWDER OPERATOR) Kevin Anderson MD [facility] [place] [address] [place] [address] Referral ID Status Reason Start Date Expiration Date V isits Requested Visits Authorized [id number] Closed Specialty Service Requested 08/02/2022 02/03/2024 1 1 Encounter Details Date Type Department Care Team (Latest Contact Info) Description 10/16/2022 10:45 AM EDT - 10/16/2022 11:59 PM EDT Hospital Encounter MRI at [facility] [place] [id number] Kevin Chao MD [facility] [place] [address] Urinary incontinence, urge; Lichen planus; Pelvic pressure [...] Diagnosis Comments MRI PELVIS SOFT TISSUE (GI POWDER OPERATOR) WWO CONTRAST Routine 10/16/2022 1:36 PM EDT Urinary incontinence, urge Lichen planus Pelvic pressure in female documented in this encounter Results * MRI Pelvis Soft Tissue (GI POWDER OPERATOR) wwo Contrast (10/16/2022 1:36 PM EDT) Anatomical [...] who have questions please contact the health home health caregiver that requested your imaging first. ? Narrative 10/16/2022 2:32 PM EDT EXAMINATION: MRI PELVIS SOFT TISSUE (GI POWDER OPERATOR) WWO CONTRAST CLINICAL HISTORY: S/p hysterectomy. Now [...] 10/16/2022 EXAMINATION: MRI PELVIS SOFT TISSUE (GI POWDER OPERATOR) WWO CONTRAST CLINICAL HISTORY: S/p hysterectomy. Now [...] patients who have questions please contactthe health home health caregiver that requested your imaging first. Kevin Chao [...] mLs documented in this encounter Care Teams Dormitory Counselor Relationship Specialty Start Date End Date Forrest Bangura PA [address] [place] [address] PCP - General Internal Medicine 04/19/22 documented as of this encounter
--- OUTSIDE RECORDS SUMMARY | 2024-01-13 20:44 | XMS_ITS | Clinical Summary ---
Author Organization [facility] Address [facility] [place] [address] Care Team Providers Care Catalytic Case Operator Name Role Phone Forrest Banugra Primary Care Provider [phone] Allergies Active Allergy Reactions Criticality Noted Date [...] standard series) 02/01/2024 05/03/2008, 04/18/2007 Care Teams Catalytic Case Operator Relationship Specialty Start Date End Date Forrest Bangura PA [address] [place] [address] PCP - General Internal Medicine 04/19/22
--- OUTSIDE RECORDS SUMMARY | 2024-01-13 20:45 | XMS_ITS | Encounter Summary ---
Author Organization [facility] [place] [address] Care Team Providers Care Supplemental Nurse Name Role Phone Forrest Bangura Primary Care Provider Encounter Details Date Type Department Care Team (Late st Contact Info) Description 05/23/2022 Telephone Obstetrics [place] [phone] Sigrid Carvalho Social History Tobacco Use Types [...] on filedocumented in this encounter Care Teams Supplemental Nurse Relationship Specialty Start Date End Date Forrest Bangura PA [address] [place] [address] PCP - General Internal Medicine 04/19/22 documented as of this encounter
--- OUTSIDE RECORDS SUMMARY | 2024-01-13 20:45 | XMS_ITS | Encounter Summary ---
[place] [address] Care Team Providers Care Router Operator Pin Name Role Phone Forrest Bangura Primary Care Provider [phone] Reason for Referral * Consultation (Routine) - Closed Specialty Diagnoses / Procedures Referred By Boris celaya Referred To Contact Obstetrics and Gynecology Diagnoses Vaginal adhesion Forrest Bangura PA [address] [place] [address] [facility] [employer] Re[employer] [address] Referral ID Status Reason Start Date Expiration Date V isits Requested Visits Authorized [id number] Closed Consult, Test & Treat PCP Updated and/or Approved 04/19/2022 04/19/2023 12 12 Encounter Details Date Type Department Care Team (Late st Contact Info) Description 04/19/2022 Transcribe Orders eD Incoming Referrals [phone] Forrest Bangura PA [address] [place], [place] [id number] Vaginal adhesion Social History Tobacco Use Types Packs/Day Years Used Date Smoking Tobacco: Never Assessed Sex and Gender Information Value Date Recorded Sex Assigned at Not on file Gender Identity Not on file Sexual Orientation Not on file documented as of this encounter Plan of Treatment Scheduled Referrals Name Type Priority Associated Diagnoses Orde r Schedule Referral to [facility] Out[facility] Referral Routine Vaginal adhesion Ordered: 04/19/2022 documented as of this encounter Visit Diagnoses Diagnosis Vaginal adhesion Stricture or atresia of vagina documented in this encounter Care Teams Router Operator Pin Relationship Specialty Start Date End Date Forrest Bangura PA [address] [place] [address] PCP - General Internal Medicine 04/19/22 documented as of this encounter
--- NOTE | 2024-01-13 21:16 | DI.RAD_ITS ---
Exam(s) XR CHEST 2V PA LATERAL EXAM: XR CHEST 2V PA LATERAL CLINICAL HISTORY: fall TECHNIQUE: 2D digital imaging was performed of the chest. Two images were obtained. PA and lateral views were obtained. COMPARISON: CR,XR XR CHEST 2V PA LATERAL from 08/31/2022 CR,XR XR PORTABLE CHEST AP from 10/23/2023 FINDINGS: MEDIASTINUM: Normal. HEART: Normal. PULMONARY VASCULATURE: Normal. LUNGS: Clear. PLEURAL SPACE: No pleural effusion or pneumothorax. BONE:Within normal limits for the patient's age. Patient has bilateral shoulder replacements. OTHER FINDINGS:Normal. IMPRESSION: No acute pulmonary findings. DATA REPOSITORY: RADIATION DOSE DELIVERED:
--- NOTE | 2024-01-13 21:59 | DI.VRAD_ITS ---
PROCEDURE INFORMATION: Exam: XR Chest Exam date and time: 01/13/2024 9:12 PM Age: 73 years old Clinical indication: Other: Fall TECHNIQUE: Imaging protocol: Radiologic exam of the chest. Views: 2 views. Total images: 2 COMPARISON: CT CHEST WO 01/05/2024 8:01 PM FINDINGS: Lungs: Lungs are clear without consolidation. Pleural spaces: No pleural effusion or pneumothorax. Heart/Mediastinum: Tortuous aorta. Bones/joints: Right shoulder hemiarthroplasty and left shoulder total arthroplasty. IMPRESSION: No acute findings. Dictated and Authenticated by: Joey Deal MD. Ordering:CAROLINE Arenas MD
--- NOTE | 2024-01-13 23:08 | NUR.NOTE ---
Nursing Note:RN called fabiola Payan, who states that she is home and aware that the patient will be coming home with the ambulance
[2024-01-13] MEDS: oxyCODONE 5 MG TAB PO (23:12)
== END 2024-01-13 23:24 | disposition home or self-care (01) ==
PROVIDERS: Emergency Provider Emergency Medicine; PCP Physician Assistant
DX: S20.211A Contusion of right front wall of thorax, initial encounter (principal); W19.XXXA Unspecified fall, initial encounter; E11.9 Type 2 diabetes mellitus without complications; E78.5 Hyperlipidemia, unspecified; E03.9 Hypothyroidism, unspecified; I10 Essential (primary) hypertension; Z79.899 Other long term (current) drug therapy; Z79.82 Long term (current) use of aspirin
CPT/HCPCS: 80048; 99283; 71046; 85025; 99284

== ENCOUNTER 2024-02-03 15:23 | Outpatient (CLI) | payer MEDICARE, MEDICAID, SELFPAY ==
--- NOTE | 2024-02-03 13:27 | DI.RAD_ITS ---
Exam(s) XR SHOULDER LT COMPLETE 2+V EXAM: XR SHOULDER LT COMPLETE 2+V CLINICAL HISTORY: f/u shoulder surgery. TECHNIQUE: 2D digital imaging was performed. COMPARISON: CR XR SHOULDER LT COMPLETE 2+V from 10/28/2023. Postop views at that time. FINDINGS: Seven views There is stable position alignment of the components of the recently placed reverse shoulder prosthes is. There is no evidence of fracture or loosening. There is no radiographic evidence of osteomyelit is. IMPRESSION: Stable satisfactory appearance of the reverse prosthesis which was placed on 10/28/2023 DATA REPOSITORY: RADIATION DOSE DELIVERED:
== END 2024-02-03 15:24 | disposition home or self-care (01) ==
LOC: DIORS 15:24
PROVIDERS: PCP Physician Assistant; Visit Provider Student in an Organized Health Care Education/Training Program
DX: Z47.1 Aftercare following joint replacement surgery (principal); Z96.612 Presence of left artificial shoulder joint
CPT/HCPCS: 73030

== ENCOUNTER 2024-09-14 13:08 | Outpatient (REF) | payer MEDICARE, MEDICAID, SELFPAY ==
[2024-09-14 15:28] LABS: HCT 35.6 % (36.0-46.0); HGB 11.7 g/dL (11.2-15.7); MCH 30.2 pg (27.0-33.0); MCHC 32.9 % (32.0-36.0); MCV 92 fL (80-95); MPV 10.6 fL (8.0-11.0); Platelet Count 351 10^3/uL (130-400); RBC 3.88 10^6/uL (3.93-5.22); RDW 12.3 % (11.7-14.6); RDW-SD 40.9 fL; WBC 7.49 10^3/uL (4.4-10.8)
[2024-09-14 15:57] LABS: ALT 28 U/L (14-59); AST 25 U/L (15-37); Albumin 3.8 g/dL (3.4-5.0); Alkaline Phosphatase 93 U/L (46-116); Anion Gap 8.4 mmol/L (3-11); BUN 16 mg/dL (7-18); Bilirubin, Total 0.5 mg/dL (0.2-1.0); CO2 27.6 mmol/L (21.0-32.0); CREATININE 1.6 mg/dL (0.55-1.02); Calculated LDL 67 mg/dL (<100); Chloride 105 mmol/L (98-107); Cholesterol 139 mg/dL (<200); Estimated GFR 33.22 (mL/min/1.73m2); Glucose 149 mg/dL (74-106); HDL Cholesterol 45 mg/dL (>or=50); Potassium 4.5 mmol/L (3.5-5.1); Sodium 141 mmol/L (136-145); TSH 4.18 uIU/mL (0.36-3.74); Total Protein 6.8 g/dL (6.4-8.2); Triglyceride 139 mg/dL (<150)
[2024-09-14 17:18] LABS: Hemoglobin A1C 7.7 % (<5.7)
[2024-09-14 17:20] LABS: Microalb ug/mg Crea 7.7 ug/mg Cr
== END 2024-09-14 13:09 | disposition home or self-care (01) ==
LOC: NCHCN 13:08
PROVIDERS: PCP Physician Assistant; Visit Provider Physician Assistant
DX: E03.9 Hypothyroidism, unspecified (principal); E11.9 Type 2 diabetes mellitus without complications; E78.5 Hyperlipidemia, unspecified
CPT/HCPCS: 80053; 80061; 85027; 82043; 82570; 83036; 84443

== ENCOUNTER 2024-10-15 00:20 | Outpatient (CLI) | payer MEDICARE, MEDICAID, SELFPAY ==
--- NOTE | 2024-10-15 | DI.DEXA_ITS ---
Exam(s) XR DEXA BONE DENSITY W/WO ERIC EXAM: XR DEXA BONE DENSITY W/WO ERIC CLINICAL HISTORY: SCREENING FOR OSTEOPOROSIS IN Asymptomatic menopausal state, Z78.0 TECHNIQUE: Routine DEXA evaluation of the lumbar spine, hip, or forearm. COMPARISON: No exams were available for comparison FINDINGS: Performed on a Hologic unit. Lateral image: Mild anterior wedging of T11 vertebral body noted. Lumbar Spine total T-score: -2.2 which is in the osteopenia range Hip total T-score:-1.8 which is in the osteopenia range. Independent reading at the level of the femoral neck yields T-score of -3.0 which is in the osteopor osis range Forearm total T-score: -2.4 which is in the osteopenia range. IMPRESSION: Bone mineral density measures in the osteoporosis range for the femoral neck. Fracture risk is high at this level. Osteopenia range for the lumbar spine and forearm. Note: Any spine fracture indicates 5x risk for subsequent spine fracture and 2x risk for subsequent h ip fracture. World Health Organization criteria for BMD interpretation classify patients: Normal...... T- Score at or above -1.0 Osteopenic... T- Score between -1.0 and -2.5 Osteoporosis... T-Score at or below -2.5
== END 2024-10-15 00:40 ==
LOC: DI 00:20
PROVIDERS: PCP Physician Assistant; Visit Provider Physician Assistant
DX: Z78.0 Asymptomatic menopausal state (principal); Z12.31 Encounter for screening mammogram for malignant neoplasm of breast; M81.0 Age-related osteoporosis without current pathological fracture
CPT/HCPCS: 77080

== ENCOUNTER 2025-01-10 14:40 | Emergency (ER) | payer MEDICARE, MEDICAID, SELFPAY ==
[2025-01-10 14:59] VITALS: BP 169/85; PULSE 74; RESP 16; TEMP 36.7; O2SAT 96
--- NOTE | 2025-01-10 15:00 | DI.RAD_ITS ---
Exam(s) XR HAND LT COMPLETE EXAM: XR HAND LT COMPLETE CLINICAL HISTORY: pain s/p fall. TECHNIQUE: 2D digital imaging was performed of the left hand. Three views were obtained. AP, lateral and oblique views were obtained. COMPARISON: CR LEFT HAND COMPLETE from 11/11/2008 FINDINGS: BONES: There is an acute nondisplaced transverse fracture through the proximal metaphysis of the proximal phalanx of the 5th finger. The fracture does not appear to extend into the joint space. No bony destructive lesion is seen. JOINTS: No dislocation present. SOFT TISSUE: Normal. IMPRESSION: Acute nondisplaced transverse fracture through the proximal metaphysis of the proximal phalanx of the 5th finger. DATA REPOSITORY: RADIATION DOSE DELIVERED:
[2025-01-10 17:12] VITALS: BP 156/82; PULSE 72; RESP 18; TEMP 36.6; O2SAT 95
--- NOTE | 2025-01-10 17:17 | W.ED.GENAD ---
Discharge Plan Disposition Patient Disposition: Home Condition: Stable Discharge Details Clinical Impression: Hand pain, left, Fracture of finger of left hand Primary Care Provider: Forrest Bangura ED Provider: Israel Nunez [place] Meds and New Rx's Prescriptions: Continued aspirin 325 MG tablet 81 mg PO DAILY estradiol [Estrace] 0.01 % (0.1 mg/gram) cream 1 g vaginal .3xweek Patient Comments: pt. doesnt use triamcinolone acetonide 0.1 % cream 1 applic topical BID albuterol sulfate 2.5 mg /3 mL (0.083 %) solution for nebulization 2.5 mg inhalation Q6H clotrimazole-betamethasone 1-0.05 % cream 1 applic topical BID metformin 500 mg tablet 500 mg PO BID omeprazole 40 mg capsule,delayed release(DR/EC) 40 mg PO DAILY albuterol sulfate [Ventolin HFA] 90 mcg/actuation HFA aerosol inhaler 2 puff inhalation Q6H PRN gabapentin 600 mg tablet 600 mg PO BID metoprolol succinate 25 mg tablet extended release 24 hr 25 mg PO DAILY atorvastatin 40 mg tablet 40 mg PO DAILY furosemide 20 mg tablet 20 mg PO DAILY fluticasone propionate [Flovent HFA] 220 mcg/actuation HFA aerosol inhaler 2 puff inhalation BID calcium citrate 200 mg (950 mg) tablet 200 mg PO DAILY Patient Comments: pt. reports she no longer takes docusate sodium [Colace] 100 mg capsule 100 mg PO DAILY lisinopril 40 mg tablet 20 mg PO DAILY glimepiride 2 mg tablet 2 mg PO DAILY spironolactone 25 mg tablet 25 mg PO DAILY potassium chloride 10 MEQ tablet extended release 10 meq PO BID pramipexole [Mirapex] 0.25 MG tablet 0.25 mg PO DAILY nitroglycerin 0.4 MG tablet, sublingual 0.4 mg Sublingual DIRECTED Qty: 25 0RF Rx Instructions: 1 tab SL prn chest pain, may repeat Q5 minutes up to 3 tabs, and call 911 multivitamin Capsule 1 cap PO QAM levothyroxine 137 mcg Capsule 112 mcg PO DAILY oxycodone 5 mg tablet 5 mg PO QID PRN naproxen 250 mg tablet 250 mg PO BID PRN (Reason: Moderate pain) Qty: 40 0RF ondansetron 4 mg tablet,disintegrating 4 mg PO Q8H PRN (Reason: nausea and vomiting) Qty: 30 0RF lidocaine [Lidoderm] 5 % adhesive patch,medicated 1 patch topical DAILY Qty: 15 0RF Rx Instructions: leave on most painful area for up to 12 hrs albuterol sulfate [ProAir HFA] 90 mcg/actuation HFA aerosol inhaler 2 puff inhalation Q6H PRNQty: 8.5 0RF ciprofloxacin-dexamethasone 0.3-0.1 % drops,suspension 4 drp otic (ear) Q12H Patient Comments: INSTILL 4 DROPS INTO THE AFFECTED EAR(S) TWO TIMES A DAY FOR 7 DAYS famotidine 20 mg tablet 20 mg PO BID Qty: 30 0RF Discharge Instructions Additional Instructions: You have a fracture that is nondisplaced at the base of the pinky. Call orthopedics tomorrow to arrange for a follow-up appointment. If you feel more ill or have new pain such as severe headaches return to the emergency department for reevaluation. Referrals: Adonay Doan MD [ [facility] STAFF PHYSICIAN, Orthopaedic Surgical] [facility] Date/Time Provider Initiated Documentation: 01/10/25 15:14. Limitations to Documentation: no limitations. Information obtained by: patient. History of Present Illness 74 year old F presents to the emergency department with the chief complaint of left hand pain s/p fall yesterday, described as moderate, Quality is described as aching, Patient extremity. Patient started experiencing this day(s) (1) and it has been constant. Rest improves symptom(s), Movement worsens symptoms . Patient notes no other symptoms.. Patient did receive the following treatments prior to arrival, none Related Data Home Medications ?Medication ?Instructions ?Recorded ?Confirmed aspirin 325 mg tablet 81 mg PO DAILY 03/02/13 02/03/24 nitroglycerin 0.4 mg sublingual 0.4 mg sublingual DIRECTED 10/30/15 02/03/24 tablet angina ##25 potassium chloride 10 mEq 10 meq PO BID 10/30/15 02/03/24 tablet,extended release pramipexole 0.25 mg tablet 0.25 mg PO DAILY 10/30/15 02/03/24 (Mirapex) levothyroxine 137 mcg capsule 112 mcg PO DAILY 03/02/18 02/03/24 multivitamin 1 cap PO QAM 03/02/18 02/03/24 oxycodone 5 mg tablet 5 mg PO QID PRN 02/09/20 02/03/24 albuterol sulfate 2.5 mg/3 mL 2.5 mg inhalation Q6H 11/14/21 02/03/24 (0.083 %) solution for nebulization clotrimazole-betamethasone 1 1 applic topical BID 11/14/21 02/03/24 %-0.05 % topical cream estradiol 0.01% (0.1 mg/gram) 1 g vaginal .3xweek 11/14/21 02/03/24 vaginal cream (Estrace) triamcinolone acetonide 0.1 % 1 applic topical BID 11/14/21 02/03/24 topical cream albuterol sulfate 90 mcg/actuation 2 puff inhalation Q6H PRN #8.5 08/31/22 02/03/24 aerosol inhaler (ProAir HFA) grams albuterol sulfate 90 mcg/actuation 2 puff inhalation Q6H PRN 02/17/23 02/03/24 aerosol inhaler (Ventolin HFA) gabapentin 600 mg tablet 600 mg PO BID 02/17/23 02/03/24 metformin 500 mg tablet 500 mg PO BID 02/17/23 02/03/24 omeprazole 40 mg capsule,delayed 40 mg PO DAILY 02/17/23 02/03/24 release atorvastatin 40 mg tablet 40 mg PO DAILY 05/06/23 02/03/24 calcium citrate 200 mg PO DAILY 05/06/23 02/03/24 docusate sodium 100 mg capsule 100 mg PO DAILY 05/06/23 02/03/24 (Colace) fluticasone propionate 220 2 puff inhalation BID 05/06/23 02/03/24 mcg/actuation HFA aerosol inhaler (Flovent HFA) furosemide 20 mg tablet 20 mg PO DAILY 05/06/23 02/03/24 metoprolol succinate 25 mg 25 mg PO DAILY 05/06/23 02/03/24 tablet,extended release 24 hr lisinopril 40 mg tablet 20 mg PO DAILY 07/16/23 02/03/24 glimepiride 2 mg tablet 2 mg PO DAILY 09/11/23 02/03/24 spironolactone 25 mg tablet 25 mg PO DAILY 09/11/23 02/03/24 naproxen 250 mg tablet 250 mg PO BID PRN Moderate pain 10/16/23 02/03/24 #40 tabs ondansetron 4 mg disintegrating 4 mg PO Q8H PRN nausea and 10/23/23 02/03/24 tablet vomiting #30 tabs ciprofloxacin 0.3 %-dexamethasone 4 drp otic (ear) Q12H 11/04/23 02/03/24 0.1 % ear drops,suspension famotidine 20 mg tablet 20 mg PO BID #30 tabs 11/05/23 02/03/24 lidocaine 5 % topical patch 1 patch topical DAILY #15 ea 01/13/24 02/03/24 (Lidoderm) Previous Rx's ?Medication ?Instructions ?Recorded nitroglycerin 0.4 mg sublingual 0.4 mg sublingual DIRECTED 10/30/15 tablet angina ##25 albuterol sulfate 90 mcg/actuation 2 puff inhalation Q6H PRN #8.5 08/31/22 aerosol inhaler (ProAir HFA) grams naproxen 250 mg tablet 250 mg PO BID PRN Moderate pain 10/16/23 #40 tabs ondansetron 4 mg disintegrating 4 mg PO Q8H PRN nausea and 10/23/23 tablet vomiting #30 tabs famotidine 20 mg tablet 20 mg PO BID #30 tabs 11/05/23 lidocaine 5 % topical patch 1 patch topical DAILY #15 ea 01/13/24 (Lidoderm) Allergies Allergy/AdvReac Type Severity Reaction Status Date / Time acetaminophen (From Tylenol) Allergy Intermediate Swelling/Ed Verified 01/10/25 15:05 marley cyclobenzaprine Allergy Intermediate Hives Verified 01/10/25 15:05 (Cyclobenzaprine) codeine Allergy Unknown feels like Verified 01/10/25 15:05 I'm having a heart attack shellfish derived Allergy Unknown Other (See Verified 01/10/25 15:05 Comment) ibuprofen Allergy Other (See Verified 01/10/25 15:05 Comment) fentanyl AdvReac Intermediate Contraindic Verified 01/10/25 15:05 ated morphine AdvReac Unknown Contraindic Verified 01/10/25 15:05 ated cats Allergy Severe Wheezing Uncoded 01/10/25 15:05 General Stated Complaint: Orthopedic TOSHIA: 4 Review of Systems All systems reviewed & are unremarkable except as noted in HPI and below Constitutional Constitutional: Denies chills, Denies fever(s) and Denies weakness Cardiovascular Cardiovascular: Denies chest pain and Denies dyspnea Respiratory Respiratory: Denies cough and Denies dyspnea Gastrointestinal Gastrointestinal: Denies abdominal pain, Denies nausea and Denies vomiting Neurologic Neurologic: Denies weakness Exam Const General: no acute distress Orientation: alert HENMT Head: normal to inspection Ears: external ears normal General nose exam: external nose normal Mouth: moist mucous membranes Eyes General: appearance normal, both eyes and all related structures Neck Neck: normal visual inspection Resp Effort & Inspection: normal respiratory effort and able to speak in complete sentences Cardio Rate: regular rate Skin General skin exam: no rashes or lesions noted Neuro General: patient alert and patient oriented x3 Extrem General: full ROM and capillary refill normal Psych Mental Status: mental status grossly normal Course Vital Signs Vital signs: Vital Signs Temperature 36.7 C 01/10/25 14:59 Pulse 74 01/10/25 14:59 Respiratory Rate 16 01/10/25 14:59 Blood Pressure 169/85 H 01/10/25 14:59 Pulse Oximetry 96 01/10/25 14:59 Temperature 36.6 C 01/10/25 17:12 Temperature Source Oral 01/10/25 17:12 Pulse 72 01/10/25 17:12 Respiratory Rate 18 01/10/25 17:12 Blood Pressure 156/82 H 01/10/25 17:12 Blood Pressure Mean 106 01/10/25 17:12 Blood Pressure Position Sitting 01/10/25 14:59 Pulse Oximetry 95 01/10/25 17:12 Oxygen Delivery Method Room Air 01/10/25 17:12 Oxygen Flow Rate 0 01/10/25 17:12 Pain Level 0 01/10/25 14:59 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 She says yesterday she was standing on the side of the road and there were [address] so she stepped up on the sidewalk and in doing so she tripped and landed on her left hand. She did not hit her head or have loss of consciousness. She has had pain at the base of the pinky since the fall so came here for an evaluation. She has some tenderness at the base of the pinky. She does have intact range of motion at the joints. Intact sensation and cap refill. She had an x-ray done prior to my exam which showed a nondisplaced fracture at the base of the fifth phalanx. She has no tenderness in the wrist. I would not place her in a finger splint and have her follow-up with orthopedics. She denies any pain anywhere else so I do not feel any imaging is indicated and she has no other signs of trauma such as scalp hematomas or bruising. Return precautions given Differential Diagnosis Differential Diagnosis: fracture, contusion [facility] All Active Problems (Updated 01/10/25 @ 17:22 by Israel Nunez MD) Fracture of finger of left hand (Acute) Hand pain, left (Acute) Status post reverse total shoulder replacement (Acute) Left rotator cuff tear (Acute) Arthritis of left glenohumeral joint (Acute) Mixed stress and urge urinary incontinence (Acute) Chest pain (Acute) Headache (Acute) Tight introitus (Chronic 2004) No sexual activity times 14 years. No Pap test times 5 years. Will attempt gradual introital dilation. Vaginal atrophy (Chronic) estrace cream started 03/27/18 Status post cataract extraction and insertion of intraocular lens of right eye (Chronic 03/20/18) Status post cataract extraction and insertion of intraocular lens of left eye (Chronic 03/06/18) Refractive amblyopia of right eye (Chronic) Refractive amblyopia of left eye (Chronic) Shoulder pain, right (Acute) a. With decreased range of motion. History of Surgical Procedure (Chronic) a. Excision of dorsal ganglion cyst, left wrist. b. Abdominal hysterectomy. c. Open cholecystectomy. d. Colonoscopy. Pain, low back (Chronic) a. She goes to the pain clinic. Hypertension (Chronic) a. Well controlled. History of asthma (Chronic) Esophageal reflux disease (Chronic) Elevated lipids (Chronic) Chest pain (Acute) Medical History WALT (obstructive sleep apnea) Cervical spondylosis Lumbar spinal stenosis Illiteracy Cataract Type 2 diabetes mellitus Chronic pain Exertional dyspnea Vaginal irritation Vaginal adhesions Impingement syndrome of left shoulder Bilateral leg cramps Cortical cataract of right eye Nuclear sclerotic cataract of right eye Gastroesophageal reflux disease Hypothyroidism Hyperlipidemia Dyslexia Arthritis Osteoporosis Chronic low back pain Essential hypertension Surgical History History of colonoscopy History of cataract surgery Oophrectomy, Right Abdominal hysterectomy Cholecystectomy Family History Mother Heart disease Father Personal history of malignant neoplasm Stomach Sister No problems noted. Brother Heart disease Social History Smoking/Tobacco Use Status: Never Smoking risk assessment performed?: Yes Alcohol Intake: never Drug use: Never Substance use type: does not use Housing: other Number of Children: 1 Do you feel safe at home: Yes Do you feel safe in your relationship?: Yes Additional Social history: pt. lives in a trailer, granddaughter to stay with here
== END 2025-01-10 17:40 | disposition home or self-care (01) ==
PROVIDERS: Emergency Provider Emergency Medicine; PCP Physician Assistant
DX: S62.647A Nondisplaced fracture of proximal phalanx of left little finger, initial encounter for closed fracture (principal); W19.XXXA Unspecified fall, initial encounter
CPT/HCPCS: 99283 ×2; 73130

== ENCOUNTER 2025-01-13 10:49 | Outpatient (REF) | payer MEDICARE, MEDICAID, SELFPAY ==
[2025-01-13 17:41] LABS: TSH 0.85 uIU/mL (0.36-3.74)
[2025-01-13 17:57] LABS: Hemoglobin A1C 6.3 % (<5.7)
== END 2025-01-13 10:50 | disposition home or self-care (01) ==
LOC: NCHCN 10:49
PROVIDERS: PCP Physician Assistant; Visit Provider Physician Assistant
DX: E11.9 Type 2 diabetes mellitus without complications (principal)
CPT/HCPCS: 83036; 84443

== ENCOUNTER 2025-01-26 12:01 | Outpatient (CLI) | payer MEDICARE, MEDICAID, SELFPAY ==
--- NOTE | 2025-01-26 11:21 | DI.RAD_ITS ---
Exam(s) XR HAND LT LIMITED EXAM: XR HAND LT LIMITED CLINICAL HISTORY: F/U FRACTURE. TECHNIQUE: 2D digital imaging was performed of the left hand. Two views were obtained. PA and lateral views were obtained. COMPARISON: CR XR HAND LT COMPLETE from 01/10/2025 FINDINGS: BONES: There has been no change in alignment in the fracture of all vein the proximal phalanx of the 5th finger. No bony destructive lesion is seen. JOINTS: No dislocation present. SOFT TISSUE: Normal. IMPRESSION: Stable alignment of the fracture involving the proximal phalanx of the 5th finger. DATA REPOSITORY: RADIATION DOSE DELIVERED:
== END 2025-01-26 12:02 | disposition home or self-care (01) ==
LOC: DIORS 12:01
PROVIDERS: PCP Physician Assistant; Referring Provider Physician Assistant; Visit Provider Student in an Organized Health Care Education/Training Program
DX: S62.617A Displaced fracture of proximal phalanx of left little finger, initial encounter for closed fracture (principal); W19.XXXA Unspecified fall, initial encounter
CPT/HCPCS: 99213; 73120

== ENCOUNTER 2025-03-21 12:09 | Emergency (ER) | payer MEDICARE, MEDICAID, SELFPAY ==
[2025-03-21] VITALS (37 sets, daily range): BP systolic 119–205; BP diastolic 69–90; PULSE 59–86; RESP 13–20; TEMP 36.7; O2SAT 94–99
--- NOTE | 2025-03-21 11:45 | RT.EKG_ITS ---
APPROVED REPORT Exam: Resting ECG Reason for Exam: dizzy/weak Patient Location: E HR:79 bpm ECG Measurements Heart Rate 79 AXIS DE 159 P 70 QRSd 86 QRS -4 QT 401 T 70 QTc 460 Conclusion Sinus rhythm...normal P axis, V-rate 60- 99 No STEMI
[2025-03-21 12:27] LABS: Abs Immature Grans 0.01 10^3/uL (0.0-0.06); HCT 40.5 % (36.0-46.0); HGB 13.4 g/dL (11.2-15.7); Immature Grans % 0.2 %; MCH 29.2 pg (27.0-33.0); MCHC 33.1 % (32.0-36.0); MCV 88 fL (80-95); MPV 10.0 fL (8.0-11.0); Platelet Count 310 10^3/uL (130-400); RBC 4.59 10^6/uL (3.93-5.22); RDW 11.9 % (11.7-14.6); RDW-SD 38.1 fL; WBC 6.53 10^3/uL (4.4-10.8)
[2025-03-21 12:46] LABS: ALT 27 U/L (14-59); AST 23 U/L (15-37); Albumin 3.6 g/dL (3.4-5.0); Alkaline Phosphatase 84 U/L (46-116); Anion Gap 7.9 mmol/L (3-11); BUN 8 mg/dL (7-18); Bilirubin, Total 0.6 mg/dL (0.2-1.0); CO2 27.1 mmol/L (21.0-32.0); Calcium 9.5 mg/dL (8.5-10.1); Chloride 101 mmol/L (98-107); Estimated GFR 58.02 (mL/min/1.73m2); Glucose 102 mg/dL (74-106); Lipase 24 U/L (<78); Magnesium 1.5 mg/dL (1.8-2.4); Potassium 4.2 mmol/L (3.5-5.1); Sodium 136 mmol/L (136-145); Total Protein 7.1 g/dL (6.4-8.2); Troponin I 14 ng/L (<or=51)
[2025-03-21 12:58] LABS: INR 1.1 (0.9-1.1); PTT Activated 22.9 sec (20.6-30.2); Prothrombin Time 10.6 sec (9.1-11.1)
--- NOTE | 2025-03-21 13:11 | DI.CT_ITS ---
Exam(s) CT HEAD CERVICAL SPINE WO EXAM: CT HEAD CERVICAL SPINE WO CLINICAL HISTORY: Trauma. TECHNIQUE: Imaging Protocol: Axial computed tomography images with coronal and sagittal reformatted images were created and reviewed COMPARISON: CT CT HEAD WO from 03/03/2021 FINDINGS: CT Head: Ventricles and Extra axial spaces: Normal in size and morphology for the patient's age. Hemorrhage: None. Cerebral parenchyma: There are areas of decreased attenuation in the white matter consistent with chronic microvascular ischemic disease. There is no evidence of an acute territorial infarct or mass effect. Midline shift: None. Brainstem/Cerebellum: Normal. Calvarium: Normal. Visualized Paranasal sinuses/Mastoids: Clear. Soft Tissues: Unremarkable. CT Cervical Spine: Bones: No acute fracture or subluxation. Age-appropriate degenerative changes are present throughout the cervical spine. Soft Tissues: Unremarkable. Lung Apices: Clear. IMPRESSION: 1. No acute intracranial process. 2. No acute fracture or subluxation in the cervical spine. RADIATION DOSE DELIVERED: 1,335.26mGy.cm Total DLP DATA REPOSITORY: All CT scans at this facility are submitted to the National Radiology Data Registry (NRDR) Dose Index Registry (DIR) with the [employer] (ACR). RADIATION OPTIMIZATION: All CT scans at this facility use at least one of these dose optimization techniques: automated exposure control; mA and/or kV adjustment per patient size (includes targeted exams where dose is matched to clinical indication); or iterative reconstruction.
--- NOTE | 2025-03-21 13:11 | DI.CT_ITS ---
Exam(s) CT CHEST WO EXAM: CT CHEST WO CLINICAL HISTORY: right chest pain c/f fx. TECHNIQUE: Imaging protocol: Axial computed tomography images were obtained and coronal and sagittal reformatted images were created and reviewed. Lung Computer Aided Detection (CAD) was utilized. COMPARISON: CT CT CHEST WO from 01/05/2024 FINDINGS: There is artifact from the patient's bilateral shoulder arthroplasties. Tracheobronchial tree: Patent where visualized. No bronchiectasis is present. Pulmonary parenchyma: There is atelectasis in the lungs. There is a calcified granuloma in the left lower lobe. There are no focal consolidating infiltrates. Mediastinum and Lena: No dominant adenopathy or fluid collection. The esophagus is unremarkable. Pleura: No effusion or pneumothorax. Heart: Mild cardiomegaly. Moderate coronary artery calcification is present. No pericardial effusion. Aorta: Thoracic aorta non-dilated. Atherosclerotic calcification is present. Upper abdomen: Unremarkable. Lymph nodes: Within normal limits. Soft tissues: Unremarkable. Bones:Within normal limits for the patient's age. There are no acute displaced rib fractures. IMPRESSION: 1. There are no acute rib fractures present. 2. There is no pneumothorax or pleural effusion. RADIATION DOSE DELIVERED: 366.37mGy.cm Total DLP 366.37mGy.cm Total DLP DATA REPOSITORY: All CT scans at this facility are submitted to the National Radiology Data Registry (NRDR) Dose Index Registry (DIR) with the [employer] (ACR). RADIATION OPTIMIZATION: All CT scans at this facility use at least one of these dose optimization techniques: automated exposure control; mA and/or kV adjustment per patient size (includes targeted exams where dose is matched to clinical indication); or iterative reconstruction.
[2025-03-21] MEDS: MAGNESIUM SULFATE 2 GM/50 ML BAG IV_INF (13:23)
[2025-03-21 13:47] LABS: Troponin I 16 ng/L (<or=51)
[2025-03-21] MEDS: Meclizine 25 MG TAB PO (15:08)
[2025-03-21 15:17] LABS: Glucose Negative (Negative)
[2025-03-21] MEDS: Lidocaine 5% Patch 1 PATCH TP (15:56)
--- NOTE | 2025-03-21 16:17 | W.ED.GENAD ---
Discharge Plan Disposition Patient Disposition: Home Discharge Details Clinical Impression: Benign paroxysmal positional vertigo, Hypomagnesemia, Right-sided chest wall pain Primary Care Provider: Forrest Bangura ED Provider: Samuel Renee Home Meds and New Rx's Prescriptions: New meclizine 25 mg tablet 25 mg PO BID PRNQty: 20 0RF lidocaine [Lidoderm] 5 % adhesive patch,medicated 1 patch topical DAILY Qty: 15 0RF Rx Instructions: leave on most painful area for up to 12 hrs No Action aspirin 325 MG tablet 81 mg PO DAILY estradiol [Estrace] 0.01 % (0.1 mg/gram) cream 1 g vaginal .3xweek Patient Comments: pt. doesnt use albuterol sulfate 2.5 mg /3 mL (0.083 %) solution for nebulization 2.5 mg inhalation Q6H clotrimazole-betamethasone 1-0.05 % cream 1 applic topical BID metformin 500 mg tablet 500 mg PO BID omeprazole 40 mg capsule,delayed release(DR/EC) 40 mg PO DAILY albuterol sulfate [Ventolin HFA] 90 mcg/actuation HFA aerosol inhaler 2 puff inhalation Q6H PRN gabapentin 600 mg tablet 600 mg PO BID metoprolol succinate 25 mg tablet extended release 24 hr 25 mg PO DAILY atorvastatin 40 mg tablet 40 mg PO DAILY fluticasone propionate [Flovent HFA] 220 mcg/actuation HFA aerosol inhaler 2 puff inhalation BID docusate sodium [Colace] 100 mg capsule 100 mg PO DAILY lisinopril 40 mg tablet 20 mg PO DAILY glimepiride 2 mg tablet 2 mg PO DAILY potassium chloride 10 MEQ tablet extended release 10 meq PO BID pramipexole [Mirapex] 0.25 MG tablet 0.25 mg PO DAILY nitroglycerin 0.4 MG tablet, sublingual 0.4 mg Sublingual DIRECTED Qty: 25 0RF Rx Instructions: 1 tab SL prn chest pain, may repeat Q5 minutes up to 3 tabs, and call 911 multivitamin Capsule 1 cap PO QAM levothyroxine 137 mcg Capsule 112 mcg PO DAILY oxycodone 5 mg tablet 5 mg PO QID PRN ondansetron 4 mg tablet,disintegrating 4 mg PO Q8H PRN (Reason: nausea and vomiting) Qty: 30 0RF lidocaine [Lidoderm] 5 % adhesive patch,medicated 1 patch topical DAILY Qty: 15 0RF Rx Instructions: leave on most painful area for up to 12 hrs albuterol sulfate [ProAir HFA] 90 mcg/actuation HFA aerosol inhaler 2 puff inhalation Q6H PRNQty: 8.5 0RF famotidine 20 mg tablet 20 mg PO BID Qty: 30 0RF cholecalciferol (vitamin D3) [Vitamin D3] 25 mcg (1,000 unit) capsule 25 mcg PO DAILY Discharge Instructions Instructions: Vertigo (a type of dizziness), Vestibular Exercises Additional Instructions: Please follow-up with your primary care provider regarding your visit to the emergency department today. Be sure to discuss results of all test performed here today to include radiology, and laboratory testing as well as results for any pending cultures. Should your symptoms worsen, or if you develop new concerning symptoms, please return immediately emergency department for further evaluation. HPI General Date/Time Provider Initiated Documentation: 03/21/25 12:15. HPI Narrative: MDM/Narrative: 75-year-old female presents for vertigo x 4 days, with associated right-sided chest pain status post ground-level fall 4 days ago. Vital signs within normal limits. Physical exam notable for reproducible right chest wall as well as [place]-Hallpike positive assessment concerning for BPPV. However given patient's advanced age and other comorbidities will assess for intracranial causes such as CVA, intracranial bleeding, or other toxic metabolic causes of encephalopathy but blood work and UA. Will plan to treat patient with Tana-Hallpike maneuver, meclizine and reassess. Will also obtain CT chest without contrast to assess for possible rib fractures or pulmonary injury. ED course: Results reviewed, EKG is nonischemic, CT showed no acute findings in the chest or head and neck. Lab results are within normal limits other than mild hypomagnesemia for which she was repleted. On reassessment following Jazmín maneuver meclizine patient feels much better. Plan of care discussed the patient is agreeable to plan for discharge to follow-up with primary care, discharge packet included Jazmín maneuver information, for instruction return to emergency department should her symptoms worsen or not improve. Clinical impression: BPPV Hypomagnesemia Disposition: Home HPI: 75-year-old female past medical history of diabetes hypertension, presents for evaluation of vertigo x 4 days. Patient states that symptoms began suddenly while she was on an outdoor walk. She notes that symptoms became so strong that she fell forward falling onto a rock causing injury to her right sided chest. She decided not to seek medical evaluation at that time was able to ambulate following and notes her symptoms have been persistent however intermittent. She notes typically symptoms began when she stands up and moves about, when she rests completely still she denies any dizziness, as well as no current dizziness. She denies any other associated symptoms such as abdominal pain, chest pain, shortness of breath, headache, change in vision, changes speech or any other new or concerning symptoms. Denies any preceding viral symptoms, ear congestion, sore throat sneezing, runny nose congestion or cough. ROS: Negative besides as mentioned above Exam: Gen: A&O NAD HEENT: NCAT, EOMI, not icteric. External ears normal. No rhinorrhea. Moist mucous membranes. Neck: Supple, full range of motion, no observable masses, No meningeal sign. Lungs: No Respiratory distress. CV: RRR, no edema. Abdomen: Soft, nondistended, No rebound tenderness. MSK: No joint swelling, no redness. Skin: No rashes, petechiae, lesions. Normal color per patient. Neuro: Cranial nerves II through XII grossly intact, [id number] normal, [id number] normal, motor strength 5 out of 5 throughout the bilateral upper and lower extremities Psych: Appropriate for situation. Rhythm: NSR Rate: 79 [place]: Normal axis Intervals: Normal intervals Other findings: No acute ST segment or T wave changes to suggest acute ischemia. Labs: Laboratory Tests Range/Units 03/21/25 03/21/25 03/21/25 12:22 13:26 14:23 WBC (4.4-10.8) 10^3/uL 6.53 RBC (3.93-5.22) 10^6/uL 4.59 Hgb (11.2-15.7) g/dL 13.4 Hct (36.0-46.0) % 40.5 MCV (80-95) fL 88 MCH (27.0-33.0) pg 29.2 MCHC (32.0-36.0) % 33.1 RDW (11.7-14.6) % 11.9 Plt Count (130-400) 10^3/uL 310 MPV (8.0-11.0) fL 10.0 Immature Gran % % 0.2 Neutrophils % % 55.1 Lymphocytes % % 34.3 Monocytes % % 7.0 Eosinophils % % 3.2 Basophils % % 0.2 Nucleated RBC % (0.0-0.3) % 0.0 Absolute Neutrophils (1.2-6.7) 10^3/uL 3.60 Absolute Lymphocytes (1.2-3.4) 10^3/uL 2.24 Absolute Monocytes (0.1-0.8) 10^3/uL 0.46 Absolute Eosinophils (0.0-0.7) 10^3/uL 0.21 Absolute Basophils (0.0-0.2) 10^3/uL 0.01 PT (9.1-11.1) sec 10.6 INR (0.9-1.1) 1.1 APTT (20.6-30.2) sec 22.9 VBG Lactate (<or=2.0) mmol/L 1.6 Sodium (136-145) mmol/L 136 Potassium (3.5-5.1) mmol/L 4.2 Chloride (98-107) mmol/L 101 Carbon Dioxide (21.0-32.0) mmol/L 27.1 Anion Gap (3-11) mmol/L 7.9 BUN (7-18) mg/dL 8 Creatinine (0.55-1.02) mg/dL 1.0 Est GFR (CKD-EPI 2020) (mL/min/1.73m2) 58.02 Glucose (74-106) mg/dL 102 Calcium (8.5-10.1) mg/dL 9.5 Magnesium (1.8-2.4) mg/dL 1.5 L Total Bilirubin (0.2-1.0) mg/dL 0.6 AST (15-37) U/L 23 ALT (14-59) U/L 27 Alkaline Phosphatase (46-116) U/L 84 Troponin I (<or=51) ng/L 14 16 Total Protein (6.4-8.2) g/dL 7.1 Albumin (3.4-5.0) g/dL 3.6 Lipase (<78) U/L 24 Urine Color (Yellow) Yellow Urine Clarity (Clear) Clear Urine pH (5-8) 6.0 Ur Specific [place] (1.005-1.025) 1.010 Urine Protein (Neg-Trace) mg/dL Negative Urine Ketones (Negative) mg/dL Negative Urine Blood (Negative) Negative Urine Nitrite (Negative) Negative Urine Bilirubin (Negative) Negative Urine Urobilinogen (Up to 0.2) mg/dL 0.2 Ur Leukocyte Esterase (Negative) Negative Urine Glucose (Negative) mg/dL Negative Radiology: Exam(s) CT HEAD CERVICAL SPINE WO EXAM: CT HEAD CERVICAL SPINE WO CLINICAL HISTORY: Trauma. TECHNIQUE: Imaging Protocol: Axial computed tomography images with coronal and sagittal reformatted images were created and reviewed COMPARISON: CT CT HEAD WO from 03/03/2021 FINDINGS: CT Head: Ventricles and Extra axial spaces: Normal in size and morphology for the patient's age. Hemorrhage: None. Cerebral parenchyma: There are areas of decreased attenuation in the white matter consistent with chronic microvascular ischemic disease. There is no evidence of an acute territorial infarct or mass effect. Midline shift: None. Brainstem/Cerebellum: Normal. Calvarium: Normal. Visualized Paranasal sinuses/Mastoids: Clear. Soft Tissues: Unremarkable. CT Cervical Spine: Bones: No acute fracture or subluxation. Age-appropriate degenerative changes are present throughout the cervical spine. Soft Tissues: Unremarkable. Lung Apices: Clear. IMPRESSION: 1. No acute intracranial process. 2. No acute fracture or subluxation in the cervical spine. RADIATION DOSE DELIVERED: 1,335.26mGy.cm Total DLP DATA REPOSITORY: All CT scans at this facility are submitted to the National Radiology Data Registry (NRDR) Dose Index Registry (DIR) with the [employer] (ACR). RADIATION OPTIMIZATION: All CT scans at this facility use at least one of these dose optimization techniques: automated exposure control; mA and/or kV adjustment per patient size (includes targeted exams where dose is matched to clinical indication); or iterative reconstruction. Exam(s) CT CHEST WO EXAM: CT CHEST WO CLINICAL HISTORY: right chest pain c/f fx. TECHNIQUE: Imaging protocol: Axial computed tomography images were obtained and coronal and sagittal reformatted images were created and reviewed. Lung Computer Aided Detection (CAD) was utilized. COMPARISON: CT CT CHEST WO from 01/05/2024 FINDINGS: There is artifact from the patient's bilateral shoulder arthroplasties. Tracheobronchial tree: Patent where visualized. No bronchiectasis is present. Pulmonary parenchyma: There is atelectasis in the lungs. There is a calcified granuloma in the left lower lobe. There are no focal consolidating infiltrates. Mediastinum and Lena: No dominant adenopathy or fluid collection. The esophagus is unremarkable. Pleura: No effusion or pneumothorax. Heart: Mild cardiomegaly. Moderate coronary artery calcification is present. No pericardial effusion. Aorta: Thoracic aorta non-dilated. Atherosclerotic calcification is present. Upper abdomen: Unremarkable. Lymph nodes: Within normal limits. Soft tissues: Unremarkable. Bones:Within normal limits for the patient's age. There are no acute displaced rib fractures. IMPRESSION: 1. There are no acute rib fractures present. 2. There is no pneumothorax or pleural effusion. Related Data Home Medications ?Medication ?Instructions ?Recorded ?Confirmed aspirin 325 mg tablet 81 mg PO DAILY 03/02/13 03/21/25 nitroglycerin 0.4 mg sublingual 0.4 mg sublingual DIRECTED 10/30/15 03/21/25 tablet angina ##25 potassium chloride 10 mEq 10 meq PO BID 10/30/15 03/21/25 tablet,extended release pramipexole 0.25 mg tablet 0.25 mg PO DAILY 10/30/15 03/21/25 (Mirapex) levothyroxine 137 mcg capsule 112 mcg PO DAILY 03/02/18 03/21/25 multivitamin 1 cap PO QAM 03/02/18 03/21/25 oxycodone 5 mg tablet 5 mg PO QID PRN 02/09/20 03/21/25 albuterol sulfate 2.5 mg/3 mL 2.5 mg inhalation Q6H 11/14/21 03/21/25 (0.083 %) solution for nebulization clotrimazole-betamethasone 1 1 applic topical BID 11/14/21 03/21/25 %-0.05 % topical cream estradiol 0.01% (0.1 mg/gram) 1 g vaginal .3xweek 11/14/21 03/21/25 vaginal cream (Estrace) albuterol sulfate 90 mcg/actuation 2 puff inhalation Q6H PRN #8.5 08/31/22 03/21/25 aerosol inhaler (ProAir HFA) grams albuterol sulfate 90 mcg/actuation 2 puff inhalation Q6H PRN 02/17/23 03/21/25 aerosol inhaler (Ventolin HFA) gabapentin 600 mg tablet 600 mg PO BID 02/17/23 03/21/25 metformin 500 mg tablet 500 mg PO BID 02/17/23 03/21/25 omeprazole 40 mg capsule,delayed 40 mg PO DAILY 02/17/23 03/21/25 release atorvastatin 40 mg tablet 40 mg PO DAILY 05/06/23 03/21/25 docusate sodium 100 mg capsule 100 mg PO DAILY 05/06/23 03/21/25 (Colace) fluticasone propionate 220 2 puff inhalation BID 05/06/23 03/21/25 mcg/actuation HFA aerosol inhaler (Flovent HFA) metoprolol succinate 25 mg 25 mg PO DAILY 05/06/23 03/21/25 tablet,extended release 24 hr lisinopril 40 mg tablet 20 mg PO DAILY 07/16/23 03/21/25 glimepiride 2 mg tablet 2 mg PO DAILY 09/11/23 03/21/25 ondansetron 4 mg disintegrating 4 mg PO Q8H PRN nausea and 10/23/23 03/21/25 tablet vomiting #30 tabs famotidine 20 mg tablet 20 mg PO BID #30 tabs 11/05/23 03/21/25 lidocaine 5 % topical patch 1 patch topical DAILY #15 ea 01/13/24 03/21/25 (Lidoderm) cholecalciferol (vitamin D3) 25 25 mcg PO DAILY 03/21/25 03/21/25 mcg (1,000 unit) capsule (Vitamin D3) lidocaine 5 % topical patch 1 patch topical DAILY Right chest 03/21/25 (Lidoderm) wall pain #15 ea meclizine 25 mg tablet 25 mg PO BID PRN #20 tabs 03/21/25 Previous Rx's ?Medication ?Instructions ?Recorded nitroglycerin 0.4 mg sublingual 0.4 mg sublingual DIRECTED 10/30/15 tablet angina ##25 albuterol sulfate 90 mcg/actuation 2 puff inhalation Q6H PRN #8.5 08/31/22 aerosol inhaler (ProAir HFA) grams ondansetron 4 mg disintegrating 4 mg PO Q8H PRN nausea and 10/23/23 tablet vomiting #30 tabs famotidine 20 mg tablet 20 mg PO BID #30 tabs 11/05/23 lidocaine 5 % topical patch 1 patch topical DAILY #15 ea 01/13/24 (Lidoderm) lidocaine 5 % topical patch 1 patch topical DAILY Right chest 03/21/25 (Lidoderm) wall pain #15 ea meclizine 25 mg tablet 25 mg PO BID PRN #20 tabs 03/21/25 Allergies Allergy/AdvReac Type Severity Reaction Status Date / Time acetaminophen (From Tylenol) Allergy Intermediate Swelling/Ed Verified 03/21/25 12:09 marley cyclobenzaprine Allergy Intermediate Hives Verified 03/21/25 12:09 (Cyclobenzaprine) codeine Allergy Unknown feels like Verified 03/21/25 12:09 I'm having a heart attack shellfish derived Allergy Unknown Other (See Verified 03/21/25 12:09 Comment) ibuprofen Allergy Other (See Verified 03/21/25 12:09 Comment) fentanyl AdvReac Intermediate Contraindic Verified 03/21/25 12:09 ated morphine AdvReac Unknown Contraindic Verified 03/21/25 12:09 ated cats Allergy Severe Wheezing Uncoded 03/21/25 12:09 General Stated Complaint: Nausea/Vomit/Diar TOSHIA: 3 Course Vital Signs Vital signs: Vital Signs Temperature 36.7 C 03/21/25 12:00 Pulse 81 03/21/25 12:00 Respiratory Rate 16 03/21/25 12:00 Blood Pressure 205/85 H 03/21/25 12:00 Pulse Oximetry 98 03/21/25 12:00 Temperature 36.7 C 03/21/25 12:00 Temperature Source Oral 03/21/25 12:00 Pulse 70 03/21/25 16:01 Pulse 67 03/21/25 16:00 Respiratory Rate 20 03/21/25 16:01 Blood Pressure 119/69 03/21/25 16:01 Blood Pressure Mean 87 03/21/25 16:01 Blood Pressure Position Sitting 03/21/25 12:00 Pulse Oximetry 96 03/21/25 16:01 Oxygen Delivery Method Room Air 03/21/25 12:00 Oxygen Flow Rate 0 03/21/25 12:00 Pain Level 10 03/21/25 12:00 Lab/Test Results Lab/Test Results: Laboratory Tests Range/Units 03/21/25 03/21/25 03/21/25 12:22 13:26 14:23 WBC (4.4-10.8) 10^3/uL 6.53 RBC (3.93-5.22) 10^6/uL 4.59 Hgb (11.2-15.7) g/dL 13.4 Hct (36.0-46.0) % 40.5 MCV (80-95) fL 88 MCH (27.0-33.0) pg 29.2 MCHC (32.0-36.0) % 33.1 RDW (11.7-14.6) % 11.9 Plt Count (130-400) 10^3/uL 310 MPV (8.0-11.0) fL 10.0 Immature Gran % % 0.2 Neutrophils % % 55.1 Lymphocytes % % 34.3 Monocytes % % 7.0 Eosinophils % % 3.2 Basophils % % 0.2 Nucleated RBC % (0.0-0.3) % 0.0 Absolute Neutrophils (1.2-6.7) 10^3/uL 3.60 Absolute Lymphocytes (1.2-3.4) 10^3/uL 2.24 Absolute Monocytes (0.1-0.8) 10^3/uL 0.46 Absolute Eosinophils (0.0-0.7) 10^3/uL 0.21 Absolute Basophils (0.0-0.2) 10^3/uL 0.01 PT (9.1-11.1) sec 10.6 INR (0.9-1.1) 1.1 APTT (20.6-30.2) sec 22.9 VBG Lactate (<or=2.0) mmol/L 1.6 Sodium (136-145) mmol/L 136 Potassium (3.5-5.1) mmol/L 4.2 Chloride (98-107) mmol/L 101 Carbon Dioxide (21.0-32.0) mmol/L 27.1 Anion Gap (3-11) mmol/L 7.9 BUN (7-18) mg/dL 8 Creatinine (0.55-1.02) mg/dL 1.0 Est GFR (CKD-EPI 2020) (mL/min/1.73m2) 58.02 Glucose (74-106) mg/dL 102 Calcium (8.5-10.1) mg/dL 9.5 Magnesium (1.8-2.4) mg/dL 1.5 L Total Bilirubin (0.2-1.0) mg/dL 0.6 AST (15-37) U/L 23 ALT (14-59) U/L 27 Alkaline Phosphatase (46-116) U/L 84 Troponin I (<or=51) ng/L 14 16 Total Protein (6.4-8.2) g/dL 7.1 Albumin (3.4-5.0) g/dL 3.6 Lipase (<78) U/L 24 Urine Color (Yellow) Yellow Urine Clarity (Clear) Clear Urine pH (5-8) 6.0 Ur Specific [place] (1.005-1.025) 1.010 Urine Protein (Neg-Trace) mg/dL Negative Urine Ketones (Negative) mg/dL Negative Urine Blood (Negative) Negative Urine Nitrite (Negative) Negative Urine Bilirubin (Negative) Negative Urine Urobilinogen (Up to 0.2) mg/dL 0.2 Ur Leukocyte Esterase (Negative) Negative Urine Glucose (Negative) mg/dL Negative PFSH All Active Problems (Updated 03/21/25 @ 15:45 by Samuel Renee MD) Right-sided chest wall pain (Acute) Hypomagnesemia (Acute) Benign paroxysmal positional vertigo (Acute) Fracture of phalanx of left little finger (Acute ~01/10/25) Status post reverse total shoulder replacement (Acute) Left rotator cuff tear (Acute) Arthritis of left glenohumeral joint (Acute) Mixed stress and urge urinary incontinence (Acute) Chest pain (Acute) Headache (Acute) Tight introitus (Chronic 2004) No sexual activity times 14 years. No Pap test times 5 years. Will attempt gradual introital dilation. Vaginal atrophy (Chronic) estrace cream started 03/27/18 Status post cataract extraction and insertion of intraocular lens of right eye (Chronic 03/20/18) Status post cataract extraction and insertion of intraocular lens of left eye (Chronic 03/06/18) Refractive amblyopia of right eye (Chronic) Refractive amblyopia of left eye (Chronic) Shoulder pain, right (Acute) a. With decreased range of motion. History of Surgical Procedure (Chronic) a. Excision of dorsal ganglion cyst, left wrist. b. Abdominal hysterectomy. c. Open cholecystectomy. d. Colonoscopy. Pain, low back (Chronic) a. She goes to the pain clinic. Hypertension (Chronic) a. Well controlled. History of asthma (Chronic) Esophageal reflux disease (Chronic) Elevated lipids (Chronic) Chest pain (Acute) Medical History WALT (obstructive sleep apnea) Cervical spondylosis Lumbar spinal stenosis Illiteracy Cataract Type 2 diabetes mellitus Chronic pain Exertional dyspnea Vaginal irritation Vaginal adhesions Impingement syndrome of left shoulder Bilateral leg cramps Cortical cataract of right eye Nuclear sclerotic cataract of right eye Gastroesophageal reflux disease Hypothyroidism Hyperlipidemia Dyslexia Arthritis Osteoporosis Chronic low back pain Essential hypertension Surgical History History of colonoscopy History of cataract surgery Oophrectomy, Right Abdominal hysterectomy Cholecystectomy Family History Mother Heart disease Father Personal history of malignant neoplasm Stomach Sister No problems noted. Brother Heart disease Social History Smoking/Tobacco Use Status: Never Smoking risk assessment performed?: Yes Alcohol Intake: never Drug use: Never Substance use type: does not use Housing: other Number of Children: 1 Do you feel safe at home: Yes Do you feel safe in your relationship?: Yes Additional Social history: pt. lives in a trailer, granddaughter to stay with here
== END 2025-03-21 16:14 | disposition home or self-care (01) ==
PROVIDERS: Emergency Provider General Practice; PCP Physician Assistant
DX: R42 Dizziness and giddiness (principal); E83.42 Hypomagnesemia; R07.89 Other chest pain
CPT/HCPCS: 99284; 99285; 36415; 71250; 80053; 83690; 93005; 96365; 96366; 70450; 72125; 81003; 83605; 83735; 84484; 85025; 85610; 85730; 93010; J3475

== ENCOUNTER 2025-05-25 10:46 | Outpatient (REF) | payer MEDICARE, MEDICAID, SELFPAY ==
[2025-05-25 16:02] LABS: Hemoglobin A1C 6.2 % (<5.7)
[2025-05-25 16:15] LABS: TSH 0.15 uIU/mL (0.55-4.78)
[2025-05-25 16:22] LABS: ALT 22 U/L (10-49); AST 24 U/L (<34); Albumin 4.1 g/dL (3.2-5.0); Alkaline Phosphatase 92 U/L (46-116); Anion Gap 9 mmol/L (3-11); BUN 17 mg/dL (9-23); Bilirubin, Total 0.4 mg/dL (0.2-1.2); CO2 27.5 mmol/L (20.0-31.0); Calcium 10.1 mg/dL (8.3-10.6); Chloride 96 mmol/L (98-107); Glucose 128 mg/dL (74-106); Potassium 4.7 mmol/L (3.5-5.1); Sodium 133 mmol/L (136-145); Total Protein 6.7 g/dL (5.7-8.2)
== END 2025-05-25 10:47 | disposition home or self-care (01) ==
LOC: NCHCN 10:46
PROVIDERS: PCP Physician Assistant; Visit Provider Physician Assistant
DX: E03.9 Hypothyroidism, unspecified (principal); E11.9 Type 2 diabetes mellitus without complications; I10 Essential (primary) hypertension
CPT/HCPCS: 80053; 82043; 82570; 83036; 84443